=== PATIENT | female | born 1995 | race Caucasian/White ===

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

== ENCOUNTER 2017-02-04 12:23 | Emergency (ER) | payer MEDICAID ==
[~2017-02-04] VITALS: Ht 175.3 cm; Wt 88.5 kg
[~2017-02-04 12:23] MED LIST changes: +AMOX500C2 PO; +PNV91TAB3 PO
--- NOTE | 2017-02-04 14:09 | ED GU-Female ---
General Chief Complaint: -Female Stated Complaint: PRESSURE IN R ABD DOWN LEG, 19W Nursing Triage Note: AMB TO ROOM IS APX 19WEEKS PREG . FOR LAST 2 MONTHS HAS HAD LOW ABD PRESSURE OFF AND ON TODAY WORSE. ATE BREAKFAST BURITTO,AND BISQUIT AND GRAVY CROSSING WATCHMAN. Source: patient, other (significant other) Exam Limitations: no limitations History of Present Illness Time seen by provider: 14:09 Initial Comments 21-year-old female patient presents to the emergency department with complaints of right adnexa/groin pain radiating down the right medial thigh for approximately 2 months. Worse with standing for long periods of time. Patient works at [employer] and stands for the majority of her shifts. Denies any dysuria, frequency, hematuria, vaginal discharge, vaginal bleeding. Reports eating and drinking without difficulty. Timing/Duration: other (2 month onset. waxes and wanes.) Severity/Quality: other ("stretching") Location: groin (rt groin/adnexa) Radiation: other (radiates down the rt medial thigh) Activities at Onset: other (standing) Sexual Deltana History: less than 2 months ago, single partner Modifying Factors: Improves With Lying down, Worsens With Movement, Worsens With Other (standing for long periods of thime.) Allergies and Home Medications Allergies Coded Allergies: No Known Drug Allergies (Unverified , 09/15/14) Home Medications Amoxicillin 500 Mg Capsule, 500 MG PO TID, #15 Prescribed by: RADHA SANCHES on 11/13/16 2103 Cephalexin 500 Mg Capsule, 500 MG PO TID, #15 Ref 0 Prescribed by: ANIKA MAY on 02/04/17 1520 Pnv95/Ferrous Fumarate/FA 1 Each Tablet, 1 EACH PO DAILY, (Reported) Constitutional: No chills, No dizziness, No fever, No malaise, No weakness Respiratory: no symptoms reported Cardiovascular: no symptoms reported Gastrointestinal: see HPI, abdominal pain (rt adnexa/groin pain), No constipation, No diarrhea, No loss of appetite, No nausea, No vomiting Genitourinary: see HPI, denies burning, denies discharge, denies dysuria, denies frequency, denies flank pain, denies hematuria, pain : Yes Musculoskeletal: see HPI Skin: No change in color, No lesions, No rash Psychiatric/Neurological: Denies Numbness, Denies Paresthesia, Denies Tingling , Denies Weakness All Other Systemes Reviewed Negative Unless Noted: Yes (Negative excepted noted.) Past Kzedljh-Cmffcb-Qcrskj Hx Patient Social History Alcohol Use: Denies Use Recreational Drug Use: No Smoking Status: Never a Smoker 2nd Hand Smoke Exposure: No Recent Foreign Travel: No Contact w/Someone Who Travel: No Recent Infectious Disease Expo: No Recent Hopitalizations: No Immunizations Up To Date Tetanus Booster (TDap): Less than 5yrs PED Vaccines UTD: Yes Date of Influenza Vaccine: Jun 04, 2014 Seasonal Allergies Seasonal Allergies: No Surgeries HX Surgeries: Yes (D&C) Surgeries: Abdominal, Appendectomy, Ear Surgery Respiratory Hx Respiratory Disorders: Yes Respiratory Disorders: Asthma Cardiovascular Hx Cardiac Disorders: Yes (AORTIC STENOSIS PER PT) Cardiac Disorders: Heart Murmur, Hypertension, Irregular Heartbeat, Valvular Heart Disease Neurological Hx Neurological Disorders: Yes Neurological Disorders: Headaches /Migraines Reproductive System : Yes Hx : 3 Hx Para: 0 Hx Total # of Abortions (Spona: 2 ((was never seen by a physician or practitoner)) Hx Reproductive Disorders: Yes (ENDOMETRIOSIS) Sexually Transmitted Disease: No Female Reproductive Disorders: Endometriosis, 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 Genitourinary Hx Genitourinary Disorders: No Gastrointestinal Hx Gastrointestinal Disorders: No Musculoskeletal Hx Musculoskeletal Disorders: No Endocrine Hx Endocrine Disorders: No HEENT HX ENT Disorders: No Cancer Hx Cancer: No Psychosocial Hx Psychiatric Problems: Yes Behavioral Health Disorders: ADD/ADHD, Anxiety Integumentary HX Skin/Integumentary Disorder: No Blood Transfusions Hx Blood Disorders: No Adverse Reaction to a Blood Tr: No Reviewed Nursing Assessment Reviewed/Agree w Nursing PMH: Yes Family Medical History Significant Family History: No Pertinent Family Hx Physical Exam Vital Signs Vital Sign - Last 12Hours 02/04/17 13:29 Temp 97.5 Pulse 91 Resp 18 B/P (MAP) 172/97 O2 Delivery Room Air Capillary Refill : General Appearance: WD/WN, no apparent distress HEENT: PERRL/EOMI, pharynx normal Neck: supple, normal inspection Cardiovascular: normal peripheral pulses, regular rate, rhythm, no edema, no murmur Respiratory: lungs clear, normal breath sounds, no respiratory distress Gastrointestinal: normal bowel sounds, non tender, soft, No distended, other ( uteromegaly consistent with a 19 wk uterus) Back: normal inspection, no CVA tenderness Extremities: no pedal edema, normal capillary refill Neurologic/Psychiatric: no motor/sensory deficits, alert, normal mood/affect, oriented x 3 Skin: normal color, warm/dry Progress/Results/Core Measures Results/Orders Lab Results Laboratory Tests Test 02/04/17 14:10 Range/Units Urine Color YELLOW Urine Clarity SLIGHTLY CLOUDY Urine pH 6 5-9 Urine Specific [place] 1.020 1.016-1.022 Urine Protein 1+ H NEGATIVE Urine Glucose (UA) NEGATIVE NEGATIVE Urine Ketones 3+ H NEGATIVE Urine Nitrite NEGATIVE NEGATIVE Urine Bilirubin NEGATIVE NEGATIVE Urine Urobilinogen 1 NORMAL MG/DL Urine Leukocyte Esterase 1+ H NEGATIVE Urine RBC (Auto) NEGATIVE NEGATIVE Urine RBC NONE /HPF Urine WBC 2-5 /HPF Urine Squamous Epithelial Cells 2-5 /HPF Urine Crystals NONE /LPF Urine Bacteria MODERATE H /HPF Urine Casts NONE /LPF Urine Mucus LARGE H /LPF Urine Culture Indicated YES My Orders Orders - ANIKA MAY Heart Tones (02/04/17 14:08) Ua Culture If Indicated (02/04/17 14:08) Urine Culture (02/04/17 14:10) Vital Signs/I&O Vital Sign - Last 12Hours 02/04/17 13:29 Temp 97.5 Pulse 91 Resp 18 B/P (MAP) 172/97 O2 Delivery Room Air Departure Communication Progress Notes FHT's in the 140's. laboratory findings discussed with the patient. Plan for discharge to home. All return precautions were discussed with the patient as described in the discharge instructions of this report. Patient voices understanding and agrees with the treatment plan. Impression Impression: Primary Impression: Round ligament pain Additional Impressions: 19 weeks gestation of Urinary tract infection Qualified Codes: N30.00 - Acute cystitis without hematuria Volume depletion Disposition: 01 HOME, SELF-CARE Condition: Improved Departure-Patient Inst. Decision time for Depature: 14:56 Referrals: SOCORRO MCKEON MD (PCP/Family) Primary Care Physician Patient Instructions: Dehydration, Adult (DC), Round Ligament Pain Add. Discharge Instructions: All discharge instructions reviewed with patient and/or family. Voiced understanding. Tylenol Extra Strength pkky-ntx-sqjxwax as directed for pain. Push fluids. Avoid the heat. Avoid standing for long periods. Consider using a "belly band" or belly support. follow-up with Dr. Mckeon for recheck as previously scheduled. Return to the emergency department for worsened pain, vaginal bleeding, vaginal discharge, fever, inability to urinate , blood in the urine, or any other concerns. Scripts Cephalexin (Cephalexin) 500 Mg Capsule 500 MG PO TID, #15 CAP 0 Refills Prov: ANIKA MAY 02/04/17 ANIKA MAY Feb 04, 2017 14:09
[2017-02-04 14:48] LABS: BILIRUBIN,URINE NEGATIVE (NEGATIVE); KETONES,URINE 3+ (NEGATIVE); LEUKOCYTE ESTERASE ,URINE 1+ (NEGATIVE); NITRITE,URINE NEGATIVE (NEGATIVE); PH,URINE 6 (5-9); PROTEIN,URINE 1+ (NEGATIVE); UROBILINOGEN,URINE 1 MG/DL (NORMAL)
[2017-02-04] MEDS ORDERED: CEPH500C PO (15:20)
== END 2017-02-04 15:29 | disposition home or self-care (01) ==
LOC: EDUNIT# 12:23 → ER 12:26
DX: O26.892 Other specified pregnancy related conditions, second trimester (principal); R10.2 Pelvic and perineal pain; O23.42 Unspecified infection of urinary tract in pregnancy, second trimester; O99.282 Endocrine, nutritional and metabolic diseases complicating pregnancy, second trimester; E86.9 Volume depletion, unspecified; Z3A.19 19 weeks gestation of pregnancy
CPT/HCPCS: 81000; 87088; 99283

== ENCOUNTER 2017-03-19 22:23 | Outpatient (CLI) | payer MEDICAID ==
[~2017-03-19] VITALS: Ht 170.2 cm; Wt 91.3 kg
[~2017-03-19 22:23] MED LIST changes: +CEPH500C PO
[2017-03-19 22:43] VITALS: BP 131/78
[2017-03-19 22:54] LABS: BILIRUBIN,URINE NEGATIVE (NEGATIVE); KETONES,URINE NEGATIVE (NEGATIVE); LEUKOCYTE ESTERASE ,URINE NEGATIVE (NEGATIVE); NITRITE,URINE NEGATIVE (NEGATIVE); PH,URINE 6 (5-9); PROTEIN,URINE 1+ (NEGATIVE); UROBILINOGEN,URINE NORMAL (NORMAL)
[2017-03-19 23:02] LABS: WBC,URINE 0-2 /HPF
[2017-03-19] MEDS ORDERED: D5 LR IV SOLUTION 1,000 ML IV ONE ×2 (23:04→23:15)
[2017-03-19 23:37] VITALS: BP 125/60
--- NOTE | 2017-03-20 13:01 | Physician Query-Final Dx ---
ACE GAUTHIER 03/20/17 1301: Clinic Account Progress/Dx Physician Query: Please give diagnosis Date of Service Mar 19, 2017 at 22:23 SOCORRO KIRKLAND MD 03/21/17 1029: Clinic Account Progress/Dx DIAGNOSIS: Diagnosis false labor ACE GAUTHIER Mar 20, 2017 13:01 SOCORRO KIRKLAND MD Mar 21, 2017 10:29
[2017-06-08] MEDS ORDERED: DOCU100C37 PO (07:39)
[2017-06-08] MEDS ORDERED: IBUP-1780 PO (07:39)
[2017-06-08] MEDS ORDERED: OXYC-465 PO (07:39)
[2017-06-09] MEDS ORDERED: LABE200T3 PO (07:50)
== END 2017-03-20 02:55 | disposition home or self-care (01) ==
LOC: WSo 22:23 → LDRP 22:23 → WSo 03-20 02:55
PROVIDERS: ATTEND Obstetrics & Gynecology
DX: O47.02 False labor before 37 completed weeks of gestation, second trimester (principal); Z3A.25 25 weeks gestation of pregnancy; W18.2XXA Fall in (into) shower or empty bathtub, initial encounter
CPT/HCPCS: 81000; 96360; 96361; 99213

== ENCOUNTER 2017-04-05 13:19 | Outpatient (CLI) | payer MEDICAID ==
[~2017-04-05] VITALS: Ht 170.2 cm; Wt 94.5 kg
[2017-04-05 13:53] VITALS: BP 139/76
[2017-04-05 15:28] VITALS: BP 134/88
--- NOTE | 2017-04-06 12:44 | Physician Query-Final Dx ---
CLYDE MONTERO 04/06/17 1244: Clinic Account Progress/Dx Physician Query: Please give diagnosis Date of Service Apr 05, 2017 at 13:19 SOCORRO KIRKLAND MD 04/06/17 1702: Clinic Account Progress/Dx DIAGNOSIS: Diagnosis decreased movement CLYDE MONTERO Apr 06, 2017 12:44 SOCORRO KIRKLAND MD Apr 06, 2017 17:02
== END 2017-04-05 15:10 | disposition home or self-care (01) ==
LOC: LDRP 13:19 → WSo 13:19
PROVIDERS: ATTEND Obstetrics & Gynecology
DX: O36.8130 Decreased fetal movements, third trimester, not applicable or unspecified (principal); Z3A.31 31 weeks gestation of pregnancy
CPT/HCPCS: 99213

== ENCOUNTER → 2017-04-14 | Outpatient (CLI) | payer MEDICAID | LOC: LABNPT 12:15 | PROVIDERS: ATTEND Obstetrics & Gynecology | DX: Z34.83 Encounter for supervision of other normal pregnancy, third trimester (principal); Z3A.00 Weeks of gestation of pregnancy not specified | CPT/HCPCS: 86850; 86870 ==

== ENCOUNTER → 2017-04-15 | Outpatient (CLI) | payer MEDICAID | LOC: WSo 13:42 | PROVIDERS: ATTEND Obstetrics & Gynecology | DX: Z41.8 Encounter for other procedures for purposes other than remedying health state (principal) ==

== ENCOUNTER 2017-04-19 12:47 | Outpatient (CLI) | payer MEDICAID ==
[~2017-04-19] VITALS: Ht 170.2 cm; Wt 96.6 kg
[2017-04-19 13:20] VITALS: BP 144/78
[2017-04-19 13:38] LABS: BILIRUBIN,URINE NEGATIVE (NEGATIVE); KETONES,URINE NEGATIVE (NEGATIVE); LEUKOCYTE ESTERASE ,URINE 1+ (NEGATIVE); NITRITE,URINE NEGATIVE (NEGATIVE); PH,URINE 6 (5-9); PROTEIN,URINE 2+ (NEGATIVE); UROBILINOGEN,URINE NORMAL (NORMAL)
--- NOTE | 2017-04-20 11:38 | Physician Query-Final Dx ---
CLYDE MONTERO 04/20/17 1138: Clinic Account Progress/Dx Physician Query: Please give diagnosis Date of Service Apr 19, 2017 at 12:47 SOCORRO KIRKLAND MD 05/04/17 0819: Clinic Account Progress/Dx DIAGNOSIS: Diagnosis false labor CLYDE MONTERO Apr 20, 2017 11:38 SOCORRO KIRKLAND MD May 04, 2017 08:19
== END 2017-04-19 14:25 | disposition home or self-care (01) ==
LOC: WSo 12:47 → LDRP 12:49 → WSo 14:25
PROVIDERS: ATTEND Obstetrics & Gynecology
DX: O47.03 False labor before 37 completed weeks of gestation, third trimester (principal); Z3A.29 29 weeks gestation of pregnancy
CPT/HCPCS: 81000; 87088; 99213

== ENCOUNTER 2017-05-06 18:24 | Outpatient (CLI) | payer MEDICAID ==
[~2017-05-06] VITALS: Ht 170.2 cm; Wt 98.0 kg
[2017-05-06 18:38] VITALS: BP 136/73
[2017-05-06 18:59] VITALS: BP 140/90
[2017-05-06 19:00] VITALS: BP 137/83
[2017-05-06] MEDS ORDERED: D5 LR IV SOLUTION 1,000 ML IV SCH (19:15)
[2017-05-06 19:52] LABS: BASOPHILS % (AUTO) 0 % (0-10); EOSINOPHILS # (AUTO) 0.1 10^3/uL (0.0-0.3); EOSINOPHILS % (AUTO) 1 % (0-10); LYMPHOCYTES % (AUTO) 14 % (12-44); MEAN CORPUSCULAR HEMOGLOBIN 30 PG (25-34); MEAN CORPUSCULAR HGB CONC 34 G/DL (32-36); MEAN CORPUSCULAR VOLUME 89 FL (80-99); MEAN PLATELET VOLUME 10.8 FL (7.4-10.4); MONOCYTES # (AUTO) 1.5 X 10^3 (0.0-1.0); MONOCYTES % (AUTO) 10 % (0-12); NEUTROPHILS # (AUTO) 10.5 X 10^3 (1.8-7.8); NEUTROPHILS % (AUTO) 75 % (42-75); PLATELET COUNT 225 10^3/uL (130-400); RED BLOOD COUNT 3.68 10^6/uL (4.35-5.85); RED CELL DISTRIBUTION WIDTH 12.5 % (10.0-14.5)
[2017-05-06 20:10] LABS: ALANINE AMINOTRANSFERASE 19 U/L (0-55); ALBUMIN 3.2 GM/DL (3.2-4.5); ANION GAP 11 MMOL/L (5-14); ASPARTATE AMINO TRANSFERASE 13 U/L (5-34); BILIRUBIN,TOTAL 0.3 MG/DL (0.1-1.0); BLOOD UREA NITROGEN 14 MG/DL (7-18); BUN/CREATININE RATIO 26; CARBON DIOXIDE 20 MMOL/L (21-32); CHLORIDE 105 MMOL/L (98-107); CREATININE SERUM 0.53 MG/DL (0.60-1.30); GFR ESTIMATED > 60; GLUCOSE 110 MG/DL (70-105); LACTATE DEHYDROGENASE 177 U/L (125-220); POTASSIUM 3.7 MMOL/L (3.6-5.0); SODIUM 136 MMOL/L (135-145); TOTAL PROTEIN 6.2 GM/DL (6.4-8.2); URIC ACID 2.6 MG/DL (2.6-7.2)
[2017-05-06 20:13] LABS: PROTEIN/CREATININE RATIO 0.29
--- NOTE | 2017-05-09 13:32 | Physician Query-Final Dx ---
ACE GAUTHIER 05/09/17 1331: Clinic Account Progress/Dx Physician Query: Please give diagnosis Date of Service May 06, 2017 at 18:24 SOCORRO KIRKLAND MD 05/10/17 0737: Clinic Account Progress/Dx DIAGNOSIS: Diagnosis tachycardia due to dehydration ACE GAUTHIER May 09, 2017 13:31 SOCORRO KIRKLAND MD May 10, 2017 07:37
== END 2017-05-06 21:54 | disposition home or self-care (01) ==
LOC: WSo 18:24 → LDRP 18:31 → WSo 21:54
PROVIDERS: ATTEND Obstetrics & Gynecology
DX: O99.283 Endocrine, nutritional and metabolic diseases complicating pregnancy, third trimester (principal); E86.0 Dehydration; Z3A.31 31 weeks gestation of pregnancy
CPT/HCPCS: 36415; 80053; 80306; 82570; 83615; 84156; 84550; 85025; 96360; 99213

== ENCOUNTER 2017-05-14 13:18 | Observation (INO) | payer MEDICAID ==
[2017-05-14] VITALS (16 sets, daily range): BP systolic 119–170; BP diastolic 61–94
[~2017-05-14] VITALS: Ht 170.2 cm; Wt 100.3 kg
[2017-05-14] MEDS ORDERED: ONDANSETRON 4 MG/2 ML (SDV) Z0FRAN IVP ONE (13:45)
[2017-05-14] MEDS ORDERED: LACTATED RINGERS 1,000 ML IV ONE (13:45)
[2017-05-14 14:12] LABS: BASOPHILS % (AUTO) 0 % (0-10); EOSINOPHILS # (AUTO) 0.1 10^3/uL (0.0-0.3); EOSINOPHILS % (AUTO) 1 % (0-10); LYMPHOCYTES # (AUTO) 1.7 X 10^3 (1.0-4.0); LYMPHOCYTES % (AUTO) 14 % (12-44); MEAN CORPUSCULAR HEMOGLOBIN 30 PG (25-34); MEAN CORPUSCULAR HGB CONC 33 G/DL (32-36); MEAN CORPUSCULAR VOLUME 90 FL (80-99); MEAN PLATELET VOLUME 11.1 FL (7.4-10.4); MONOCYTES # (AUTO) 1.4 X 10^3 (0.0-1.0); MONOCYTES % (AUTO) 11 % (0-12); NEUTROPHILS # (AUTO) 9.3 X 10^3 (1.8-7.8); NEUTROPHILS % (AUTO) 75 % (42-75); PLATELET COUNT 219 10^3/uL (130-400); RED BLOOD COUNT 3.75 10^6/uL (4.35-5.85); RED CELL DISTRIBUTION WIDTH 12.8 % (10.0-14.5); WHITE BLOOD COUNT 12.5 10^3/uL (4.3-11.0)
[2017-05-14 14:26] LABS: ALANINE AMINOTRANSFERASE 16 U/L (0-55); ALBUMIN 3.2 GM/DL (3.2-4.5); ANION GAP 10 MMOL/L (5-14); ASPARTATE AMINO TRANSFERASE 12 U/L (5-34); BILIRUBIN,TOTAL 0.3 MG/DL (0.1-1.0); BLOOD UREA NITROGEN 12 MG/DL (7-18); BUN/CREATININE RATIO 21; CARBON DIOXIDE 18 MMOL/L (21-32); CHLORIDE 108 MMOL/L (98-107); CREATININE SERUM 0.57 MG/DL (0.60-1.30); GFR ESTIMATED > 60; GLUCOSE 133 MG/DL (70-105); SODIUM 136 MMOL/L (135-145); TOTAL PROTEIN 6.9 GM/DL (6.4-8.2)
[2017-05-14 15:23] LABS: BILIRUBIN,URINE NEGATIVE (NEGATIVE); KETONES,URINE NEGATIVE (NEGATIVE); LEUKOCYTE ESTERASE ,URINE 1+ (NEGATIVE); NITRITE,URINE NEGATIVE (NEGATIVE); PH,URINE 5 (5-9); PROTEIN,URINE 2+ (NEGATIVE); UROBILINOGEN,URINE NORMAL (NORMAL)
[2017-05-14 15:38] LABS: SQUAMOUS EPITHELIAL CELL,UR 25-50 /HPF; WBC,URINE 0-2 /HPF
[2017-05-14 15:39] LABS: CALCIUM OXALATE CRYSTALS,UR LARGE /LPF
[2017-05-14 16:44] LABS: PROTEIN/CREATININE RATIO 0.33
[2017-05-14] MEDS ORDERED: D5 LR IV SOLUTION 1,000 ML IV ONE (16:48)
[2017-05-14] MEDS: D5 LR IV SOLUTION 1,000 ML IV SCH ×2 (17:05→23:53)
--- NOTE | 2017-05-14 20:57 | History & Physical ---
History and Physical Date Seen by Provider: May 14, 2017 Time Seen by Provider: 20:52 this patient is a 21-year-old A1 white female with an EDC of July 02, 2017 putting her at just past 32 weeks gestation. She presented with complaint of nausea and vomiting and feeling ill. He was found to have 3+ proteinuria on dipstick and a urine protein creatinine ratio of over 3. She was also somewhat dehydrated. Patient reported feeling somewhat improved after IV hydration and antiemetics. She has remained for observation now secondary to the elevated urine protein and some occasional elevated blood pressures. Concern is for preeclampsia. She denies rupture membranes or bleeding. She is Rh- and had a dose of Rhogam at around 28 weeks gestation. allergies are none Medications are vitamins and Protonix Medical history, past surgical history, obstetric history, family history, social history are per the antepartum record HEENT exam is normal Neck is supple no lymphadenopathy no thyromegaly Abdomen is gravid soft nontender nondistended Extreme show no clubbing cyanosis. There is no Homans sign. DTRs are 2+ to low 3 over 4 globally Pelvic exam is deferred Monitor shows a reactive NST with no evidence of labor Lab work is as follows Laboratory Tests Test 05/14/17 14:00 05/14/17 14:10 Range/Units White Blood Count 12.5 H 4.3-11.0 10^3/uL Red Blood Count 3.75 L 4.35-5.85 10^6/uL Hemoglobin 11.2 L 11.5-16.0 G/DL Hematocrit 34 L 35-52 % Mean Corpuscular Volume 90 80-99 FL Mean Corpuscular Hemoglobin 30 25-34 PG Mean Corpuscular Hemoglobin Concent 33 32-36 G/DL Red Cell Distribution Width 12.8 10.0-14.5 % Platelet Count 219 130-400 10^3/uL Mean Platelet Volume 11.1 H 7.4-10.4 FL Neutrophils (%) (Auto) 75 42-75 % Lymphocytes (%) (Auto) 14 12-44 % Monocytes (%) (Auto) 11 0-12 % Eosinophils (%) (Auto) 1 0-10 % Basophils (%) (Auto) 0 0-10 % Neutrophils # (Auto) 9.3 H 1.8-7.8 X 10^3 Lymphocytes # (Auto) 1.7 1.0-4.0 X 10^3 Monocytes # (Auto) 1.4 H 0.0-1.0 X 10^3 Eosinophils # (Auto) 0.1 0.0-0.3 10^3/uL Basophils # (Auto) 0.0 0.0-0.1 10^3/uL Sodium Level 136 135-145 MMOL/L Potassium Level 4.0 3.6-5.0 MMOL/L Chloride Level 108 H 98-107 MMOL/L Carbon Dioxide Level 18 L 21-32 MMOL/L Anion Gap 10 5-14 MMOL/L Blood Urea Nitrogen 12 7-18 MG/DL Creatinine 0.57 L 0.60-1.30 MG/DL Estimat Glomerular Filtration Rate > 60 BUN/Creatinine Ratio 21 Glucose Level 133 H 70-105 MG/DL Calcium Level 9.0 8.5-10.1 MG/DL Total Bilirubin 0.3 0.1-1.0 MG/DL Aspartate Amino Transf (AST/SGOT) 12 5-34 U/L Alanine Aminotransferase (ALT/SGPT) 16 0-55 U/L Alkaline Phosphatase 147 H 40-136 U/L Total Protein 6.9 6.4-8.2 GM/DL Albumin 3.2 3.2-4.5 GM/DL Urine Color YELLOW Urine Clarity CLEAR Urine pH 5 5-9 Urine Specific [place] 1.025 H 1.016-1.022 Urine Protein 50 H 6-12 MG/DL Urine Glucose (UA) 3+ H NEGATIVE Urine Ketones NEGATIVE NEGATIVE Urine Nitrite NEGATIVE NEGATIVE Urine Bilirubin NEGATIVE NEGATIVE Urine Urobilinogen NORMAL NORMAL MG/DL Urine Leukocyte Esterase 1+ H NEGATIVE Urine RBC (Auto) NEGATIVE NEGATIVE Urine RBC NONE /HPF Urine WBC 0-2 /HPF Urine Squamous Epithelial Cells 25-50 H /HPF Urine Crystals PRESENT H /LPF Urine Calcium Oxalate Crystals LARGE H /LPF Urine Bacteria TRACE /HPF Urine Casts NONE /LPF Urine Mucus NEGATIVE /LPF Urine Culture Indicated NO Urine Creatinine 153 H 30-125 MG/DL Urine Protein/Creatinine Ratio 0.33 of note is the elevated urine protein creatinine ratio, and the elevated specific gravity liver enzymes are normal electrolytes were normal platelet count is normal assessment and plan 32+ week gestation with elevated urine protein creatinine ratio concerning for preeclampsia. Patient's dehydration may have an impact on her urine protein creatinine ratio we will keep her hydrated through the night and recheck the urine protein creatinine ratio in the morning. patient is found definitely to have preeclampsia then she will be admitted for observation until 37 weeks gestation at which time she would be delivered unless she were to develop severe preeclampsia warranting delivery at that point hyper proteinuria/preeclampsia Allergies and Home Medications Allergies Coded Allergies: No Known Drug Allergies (Unverified , 09/15/14) Home Medications Pnv95/Ferrous Fumarate/FA 1 Each Tablet, 1 EACH PO DAILY, (Reported) SOCORRO KIRKLAND MD May 14, 2017 8:57 pm
[2017-05-14] MEDS ORDERED: ACETAMINOPHEN 500 MG TAB (TYLENOL) PO PRN (21:15)
[2017-05-14] MEDS ORDERED: ONDANSETRON 4 MG/2 ML (SDV) Z0FRAN IVP PRN (21:15)
[2017-05-14] MEDS ORDERED: PANTOPRAZOLE 20 MG TABLET (PROTONIX) PO PRN (21:15)
--- OUTSIDE RECORDS SUMMARY | 2017-05-14 21:50 | XMS REPORT | Continuity of Care Document ---
Author Author [employer] [facility] Address Unknown Phone Unavailable Care Team Providers Care Supervisor Safety Deposit Name Role Phone [employer] Unavailable Unavailable Problems Medications Medication Details Route Status Patient Instructions Ordering Provider Order Date Source lisinopril 10 mg oral tablet 10 mg=1 tablet, PO, qDay , # 30 tablet, Refill(s) 11, Pharmacy: [facility] Active [facility] Albuterol Inhaler (unknown strength) =1 puff, Inhaled , 4 times a day, Refill(s) 0 [facility] Depo-Provera Every 3 months, Refill(s) 0
</br> Every 3 months [facility] Allergies, Adverse Reactions, Alerts Immunizations Results Vital Signs Vital Sign Value Date Comments Source Current Weight 79.7 kg 2013 [facility] Heart Rate 93 bpm 04/18/2014 [facility] Respiratory Rate 20 BR/min [facility] Height/Length 166.9 cm 2013 [facility] Systolic Blood Pressure Cuff Monitored 128 mm[Hg] 04/18/2014 [facility] Diastolic Blood Pressure Cuff Monitored 81 mm[Hg] 04/18/2014 [facility] Encounters Location Location Details Encounter Type Encounter Number Reason For Visit Attending Provider ADM Date DC Date Status Source CMJO CMJO CLI [id number] AVS Leonid Gelatt 04/18/2014 04/18/2014 [facility] Procedures Plan of Care Social History Assessment and Plan Family History Value Date Source Advance Directives Order Name Results Value Date Source
[2017-05-15 00:46] VITALS: BP 131/69
[2017-05-15 05:09] VITALS: BP 138/87
[2017-05-15] MEDS: D5 LR IV SOLUTION 1,000 ML IV SCH (06:30)
[2017-05-15 07:30] VITALS: BP 134/92
--- NOTE | 2017-05-15 07:34 | Progress Note-Standard ---
Standard Progress Note Progress Notes/Assess & Plan Date Seen by Provider: May 15, 2017 Time Seen by Provider: 07:31 Progress/Assessment & Plan this patient is now without complaint. She feels markedly better than on admission. She denies chest pain, denies shortness of breath, denies headache, denies nausea vomiting. She feel baby moving. She denies ruptured membranes or bleeding. Her nausea had resolved. She is voiding normally. Laboratory Tests Test 05/14/17 14:00 05/14/17 14:10 05/15/17 05:00 Range/Units White Blood Count 12.5 H 4.3-11.0 10^3/uL Red Blood Count 3.75 L 4.35-5.85 10^6/uL Hemoglobin 11.2 L 11.5-16.0 G/DL Hematocrit 34 L 35-52 % Mean Corpuscular Volume 90 80-99 FL Mean Corpuscular Hemoglobin 30 25-34 PG Mean Corpuscular Hemoglobin Concent 33 32-36 G/DL Red Cell Distribution Width 12.8 10.0-14.5 % Platelet Count 219 130-400 10^3/uL Mean Platelet Volume 11.1 H 7.4-10.4 FL Neutrophils (%) (Auto) 75 42-75 % Lymphocytes (%) (Auto) 14 12-44 % Monocytes (%) (Auto) 11 0-12 % Eosinophils (%) (Auto) 1 0-10 % Basophils (%) (Auto) 0 0-10 % Neutrophils # (Auto) 9.3 H 1.8-7.8 X 10^3 Lymphocytes # (Auto) 1.7 1.0-4.0 X 10^3 Monocytes # (Auto) 1.4 H 0.0-1.0 X 10^3 Eosinophils # (Auto) 0.1 0.0-0.3 10^3/uL Basophils # (Auto) 0.0 0.0-0.1 10^3/uL Sodium Level 136 135-145 MMOL/L Potassium Level 4.0 3.6-5.0 MMOL/L Chloride Level 108 H 98-107 MMOL/L Carbon Dioxide Level 18 L 21-32 MMOL/L Anion Gap 10 5-14 MMOL/L Blood Urea Nitrogen 12 7-18 MG/DL Creatinine 0.57 L 0.60-1.30 MG/DL Estimat Glomerular Filtration Rate > 60 BUN/Creatinine Ratio 21 Glucose Level 133 H 70-105 MG/DL Calcium Level 9.0 8.5-10.1 MG/DL Total Bilirubin 0.3 0.1-1.0 MG/DL Aspartate Amino Transf (AST/SGOT) 12 5-34 U/L Alanine Aminotransferase (ALT/SGPT) 16 0-55 U/L Alkaline Phosphatase 147 H 40-136 U/L Total Protein 6.9 6.4-8.2 GM/DL Albumin 3.2 3.2-4.5 GM/DL Urine Color YELLOW Urine Clarity CLEAR Urine pH 5 5-9 Urine Specific [place] 1.025 H 1.016-1.022 Urine Protein 50 H < 6 L 6-12 MG/DL Urine Glucose (UA) 3+ H NEGATIVE Urine Ketones NEGATIVE NEGATIVE Urine Nitrite NEGATIVE NEGATIVE Urine Bilirubin NEGATIVE NEGATIVE Urine Urobilinogen NORMAL NORMAL MG/DL Urine Leukocyte Esterase 1+ H NEGATIVE Urine RBC (Auto) NEGATIVE NEGATIVE Urine RBC NONE /HPF Urine WBC 0-2 /HPF Urine Squamous Epithelial Cells 25-50 H /HPF Urine Crystals PRESENT H /LPF Urine Calcium Oxalate Crystals LARGE H /LPF Urine Bacteria TRACE /HPF Urine Casts NONE /LPF Urine Mucus NEGATIVE /LPF Urine Culture Indicated NO Urine Creatinine 153 H 35 30-125 MG/DL Urine Protein/Creatinine Ratio 0.33 Urine protein creatinine ratio has normalized. Vital Signs Date Time Temp Pulse Resp B/P (MAP) Pulse Ox O2 Delivery O2 Flow Rate FiO2 05/15/17 05:09 97.0 86 20 138/87 Room Air 05/15/17 00:46 98 20 131/69 Room Air 05/14/17 23:52 97.2 93 20 130/61 Room Air 05/14/17 23:00 96 20 137/86 Room Air 05/14/17 22:00 86 20 122/67 Room Air 05/14/17 21:00 98.0 91 20 136/89 Room Air 05/14/17 20:05 93 20 141/84 Room Air 05/14/17 19:00 90 20 119/77 Room Air 05/14/17 18:00 93 20 130/85 05/14/17 17:00 92 20 143/82 05/14/17 16:00 86 20 140/91 05/14/17 15:30 85 20 128/74 05/14/17 15:00 87 20 132/74 05/14/17 14:30 98 20 135/69 05/14/17 14:22 90 20 131/85 05/14/17 14:20 100 20 136/94 05/14/17 14:00 96 20 170/85 05/14/17 13:30 98.8 111 20 137/86 blood pressures which have been somewhat labile running as high as 170/85 and now consistently in the 130s over 60s to 80s the abdomen is benign. Fundus is nontender. extremities show no clubbing or cyanosis. There is no Homans sign. DTRs are normal lochia. assessment and plan hospital day 2 with hyperproteinuria, dehydration and elevated blood pressures. the patient is symptomatically improved. Her lab work has normalized and her blood pressures are improved. Plan is for discharge home with follow-up in clinic Final Diagnosis 32+ weeks gestation/mild preeclampsia/hyper proteinuria/dehydration SOCORRO KIRKLAND MD May 15, 2017 7:34 am
--- NOTE | 2017-05-15 07:38 | Discharge Instructions ---
Discharge Instructions Discharge Medications New, Converted or Re-Newed RX: Other Patient Instructions Patient Instructions: as directed Return to The Hospital For: as directed Activity & Diet Discharge Diet: No Restrictions Activity as Tolerated: Yes Orders-Post D/C & Referrals return to clinic as scheduled on Monday for OB follow-up Return promptly for any signs symptoms and indications of labor, eclampsia, persistent nausea vomiting SOCORRO KIRKLAND MD May 15, 2017 7:38 am
--- OUTSIDE RECORDS SUMMARY | 2017-05-16 11:29 | XMS REPORT | Continuity of Care Document ---
Author Author [employer] Organization [facility] Address Unknown Phone Unavailable Care Team Providers Care Negative Cutter Name Role Phone [employer] Unavailable Unavailable Problems Medications Medication Details Route Status Patient Instructions Ordering Provider Order Date Source lisinopril 10 mg oral tablet 10 mg=1 tablet, PO, qDay , # 30 tablet, Refill(s) 11, Pharmacy: [facility] Albuterol Inhaler (unknown strength) =1 puff, Inhaled , 4 times a day, Refill(s) 0 [facility] Depo-Provera Every 3 months, Refill(s) 0
</br> Every 3 months [facility] Allergies, Adverse Reactions, Alerts Immunizations Results Vital Signs Vital Sign Value Date Comments Source Current Weight 79.[address] [facility] Heart Rate 93 bpm 04/18/2014 [facility] Respiratory Rate 20 BR/min [facility] Height/Length 166.[address] [facility] Systolic Blood Pressure Cuff Monitored 128 mm[Hg] 04/18/2014 [facility] Diastolic Blood Pressure Cuff Monitored 81 mm[Hg] 04/18/2014 [facility] Encounters Location Location Details Encounter Type Encounter Number Reason For Visit Attending Provider ADM Date DC Date Status Source CMJO CMJO CLI [id number] AVS Leonid Gelatt 04/18/2014 04/18/2014 [facility] Procedures Plan of Care Social History Assessment and Plan Family History Value Date Source Advance Directives Order Name Results Value Date Source
== END 2017-05-15 07:36 | disposition home or self-care (01) ==
LOC: LDRP 13:18 → WSo 13:18 → LDRP 13:25 → WSo 20:59 → LDRP 20:59 → UNDOADMOB 20:59 → UNDODISOB 05-15 08:05 → EDSTATUS 05-16 11:23
PROVIDERS: ADMIT Obstetrics & Gynecology; ATTEND Obstetrics & Gynecology
DX: O21.8 Other vomiting complicating pregnancy (principal); O12.13 Gestational proteinuria, third trimester; Z3A.32 32 weeks gestation of pregnancy
CPT/HCPCS: 36415; 80053; 81000; 82570; 84156; 85025; 96361; 96374; 99211; G0378

== ENCOUNTER → 2017-05-19 | Outpatient (CLI) | payer MEDICAID ==
[~2017-05-19] MED LIST changes: +PNV11TAB5 PO
[2017-05-19 11:34] LABS: PROTEIN/CREATININE RATIO 0.2
== END ==
LOC: LABNPT 11:07
PROVIDERS: ATTEND Obstetrics & Gynecology
DX: O14.03 Mild to moderate pre-eclampsia, third trimester (principal); Z3A.00 Weeks of gestation of pregnancy not specified
CPT/HCPCS: 82570; 84156

== ENCOUNTER 2017-05-21 13:53 | Outpatient (CLI) | payer MEDICAID ==
[~2017-05-21] VITALS: Ht 170.2 cm; Wt 102.6 kg
[~2017-05-21 13:53] MED LIST changes: -PNV11TAB5 PO
[2017-05-21 14:19] VITALS: BP 134/85
[2017-05-21] MEDS ORDERED: PNV11TAB5 PO (14:45)
--- NOTE | 2017-05-22 14:09 | Physician Query-Final Dx ---
ACE GAUTHIER 05/22/17 1409: Clinic Account Progress/Dx Physician Query: Please give diagnosis Date of Service May 21, 2017 at 13:53 SOCORRO KIRKLAND MD 05/23/17 0805: Clinic Account Progress/Dx DIAGNOSIS: Diagnosis false labor ACE GAUTHIER May 22, 2017 14:09 SOCORRO KIRKLAND MD May 23, 2017 08:05
== END 2017-05-21 15:26 | disposition home or self-care (01) ==
LOC: WSo 13:53 → LDRP 13:53 → WSo 15:26
PROVIDERS: ATTEND Obstetrics & Gynecology
DX: O47.03 False labor before 37 completed weeks of gestation, third trimester (principal); Z3A.34 34 weeks gestation of pregnancy
CPT/HCPCS: 99214

== ENCOUNTER → 2017-05-23 | Outpatient (CLI) | payer MEDICAID ==
[~2017-05-23] MED LIST changes: +PNV11TAB5 PO
[2017-05-23 11:27] LABS: PROTEIN/CREATININE RATIO 0.32
== END ==
LOC: LABNPT 10:56
PROVIDERS: ATTEND Obstetrics & Gynecology
DX: O14.03 Mild to moderate pre-eclampsia, third trimester; Z3A.00 Weeks of gestation of pregnancy not specified
CPT/HCPCS: 82570; 84156

== ENCOUNTER → 2017-05-26 | Outpatient (CLI) | payer MEDICAID ==
[~2017-05-26] MED LIST changes: +DOCU100C37 PO; +IBUP-1780 PO; +LABE200T3 PO; +OXYC-465 PO
[2017-05-26 09:45] LABS: PROTEIN/CREATININE RATIO 0.31
== END ==
LOC: LABNPT 08:55
PROVIDERS: ATTEND Obstetrics & Gynecology
DX: O28.8 Other abnormal findings on antenatal screening of mother (principal); Z3A.00 Weeks of gestation of pregnancy not specified
CPT/HCPCS: 82570; 84156

== ENCOUNTER → 2017-05-30 | Outpatient (CLI) | payer MEDICAID ==
[~2017-05-30] MED LIST changes: -DOCU100C37 PO; -IBUP-1780 PO; -LABE200T3 PO; -OXYC-465 PO
[2017-05-30 11:02] LABS: PROTEIN/CREATININE RATIO 0.44
== END ==
LOC: LABNPT 10:28
PROVIDERS: ATTEND Obstetrics & Gynecology
DX: O28.8 Other abnormal findings on antenatal screening of mother (principal); Z3A.00 Weeks of gestation of pregnancy not specified
CPT/HCPCS: 82570; 84156

== ENCOUNTER → 2017-06-02 | Outpatient (CLI) | payer MEDICAID ==
[2017-06-02 10:34] LABS: PROTEIN/CREATININE RATIO 0.5
== END ==
LOC: LABNPT 09:55
PROVIDERS: ATTEND Obstetrics & Gynecology
DX: O20.8 Other hemorrhage in early pregnancy (principal); Z3A.00 Weeks of gestation of pregnancy not specified
CPT/HCPCS: 82570; 84156

== ENCOUNTER → 2017-06-06 | Outpatient (CLI) | payer MEDICAID ==
[~2017-06-06] MED LIST changes: +DOCU100C37 PO; +IBUP-1780 PO; +LABE200T3 PO; +OXYC-465 PO
[2017-06-06 17:47] LABS: PROTEIN/CREATININE RATIO 0.36
== END ==
LOC: LABNPT 10:25
PROVIDERS: ATTEND Obstetrics & Gynecology
DX: O28.8 Other abnormal findings on antenatal screening of mother; Z3A.00 Weeks of gestation of pregnancy not specified
CPT/HCPCS: 82570; 84156

== ENCOUNTER 2017-06-07 18:22 | Inpatient (IN) | payer MEDICAID ==
[2017-06-07] VITALS (27 sets, daily range): BP systolic 118–188; BP diastolic 82–120
[~2017-06-07] VITALS: Ht 170.2 cm; Wt 108.4 kg
[~2017-06-07 18:22] MED LIST changes: -DOCU100C37 PO; -IBUP-1780 PO; -LABE200T3 PO; -OXYC-465 PO
[2017-06-07 19:05] LABS: BILIRUBIN,URINE NEGATIVE (NEGATIVE); KETONES,URINE NEGATIVE (NEGATIVE); LEUKOCYTE ESTERASE ,URINE 1+ (NEGATIVE); NITRITE,URINE NEGATIVE (NEGATIVE); PH,URINE 7 (5-9); PROTEIN,URINE 3+ (NEGATIVE); UROBILINOGEN,URINE 1 MG/DL (NORMAL)
[2017-06-07] MEDS ORDERED: INFLUENZA TRIvalent 2017-2018 0.5 ML/45 MCG SYR IM ONE (19:15)
[2017-06-07 19:17] LABS: SQUAMOUS EPITHELIAL CELL,UR 25-50 /HPF
[2017-06-07] MEDS ORDERED: D5 LR IV SOLUTION 1,000 ML IV ONE ×2 (19:20→20:54)
[2017-06-07] MEDS ORDERED: D5 LR IV SOLUTION 1,000 ML IV SCH ×2 (19:45→20:44)
[2017-06-07 19:57] LABS: MEAN PLATELET VOLUME 11.3 FL (7.4-10.4); RED BLOOD COUNT 3.74 10^6/uL (4.35-5.85); RED CELL DISTRIBUTION WIDTH 13.3 % (10.0-14.5); WHITE BLOOD COUNT 9.8 10^3/uL (4.3-11.0)
[2017-06-07 20:15] LABS: ALANINE AMINOTRANSFERASE 19 U/L (0-55); ALBUMIN 3.1 GM/DL (3.2-4.5); ANION GAP 9 MMOL/L (5-14); ASPARTATE AMINO TRANSFERASE 14 U/L (5-34); BILIRUBIN,TOTAL 0.2 MG/DL (0.1-1.0); BLOOD UREA NITROGEN 11 MG/DL (7-18); BUN/CREATININE RATIO 21; CALCIUM 9.1 MG/DL (8.5-10.1); CARBON DIOXIDE 21 MMOL/L (21-32); CHLORIDE 107 MMOL/L (98-107); CREATININE SERUM 0.52 MG/DL (0.60-1.30); GFR ESTIMATED > 60; GLUCOSE 104 MG/DL (70-105); LACTATE DEHYDROGENASE 201 U/L (125-220); POTASSIUM 3.8 MMOL/L (3.6-5.0); SODIUM 137 MMOL/L (135-145); TOTAL PROTEIN 6.8 GM/DL (6.4-8.2); URIC ACID 2.4 MG/DL (2.6-7.2)
[2017-06-07 20:18] LABS: PROTEIN/CREATININE RATIO 1.18
[2017-06-07] MEDS ORDERED: METOCLOPRAMIDE INJ 10 MG/2 ML (REGLAN) ONE (20:24)
[2017-06-07] MEDS ORDERED: CITRIC ACID/SOB CIT (BICITRA) 30 ML UDC ONE (20:25)
[2017-06-07] MEDS ORDERED: ceFAZolin 2 GM/50 ML NS 50 ML ONE (20:25)
[2017-06-07] MEDS ORDERED: metroNIDAZOLE 500MG/100ML IVPB 100 ML ONE (20:25)
[2017-06-07] MEDS ORDERED: hydrALAZINE (APESOLINE) 20 MG/ML VIAL ONE ×2 (20:37→21:02)
[2017-06-07] MEDS ORDERED: MAGNESIUM SULFATE DRIP 500 ML IV ONE (20:37)
--- NOTE | 2017-06-07 20:44 | History & Physical ---
History and Physical Date Seen by Provider: Jun 07, 2017 Time Seen by Provider: 20:32 this patient is a 21-year-old G3 A2 white female with a due date of July 02, 2017 making her now 36 weeks and 3 days. She has been followed in clinic for mildly elevated blood pressures and progressively increasing proteinuria. She presented to labor and delivery this evening with complaint of headache increasing swelling leg numbness. She denies rupture membranes or bleeding. She has had a GBS culture done after 35 weeks gestation that was positive. She indicates currently that her headache has slightly improved.. Allergies are none Medications are vitamins and Protonix Past medical history, past surgical history, obstetric history, family history, and social histories are per the antepartum record HEENT exam is normal Is supple no lymphadenopathy no thyromegaly Abdomen is gravid soft nontender nondistended Extremities show no clubbing or cyanosis. There is fairly markedly pretibial pitting edema. DTRs are 3+ to 4 globally. Pelvic exam is deferred Vital Signs Date Time Temp Pulse Resp B/P (MAP) Pulse Ox O2 Delivery O2 Flow Rate FiO2 06/07/17 19:05 102 18 138/85 Room Air 06/07/17 19:00 104 18 138/92 Room Air 06/07/17 18:55 104 18 158/107 Room Air 06/07/17 18:50 97.2 106 18 158/112 Room Air Blood pressures are noted but nurses every cord blood pressures of the 180s over 110+ or minus. Current blood pressure 171/105 Laboratory Tests Test 06/07/17 18:50 06/07/17 19:45 Range/Units Urine Color YELLOW Urine Clarity CLEAR Urine pH 7 5-9 Urine Specific [place] 1.015 L 1.016-1.022 Urine Protein 79 H 6-12 MG/DL Urine Glucose (UA) 4+ H NEGATIVE Urine Ketones NEGATIVE NEGATIVE Urine Nitrite NEGATIVE NEGATIVE Urine Bilirubin NEGATIVE NEGATIVE Urine Urobilinogen 1 NORMAL MG/DL Urine Leukocyte Esterase 1+ H NEGATIVE Urine RBC (Auto) NEGATIVE NEGATIVE Urine RBC NONE /HPF Urine WBC 2-5 /HPF Urine Squamous Epithelial Cells 25-50 H /HPF Urine Crystals NONE /LPF Urine Bacteria MODERATE H /HPF Urine Casts NONE /LPF Urine Mucus NEGATIVE /LPF Urine Culture Indicated NO Urine Creatinine 67 30-125 MG/DL Urine Protein/Creatinine Ratio 1.18 White Blood Count 9.8 4.3-11.0 10^3/uL Red Blood Count 3.74 L 4.35-5.85 10^6/uL Hemoglobin 10.8 L 11.5-16.0 G/DL Hematocrit 33 L 35-52 % Mean Corpuscular Volume 89 80-99 FL Mean Corpuscular Hemoglobin 29 25-34 PG Mean Corpuscular Hemoglobin Concent 33 32-36 G/DL Red Cell Distribution Width 13.3 10.0-14.5 % Platelet Count 196 130-400 10^3/uL Mean Platelet Volume 11.3 H 7.4-10.4 FL Sodium Level 137 135-145 MMOL/L Potassium Level 3.8 3.6-5.0 MMOL/L Chloride Level 107 98-107 MMOL/L Carbon Dioxide Level 21 21-32 MMOL/L Anion Gap 9 5-14 MMOL/L Blood Urea Nitrogen 11 7-18 MG/DL Creatinine 0.52 L 0.60-1.30 MG/DL Estimat Glomerular Filtration Rate > 60 BUN/Creatinine Ratio 21 Glucose Level 104 70-105 MG/DL Uric Acid 2.4 L 2.6-7.2 MG/DL Calcium Level 9.1 8.5-10.1 MG/DL Total Bilirubin 0.2 0.1-1.0 MG/DL Aspartate Amino Transf (AST/SGOT) 14 5-34 U/L Alanine Aminotransferase (ALT/SGPT) 19 0-55 U/L Alkaline Phosphatase 159 H 40-136 U/L Lactate Dehydrogenase 201 125-220 U/L Total Protein 6.8 6.4-8.2 GM/DL Albumin 3.1 L 3.2-4.5 GM/DL Liver enzymes are normal. LDH is normal range. Sodium and potassium while in the normal ranges are somewhat elevated for . The calcium is certainly elevated for total protein is elevated for urine creatinine ratio was over 20 which would suggest some degree of hemoconcentration/intravascular depletion Of note is the urine protein creatinine ratio of 1.18 Assessment and plan 36-3/7 weeks' gestation with preeclampsia that is progressing to severe preeclampsia. Her blood pressures are fairly markedly elevated urine protein creatinine ratio was markedly elevated. Her blood pressures initially improved when she was admitted put at bed rest however they are escalating currently. If recheck of her blood pressure is greater than 160/110 we will administer and a hypertensive medication and proceed with delivery. I would be concerned that any uterotonic medication would exacerbate her already elevated blood pressure. this is been fully discussed with this patient now and has been discussed previously as her blood pressures have been increasing in her urine protein creatinine ratio has been creating decreasing is well she has appear to be heading in this direction 4 the past week or so. Patient understands preeclampsia and severe preeclampsia. repeat the blood pressures now reported at 188/114. We are going ahead with Apresoline to lower the blood pressure and call in the surgical crews for primary 36-3/7 weeks' gestation with severe preeclampsia Allergies and Home Medications Allergies Coded Allergies: No Known Drug Allergies (Unverified , 09/15/14) Home Medications [id number]/FA/Omega3/Dha/Fish Oil 1 Each Tab.chew, 2 EACH PO DAILY, (Reported) SOCORRO KIRKLAND MD Jun 07, 2017 8:44 pm
[2017-06-07] MEDS ORDERED: metroNIDAZOLE 500MG/100ML IVPB 100 ML IV ONE (20:45)
[2017-06-07] MEDS ORDERED: MAGNESIUM SULFATE DRIP 500 ML IV SCH ×2 (20:45→21:00)
[2017-06-07] MEDS ORDERED: ceFAZolin INJECTION 2,000 MG in NS (IVPB) 50 ML IV ONE (20:45)
[2017-06-07] MEDS ORDERED: OXYTOCIN/NORMAL SALINE 500 ML IV SCH (20:46)
--- NOTE | 2017-06-07 20:57 | Progress Note-Post Operative ---
Post-Operative Progess Note Surgeon (s)/Control Cabinet Assembler (s) Surgeon SOCORRO KIRKLAND MD Control Cabinet Assembler: Nikkie Reynolds Pre-Operative Diagnosis 36-3/7 weeks' gestation with severe preeclampsia Post-Operative Diagnosis same Procedure & Operative Findings Date of Procedure 06/07/17 Procedure Performed/Findings primary low transverse delivery Anesthesia Type spinal Estimated Blood Loss Estimated blood loss (mL): 350 cm Specimens/Packing Specimens Removed placenta/cord bloods/umbilical cord Packing: none SOCORRO KIRKLAND MD Jun 07, 2017 20:57
[2017-06-07] MEDS ORDERED: fentaNYL INJECTION 100 MCG/2 ML AMP IVP PRN (21:00)
[2017-06-07] MEDS ORDERED: CITRIC ACID/SOB CIT (BICITRA) 30 ML UDC PO ONE (21:00)
[2017-06-07] MEDS ORDERED: METOCLOPRAMIDE INJ 10 MG/2 ML (REGLAN) IV ONE (21:00)
[2017-06-07] MEDS ORDERED: ONDANSETRON 4 MG/2 ML (SDV) Z0FRAN IVP PRN (21:00)
[2017-06-07] MEDS ORDERED: MEASLES,MUMPS,RUBELLA 1 EA INJ SC ONE (21:00)
[2017-06-07] MEDS ORDERED: TETANUS,DIPTH,PERTUSS P/F (BOOSTRIX) 0.5 ML VIAL IM ONE (21:00)
[2017-06-07] MEDS ORDERED: FAMOTIDINE 20MG/2ML IV (PEPCID) IV ONE (21:00)
[2017-06-07] MEDS ORDERED: ONDANSETRON 4 MG/2 ML (SDV) Z0FRAN ONE (21:16)
[2017-06-07] MEDS ORDERED: LIDOCAINE PF 2% 5 ML (XYLOCAINE) VIAL ONE (22:10)
--- OUTSIDE RECORDS SUMMARY | 2017-06-07 22:21 | XMS REPORT | Continuity of Care Document ---
Author Author [employer] Organization [facility] Address Unknown Phone Unavailable Care Team Providers Care Brake Repairer Name Role Phone [employer] Unavailable Unavailable Problems Medications Medication Details Route Status Patient Instructions Ordering Provider Order Date Source lisinopril 10 mg oral tablet 10 mg=1 tablet, PO, qDay , # 30 tablet, Refill(s) 11, Pharmacy: [facility] Active [facility] Albuterol Inhaler (unknown strength) =1 puff, Inhaled , 4 times a day, Refill(s) 0 [facility] Depo-Provera Every 3 months, Refill(s) 0
</br> Every 3 months [facility] Allergies, Adverse Reactions, Alerts Immunizations Results Vital Signs Vital Sign Value Date Comments Source Current Weight 79.7 kg 2013 [facility] Heart Rate 93 bpm 04/18/2014 [facility] Respiratory Rate 20 BR/min [facility] Height/Length 166.9 cm 2013 [facility] Systolic Blood Pressure Cuff Monitored 128 mm[Hg] 04/18/2014 [facility] Diastolic Blood Pressure Cuff Monitored 81 mm[Hg] 04/18/2014 [facility] Encounters Location Location Details Encounter Type Encounter Number Reason For Visit Attending Provider ADM Date DC Date Status Source CMJO CMJO CLI [id number] AVS Leonid Gelatt 04/18/2014 04/18/2014 [facility] Procedures Plan of Care Social History Assessment and Plan Family History Value Date Source Advance Directives Order Name Results Value Date Source
--- OUTSIDE RECORDS SUMMARY | 2017-06-07 22:22 | XMS REPORT ---
Author Author VIBHA BARRIENTOS [facility] Address [address] [place] [address] Care Team Providers Care Supervisor Coal Handling Name Role Phone VIBHA BARRIENTOS Unavailable PROBLEMS Type Condition ICD9-CM Code HCX10-DI Code Onset Dates Condition Status SNOMED Code Problem Unspecified backache 724.5 Active 431190196 ALLERGIES No Information SOCIAL HISTORY Never Assessed PLAN OF CARE VITAL SIGNS MEDICATIONS Unknown Medications RESULTS Name Result Date Reference Range TEST, URINE (IN HOUSE) 2016-10-27 RESULTS positive Lot # [id number] Control positive Exp date 06/03/18 PROCEDURES Procedure Date Ordered Result Body Site URINE TEST Oct 27, 2016 IMMUNIZATIONS No Known Immunizations
[2017-06-07] MEDS ORDERED: MEPERIDINE (DEMEROL) INJ 100 MG/ML ONE (22:26)
[2017-06-07] MEDS ORDERED: ONDANSETRON 4 MG/2 ML (SDV) Z0FRAN IV PRN (22:30)
[2017-06-07] MEDS ORDERED: NALOXONE 0.4 MG/ML 1 ML (NARCAN) VIAL IV PRN (22:30)
[2017-06-07] MEDS ORDERED: diphenhydrAMINE 50 MG/ML INJ (BENADRYL) IV PRN (22:30)
[2017-06-07] MEDS: MEPERIDINE (DEMEROL) INJ 50 MG/ML IVP PRN ×2 (22:38→22:58)
[2017-06-07] MEDS ORDERED: hydrALAZINE (APESOLINE) 20 MG/ML VIAL IV ONE ×2 (22:45)
[2017-06-08] VITALS (13 sets, daily range): BP systolic 114–156; BP diastolic 60–108
[2017-06-08] MEDS: KETOROLAC 30 MG/ML VIAL IVP SCH ×3 (01:26→21:39)
[2017-06-08 05:12] LABS: BASOPHILS % (AUTO) 0 % (0-10); EOSINOPHILS # (AUTO) 0.1 10^3/uL (0.0-0.3); EOSINOPHILS % (AUTO) 1 % (0-10); LYMPHOCYTES # (AUTO) 1.8 X 10^3 (1.0-4.0); LYMPHOCYTES % (AUTO) 12 % (12-44); MEAN CORPUSCULAR HEMOGLOBIN 29 PG (25-34); MEAN CORPUSCULAR HGB CONC 32 G/DL (32-36); MEAN CORPUSCULAR VOLUME 89 FL (80-99); MEAN PLATELET VOLUME 11.7 FL (7.4-10.4); MONOCYTES # (AUTO) 1.7 X 10^3 (0.0-1.0); MONOCYTES % (AUTO) 11 % (0-12); NEUTROPHILS # (AUTO) 11.6 X 10^3 (1.8-7.8); NEUTROPHILS % (AUTO) 76 % (42-75); PLATELET COUNT 191 10^3/uL (130-400); RED BLOOD COUNT 3.33 10^6/uL (4.35-5.85); RED CELL DISTRIBUTION WIDTH 13.2 % (10.0-14.5); WHITE BLOOD COUNT 15.2 10^3/uL (4.3-11.0)
[2017-06-08 06:00] LABS: ALANINE AMINOTRANSFERASE 17 U/L (0-55); ALBUMIN 2.6 GM/DL (3.2-4.5); ANION GAP 10 MMOL/L (5-14); ASPARTATE AMINO TRANSFERASE 25 U/L (5-34); BILIRUBIN,TOTAL 0.3 MG/DL (0.1-1.0); BLOOD UREA NITROGEN 12 MG/DL (7-18); BUN/CREATININE RATIO 23; CALCIUM 7.8 MG/DL (8.5-10.1); CARBON DIOXIDE 17 MMOL/L (21-32); CHLORIDE 108 MMOL/L (98-107); CREATININE SERUM 0.53 MG/DL (0.60-1.30); GFR ESTIMATED > 60; GLUCOSE 109 MG/DL (70-105); LACTATE DEHYDROGENASE 388 U/L (125-220); POTASSIUM 4.3 MMOL/L (3.6-5.0); SODIUM 135 MMOL/L (135-145); TOTAL PROTEIN 5.6 GM/DL (6.4-8.2)
[2017-06-08] MEDS: oxyCODONE/APAP 10/325MG (PERCOCET 10) TABLET PO PRN ×2 (06:28→13:36)
--- NOTE | 2017-06-08 07:36 | Progress Note-Standard ---
Standard Progress Note Progress Notes/Assess & Plan Date Seen by Provider: Jun 08, 2017 Time Seen by Provider: 07:32 Progress/Assessment & Plan this patient is without complaint. Her magnesium was discontinued this morning as her blood pressures have begun normalizing. Her lab work was reassuring. has good pain control and has been tolerating oral intake. She has not voided as yet. Vital Signs Date Time Temp Pulse Resp B/P (MAP) Pulse Ox O2 Delivery O2 Flow Rate FiO2 06/08/17 06:00 87 18 123/74 100 Room Air 06/08/17 05:00 98 18 124/74 100 Room Air 06/08/17 04:00 98.2 103 18 138/74 98 Room Air 06/08/17 03:00 104 18 114/60 98 Room Air 06/08/17 02:48 Room Air 06/08/17 02:00 110 18 131/69 99 Room Air 06/08/17 01:00 102 18 125/76 98 Room Air 06/08/17 00:00 101 18 148/69 100 Room Air 06/07/17 23:25 97.2 91 18 118/87 100 Room Air 06/07/17 21:25 118 18 168/103 Room Air 06/07/17 21:15 112 18 164/90 Room Air 06/07/17 21:00 110 18 167/98 Room Air 06/07/17 20:55 112 18 173/117 Room Air 06/07/17 20:50 114 18 177/113 Room Air 06/07/17 20:46 118 18 177/120 Room Air 06/07/17 20:40 96 18 173/91 Room Air 06/07/17 20:35 18 171/101 Room Air 06/07/17 20:30 114 18 188/114 Room Air 06/07/17 20:25 103 18 171/105 Room Air 06/07/17 20:20 97 18 168/108 Room Air 06/07/17 20:15 100 18 184/107 Room Air 06/07/17 20:10 98 18 169/92 Room Air 06/07/17 20:05 94 18 162/97 Room Air 06/07/17 20:00 93 18 172/107 Room Air 06/07/17 19:55 96 18 152/91 Room Air 06/07/17 19:50 88 18 152/97 Room Air 06/07/17 19:45 95 18 146/92 Room Air 06/07/17 19:25 97 18 139/84 Room Air 06/07/17 19:20 93 18 138/84 Room Air 06/07/17 19:15 98 18 135/82 Room Air 06/07/17 19:10 91 18 137/82 Room Air 06/07/17 19:05 102 18 138/85 Room Air 06/07/17 19:00 104 18 138/92 Room Air 06/07/17 18:55 104 18 158/107 Room Air 06/07/17 18:50 97.2 106 18 158/112 Room Air Since about midnight her blood pressures have fairly significantly improved.SHEENT is afebrile. Laboratory Tests Test 06/07/17 18:50 06/07/17 19:45 06/08/17 04:50 Range/Units Urine Color YELLOW Urine Clarity CLEAR Urine pH 7 5-9 Urine Specific [place] 1.015 L 1.016-1.022 Urine Protein 79 H 6-12 MG/DL Urine Glucose (UA) 4+ H NEGATIVE Urine Ketones NEGATIVE NEGATIVE Urine Nitrite NEGATIVE NEGATIVE Urine Bilirubin NEGATIVE NEGATIVE Urine Urobilinogen 1 NORMAL MG/DL Urine Leukocyte Esterase 1+ H NEGATIVE Urine RBC (Auto) NEGATIVE NEGATIVE Urine RBC NONE /HPF Urine WBC 2-5 /HPF Urine Squamous Epithelial Cells 25-50 H /HPF Urine Crystals NONE /LPF Urine Bacteria MODERATE H /HPF Urine Casts NONE /LPF Urine Mucus NEGATIVE /LPF Urine Culture Indicated NO Urine Creatinine 67 30-125 MG/DL Urine Protein/Creatinine Ratio 1.18 Urine Opiates Screen NEGATIVE NEGATIVE Urine Oxycodone Screen NEGATIVE NEGATIVE Urine Methadone Screen NEGATIVE NEGATIVE Urine Propoxyphene Screen NEGATIVE NEGATIVE Urine Barbiturates Screen NEGATIVE NEGATIVE Ur Tricyclic Antidepressants Screen NEGATIVE NEGATIVE Urine Phencyclidine Screen NEGATIVE NEGATIVE Urine Amphetamines Screen NEGATIVE NEGATIVE Urine Methamphetamines Screen NEGATIVE NEGATIVE Urine Benzodiazepines Screen NEGATIVE NEGATIVE Urine Cocaine Screen NEGATIVE NEGATIVE Urine Cannabinoids Screen NEGATIVE NEGATIVE White Blood Count 9.8 15.2 H 4.3-11.0 10^3/uL Red Blood Count 3.74 L 3.33 L 4.35-5.85 10^6/uL Hemoglobin 10.8 L 9.5 L 11.5-16.0 G/DL Hematocrit 33 L 30 L 35-52 % Mean Corpuscular Volume 89 89 80-99 FL Mean Corpuscular Hemoglobin 29 29 25-34 PG Mean Corpuscular Hemoglobin Concent 33 32 32-36 G/DL Red Cell Distribution Width 13.3 13.2 10.0-14.5 % Platelet Count 196 191 130-400 10^3/uL Mean Platelet Volume 11.3 H 11.7 H 7.4-10.4 FL Sodium Level 137 135 135-145 MMOL/L Potassium Level 3.8 4.3 3.6-5.0 MMOL/L Chloride Level 107 108 H 98-107 MMOL/L Carbon Dioxide Level 21 17 L 21-32 MMOL/L Anion Gap 9 10 5-14 MMOL/L Blood Urea Nitrogen 11 12 7-18 MG/DL Creatinine 0.52 L 0.53 L 0.60-1.30 MG/DL Estimat Glomerular Filtration Rate > 60 > 60 BUN/Creatinine Ratio 21 23 Glucose Level 104 109 H 70-105 MG/DL Uric Acid 2.4 L 2.6-7.2 MG/DL Calcium Level 9.1 7.8 L 8.5-10.1 MG/DL Total Bilirubin 0.2 0.3 0.1-1.0 MG/DL Aspartate Amino Transf (AST/SGOT) 14 25 5-34 U/L Alanine Aminotransferase (ALT/SGPT) 19 17 0-55 U/L Alkaline Phosphatase 159 H 150 H 40-136 U/L Lactate Dehydrogenase 201 388 H 125-220 U/L Total Protein 6.8 5.6 L 6.4-8.2 GM/DL Albumin 3.1 L 2.6 L 3.2-4.5 GM/DL Neutrophils (%) (Auto) 76 H 42-75 % Lymphocytes (%) (Auto) 12 12-44 % Monocytes (%) (Auto) 11 0-12 % Eosinophils (%) (Auto) 1 0-10 % Basophils (%) (Auto) 0 0-10 % Neutrophils # (Auto) 11.6 H 1.8-7.8 X 10^3 Lymphocytes # (Auto) 1.8 1.0-4.0 X 10^3 Monocytes # (Auto) 1.7 H 0.0-1.0 X 10^3 Eosinophils # (Auto) 0.1 0.0-0.3 10^3/uL Basophils # (Auto) 0.0 0.0-0.1 10^3/uL Patient's lab work has remained stable. The LDH increased some as would be expected postoperatively. The abdomen is benign. Incision is clean dry and intact. Fundus is firm below the umbilicus and nontender. Extremities show no clubbing cyanosis. There is no Homans sign. There is fairly notable pretibial edema but that has not changed significantly since her delivery. Assessment and plan postoperative day number 1 status post primary delivery secondary to severe preeclampsia. Her blood pressures have begun normalizing. He has been discontinued and we will watch her blood pressure through the day. At this point plan is for routine convalescence post care with a close attention to blood pressures and signs symptoms and indications of recurrent or worsening preeclampsia SOCORRO KIRKLAND MD Jun 08, 2017 7:36 am
[2017-06-08] MEDS ORDERED: OXYC-465 PO (07:39)
[2017-06-08] MEDS ORDERED: DOCU100C37 PO (07:39)
[2017-06-08] MEDS ORDERED: IBUP-1780 PO (07:39)
--- NOTE | 2017-06-08 07:40 | Discharge Instructions ---
Discharge Instructions Discharge Medications New, Converted or Re-Newed RX: RX on Chart Patient Instructions Patient Instructions: as directed Return to The Hospital For: as directed Activity & Diet Discharge Diet: No Restrictions Activity as Tolerated: No Orders-Post D/C & Referrals Follow Up Appt: RTC 1 week for incision check. Call to make follow up appt. for patient in 4 weeks. Wound Care: Remove cande, apply benzoin and steri strips. Activity Per routine post instructions. Please call in RX to patient pharmacy. Diet as tolerated Patient may shower or tub bathe as desired. Continue home meds SOCORRO KIRKLAND MD Jun 08, 2017 7:40 am
[2017-06-08] MEDS: DOCUSATE SODIUM 100 MG (COLACE) CAP PO SCH ×2 (09:20→21:38)
--- NOTE | 2017-06-08 11:10 | OPERATIVE REPORT ---
DATE OF SERVICE: 06/07/2017 PREOPERATIVE DIAGNOSIS: A 36-3/7 weeks' gestation with severe preeclampsia. POSTOPERATIVE DIAGNOSIS: A 36-3/7 weeks' gestation with severe preeclampsia. OPERATIVE PROCEDURE: Primary low transverse delivery of a viable female with Apgars of 7 and 9 at one and five minutes respectively, weight 7 pounds 1 ounce, cord blood pH of 7.24 and a time of 21:58. CHARGE ENTRY CLERK FOR DELIVERY: Dr. Otero. OPERATIVE DESCRIPTION: With the patient in the supine position under satisfactory spinal anesthesia she was prepped and draped in the usual fashion for abdominal surgery. Long catheter was placed in the urinary bladder. A Pfannenstiel incision was made through the skin with scalpel. The patient's abdomen was entered in the usual manner. Bladder retractor was placed into position. Clean scalp was used to make a 4 cm hysterectomy incision transversally across the lower uterine segment that was extended by blunt dissection as well. Simpsons forceps were applied to facilitate the delivery of a vigorous viable female . The infant had Apgars of 7 and 9 at one and five minutes respectively, weight of 7 pound, 1 ounce, cord blood arterial pH of 7.24 and a time of 2158. There was a nuchal cord x 1 that was easily released and after the head was delivered. The infant was bulb suctioned on delivery of the head and again on completion of the delivery. The cord was double clamped and cut and the infant passed to Dr. Oteor's prot?g?. The uterus was exteriorized, the anterior wiped clean with a wet laparotomy sponge and uterine incision closed with a running locked suture of 2-0 Vicryl. Hemostasis was complete. The uterus was returned to abdominal cavity. All blood clot and debris removed from the abdominal cavity. With sponge and needle counts were correct and hemostasis assured, the anterior parietal peritoneum was closed with a running suture of 2-0 Vicryl and the rectus muscles were closed with that suture as well. The rectus fascia was closed with 2-0 Vicryl. Subcutaneous tissue was closed with 2-0 Vicryl and the skin was stapled. Sponge and needle counts were correct. On completion of the procedure estimated blood loss was around 350 mL. The patient tolerated the procedure well and was transferred to the recovery room in stable condition. The infant had been taken stable to the full-term nursing unit under the care of Dr. Otero. Job ID: [id number] DocumentID: [id number] Dictated Date: 06/07/2017 22:27:28 Production Expediter Date: 06/08/2017 11:09:42 Dictated By: SOCORRO KIRKLAND MD
--- NOTE | 2017-06-08 14:51 | Anesthesia-Regional Post-Op ---
Regional Patient Condition Mental Status: Alert, Oriented x3 Circulation: Same as Pre-Op Headache: Absent Sensation: Full Recovery Motor Block: Absent Post Op Complications Complications None Follow Up Care/Instructions Patient Instructions None needed. Anesthesia/Patient Condition Patient is doing well, no complaints, stable vital signs, no apparent adverse anesthesia problems. GAURANG QUIROGA DO Jun 08, 2017 14:51
[2017-06-08] MEDS ORDERED: TETANUS,DIPTH,PERTUSS P/F (BOOSTRIX) 0.5 ML VIAL IM ONE (18:01)
[2017-06-08] MEDS ORDERED: MEASLES,MUMPS,RUBELLA 1 EA INJ ONE (18:01)
[2017-06-08] MEDS ORDERED: INFLUENZA TRIvalent 2017-2018 0.5 ML/45 MCG SYR IM ONE (18:01)
[2017-06-08] MEDS ORDERED: KETOROLAC 30 MG/ML VIAL ONE (21:26)
[2017-06-09 00:20] VITALS: BP 155/98
[2017-06-09] MEDS: oxyCODONE/APAP 10/325MG (PERCOCET 10) TABLET PO PRN (00:21)
[2017-06-09] MEDS: IBUPROFEN 800 MG (MOTRIN) TAB PO SCH ×2 (04:16→08:45)
[2017-06-09 04:17] VITALS: BP 155/100
[2017-06-09] MEDS ORDERED: LABE200T3 PO (07:50)
--- NOTE | 2017-06-09 07:54 | Progress Note-Standard ---
Standard Progress Note Progress Notes/Assess & Plan Date Seen by Provider: Jun 09, 2017 Time Seen by Provider: 07:52 Progress/Assessment & Plan this patient is without complaint. Her magnesium was discontinued this morning as her blood pressures have begun normalizing. Her lab work was reassuring. has good pain control and has been tolerating oral intake. She has not voided as yet. Vital Signs Date Time Temp Pulse Resp B/P (MAP) Pulse Ox O2 Delivery O2 Flow Rate FiO2 06/08/17 06:00 87 18 123/74 100 Room Air 06/08/17 05:00 98 18 124/74 100 Room Air 06/08/17 04:00 98.2 103 18 138/74 98 Room Air 06/08/17 03:00 104 18 114/60 98 Room Air 06/08/17 02:48 Room Air 06/08/17 02:00 110 18 131/69 99 Room Air 06/08/17 01:00 102 18 125/76 98 Room Air 06/08/17 00:00 101 18 148/69 100 Room Air 06/07/17 23:25 97.2 91 18 118/87 100 Room Air 06/07/17 21:25 118 18 168/103 Room Air 06/07/17 21:15 112 18 164/90 Room Air 06/07/17 21:00 110 18 167/98 Room Air 06/07/17 20:55 112 18 173/117 Room Air 06/07/17 20:50 114 18 177/113 Room Air 06/07/17 20:46 118 18 177/120 Room Air 06/07/17 20:40 96 18 173/91 Room Air 06/07/17 20:35 18 171/101 Room Air 06/07/17 20:30 114 18 188/114 Room Air 06/07/17 20:25 103 18 171/105 Room Air 06/07/17 20:20 97 18 168/108 Room Air 06/07/17 20:15 100 18 184/107 Room Air 06/07/17 20:10 98 18 169/92 Room Air 06/07/17 20:05 94 18 162/97 Room Air 06/07/17 20:00 93 18 172/107 Room Air 06/07/17 19:55 96 18 152/91 Room Air 06/07/17 19:50 88 18 152/97 Room Air 06/07/17 19:45 95 18 146/92 Room Air 06/07/17 19:25 97 18 139/84 Room Air 06/07/17 19:20 93 18 138/84 Room Air 06/07/17 19:15 98 18 135/82 Room Air 06/07/17 19:10 91 18 137/82 Room Air 06/07/17 19:05 102 18 138/85 Room Air 06/07/17 19:00 104 18 138/92 Room Air 06/07/17 18:55 104 18 158/107 Room Air 06/07/17 18:50 97.2 106 18 158/112 Room Air Since about midnight her blood pressures have fairly significantly improved.SHEENT is afebrile. Laboratory Tests Test 06/07/17 18:50 06/07/17 19:45 06/08/17 04:50 Range/Units Urine Color YELLOW Urine Clarity CLEAR Urine pH 7 5-9 Urine Specific [place] 1.015 L 1.016-1.022 Urine Protein 79 H 6-12 MG/DL Urine Glucose (UA) 4+ H NEGATIVE Urine Ketones NEGATIVE NEGATIVE Urine Nitrite NEGATIVE NEGATIVE Urine Bilirubin NEGATIVE NEGATIVE Urine Urobilinogen 1 NORMAL MG/DL Urine Leukocyte Esterase 1+ H NEGATIVE Urine RBC (Auto) NEGATIVE NEGATIVE Urine RBC NONE /HPF Urine WBC 2-5 /HPF Urine Squamous Epithelial Cells 25-50 H /HPF Urine Crystals NONE /LPF Urine Bacteria MODERATE H /HPF Urine Casts NONE /LPF Urine Mucus NEGATIVE /LPF Urine Culture Indicated NO Urine Creatinine 67 30-125 MG/DL Urine Protein/Creatinine Ratio 1.18 Urine Opiates Screen NEGATIVE NEGATIVE Urine Oxycodone Screen NEGATIVE NEGATIVE Urine Methadone Screen NEGATIVE NEGATIVE Urine Propoxyphene Screen NEGATIVE NEGATIVE Urine Barbiturates Screen NEGATIVE NEGATIVE Ur Tricyclic Antidepressants Screen NEGATIVE NEGATIVE Urine Phencyclidine Screen NEGATIVE NEGATIVE Urine Amphetamines Screen NEGATIVE NEGATIVE Urine Methamphetamines Screen NEGATIVE NEGATIVE Urine Benzodiazepines Screen NEGATIVE NEGATIVE Urine Cocaine Screen NEGATIVE NEGATIVE Urine Cannabinoids Screen NEGATIVE NEGATIVE White Blood Count 9.8 15.2 H 4.3-11.0 10^3/uL Red Blood Count 3.74 L 3.33 L 4.35-5.85 10^6/uL Hemoglobin 10.8 L 9.5 L 11.5-16.0 G/DL Hematocrit 33 L 30 L 35-52 % Mean Corpuscular Volume 89 89 80-99 FL Mean Corpuscular Hemoglobin 29 29 25-34 PG Mean Corpuscular Hemoglobin Concent 33 32 32-36 G/DL Red Cell Distribution Width 13.3 13.2 10.0-14.5 % Platelet Count 196 191 130-400 10^3/uL Mean Platelet Volume 11.3 H 11.7 H 7.4-10.4 FL Sodium Level 137 135 135-145 MMOL/L Potassium Level 3.8 4.3 3.6-5.0 MMOL/L Chloride Level 107 108 H 98-107 MMOL/L Carbon Dioxide Level 21 17 L 21-32 MMOL/L Anion Gap 9 10 5-14 MMOL/L Blood Urea Nitrogen 11 12 7-18 MG/DL Creatinine 0.52 L 0.53 L 0.60-1.30 MG/DL Estimat Glomerular Filtration Rate > 60 > 60 BUN/Creatinine Ratio 21 23 Glucose Level 104 109 H 70-105 MG/DL Uric Acid 2.4 L 2.6-7.2 MG/DL Calcium Level 9.1 7.8 L 8.5-10.1 MG/DL Total Bilirubin 0.2 0.3 0.1-1.0 MG/DL Aspartate Amino Transf (AST/SGOT) 14 25 5-34 U/L Alanine Aminotransferase (ALT/SGPT) 19 17 0-55 U/L Alkaline Phosphatase 159 H 150 H 40-136 U/L Lactate Dehydrogenase 201 388 H 125-220 U/L Total Protein 6.8 5.6 L 6.4-8.2 GM/DL Albumin 3.1 L 2.6 L 3.2-4.5 GM/DL Neutrophils (%) (Auto) 76 H 42-75 % Lymphocytes (%) (Auto) 12 12-44 % Monocytes (%) (Auto) 11 0-12 % Eosinophils (%) (Auto) 1 0-10 % Basophils (%) (Auto) 0 0-10 % Neutrophils # (Auto) 11.6 H 1.8-7.8 X 10^3 Lymphocytes # (Auto) 1.8 1.0-4.0 X 10^3 Monocytes # (Auto) 1.7 H 0.0-1.0 X 10^3 Eosinophils # (Auto) 0.1 0.0-0.3 10^3/uL Basophils # (Auto) 0.0 0.0-0.1 10^3/uL Patient's lab work has remained stable. The LDH increased some as would be expected postoperatively. The abdomen is benign. Incision is clean dry and intact. Fundus is firm below the umbilicus and nontender. Extremities show no clubbing cyanosis. There is no Homans sign. There is fairly notable pretibial edema but that has not changed significantly since her delivery. Assessment and plan postoperative day number 1 status post primary delivery secondary to severe preeclampsia. Her blood pressures have begun normalizing. He has been discontinued and we will watch her blood pressure through the day. At this point plan is for routine convalescence post care with a close attention to blood pressures and signs symptoms and indications of recurrent or worsening preeclampsia June 09, 2017 Patient is without complaint. She is ambulating, voiding, tolerating by mouth, denies headache, denies shortness breath, denies nausea vomiting, she has good pain control and is requesting discharge home. Vital Signs Date Time Temp Pulse Resp B/P (MAP) Pulse Ox O2 Delivery O2 Flow Rate FiO2 06/09/17 04:17 98.5 109 18 155/100 95 Room Air 06/09/17 00:20 98.4 121 18 155/98 96 Room Air 06/08/17 21:40 98.8 125 18 156/106 98 Room Air 06/08/17 18:15 97.6 115 18 154/108 96 Room Air 06/08/17 12:26 98.8 94 18 136/92 97 Room Air 06/08/17 09:00 18 149/104 98 Room Air 06/08/17 08:35 99.7 114 18 136/85 96 Room Air 06/08/17 08:00 18 135/77 96 Room Air I & O 06/10/17 07:00 Intake Total 850 ml Output Total 1050 ml Balance -200 ml pressures are persistently in the 155/100 range. Abdomen is benign. The surgical incision is clean dry and intact. Fundus is firm below the umbilicus and nontender. Extremities show no clubbing or cyanosis. There is no Homans sign. There is some pretibial pitting edema that is and may have increased slightly due to her . Assessment and plan postoperative day number 2 status post primary due to severe preeclampsia at term. I should blood pressures have been persistently elevated now shortly after her delivery we will go ahead and start labetalol 100 mg twice a day. Will allow discharge home with follow-up in clinic for blood pressure management and post operative management. She is given strict precautions return to clinic promptly for any signs symptoms and indications of recurrent preeclampsia Final Diagnosis term operative delivery SOCORRO KIRKLAND MD Jun 09, 2017 7:54 am
[2017-06-09 08:45] VITALS: BP 144/90
[2017-06-09] MEDS: DOCUSATE SODIUM 100 MG (COLACE) CAP PO SCH (08:45)
[2017-06-09] MEDS ORDERED: LABETALOL 200 MG (NORMODYNE) TAB PO SCH (09:00)
== END 2017-06-09 12:30 | disposition home or self-care (01) | DRG 766 ==
LOC: WSo 18:22 → LDRP 18:22 → WSo 20:40 → LDRP 20:40 → 3RD 06-08 09:15
PROVIDERS: ADMIT Obstetrics & Gynecology; ATTEND Obstetrics & Gynecology
PROC: 10D00Z1 Extraction of Products of Conception, Low, Open Approach (ICD-10-PCS; principal; 2017-06-07 21:30)
DX: O14.14 Severe pre-eclampsia complicating childbirth (principal); Z37.0 Single live birth; Z3A.36 36 weeks gestation of pregnancy; Z23 Encounter for immunization
CPT/HCPCS: 36415; 80053; 80306; 81000; 82570; 83615; 84156; 84550; 85025; 85027; 86850; 86900; 86901; 87088; 90707; 90715; 94664; 99212

== ENCOUNTER 2018-03-11 00:34 | Emergency (ER) | payer MEDICAID ==
[~2018-03-11] VITALS: Ht 170.2 cm; Wt 108.4 kg
[~2018-03-11 00:34] MED LIST changes: +DOCU100C37 PO; +IBUP-1780 PO; +LABE200T7 PO; +OXYC-465 PO
--- NOTE | 2018-03-11 00:48 | ED EENT ---
History of Present Illness General Chief Complaint: Dental Problems/Pain Stated Complaint: PAIN ON R SIDE OF MOUTH Nursing Triage Note: c/o R sided dental pain for 3 months. getting worse over last week. patient denies being evaluated by dentist as she is to have 'open heart surgery'. patient took motrin 12 hours ago and tylenol 4 days ago for pain Source: patient History of Present Illness Date Seen by Provider: Mar 11, 2018 Time Seen by Provider: 00:50 Initial Comments PT ARRIVES VIA POV C/O DENTAL PAIN--STATES ALL THE TEETH ON THE RIGHT SIDE OF HER MOUTH HAVE BEEN HURTING FOR 3 MONTHS HAS NOT SOUGHT CARE UNTIL TODAY TOOK 3 TYLENOL A FEW DAYS AGO, AND TOOK 800 MG MOTRIN YESTERDAY AT NOON, OTHERWISE HAS NOT TAKEN ANYTHING FOR PAIN AT ANY TIME PT STATES SHE HAS HAD PROBLEMS WITH HER WISDOM TEETH IN THE PAST AND ACCENT DENTAL TOLD HER THEY COULDN'T PULL THEM, SO SHE HAS AN APPOINTMENT WITH AN UNKNOWN DENTIST HERE IN [place] ON MONDAY--HAS NOT SEEN A DENTIST AT ANY TIME IN THE LAST 3 MONTHS WHEN THIS PAIN BEGAN PT STATES SHE "HAS A HEART PROBLEM AND CAN'T GET HER TEETH PULLED UNTIL THE HEART DR SAYS IT IS OK", BUT SHE HAS NOT ATTEMPTED TO SEE THE HEART DR EITHER. STATES SHE "WAS SUPPOSED TO HAVE HEART SURGERY" BUT HAS NOT FOLLOWED UP WITH ANYONE AND NO SURGERY IS ACTUALLY SCHEDULED, AND HAS NOT ACTUALLY SEEN A SURGEON. STATES SHE HAS BICUSPID AORTIC VALVE. PT ALSO STATES SHE IS SUPPOSED TO BE TAKING LISINOPRIL FOR HTN, BUT DOES NOT TAKE IT--LAUGHS SHE SAYS THIS LMP 07/2017. DELIVERED 06/2017 AND HAD IUD PLACED 07/2017 PCP: RAJWINDER RAMOS IN [place] BREEDER: DR. UMANA AT [facility] Allergies and Home Medications Allergies Coded Allergies: No Known Drug Allergies (Unverified , 09/15/14) Home Medications Amoxicillin/Potassium Clav 1 Each Tablet, 1 EACH PO BID Prescribed by: ANA SINGER on 03/11/18106 Lidocaine HCl 15 Ml Solution, 15 ML MM Q 1-2 HOURS Prescribed by: ANA SINGER on 03/11/18106 Naproxen 500 Mg Tablet, 500 MG PO BID Prescribed by: ANA SINGER on 03/11/18106 Patient Home Medication List Home Medication List Reviewed: Yes Review of Systems Constitutional: no symptoms reported; No fever Eyes: No Symptoms Reported Ears: No Symptoms Reported Nose: no symptoms reported Mouth: see HPI Throat: no symptoms reported Respiratory: no symptoms reported Cardiovascular: see HPI; No chest pain, No edema, No palpitations, No syncope, No vascular heart diseas Gastrointestinal: no symptoms reported Past Jirgifo-Sutxcd-Khqbsz Hx Patient Social History Alcohol Use: Occasionally Uses (MODERATE USE) Recreational Drug Use: Yes (THC, METH--DENIES IV USE) Drug of Choice: THC, METH BY HX, DENIES IV USE Smoking Status: Former Smoker Type Used: Cigarettes Former Smoker, Quit: Jun 16, 2016 2nd Hand Smoke Exposure: No Recent Foreign Travel: No Contact w/Someone Who Travel: No Recent Infectious Disease Expo: No Recent Hopitalizations: No Immunizations Up To Date Tetanus Booster (TDap): Unknown PED Vaccines UTD: Yes Date of Influenza Vaccine: Jun 04, 2014 Seasonal Allergies Seasonal Allergies: No Past Medical History Surgeries: Yes (D&C) Abdominal, Appendectomy, Ear Surgery Respiratory: Yes Asthma Currently Using CPAP: No Currently Using BIPAP: No Cardiac: Yes (AORTIC STENOSIS, BICUSPID AORTIC VALVE, PER PT) Heart Murmur, Hypertension, Irregular Heartbeat, Valvular Heart Disease Neurological: Yes Headaches /Migraines Hx : 3 Hx Para: 1 Hx Total # of Abortions (Sp): 2 (PT STATES THESE WERE AT AGES 17 AND 18--NEVER TOLD ANYONE AND NEVER WENT TO DR. 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 Sexually Transmitted Disease: No Gastrointestinal: No Musculoskeletal: No Endocrine: No HEENT: No Cancer: No Psychosocial: Yes ADD/ADHD, Anxiety Integumentary: No Blood Disorders: No Adverse Reaction/Blood Tranf: No Family Medical History Asthma G8 BROTHER Diabetes mellitus 19 MOTHER FH: bipolar disorder G8 BROTHER Hypertension 19 MOTHER No Pertinent Family Hx Physical Exam Vital Signs Vital Signs - First Documented 03/11/18 00:40 Temp 99.2 Pulse 85 Resp 18 B/P (MAP) 164/115 (131) Pulse Ox 99 Height, Weight, BMI Height: 5', 7.00" Weight: 239lbs 0.8oz, [id number] Method:Stated ,37.4BMI General Appearance: WD/WN, no apparent distress, other (SMILING) Eyes: bilateral eye normal inspection, bilateral eye PERRL, bilateral eye EOMI Ears: bilateral ear auricle normal, bilateral ear canal normal, bilateral ear TM normal Nose: normal inspection Mouth/Throat: pharynx normal; No mandibular swelling, No maxillary swelling; other (ESSENTIALLY ALL MOLARS AND PREMOLARS WITH FILLINGS. NO OVBVIOUS DENTAL CARIES. NO GUM SWELING OR INFLAMMATION, NO OBVIOUS ABSCESS. DIFFUSE TENDERNESS TO ALL TEETH ON RIGHT, TO PERCUSSION. ) Neck: non-tender, full range of motion, supple, normal inspection; No lymphadenopathy (R), No lymphadenopathy (L) Cardiovascular: regular rate, rhythm, systolic murmur (11/07) Respiratory: normal breath sounds, no respiratory distress, no accessory muscle use Neurologic/Psychiatric: rn hyperbaric II-XII nml as tested, no motor/sensory deficits, alert, normal mood/affect, oriented x 3 Skin: normal color, warm/dry; No rash Progress/Results/Core Measures Results/Orders My Orders Orders - ANA SINGER DO Amoxicillin/Clavulanate Tablet (Augmenti (03/11/18 01:15) Lidocaine 2% Viscous 15 Ml (Xylocaine Vi (03/11/18 01:15) Rx-Naproxen (Rx-Naprosyn) (03/11/18 01:02) Medications Given in ED Current Medications Medications Dose Ordered Sig/Mani Route Start Time Stop Time Status Last Admin Dose Admin Lidocaine HCl 5 ml ONCE ONCE MM 03/11/18 01:15 03/11/18 01:16 DC 03/11/18 01:13 5 ML Vital Signs/I&O 03/11/18 03/11/18 00:40 01:14 Temp 99.2 Pulse 85 84 Resp 18 18 B/P (MAP) 164/115 (131) 139/90 Pulse Ox 99 99 Blood Pressure Mean: 131 Departure Impression Primary Impression: dental pain Additional Impressions: HTN (hypertension) Noncompliance Disposition: HOME, SELF-CARE Condition: Stable Departure-Patient Inst. Referrals: SOCORRO KIRKLAND MD (PCP/Family) Primary Care Physician Patient Instructions: Dental Pain (DC), High Blood Pressure (DC), Medicines for High Blood Pressure Add. Discharge Instructions: FOLLOW UP WITH DENTIST ON MONDAY SCHEDULED TAKE YOUR BLOOD PRESSURE MEDICATION EVERY DAY!!!! FOLLOW UP WITH YOUR REGULAR DR AND CORN BREEDER REGARDING YOUR BLOOD PRESSURE NEXT WEEK All discharge instructions reviewed with patient and/or family. Voiced understanding. Scripts Naproxen (Naproxen) 500 Mg Tablet 500 MG PO BID, #20 TAB Prov: ANA SINGER DO 03/11/18 Lidocaine HCl (Lidocaine HCl Viscous) 15 Ml Solution 15 ML MM Q 1-2 HOURS for Pain, #100 ML Prov: ANA SINGER DO 03/11/18 Amoxicillin/Potassium Clav (Augmentin 875-125 Tablet) 1 Each Tablet 1 EACH PO BID for INFECTION, #20 TAB Prov: ANA SINGER DO 03/11/18 ANA SINGER DO Mar 11, 2018 00:48
[2018-03-11] MEDS ORDERED: RX-NAPROXEN (NAPROSYN) 250 MG TAB PPK#4 PO STA (01:02)
[2018-03-11] MEDS ORDERED: LIDO15SO2 MM (01:07)
[2018-03-11] MEDS ORDERED: AMOX-358 PO (01:07)
[2018-03-11] MEDS ORDERED: NAPR-915 PO (01:07)
[2018-03-11 01:14] VITALS: BP 139/90
[2018-03-11] MEDS ORDERED: LIDOCAINE 2% VISCOUS 15 ML UDC MM ONE (01:15)
[2018-03-11] MEDS ORDERED: AUGMENTIN 875 MG TAB (AMOXICILLIN/CLAVULANATE) PO SCH (01:15)
== END 2018-03-11 01:15 | disposition home or self-care (01) ==
LOC: EDUNIT# 00:34 → ER 00:36
DX: K08.89 Other specified disorders of teeth and supporting structures (principal); I10 Essential (primary) hypertension; G43.909 Migraine, unspecified, not intractable, without status migrainosus; F41.9 Anxiety disorder, unspecified; F90.9 Attention-deficit hyperactivity disorder, unspecified type; Z91.14 Patient's other noncompliance with medication regimen; Z87.891 Personal history of nicotine dependence; Z90.49 Acquired absence of other specified parts of digestive tract
CPT/HCPCS: 99283

== ENCOUNTER → 2018-04-02 | Outpatient (CLI) | payer MEDICAID ==
[~2018-04-02] MED LIST changes: +AMOX-358 PO; +CATHETER FLUSH 10 ML SYR IV PRN; +IOHEXOL 350 MG/ML 150 ML (OMNIPAQUE 350) VIAL IV ONE; +LIDO15SO2 MM; +NAPR-915 PO; +NS 100 ML (IVPB) BAG IV ONE; +RT-ALBUTEROL SULF 2.5 MG/3 ML PRE-MIX VIAL INH ONE; +RT-ALBUTEROL SULF 2.5 MG/3 ML PRE-MIX VIAL ONE
--- NOTE | 2018-04-02 16:59 | Diagnostic Imaging Report ---
PROCEDURE: CT angiography of the chest with contrast. TECHNIQUE: Multiple contiguous axial images were obtained through the chest after uneventful bolus administration of intravenous contrast. Reconstructed CTA MIP acquisitions were also performed. INDICATION: History of bicuspid valve with aortic regurgitation. Thoracic aortic aneurysm, history of rupture. COMPARISON: None. FINDINGS: Ascending thoracic aorta is aneurysmally dilated measuring 4.4 cm in diameter. Descending thoracic aorta is within normal limits. Evaluation of the aortic valve is suboptimal secondary to motion artifact. There is no evidence of dissection. No intimal flap is identified. Heart size is within normal limits. There is no large pericardial effusion. No pathologically enlarged or morphologically abnormal adenopathy is seen within the mediastinum, maxi, nor axilla. Lung jamil show no focal consolidation, pleural effusion, nor pneumothorax. Pulmonary parenchyma is also mildly obscured secondary to motion artifact, but no pulmonary parenchymal nodules or masses are identified. Osseous structures show no acute abnormalities. No lytic or blastic bony lesions are identified. Included portions of the upper abdomen are unremarkable. IMPRESSION: 1. Aneurysmal dilatation of the ascending thoracic aorta. Dictated by: Dictated on workstation # [id number]
== END ==
LOC: RAD 16:13
PROVIDERS: ATTEND Thoracic Surgery (Cardiothoracic Vascular Surgery)
DX: I71.2 Thoracic aortic aneurysm, without rupture (principal); Q23.1 Congenital insufficiency of aortic valve; Z86.79 Personal history of other diseases of the circulatory system
CPT/HCPCS: 71275; 94060; 94726; 94729

== ENCOUNTER 2018-09-17 21:05 | Emergency (ER) | payer MEDICAID ==
[~2018-09-17] VITALS: Ht 170.2 cm; Wt 110.2 kg
[~2018-09-17 21:05] MED LIST changes: -CATHETER FLUSH 10 ML SYR IV PRN; -IOHEXOL 350 MG/ML 150 ML (OMNIPAQUE 350) VIAL IV ONE; -NS 100 ML (IVPB) BAG IV ONE; -RT-ALBUTEROL SULF 2.5 MG/3 ML PRE-MIX VIAL INH ONE; -RT-ALBUTEROL SULF 2.5 MG/3 ML PRE-MIX VIAL ONE
[2018-09-17 21:26] LABS: BASOPHILS % (AUTO) 0 % (0-10); EOSINOPHILS # (AUTO) 0.2 10^3/uL (0.0-0.3); EOSINOPHILS % (AUTO) 2 % (0-10); HEMATOCRIT 39 % (35-52); HEMOGLOBIN 12.9 G/DL (11.5-16.0); LYMPHOCYTES # (AUTO) 2.5 X 10^3 (1.0-4.0); LYMPHOCYTES % (AUTO) 22 % (12-44); MEAN CORPUSCULAR HEMOGLOBIN 27 PG (25-34); MEAN CORPUSCULAR HGB CONC 33 G/DL (32-36); MEAN CORPUSCULAR VOLUME 83 FL (80-99); MEAN PLATELET VOLUME 10.8 FL (7.4-10.4); MONOCYTES # (AUTO) 0.9 X 10^3 (0.0-1.0); MONOCYTES % (AUTO) 8 % (0-12); NEUTROPHILS # (AUTO) 7.7 X 10^3 (1.8-7.8); NEUTROPHILS % (AUTO) 69 % (42-75); PLATELET COUNT 272 10^3/uL (130-400); RED BLOOD COUNT 4.71 10^6/uL (4.35-5.85); RED CELL DISTRIBUTION WIDTH 14.3 % (10.0-14.5); WHITE BLOOD COUNT 11.3 10^3/uL (4.3-11.0)
[2018-09-17 21:37] LABS: PROTHROMBIN TIME PATIENT 12.9 SEC (12.2-14.7)
--- NOTE | 2018-09-17 21:38 | ED Chest Pain ---
General Chief Complaint: Chest Pain Stated Complaint: CHEST PAIN Nursing Triage Note: Pt arrived by private vehicle for cc of chest pain. Pt is alert, oriented and ambulatory. Pt stated the chest pain started about 1.5 hours ago. Pt stated she has pmh of cardiac issues including valve regurgitation, aorta root issues and waiting for valve replacement at . Pt stated pain is about 6/7 and reproducable when pressing on chest. Pain is sharp and throbbing substernal and bilateral pain. Nursing Sepsis Screen: No Definite Risk Source: patient Exam Limitations: no limitations History of Present Illness Date Seen by Provider: Sep 17, 2018 Time Seen by Provider: 21:10 Initial Comments This 23-year-old woman with extensive cardiac history presents to the emergency room with chest pain times approximately 90 minutes. She states the pain starts in her central chest and substernal region and radiates down toward her flanks. She reports a history of valvular disease including abnormalities of the tricuspid and aortic valves, and aneurysmal dilatation of the aorta. This was seen on CT angiogram performed here in March. Patient has had her cardiac care provided by Dr. Smith at [facility] in [place]. She has pending cardiothoracic surgery for aortic transplant. Her cardiothoracic surgeon is Dr. Spangler at [facility]. Patient denies any acute associated symptoms of shortness of breath, diaphoresis, nausea, or vomiting. She reports long-term intermittent problems with dizziness upon standing, mild chronic shortness of air, and numbness and tingling in her lower extremities. Patient was lying down at onset. She has hurtado prior episodes of lesser intensity. She has never had an episode last this long. Patient does state she has left-sided chest pain with palpation. Patient is mildly hypertensive and tachycardic. She did take her medications today. Allergies and Home Medications Allergies Coded Allergies: No Known Drug Allergies (Unverified , 09/15/14) Home Medications Amoxicillin/Potassium Clav 1 Each Tablet, 1 EACH PO BID Prescribed by: ANA SINGER on 03/11/18106 Lidocaine HCl 15 Ml Solution, 15 ML MM Q 1-2 HOURS Prescribed by: ANA SINGER on 03/11/18106 Naproxen 500 Mg Tablet, 500 MG PO BID Prescribed by: ANA SINGER on 03/11/18106 Patient Home Medication List Home Medication List Reviewed: Yes Review of Systems Review of Systems Constitutional: no symptoms reported EENTM: No Symptoms Reported Respiratory: See HPI Cardiovascular: See HPI Gastrointestinal: No Symptoms Reported Genitourinary: No Symptoms Reported Musculoskeletal: no symptoms reported Skin: no symptoms reported Psychiatric/Neurological: No Symptoms Reported Endocrine: No Symptoms Reported Past Fyyolsr-Gevbvv-Ksulqx Hx Past Med/Social Hx: Reviewed and Corrections made Patient Social History Alcohol Use: Denies Use Recreational Drug Use: No Drug of Choice: THC, METH BY HX, DENIES IV USE Smoking Status: Former Smoker Type Used: Cigarettes Former Smoker, Quit: Jun 16, 2016 2nd Hand Smoke Exposure: No Recent Foreign Travel: No Contact w/Someone Who Travel: No Recent Infectious Disease Expo: No Recent Hopitalizations: No Physical Abuse: No Sexual Abuse: No Mistreated: No Fear: No Immunizations Up To Date Tetanus Booster (TDap): Unknown PED Vaccines UTD: Yes Date of Influenza Vaccine: Jun 04, 2014 Seasonal Allergies Seasonal Allergies: No Past Medical History Surgeries: Yes (D&C) Abdominal, Appendectomy, Ear Surgery Respiratory: Yes Asthma Currently Using CPAP: No Currently Using BIPAP: No Cardiac: Yes (AORTIC STENOSIS, BICUSPID AORTIC VALVE, PER PT) Aneurysm (aneurysmal dilatation of the ascending aorta), Heart Murmur, Hypertension, Irregular Heartbeat, Palpitations, Valvular Heart Disease Neurological: Yes Headaches /Migraines Last Menstrual Period: Sep 13, 2018 Reproductive Disorders: Yes (ENDOMETRIOSIS) Female Reproductive Disorders: Endometriosis, Polycystic Ovarian Dis 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 Sexually Transmitted Disease: No Gastrointestinal: No Musculoskeletal: No Endocrine: No HEENT: No Cancer: No Psychosocial: Yes ADD/ADHD, Anxiety Integumentary: Yes Psoriasis Blood Disorders: No Adverse Reaction/Blood Tranf: No Family Medical History Asthma G8 BROTHER Diabetes mellitus 19 MOTHER FH: bipolar disorder G8 BROTHER Hypertension 19 MOTHER No Pertinent Family Hx Physical Exam Vital Signs Vital Signs - First Documented 09/17/18 21:24 Temp 98.3 Pulse 99 Resp 20 B/P (MAP) 137/91 (106) Pulse Ox 100 O2 Delivery Room Air Capillary Refill : Less Than 3 Seconds Height, Weight, BMI Height: 5'7.00" Weight: 243lbs. 0oz. 110.052798fv; 37.4 BMI Method:Stated General Appearance: No Apparent Distress, WD/WN, Obese HEENT: PERRL/EOMI, Normal ENT Inspection Neck: Normal Inspection Respiratory: Lungs Clear, Normal Breath Sounds, No Accessory Muscle Use, No Respiratory Distress, Other (anterior chest wall tenderness palpation) Cardiovascular: Regular Rate, Rhythm, No Edema, No Murmur Gastrointestinal: Normal Bowel Sounds, Non Tender, Soft Extremity: Normal Inspection, No Pedal Edema Neurologic/Psychiatric: Alert, Oriented x3, No Motor/Sensory Deficits, Normal Mood/Affect, director of religious life II-XII Norm as Tested Skin: Normal Color, Warm/Dry Progress/Results/Core Measures Results/Orders Lab Results Laboratory Tests Test 09/17/18 21:16 09/18/18 00:15 Range/Units White Blood Count 11.3 H 4.3-11.0 10^3/uL Red Blood Count 4.71 4.35-5.85 10^6/uL Hemoglobin 12.9 11.5-16.0 G/DL Hematocrit 39 35-52 % Mean Corpuscular Volume 83 80-99 FL Mean Corpuscular Hemoglobin 27 25-34 PG Mean Corpuscular Hemoglobin Concent 33 32-36 G/DL Red Cell Distribution Width 14.3 10.0-14.5 % Platelet Count 272 130-400 10^3/uL Mean Platelet Volume 10.8 H 7.4-10.4 FL Neutrophils (%) (Auto) 69 42-75 % Lymphocytes (%) (Auto) 22 12-44 % Monocytes (%) (Auto) 8 0-12 % Eosinophils (%) (Auto) 2 0-10 % Basophils (%) (Auto) 0 0-10 % Neutrophils # (Auto) 7.7 1.8-7.8 X 10^3 Lymphocytes # (Auto) 2.5 1.0-4.0 X 10^3 Monocytes # (Auto) 0.9 0.0-1.0 X 10^3 Eosinophils # (Auto) 0.2 0.0-0.3 10^3/uL Basophils # (Auto) 0.0 0.0-0.1 10^3/uL Prothrombin Time 12.9 12.2-14.7 SEC INR Comment 1.0 0.8-1.4 Activated Partial Thromboplast Time 32 24-35 SEC Sodium Level 139 135-145 MMOL/L Potassium Level 3.8 3.6-5.0 MMOL/L Chloride Level 104 98-107 MMOL/L Carbon Dioxide Level 24 21-32 MMOL/L Anion Gap 11 5-14 MMOL/L Blood Urea Nitrogen 23 H 7-18 MG/DL Creatinine 0.79 0.60-1.30 MG/DL Estimat Glomerular Filtration Rate > 60 BUN/Creatinine Ratio 29 Glucose Level 112 H 70-105 MG/DL Calcium Level 9.3 8.5-10.1 MG/DL Corrected Calcium 9.1 8.5-10.1 MG/DL Magnesium Level 2.0 1.8-2.4 MG/DL Total Bilirubin 0.3 0.1-1.0 MG/DL Aspartate Amino Transf (AST/SGOT) 19 5-34 U/L Alanine Aminotransferase (ALT/SGPT) 29 0-55 U/L Alkaline Phosphatase 92 40-136 U/L Myoglobin 25.4 10.0-92.0 NG/ML Troponin I < 0.028 <0.028 NG/ML Total Protein 8.3 H 6.4-8.2 GM/DL Albumin 4.2 3.2-4.5 GM/DL Urine Color YELLOW Urine Clarity CLEAR Urine pH 6.5 5-9 Urine Specific [place] 1.005 L 1.016-1.022 Urine Protein 2+ H NEGATIVE Urine Glucose (UA) NEGATIVE NEGATIVE Urine Ketones NEGATIVE NEGATIVE Urine Nitrite NEGATIVE NEGATIVE Urine Bilirubin NEGATIVE NEGATIVE Urine Urobilinogen NORMAL NORMAL MG/DL Urine Leukocyte Esterase 1+ H NEGATIVE Urine RBC (Auto) 5+ H NEGATIVE Urine RBC 50-100 H /HPF Urine WBC 2-5 /HPF Urine Squamous Epithelial Cells 2-5 /HPF Urine Crystals NONE /LPF Urine Bacteria FEW H /HPF Urine Casts NONE /LPF Urine Mucus NEGATIVE /LPF Urine Culture Indicated YES Urine Opiates Screen NEGATIVE NEGATIVE Urine Oxycodone Screen NEGATIVE NEGATIVE Urine Methadone Screen NEGATIVE NEGATIVE Urine Propoxyphene Screen NEGATIVE NEGATIVE Urine Barbiturates Screen NEGATIVE NEGATIVE Ur Tricyclic Antidepressants Screen NEGATIVE NEGATIVE Urine Phencyclidine Screen NEGATIVE NEGATIVE Urine Amphetamines Screen NEGATIVE NEGATIVE Urine Methamphetamines Screen NEGATIVE NEGATIVE Urine Benzodiazepines Screen NEGATIVE NEGATIVE Urine Cocaine Screen NEGATIVE NEGATIVE Urine Cannabinoids Screen NEGATIVE NEGATIVE My Orders Orders - XIANG GARCIA MD Cbc With Automated Diff (09/17/18 21:19) Magnesium (09/17/18 21:19) Chest 1 View, Ap/Pa Only (09/17/18 21:19) Ekg Tracing (09/17/18 21:19) Cardiac Profile 1 (09/17/18 21:19) Comprehensive Metabolic Panel (09/17/18 21:19) Myoglobin Serum (09/17/18 21:19) Protime With Inr (09/17/18 21:19) Partial Thromboplastin Time (09/17/18 21:19) O2 (09/17/18 21:19) Monitor-Rhythm Ecg Trace Only (09/17/18 21:19) Saline Lock/Iv-Start (09/17/18 21:19) Ct Angio Chest W (09/17/18 21:23) Iohexol Injection (Omnipaque 350 Mg/Ml 1 (09/17/18 22:15) Contrast Received (Contrast Received) (09/17/18 22:15) Ns (Ivpb) (Sodium Chloride 0.9% Ivpb Bag (09/17/18 22:15) Ketorolac Injection (Toradol Injection) (09/17/18 22:30) Lidocaine 2% Viscous 15 Ml (Xylocaine Vi (09/17/18 22:30) Antacid Suspension (Mylanta Suspension (09/17/18 22:30) Drug Screen Stat (Urine) (09/18/18 00:13) Ua Culture If Indicated (09/18/18 00:13) Urine Culture (09/18/18 00:15) Heart Healthy (09/18/18 Breakfast) Acetaminophen Tablet (Tylenol Tablet) (09/18/18 07:45) Medications Given in ED Current Medications Medications Dose Ordered Sig/Mani Route Start Time Stop Time Status Last Admin Dose Admin Acetaminophen 1,000 mg ONCE ONCE PO 09/18/18 07:45 09/18/18 07:46 DC 09/18/18 07:44 1,000 MG Vital Signs/I&O 09/17/18 09/17/18 09/18/18 09/18/18 21:24 21:28 00:56 08:31 Temp 98.3 98.3 Pulse 99 107 78 Resp 20 16 20 B/P (MAP) 137/91 (106) 144/99 (114) 131/97 (108) Pulse Ox 100 98 98 O2 Delivery Room Air Room Air Room Air Blood Pressure Mean: 106 Progress Progress Note #1: Time: 21:36 Progress Note Because of patient's history of aneurysmal dilatation of her aorta, CT angiogram of the chest was discussed with the patient. She elects to proceed with CT angiogram after discussing risks and benefits. EKG was unremarkable. Progress Note #2: Time: 22:[address] angiogram was viewed by me and report reviewed. I discussed with the radiologist. There are no concerning findings. Abnormalities seen at the aortic root are due to motion artifact, not dissection. Patient's pain is starting to subside. Workup was unremarkable. I have left a message with the transfer center at [facility]. Since patient's primary skid wrapper is a [facility] physician and Samira Michel is currently on diversion, I will discuss with the skid wrapper occupational therapy aides teacher at [facility]. In the meantime we will try GI cocktail and Toradol for treatment of her pain. Progress Note #3: Time: 23:09 Progress Note Patient's pain improved with Toradol and GI cocktail. She now rates her pain as a 2 or 3 out of 10. Case was discussed with Dr. Smith at [facility] in [place]. He states patient was to have valve surgery performed at [facility] but did not follow-up. His definitive recommendation at this time is to absolutely transfer to [facility] for further evaluation and consideration for surgery. Patient states she would be willing to transfer to [facility] if she can find placement for her daughter. She is working on that issue now. Progress Note #4: Time: 23:55 Progress Note Patient has made arrangements for the care of her daughter. EMS was notified of need for transfer. However, [facility] declined to transfer due to non cdl driver fatigue from an unusually high volume of transfer calls today. Progress Note #5: Time: 00:05 Progress Note Transfer arrangements were made with [facility]. Patient is accepted to the cardiothoracic service of Dr. Spangler. We are working on transportation arrangements. No specific recommendations were made regarding her blood pressure or heart rate. Progress Note #6: Time: 04:03 Progress Note Patient remains under the observation care of the ER at this time. After contacting over a dozen EMS services, no EMS services is willing to transport this patient before 08:30. [facility] and [facility] state they can possibly transport the patient after 08:30. Progress Note #7: Time: 07:26 Progress Note Patient is stable at this time and was sleeping comfortably. She denies pain when woken. Vital signs are stable. Patient is still awaiting transfer to [facility] by [facility]. Anticipated time of transfer is after 08:30. Care of this patient is being transitioned to Dr. Browning at this time. Initial ECG Impression Date: Sep 17, 2018 Initial ECG Impression Time: 21:27 Initial ECG Rate: 93 Initial ECG Rhythm: Normal Sinus Initial ECG Intervals: Normal Initial ECG Impression: Normal Comment Normal sinus rhythm with no ST elevation or depression. No abnormal intervals or axis deviation. Diagnostic Imaging Diagonstic Imaging: CT Plain Films/CT/US/NM/MRI: chest Comments CT angiogram of the chest viewed by me and report reviewed. Discussed with radiologist. See report below: NAME: RHODA LIZAMA [facility] REC#: [id number] PT STATUS: REG ER : 1995 PHYSICIAN: XIANG GARCIA MD ADMIT DATE: 09/17/18/ER Signed Date of Exam: 09/17/18 CT ANGIO CHEST W PROCEDURE: CT angiography of the chest with contrast. TECHNIQUE: Multiple contiguous axial images were obtained through the chest after uneventful bolus administration of intravenous contrast. 2D reconstructed CTA MIP acquisitions were also performed. INDICATION: Chest pain. History of cardiac valve insufficiency. Ascending aortic aneurysm. COMPARISON: CTA chest with IV contrast 04/02/2018. FINDINGS: Ectasia of the ascending thoracic aorta measures approximately 4.5 cm. Measurements are limited due to motion artifact on this non-dated exam. No thoracic aortic dissection. No large or central pulmonary emboli. Normal heart size. No pericardial effusion. No mediastinal, hilar or axillary lymphadenopathy. Lungs are clear. No endobronchial lesions. No pleural effusion or pneumothorax. Osseous structures are unremarkable. Diffuse fatty infiltration of the liver. IMPRESSION: 1. Stable ascending thoracic aortic aneurysm. No evidence of dissection. No large or central pulmonary artery filling defects. 2. Hepatic steatosis. Dictated by: Dictated on workstation # [id number] Dict: 09/17/182201 Trans: 09/17/182210 Interpreted by: MASOOD ROSDAO MD Electronically signed by: MASOOD ROSADO MD 09/17/182210 Reviewed: Reviewed by Me, Discussed w/Radiologist Diagonstic Imaging: Xray Plain Films/CT/US/NM/MRI: chest Comments Chest x-ray viewed by me and report reviewed. See report below: NAME: RHODA LIZAMA [facility] REC#: [id number] PT STATUS: REG ER : 1995 PHYSICIAN: XIANG GARCIA MD ADMIT DATE: 09/17/18/ER Signed Date of Exam: 09/17/18 CHEST 1 VIEW, AP/PA ONLY EXAM: CHEST 1 VIEW, AP/PA ONLY INDICATION: Chest pain. COMPARISON: CTA chest 04/02/2018. FINDINGS: Normal heart size and pulmonary vascularity. No dense consolidation, pleural effusion or pneumothorax. No acute osseous findings. IMPRESSION: Negative chest. Dictated by: Dictated on workstation # [id number] Dict: 09/17/182146 Trans: 09/17/182206 Interpreted by: MASOOD ROSADO MD Electronically signed by: MASOOD ROSADO MD 09/17/182206 Departure Impression Primary Impression: Chest pain Qualified Codes: R07.9 - Chest pain, unspecified Additional Impressions: Valvular heart disease Aneurysm, ascending aorta Disposition: XFER SHT-TRM HOSP Condition: Stable Transfer Time Spoke to Accepting Phy: 23:36 (Spoke with [facility] transfer triage service) Transfer Progress Notes Transfer accepted to Dr. Spangler's service. 04:06 - Transfer is being delayed due to no EMS services available. Transfer Time: 08:26 Method of Transfer: EMS Departure-Patient Inst. Referrals: TODD RAMOS (PCP/Family) Primary Care Physician XIANG GARCIA MD Sep 17, 2018 21:37
[2018-09-17 21:43] LABS: ALANINE AMINOTRANSFERASE 29 U/L (0-55); ALBUMIN 4.2 GM/DL (3.2-4.5); ALKALINE PHOSPHATASE 92 U/L (40-136); BILIRUBIN,TOTAL 0.3 MG/DL (0.1-1.0); BUN/CREATININE RATIO 29; CALCIUM 9.3 MG/DL (8.5-10.1); CARBON DIOXIDE 24 MMOL/L (21-32); CHLORIDE 104 MMOL/L (98-107); CREATININE SERUM 0.79 MG/DL (0.60-1.30); GFR ESTIMATED > 60; GLUCOSE 112 MG/DL (70-105); POTASSIUM 3.8 MMOL/L (3.6-5.0); SODIUM 139 MMOL/L (135-145); TOTAL PROTEIN 8.3 GM/DL (6.4-8.2)
[2018-09-17 21:50] LABS: MYOGLOBIN SERUM 25.4 NG/ML (10.0-92.0)
--- NOTE | 2018-09-17 21:54 | Diagnostic Imaging Report ---
EXAM: CHEST 1 VIEW, AP/PA ONLY INDICATION: Chest pain. COMPARISON: CTA chest 04/02/2018. FINDINGS: Normal heart size and pulmonary vascularity. No dense consolidation, pleural effusion or pneumothorax. No acute osseous findings. IMPRESSION: Negative chest. Dictated by: Dictated on workstation # [id number]
--- NOTE | 2018-09-17 22:04 | NUR ---
Pt stated pain is there, but she has got used to the pain.
--- NOTE | 2018-09-17 22:09 | Diagnostic Imaging Report ---
PROCEDURE: CT angiography of the chest with contrast. TECHNIQUE: Multiple contiguous axial images were obtained through the chest after uneventful bolus administration of intravenous contrast. 2D reconstructed CTA MIP acquisitions were also performed. INDICATION: Chest pain. History of cardiac valve insufficiency. Ascending aortic aneurysm. COMPARISON: CTA chest with IV contrast 04/02/2018. FINDINGS: Ectasia of the ascending thoracic aorta measures approximately 4.5 cm. Measurements are limited due to motion artifact on this non-dated exam. No thoracic aortic dissection. No large or central pulmonary emboli. Normal heart size. No pericardial effusion. No mediastinal, hilar or axillary lymphadenopathy. Lungs are clear. No endobronchial lesions. No pleural effusion or pneumothorax. Osseous structures are unremarkable. Diffuse fatty infiltration of the liver. IMPRESSION: 1. Stable ascending thoracic aortic aneurysm. No evidence of dissection. No large or central pulmonary artery filling defects. 2. Hepatic steatosis. Dictated by: Dictated on workstation # [id number]
[2018-09-17] MEDS ORDERED: NS 100 ML (IVPB) BAG IV ONE (22:15)
[2018-09-17] MEDS ORDERED: IOHEXOL 350 MG/ML 150 ML (OMNIPAQUE 350) VIAL IV ONE (22:15)
[2018-09-17] MEDS ORDERED: RECEIVED CONTRAST (Hold Metformin) IV SCH (22:15)
[2018-09-17] MEDS ORDERED: LIDOCAINE 2% VISCOUS 15 ML UDC PO ONE (22:30)
[2018-09-17] MEDS ORDERED: ANTACID SUSP 30 ML UDC (MYLANTA) PO ONE (22:30)
[2018-09-17] MEDS ORDERED: KETOROLAC 30 MG/ML VIAL IVP ONE (22:30)
--- NOTE | 2018-09-17 22:53 | NUR ---
Pt stated that pain is about a 2 at this time.
--- NOTE | 2018-09-17 23:10 | NUR ---
Pt stated that she will need to find someone to care for her daughter. Pt was asked if she got something figured out and she said she thinks so. I asked if she wanted me to inform the doctor and she stated she wants to wait until her boyfriend got here.
--- OUTSIDE RECORDS SUMMARY | 2018-09-17 23:48 | XMS REPORT | Encounter Summary ---
Author Author [facility] Organization [facility] Address Unknown Phone Unavailable Care Team Providers Care Mines Safety Engineer Name Role Phone Nannette Arreguin PCP Reason for Visit * Reason Comments General Question pre-op ?? Encounter Details Care Team Description Date Type Department Natalie Haywood RN General Question (pre-op ??) 08/14/2018 Telephone [facility] [address] [id number] [address] [place] [address] Social History Date Tobacco Use Types Packs/Day Years Used Never Smoker Smokeless Tobacco: Never Used Alcohol Use Drinks/Week oz/Week Comments Yes 10 Shots of 6.0 "half a big bottle on the weekends" liquor Sex Assigned at Date Recorded Not on file Industry Job Start Date Occupation Not on file Not on file Not on file Travel End Travel History Travel Start No recent travel history available. as of this encounter Miscellaneous Notes * Telephone Encounter - Natalie Haywood RN - 08/15/2018 8:34 AM ASSISTANT [employer]EN'S SOCCER COACH Pt called to cancel pre-op appt today and surgery tomorrow. Pt states her dentist told her she has no oral infection but won't write any kind of clearance for her and told her she shouldn't have surgery and her aneurysm will just rupture and she will .Emphasized to pt the importance of not having active oral infection when undergoing heart/valve surgery due to risk of endocarditis and sepsis. Reviewed dental recommendations from April regarding pt getting teeth cleaned. Pt reports that she completed all the treatment he asked. Explained to pt that we quite frequently require dental clearance prior to surgery and if the dentist told her there was no infection he shouldn't have any problem sending the written clearance to us. Told pt if she could get dental clearance to call us back to reschedule and she said she would find another surgeon closer to home and take her off our "list". Informed RADHA Baker for Dr. Middleton of pt's decision. STANT [employer] SO[employer] COACH * Telephone Encounter - Natalie Haywood RN - 08/14/2018 2:51 PM ASSISTANT [employer]'S SOCCER COACH Received a call from Kelly at pt's primary health clinic. Pt had called the PCP office to receive "clearance" for surgery and had seem confused over what type of clearance she needed. Reviewed information with PCP office; pt is WELL aware that she needs DENTAL clearance and there have been several discussions regarding this. Kelly appreciated call back. [employer] COACH * Telephone Encounter - Natalie Haywood RN - 08/14/2018 2:45 PM ASSIST[employer] SO[employer] COACH Pt called with some questions re: her pre-op appt tomorrow. We have not received Dental Clearance yet and informed pt that we MUST have Dental Clearance prior to surgery. Pt stated the dentist was done with her and told her she did not have any infection. Instructed to contact the dentist office if that was the case and have them give her a notice of dental clearance. STANT MEN'S SOCCER COACH in this encounter Plan of Treatment Not on fileas of this encounter Visit Diagnoses Not on filein this encounter
--- OUTSIDE RECORDS SUMMARY | 2018-09-17 23:48 | XMS REPORT | Clinical Summary ---
Author Author [facility] Organization [facility] Address Unknown Phone Unavailable Care Team Providers Care Pickle Cutter Name Role Phone Nannette Arreguin PCP Source Comments Some departments are not documenting in the electronic medical record. If you do not see the information that you expected, contact Release of Information in the Health Information Management department at [phone] for further assistance in locating additional records.[facility] Allergies No Known Allergies Medications End Date Status Medication Sig Dispensed Refills Start Date Active INTRAUTERINE DEVICE (IUD) by 0 IU Intrauterine route. Active Fluocinolone 0.01 % crea Apply 0 topically to affected area. Active metoprolol XL (TOPROL XL) Take 25 mg by 0 25 mg extended release mouth daily. tablet Active methylPREDNIsolone Take 1 0 (MEDROL (MYRIAM)) 4 mg Package by tablet mouth as directed. Take medication as directed on package for 6 days. Take with food. Active intrauterine copper 1 Intra 0 contraceptive (PARAGARD) Uterine 380 square mm Device by intrauterine device Intrauterine route once. Active Problems Problem Noted Date Ascending aortic aneurysm 04/12/2018 Overview: Added automatically from request for surgery [id number] Aortic valve regurgitation 04/12/2018 Overview: Added automatically from request for surgery [id number] Bicuspid aortic valve Asthma Endometriosis Hypertension ADHD Contact with and (suspected) exposure to environmental tobacco smoke (acute) (chronic) PCOS (polycystic ovarian syndrome) GI bleed Thoracic aortic aneurysm without rupture Aortic regurgitation due to bicuspid aortic valve Encounters Care Team Description Date Type Specialty Natalie Haywood RN General Question (pre-op ??) 08/14/2018 Telephone Cardiothoracic Surgery Cruz Middleton MD Aortic valve insufficiency, etiology of cardiac valve disease unspecified (Primary Dx); Bicuspid aortic valve; Thoracic aortic aneurysm without rupture (HCC) 08/11/2018 Pre-Admit Anesthesiology Orders Only from Last 3 Months Family History Medical History Relation Name Comments ADD/ADHD Brother ADD/ADHD Brother Diabetes Mother Relation Name Status Comments Brother Brother Mother Social History Date Tobacco Use Types Packs/Day [...] Travel Start No recent travel history available. Last Filed Vital Signs Time Taken Vital Sign Reading 03/26/2018 12:16 PM CDT Blood Pressure 142/110 03/26/2018 12:16 PM CDT Pulse 88 - Temperature - - Respiratory Rate - - Oxygen Saturation - - Inhaled Oxygen - Concentration 03/26/2018 12:16 PM CDT Weight 106.1 kg (234 lb) 03/26/2018 12:16 PM CDT Height 170.2 cm (5' 7") 03/26/2018 12:16 PM CDT Body Mass Index 36.65 Plan of Treatment Health Maintenance Due Date Last Done Comments PHYSICAL (COMPREHENSIVE) 2004 EXAM HPV VACCINES (1 - Female 2008 3-dose series) HIV SCREENING 2012 MENINGOCOCCAL VACCINE 2013 (ACWY,Menactra) (1 - 2-dose series) DTAP/TDAP VACCINES (1 - 2015 Tdap) INFLUENZA VACCINE 04/04/2018 07/24/2009 CERVICAL CANCER SCREENING 2018 Results Not on filefrom Last 3 Months Advance Directives Patient has advance care planning documents on file. For more information, please contact: [facility] [address] [place] [address]
--- OUTSIDE RECORDS SUMMARY | 2018-09-17 23:48 | XMS REPORT | Encounter Summary ---
Author Author [facility] Organization [facility] Address Unknown Phone Unavailable Care Team Providers Care Loader Operator Name Role Phone Nannette Arreguin PCP Encounter Details Care Team Description Date Type Department Cruz Middleton MD [address] [facility] [place] [address] [place] [address] Aortic valve insufficiency, etiology of cardiac valve disease unspecified (Primary Dx); Bicuspid aortic valve; Thoracic aortic aneurysm without rupture (HCC) 08/11/2018 Pre-Admit Preoperative Assessment Orders Only Clinic [facility] [address] [place], [place] [id number] Social History Date Tobacco Use Types Packs/Day [...] travel history available. as of this encounter Plan of Treatment Order Schedule Name Priority Associated Diagnoses Expected: 08/15/2018, Expires: 08/11/2019 CBC STAT Aortic valve insufficiency, etiology of cardiac valve disease unspecified Bicuspid aortic valve Thoracic aortic aneurysm without rupture (HCC) Expected: 08/15/2018, Expires: 08/11/2019 COMPREHENSIVE METABOLIC PANEL STAT Aortic valve insufficiency, etiology of cardiac valve disease unspecified Bicuspid aortic valve Thoracic aortic aneurysm without rupture (HCC) Expected: 08/15/2018, Expires: 08/11/2019 PROTIME INR (PT) STAT Aortic valve insufficiency, etiology of cardiac valve disease unspecified Bicuspid aortic valve Thoracic aortic aneurysm without rupture (HCC) Expected: 08/15/2018, Expires: 08/11/2019 PTT (APTT) STAT Aortic valve insufficiency, etiology of cardiac valve disease unspecified Bicuspid aortic valve Thoracic aortic aneurysm without rupture (HCC) Expected: 08/15/2018, Expires: 08/11/2019 HEMOGLOBIN A1C STAT Aortic valve insufficiency, etiology of cardiac valve disease unspecified Bicuspid aortic valve Thoracic aortic aneurysm without rupture (HCC) Expected: 08/15/2018 (Approximate), Expires: 08/11/2019 BNP (B-TYPE NATRIURETIC PEPTI) STAT Aortic valve insufficiency, etiology of cardiac valve disease unspecified Bicuspid aortic valve Thoracic aortic aneurysm without rupture (HCC) Expected: 08/15/2018 (Approximate), Expires: 08/11/2019 UA REFLEX CULTURE LABEL STAT Aortic valve insufficiency, etiology of cardiac valve disease unspecified Bicuspid aortic valve Thoracic aortic aneurysm without rupture (HCC) Expected: 08/15/2018 (Approximate), Expires: 08/11/2019 URINALYSIS MICROSCOPIC REFLEX TO CULTURE STAT Aortic valve insufficiency, etiology of cardiac valve disease unspecified Bicuspid aortic valve Thoracic aortic aneurysm without rupture (HCC) Expected: 08/15/2018 (Approximate), Expires: 08/11/2019 URINALYSIS DIPSTICK REFLEX TO CULTURE STAT Aortic valve insufficiency, etiology of cardiac valve disease unspecified Bicuspid aortic valve Thoracic aortic aneurysm without rupture (HCC) Expected: 08/15/2018 (Approximate), Expires: 08/11/2019 TEST-URINE STAT Aortic valve insufficiency, etiology of cardiac valve disease unspecified Bicuspid aortic valve Thoracic aortic aneurysm without rupture (HCC) Expected: 08/15/2018, Expires: 08/11/2019 TYPE & CROSSMATCH STAT Aortic valve insufficiency, etiology of cardiac valve disease unspecified Bicuspid aortic valve Thoracic aortic aneurysm without rupture (HCC) Expected: 08/15/2018, Expires: 08/11/2019 HOLD RBC'S FOR SURGERY/PROCEDURE STAT Aortic valve insufficiency, etiology of cardiac valve disease unspecified Bicuspid aortic valve Thoracic aortic aneurysm without rupture (HCC) Expected: 08/15/2018, Expires: 08/11/2019 ECG 12-LEAD Routine Aortic valve insufficiency, etiology of cardiac valve disease unspecified Bicuspid aortic valve Thoracic aortic aneurysm without rupture (HCC) Expected: 08/15/2018, Expires: 08/11/2019 CHEST 2 VIEWS STAT Aortic valve insufficiency, etiology of cardiac valve disease unspecified Bicuspid aortic valve Thoracic aortic aneurysm without rupture (HCC) as of this encounter Visit Diagnoses Diagnosis Aortic valve insufficiency, etiology of cardiac valve disease unspecified - Primary Bicuspid aortic valve Congenital insufficiency of aortic valve Thoracic aortic aneurysm without rupture (HCC) Thoracic aneurysm without mention of rupture in this encounter
--- OUTSIDE RECORDS SUMMARY | 2018-09-17 23:49 | XMS REPORT ---
Author Author JOELLEN PEREZ Organization [facility] Address [address] [place] [address] Care Team Providers Care Milk Hauler Name Role Phone JOELLEN PEREZ Unavailable PROBLEMS Type Condition ICD9-CM Code [id number] Code Onset Dates Condition Status SNOMED Code Problem Dysthymic disorder F34.1 Active 52451005 Problem Unspecified backache 724.5 Active [id number] ALLERGIES No Information ENCOUNTERS Encounter Location Date Diagnosis [place] [id number] [place] [phone] Aug, [place] [address] [place] [id number] [place] [phone] Aug, Dysthymic disorder F34.1 [facility] [id number] [id number] Oct, test-positive Z32.01 [place] [address] [place] [phone] Dec, [facility] [id number] [address] Dec, [facility] [id number] [id number] Jun, [facility] [id number] [place] [phone] Jun, IMMUNIZATIONS No Known Immunizations SOCIAL HISTORY Never Assessed REASON FOR VISIT High score [facility] PLAN OF CARE VITAL SIGNS MEDICATIONS Unknown Medications RESULTS No Results PROCEDURES No Known procedures INSTRUCTIONS MEDICATIONS ADMINISTERED No Known Medications
--- OUTSIDE RECORDS SUMMARY | 2018-09-17 23:49 | XMS REPORT ---
Author Author COY LEWIS Organization [facility] Address [address] [place] [address] Care Team Providers Care Spooler Operator Name Role Phone COY LEWIS Unavailable PROBLEMS Type Condition ICD9-CM Code [id number] Code Onset Dates Condition Status SNOMED Code Problem Dysthymic disorder F34.1 Active 96278265 Problem Unspecified backache 724.5 Active [id number] ALLERGIES No Information ENCOUNTERS Encounter Location Date Diagnosis [place] [id number] [place] [phone] Aug, [place] [address] [place] [id number] [place] [phone] Aug, Dysthymic disorder F34.1 [facility] [id number] [place] [id number] Oct, test-positive Z32.01 [place] [address] [place] [id number] [place] [phone] Dec, [place] [address] [place] [phone] Dec, [facility] [id number] [place] [id number] Jun, [place] [id number] [place] [phone] Jun, IMMUNIZATIONS No Known Immunizations SOCIAL HISTORY Never Assessed REASON FOR VISIT Depression. PLAN OF CARE Activity Details Follow Up 1 Week Reason:depression VITAL SIGNS MEDICATIONS Medication Instructions Dosage Frequency Start Date End Date Duration Status Hydrocodone-Acetaminophen 5-325 mg take 1 tablet by Oral route every 6 hours as needed for pain PRN Takes BID during period Jun, Not-Taking Prozac Active Ibuprofen 600 mg take 1 tablet by Oral route 3 times per day with food PRN for pain Jun, Not-Taking Lisinopril 10 mg take 1 tablet (10 mg) by oral route once daily Jun Not-Taking Albuterol Sulfate 90 mcg/actuation inhale 1 puff by inhalation route every 4-6 hours as needed PRN Jun, Not-Taking RESULTS No Results PROCEDURES Procedure Date Ordered Result Body Site Psychotherapy, patient &/family, 30 minutes, established patient Aug 15, 2017 INSTRUCTIONS MEDICATIONS ADMINISTERED No Known Medications
--- OUTSIDE RECORDS SUMMARY | 2018-09-17 23:51 | XMS REPORT | Continuity of Care Document ---
Author Author [facility] Organization [facility] Address Unknown Phone Unavailable Allergies Active Description Code Type Severity Reaction Onset Reported/Identified Relationship to Patient Clinical Status Yes No Known Drug Allergies [id number] Drug Allergy Unknown N/A 09/15/2014 Medications There is no data. Problems Date Dx Coded Attending Type Code Diagnosis Diagnosed By 06/09/2014 JOELLEN PEREZ DO 724.5 BACKACHE UNSPECIFIED 09/20/2014 ISAEL RAMIREZ, SOCORRO Singh Ot 543.9 DISEASES OF APPENDIX NEC 09/20/2014 ISAEL RAMIREZ, SOCORRO Singh Ot 617.1 OVARIAN ENDOMETRIOSIS 09/20/2014 ISAEL RAMIREZ, SOCORRO Singh Ot 617.3 PELV PERIT ENDOMETRIOSIS 09/20/2014 ISAEL RAMIREZ, SOCORRO Singh Ot 617.5 INTESTINAL ENDOMETRIOSIS 09/20/2014 ISAEL RAMIREZ, SOCORRO Singh Ot 626.8 MENSTRUAL DISORDER NEC 10/03/2014 ISAEL RAMIREZ, SOCORRO Singh Ot 285.9 10/03/2014 ISAEL RAMIREZ, SOCORRO Singh Ot 617.9 10/03/2014 ISAEL RAMIREZ, SOCORRO Singh Ot 626.8 10/03/2014 ISAEL RAMIREZ, SOCORRO Singh Ot V72.63 10/03/2014 ISAEL RAMIREZ, SOCORRO Singh Ot V72.81 10/03/2014 ISAEL RAMIREZ, SOCORRO Singh Ot V74.8 10/16/2015 ISAEL RAMIREZ, SOCORRO Singh Ot 285.9 10/16/2015 ISAEL RAMIREZ, SOCORRO Singh Ot 617.9 10/16/2015 ISAEL RAMIREZ, SOCORRO Singh Ot 626.8 10/16/2015 ISAEL RAMIREZ, SOCORRO Singh Ot V72.63 10/16/2015 ISAEL RAMIREZ, SOCORRO Singh Ot V72.81 10/16/2015 ISAEL RAMIREZ, SOCORRO Samantha Ot V74.8 10/16/2015 ANIKA MOJICA Ot N80.0 ENDOMETRIOSIS OF UTERUS 10/16/2015 ANIKA MOJICA Ot N92.0 EXCESSIVE AND FREQUENT MENSTRUATION WITH 10/16/2015 ANIKA MOJICA Ot R10.84 GENERALIZED ABDOMINAL PAIN 10/16/2015 ANIKA MOJICA Ot Z91.14 PATIENT'S OTHER NONCOMPLIANCE WITH MEDIC 12/07/2015 Ot I10 ESSENTIAL ( PRIMARY) HYPERTENSION 12/07/2015 Ot R20.2 PARESTHESIA OF SKIN 12/07/2015 Ot I10 12/07/2015 Ot R20.2 12/08/2015 ISAEL RAMIREZ, SOCORRO Samantha Ot 285.9 12/08/2015 ISAEL RAMIREZ, SOCORRO Samantha Ot 617.9 12/08/2015 ISAEL RAMIREZ, SOCORRO Samantha Ot 626.8 12/08/2015 ISAEL RAMIREZ, SOCORRO Singh Ot V72.63 12/08/2015 ISAEL RAMIREZ, SOCORRO Singh Ot V72.81 12/08/2015 ISAEL RAMIREZ, SOCORRO Singh Ot V74.8 12/08/2015 RADHA RAMIREZ, XIANG Rodriguez Ot M79.601 PAIN IN RIGHT ARM 12/08/2015 XIANG GARCIA MD Ot R20.2 PARESTHESIA OF SKIN 12/09/2015 XIANG GARCIA MD T Ot M79.601 12/09/2015 XIANG GARCIA MD T Ot R20.2 12/21/2015 XIANG GARCIA MD Ot M54.2 CERVICALGIA 12/21/2015 XIANG GARCIA MD Ot R20.2 PARESTHESIA OF SKIN 12/22/2015 XIANG GARCIA MD Ot M54.2 CERVICALGIA 12/22/2015 XIANG GARCIA MD Ot R20.2 PARESTHESIA OF SKIN 01/05/2016 TODD OCHOA Ot R20.2 PARESTHESIA OF SKIN 01/25/2016 TODD OCHOA Ot R20.2 PARESTHESIA OF SKIN 10/31/2016 SOCORRO KIRKLAND MD Ot 285.9 ANEMIA NOS 10/31/2016 SOCORRO KIRKLAND MD Ot 617.9 ENDOMETRIOSIS NOS 10/31/2016 SOCORRO KIRKLAND MD Ot 626.8 MENSTRUAL DISORDER NEC 10/31/2016 SOCORRO KIRKLAND MD, Ot V72.63 PRE-PROCEDURAL LABORATORY EXAMINATION 10/31/2016 SOCORRO KIRKLAND MD, Ot V72.81 EMEG-JER-IQSJTQOWN CARDIOVASCULAR 10/31/2016 SOCORRO KIRKLAND MD, Ot V74.8 SCREEN-BACTERIAL DIS NEC 10/31/2016 RACHEL QUIÑONEZ, TODD Medina Ot R20.2 PARESTHESIA OF SKIN 10/31/2016 LUCRECIA DO ANA K Ot O20.0 THREATENED 10/31/2016 LUCRECIA ANA K Ot O36.0110 MATERNAL CARE FOR ANTI-D ANTIBODIES, FIR 10/31/2016 LUCRECIA CRISTINA ANA K Ot O46.91 ANTEPARTUM HEMORRHAGE, UNSPECIFIED, FIRS 10/31/2016 LUCRECIA ANA K Ot Z3A.01 LESS THAN 8 WEEKS GESTATION OF 11/01/2016 LUCRECIA ANA K Ot O20.0 THREATENED 11/01/2016 LUCRECIA ANA K Ot O36.0110 MATERNAL CARE FOR ANTI-D ANTIBODIES, FIR 11/01/2016 LUCRECIA ANA K Ot O46.91 ANTEPARTUM HEMORRHAGE, UNSPECIFIED, FIRS 11/01/2016 LUCRECIA ANA K Ot Z3A.01 LESS THAN 8 WEEKS GESTATION OF 11/13/2016 RADHA SANCHES APRN Ot O20.0 THREATENED 11/13/2016 RADHA SANCHES APRN Ot O23.41 UNSP INFCT OF URINARY TRACT IN 11/13/2016 RADHA SANCHES BANK EXAMINER Ot Z3A.01 LESS THAN 8 WEEKS GESTATION OF 11/15/2016 RADHA SANCHES BANK EXAMINER Ot O20.0 THREATENED 11/15/2016 RADHA SANCHES APRN Ot O23.41 UNSP INFCT OF URINARY TRACT IN 11/15/2016 RADHA SANCHES APRN Ot Z3A.01 LESS THAN 8 WEEKS GESTATION OF 11/19/2016 RADHA SANCHES BANK EXAMINER Ot O20.0 THREATENED 11/19/2016 RADHA SANCHES BANK EXAMINER Ot O23.41 UNSP INFCT OF URINARY TRACT IN 11/19/2016 RADHA SANCHES BANK EXAMINER Ot Z3A.01 LESS THAN 8 WEEKS GESTATION OF 02/04/2017 SOCORRO KIRKLAND MD Ot 285.9 ANEMIA NOS 02/04/2017 SOCORRO KIRKLAND MD Ot 617.9 ENDOMETRIOSIS NOS 02/04/2017 SOCORRO KIRKLAND MD Ot 626.8 MENSTRUAL DISORDER NEC 02/04/2017 SOCORRO KIRKLAND MD Ot V72.63 PRE-PROCEDURAL LABORATORY EXAMINATION 02/04/2017 SOCORRO KIRKLAND MD, Ot V72.81 JLGO-SRU-QNIJGHPSO CARDIOVASCULAR 02/04/2017 SOCORRO KIRKLAND MD, Ot V74.8 SCREEN-BACTERIAL DIS NEC 02/04/2017 TODD OCHOA Ot R20.2 PARESTHESIA OF SKIN 02/04/2017 ANIKA MOJICA Ot E86.9 VOLUME DEPLETION, UNSPECIFIED 02/04/2017 ANIKA MOJICA Ot O23.42 UNSP INFCT OF URINARY TRACT IN 02/04/2017 ANIKA MOJICA Ot O26.892 OT RELATED CONDITIONS, SECOND 02/04/2017 ANIKA MOJICA Ot O99.282 ENDO, NUTRITIONAL AND METAB DISEASES COM 02/04/2017 ANIKA MOJICA Ot R10.2 PELVIC AND PERINEAL PAIN 02/04/2017 ANIKA MOJICA Ot Z3A.19 19 WEEKS GESTATION OF 02/06/2017 ANIKA MOJICA Ot E86.9 VOLUME DEPLETION, UNSPECIFIED 02/06/2017 ANIKA MOJICA Ot O23.42 UNSP INFCT OF URINARY TRACT IN 02/06/2017 ANIKA MOJICA Ot O26.892 OT RELATED CONDITIONS, SECOND 02/06/2017 ANIKA MOJICA Ot O99.282 ENDO, NUTRITIONAL AND METAB DISEASES COM 02/06/2017 ANIKA MOJICA Ot R10.2 PELVIC AND PERINEAL PAIN 02/06/2017 ANIKA MOJICA Ot Z3A.19 19 WEEKS GESTATION OF 03/19/2017 SOCORRO KIRKLAND MD, Ot 285.9 ANEMIA NOS 03/19/2017 SOCORRO KIRKLAND MD Ot 617.9 ENDOMETRIOSIS NOS 03/19/2017 SOCORRO KIRKLAND MD Ot 626.8 MENSTRUAL DISORDER NEC 03/19/2017 SOCORRO KIRKLAND MD, Ot V72.63 PRE-PROCEDURAL LABORATORY EXAMINATION 03/19/2017 SOCORRO KIRKLAND MD, Ot V72.81 BZTG-NQN-ZMWEONLUO CARDIOVASCULAR 03/19/2017 SOCORRO KIRKLAND MD, Ot V74.8 SCREEN-BACTERIAL DIS NEC 03/19/2017 TODD OCHOA Ot R20.2 PARESTHESIA OF SKIN 03/20/2017 SOCORRO KIRKLAND MD, Ot O47.02 FALSE LABOR BEFORE 37 COMPLETED WEEKS OF 03/20/2017 SOCORRO KIRKLAND MD, Ot W18.2XXA FALL IN (INTO) SHOWER OR EMPTY BATHTUB, 03/20/2017 SOCORRO KIRKLAND MD, Ot Z3A.25 25 WEEKS GESTATION OF 04/05/2017 SOCORRO KIRKLAND MD, Ot 285.9 ANEMIA NOS 04/05/2017 SOCORRO KIRKLAND MD Ot 617.9 ENDOMETRIOSIS NOS 04/05/2017 SOCORRO KIRKLAND MD Ot 626.8 MENSTRUAL DISORDER NEC 04/05/2017 SOCORRO KIRKLAND MD, Ot V72.63 PRE-PROCEDURAL LABORATORY EXAMINATION 04/05/2017 SOCOROR KIRKLAND MD, Ot V72.81 QMIG-YIL-BEPAYSMSP CARDIOVASCULAR 04/05/2017 SOCORRO KIRKLAND MD, Ot V74.8 SCREEN-BACTERIAL DIS NEC 04/05/2017 TODD OCHOA Ot R20.2 PARESTHESIA OF SKIN 04/05/2017 SOCORRO KIRKLAND MD, Ot O36.8130 DECREASED MOVEMENTS, THIRD TRIMEST 04/05/2017 SOCORRO KIRKLAND MD, Ot Z3A.31 31 WEEKS GESTATION OF 04/11/2017 SOCORRO KIRKLAND MD, Ot O36.8130 DECREASED MOVEMENTS, THIRD TRIMEST 04/11/2017 SOCORRO KIRKLAND MD, Ot Z3A.31 31 WEEKS GESTATION OF 04/19/2017 SOCORRO KIRKLAND MD, Ot Z41.8 ENCNTR FOR OTH PROC FOR PURPOSE OTH THAN 04/19/2017 SOCORRO KIRKLAND MD, Ot O47.03 FALSE LABOR BEFORE 37 COMPLETED WEEKS OF 04/19/2017 SOCORRO KIRKLAND MD, Ot Z3A.29 29 WEEKS GESTATION OF 04/29/2017 SOCORRO KIRKLAND MD, Ot Z34.83 ENCOUNTER FOR SUPRVSN OF NORMAL PREGNANC 04/29/2017 SOCORRO KIRKLAND MD, Ot Z3A.00 WEEKS OF GESTATION OF NOT SPEC 05/02/2017 SOCORRO KIRKLAND MD, Ot Z41.8 ENCNTR FOR OTH PROC FOR PURPOSE OTH THAN 05/06/2017 SOCORRO KIRKLAND MD, Ot E86.0 DEHYDRATION 05/06/2017 SOCORRO KIRKLAND MD, Ot O99.283 ENDO, NUTRITIONAL AND METAB DISEASES COM 05/06/2017 SOCORRO KIRKLAND MD, Ot Z3A.31 31 WEEKS GESTATION OF 05/15/2017 SOCORRO KIRKLAND MD, Ot O12.13 GESTATIONAL PROTEINURIA, THIRD TRIMESTER 05/15/2017 SOCORRO KIRKLAND MD, Ot O21.8 OTHER VOMITING COMPLICATING 05/15/2017 SOCORRO KIRKLAND MD, Ot Z3A.32 32 WEEKS GESTATION OF 05/15/2017 SOCORRO KIRKLAND MD, Ot O12.13 GESTATIONAL PROTEINURIA, THIRD TRIMESTER 05/15/2017 SOCORRO KIRKLAND MD, Ot O21.8 OTHER VOMITING COMPLICATING 05/15/2017 SOCORRO KIRKLAND MD, Ot Z3A.32 32 WEEKS GESTATION OF 05/18/2017 SOCORRO KIRKLAND MD, Ot 285.9 ANEMIA NOS 05/18/2017 SOCORRO KIRKLAND MD, Ot 617.9 ENDOMETRIOSIS NOS 05/18/2017 SOCORRO KIRKLAND MD, Ot 626.8 MENSTRUAL DISORDER NEC 05/18/2017 SOCORRO KIRKLAND MD, Ot V72.63 PRE-PROCEDURAL LABORATORY EXAMINATION 05/18/2017 SOCORRO KIRKLAND MD, Ot 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.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 05/18/2017 SOCORRO KIRKLAND MD, Ot V74.8 SCREEN-BACTERIAL DIS NEC 05/18/2017 TODD OCHOA Ot R20.2 PARESTHESIA OF SKIN 05/18/2017 SOCORRO KIRKLAND MD, Ot Z34.83 ENCOUNTER FOR SUPRVSN OF NORMAL PREGNANC 05/18/2017 SOCORRO KIRKLAND MD, Ot Z3A.00 WEEKS OF GESTATION OF NOT SPEC 05/18/2017 SOCORRO KIRKLAND MD, Ot Z41.8 ENCNTR FOR OTH PROC FOR PURPOSE OTH THAN 05/21/2017 SOCORRO KIRKLAND MD, Ot O47.03 FALSE LABOR BEFORE 37 COMPLETED WEEKS OF 05/21/2017 SOCORRO KIRKLAND MD, Ot Z3A.34 34 WEEKS GESTATION OF 05/23/2017 SOCORRO KIRKLAND MD, Ot O14.03 MILD TO MODERATE PRE-ECLAMPSIA, THIRD TR 05/23/2017 SOCORRO KIRKLAND MD, Ot Z3A.00 WEEKS OF GESTATION OF NOT SPEC 05/25/2017 SOCORRO KIRKLAND MD, Ot O14.03 MILD TO MODERATE PRE-ECLAMPSIA, THIRD TR 05/25/2017 SOCORRO KIRKLAND MD, Ot Z3A.00 WEEKS OF GESTATION OF NOT SPEC 05/29/2017 SOCORRO KIRKLAND MD, Ot O28.8 OTHER ABNORMAL FINDINGS ON SCR 05/29/2017 SOCORRO KIRKLAND MD, Ot Z3A.00 WEEKS OF GESTATION OF NOT SPEC 05/29/2017 SOCORRO KIRKLAND MD, Ot O28.8 OTHER ABNORMAL FINDINGS ON SCR 05/29/2017 SOCORRO KIRKLAND MD, Ot Z3A.00 WEEKS OF GESTATION OF NOT SPEC 05/31/2017 SOCORRO KIRKLAND MD, Ot O28.8 OTHER ABNORMAL FINDINGS ON SCR 05/31/2017 SOCORRO KIRKLAND MD, Ot Z3A.00 WEEKS OF GESTATION OF NOT SPEC 05/31/2017 SOCORRO KIRKLAND MD, Ot O28.8 OTHER ABNORMAL FINDINGS ON SCR 05/31/2017 SOCORRO KIRKLAND MD, Ot Z3A.00 WEEKS OF GESTATION OF NOT SPEC 05/31/2017 SOCORRO KIRKLAND MD, Ot O14.03 MILD TO MODERATE PRE-ECLAMPSIA, THIRD TR 05/31/2017 SOCORRO KIRKLAND MD, Ot Z3A.00 WEEKS OF GESTATION OF NOT SPEC 05/31/2017 SOCORRO KIRKLAND MD, Ot O14.03 MILD TO MODERATE PRE-ECLAMPSIA, THIRD TR 05/31/2017 SOCORRO KIRKLAND MD, Ot Z3A.00 WEEKS OF GESTATION OF NOT SPEC 05/31/2017 SOCORRO KIRKLAND MD, Ot O28.8 OTHER ABNORMAL FINDINGS ON SCR 05/31/2017 SOCORRO KIRKLAND MD, Ot Z3A.00 WEEKS OF GESTATION OF NOT SPEC 06/06/2017 SOCORRO KIRKLAND MD, Ot O14.03 MILD TO MODERATE PRE-ECLAMPSIA, THIRD TR 06/06/2017 SOCORRO KIRKLAND MD, Ot Z3A.00 WEEKS OF GESTATION OF NOT SPEC 06/07/2017 Ot O20.8 OTHER HEMORRHAGE IN EARLY 06/07/2017 Ot Z3A.00 WEEKS OF GESTATION OF NOT SPEC 06/07/2017 Ot O20.8 OTHER HEMORRHAGE IN EARLY 06/07/2017 Ot Z3A.00 WEEKS OF GESTATION OF NOT SPEC 06/07/2017 SOCORRO KIRKLAND MD, Ot O28.8 OTHER ABNORMAL FINDINGS ON SCR 06/07/2017 SOCORRO KIRKLAND MD, Ot Z3A.00 WEEKS OF GESTATION OF NOT SPEC 06/09/2017 SOCORRO KIRKLAND MD, Ot O14.14 SEVERE PRE-ECLAMPSIA COMPLICATING CHILDB 06/09/2017 SOCORRO KIRKLAND MD, Ot Z23 ENCOUNTER FOR IMMUNIZATION 06/09/2017 SOCORRO KIRKLAND MD, Ot Z37.0 SINGLE LIVE 06/09/2017 SOCORRO KIRKLAND MD, Ot Z3A.36 36 WEEKS GESTATION OF 06/13/2017 SOCORRO KIRKLAND MD, Ot O28.8 OTHER ABNORMAL FINDINGS ON SCR 06/13/2017 SOCORRO KIRKLAND MD, Ot Z3A.00 WEEKS OF GESTATION OF NOT SPEC 06/14/2017 SOCORRO KIRKLAND MD, Ot O28.8 OTHER ABNORMAL FINDINGS ON SCR 06/14/2017 SOCORRO KIRKLAND MD, Ot Z3A.00 WEEKS OF GESTATION OF NOT SPEC 06/15/2017 Ot O20.8 OTHER HEMORRHAGE IN EARLY 06/15/2017 Ot Z3A.00 WEEKS OF GESTATION OF NOT SPEC 06/20/2017 SOCORRO KIRKLAND MD, Ot O14.03 MILD TO MODERATE PRE-ECLAMPSIA, THIRD TR 06/20/2017 SOCORRO KIRKLAND MD, Ot Z3A.00 WEEKS OF GESTATION OF NOT SPEC 06/21/2017 SOCORRO KIRKLAND MD, Ot O28.8 OTHER ABNORMAL FINDINGS ON SCR 06/21/2017 SOCORRO KIRKLAND MD, Ot Z3A.00 WEEKS OF GESTATION OF NOT SPEC 03/11/2018 SOCORRO KIRKLAND MD Ot 285.9 ANEMIA NOS 03/11/2018 SOCORRO KIRKLAND MD, Ot 617.9 ENDOMETRIOSIS NOS 03/11/2018 SOCORRO KIRKLAND MD, Ot 626.8 MENSTRUAL DISORDER NEC 03/11/2018 SOCORRO KIRKLAND MD, Ot V72.63 PRE-PROCEDURAL LABORATORY EXAMINATION 03/11/2018 SOCORRO KIRKLAND MD, Ot V72.81 BUKZ-PDN-EOSZREXCH CARDIOVASCULAR 03/11/2018 SOCORRO KIRKLAND MD, Ot V74.8 SCREEN-BACTERIAL DIS NEC 03/11/2018 TODD OCHOA Ot R20.2 PARESTHESIA OF SKIN 03/11/2018 SOCORRO KIRKLAND MD, Ot Z34.83 ENCOUNTER FOR SUPRVSN OF NORMAL PREGNANC 03/11/2018 SOCORRO KIRKLAND MD, Ot Z3A.00 WEEKS OF GESTATION OF NOT SPEC 03/11/2018 SOCORRO KIRKLAND MD, Ot Z41.8 ENCNTR FOR OTH PROC FOR PURPOSE OTH THAN 03/11/2018 ISAEL MD, SOCORRO G Ot O14.03 MILD TO MODERATE PRE-ECLAMPSIA, THIRD TR 03/11/2018 SOCORRO KIRKLAND MD Ot Z3A.00 WEEKS OF GESTATION OF NOT SPEC 03/11/2018 SOCORRO KIRKLAND MD, Ot O14.03 MILD TO MODERATE PRE-ECLAMPSIA, THIRD TR 03/11/2018 SOCORRO KIRKLAND MD, Ot Z3A.00 WEEKS OF GESTATION OF NOT SPEC 03/11/2018 SOCORRO KIRKLAND MD Ot O28.8 OTHER ABNORMAL FINDINGS ON SCR 03/11/2018 SOCORRO KIRKLAND MD Ot Z3A.00 WEEKS OF GESTATION OF NOT SPEC 03/11/2018 SOCORRO KIRKLAND MD Ot O28.8 OTHER ABNORMAL FINDINGS ON SCR 03/11/2018 ISAEL RAMIREZ, SOCORRO Singh Ot Z3A.00 WEEKS OF GESTATION OF NOT SPEC 03/11/2018 Ot O20.8 OTHER HEMORRHAGE IN EARLY 03/11/2018 Ot Z3A.00 WEEKS OF GESTATION OF NOT SPEC 03/11/2018 SOCORRO KIRKLAND MD Ot O28.8 OTHER ABNORMAL FINDINGS ON SCR 03/11/2018 SOCORRO KIRKLAND MD Ot Z3A.00 WEEKS OF GESTATION OF NOT SPEC 03/11/2018 ANA SINGER DO Ot F41.9 ANXIETY DISORDER, UNSPECIFIED 03/11/2018 ANA SINGER DO Ot F90.9 ATTENTION-DEFICIT HYPERACTIVITY DISORDER 03/11/2018 ANA SINGER DO Ot G43.909 MIGRAINE, UNSP, NOT INTRACTABLE, WITHOUT 03/11/2018 ANA SINGER DO Ot I10 ESSENTIAL (PRIMARY) HYPERTENSION 03/11/2018 ANA SINGER DO Ot K08.89 OTHER SPECIFIED DISORDERS OF TEETH AND S 03/11/2018 ANA SINGER DO Ot Z87.891 PERSONAL HISTORY OF NICOTINE DEPENDENCE 03/11/2018 ANA SINGER DO Ot Z90.49 ACQUIRED ABSENCE OF OTHER SPECIFIED PART 03/11/2018 ANA SINGER DO Ot Z91.14 PATIENT'S OTHER NONCOMPLIANCE WITH MEDIC 03/13/2018 ANA SINGER DO Ot F41.9 ANXIETY DISORDER, UNSPECIFIED 03/13/2018 ANA SINGER DO Ot F90.9 ATTENTION-DEFICIT HYPERACTIVITY DISORDER 03/13/2018 ANA SINGER DO Ot G43.909 MIGRAINE, UNSP, NOT INTRACTABLE, WITHOUT 03/13/2018 LUCRECIA CRISTINA ANA Adam Ot I10 ESSENTIAL (PRIMARY) HYPERTENSION 03/13/2018 ANA SINGER DO Ot K08.89 OTHER SPECIFIED DISORDERS OF TEETH AND S 03/13/2018 LUCRECIA CRISTINA ANA Medina Ot Z87.891 PERSONAL HISTORY OF NICOTINE DEPENDENCE 03/13/2018 LUCRECIA CRISTINA ANA Medina Ot Z90.49 ACQUIRED ABSENCE OF OTHER SPECIFIED PART 03/13/2018 LUCRECIA CRISTINA ANA Medina Ot Z91.14 PATIENT'S OTHER NONCOMPLIANCE WITH MEDIC 04/03/2018 JAMI WHITESIDE MD, Ot I71.2 THORACIC AORTIC ANEURYSM, WITHOUT RUPTUR 04/03/2018 JAMI WHITESIDE MD, Ot Q23.1 CONGENITAL INSUFFICIENCY OF AORTIC VALVE 04/03/2018 JAMI WHITESIDE MD, Ot Z86.79 PERSONAL HISTORY OF OTHER DISEASES OF TH Procedures Code Description Performed By Performed On [id number] EXTRACTION OF POC, LOW CERVICAL, OPEN AP 06/07/2017 Results Test Result Range Complete blood count (CBC) with automated white blood cell (WBC) differential - 10/31/16 21:17 Blood leukocytes automated count (number/volume) 9.7 10*3/uL 4.3-11.0 Blood erythrocytes automated count (number/volume) 4.61 10*6/uL 4.35-5.85 Venous blood hemoglobin measurement (mass/volume) 13.3 g/dL 11.5-16.0 Blood hematocrit (volume fraction) 39 % 35-52 Automated erythrocyte mean corpuscular volume 84 [foz_us] 80-99 Automated erythrocyte mean corpuscular hemoglobin (mass per erythrocyte) 29 pg 25-34 Automated erythrocyte mean corpuscular hemoglobin concentration measurement ( mass/volume) 34 g/dL 32-36 Automated erythrocyte distribution width ratio 12.9 % 10.0-14.5 Automated blood platelet count (count/volume) 228 10*3/uL 130-400 Automated blood platelet mean volume measurement 12.0 [foz_us] 7.4-10.4 Automated blood neutrophils/100 leukocytes 63 % 42-75 Automated blood lymphocytes/100 leukocytes 21 % 12-44 Blood monocytes/100 leukocytes 13 % 0-12 Automated blood eosinophils/100 leukocytes 2 % 0-10 Automated blood basophils/100 leukocytes 1 % 0-10 Blood neutrophils automated count (number/volume) 6.1 10*3 1.8-7.8 Blood lymphocytes automated count (number/volume) 2.1 10*3 1.0-4.0 Blood monocytes automated count (number/volume) 1.3 10*3 0.0-1.0 Automated eosinophil count 0.2 10*3/uL 0.0-0.3 Automated blood basophil count (count/volume) 0.1 10*3/uL 0.0-0.1 Urine drug screening test - 10/31/16 21:17 Urine phencyclidine detection by screening method NEGATIVE NEGATIVE Urine benzodiazepines detection by screening method NEGATIVE NEGATIVE Urine cocaine detection NEGATIVE NEGATIVE Urine amphetamines detection by screening method NEGATIVE NEGATIVE Urine methamphetamine detection by screening method NEGATIVE NEGATIVE Urine cannabinoids detection by screening method NEGATIVE NEGATIVE Urine opiates detection by screening method NEGATIVE NEGATIVE Urine barbiturates detection NEGATIVE NEGATIVE Screening urine tricyclic antidepressants detection NEGATIVE NEGATIVE Urine methadone detection by screening method NEGATIVE NEGATIVE Urine oxycodone detection NEGATIVE NEGATIVE Urine propoxyphene detection NEGATIVE NEGATIVE [facility] - 10/31/16 21:17 RH IMMUNE [facility] PRSMD TRFSD 10/31/16 [id number] [facility] ABO+Rh group - 10/31/16 21:17 ABO+Rh group ON [facility] Transfusion band number [id number] [facility] [id number] - 10/31/16 21:17 [id number] 300ug [facility] Lot number - 10/31/16 21:17 Lot number [id number] [facility] cell screen - 10/31/16 21:17 cell screen [id number] [facility] cell screen 12/01/18 [facility] Whole blood basic metabolic panel - 10/31/16 21:17 Serum or plasma sodium measurement (moles/volume) 138 mmol/L 135-145 Serum or plasma potassium measurement (moles/volume) 3.5 mmol/L 3.6-5.0 Serum or plasma chloride measurement (moles/volume) 105 mmol/L 98-107 Carbon dioxide 21 mmol/L 21-32 Serum or plasma anion gap determination (moles/volume) 12 mmol/L 5-14 Serum or plasma urea nitrogen measurement (mass/volume) 14 mg/dL 7-18 Serum or plasma creatinine measurement (mass/volume) 0.80 mg/dL 0.60-1.30 Serum or plasma urea nitrogen/creatinine mass ratio 18 NRG Serum or plasma creatinine measurement with calculation of estimated glomerular filtration rate > NRG Serum or plasma glucose measurement (mass/volume) 73 mg/dL 70-105 Serum or plasma calcium measurement (mass/volume) 8.7 mg/dL 8.5-10.1 Serum or plasma choriogonadotropin measurement (units/volume) - 10/31/16 21:17 Serum or plasma choriogonadotropin measurement (units/volume) 3467 m [iU]/mL <5 Complete blood count (CBC) with automated white blood cell (WBC) differential - 11/13/16 20:05 Blood leukocytes automated count (number/volume) 9.2 10*3/uL 4.3-11.0 Blood erythrocytes automated count (number/volume) 4.38 10*6/uL 4.35-5.85 Venous blood hemoglobin measurement (mass/volume) 12.8 g/dL 11.5-16.0 Blood hematocrit (volume fraction) 37 % 35-52 Automated erythrocyte mean corpuscular volume 85 [foz_us] 80-99 Automated erythrocyte mean corpuscular hemoglobin (mass per erythrocyte) 29 pg 25-34 Automated erythrocyte mean corpuscular hemoglobin concentration measurement ( mass/volume) 34 g/dL 32-36 Automated erythrocyte distribution width ratio 12.8 % 10.0-14.5 Automated blood platelet count (count/volume) 233 10*3/uL 130-400 Automated blood platelet mean volume measurement 11.6 [foz_us] 7.4-10.4 Automated blood neutrophils/100 leukocytes 65 % 42-75 Automated blood lymphocytes/100 leukocytes 22 % 12-44 Blood monocytes/100 leukocytes 11 % 0-12 Automated blood eosinophils/100 leukocytes 2 % 0-10 Automated blood basophils/100 leukocytes 1 % 0-10 Blood neutrophils automated count (number/volume) 6.0 10*3 1.8-7.8 Blood lymphocytes automated count (number/volume) 2.0 10*3 1.0-4.0 Blood monocytes automated count (number/volume) 1.0 10*3 0.0-1.0 Automated eosinophil count 0.2 10*3/uL 0.0-0.3 Automated blood basophil count (count/volume) 0.1 10*3/uL 0.0-0.1 Complete urinalysis with reflex to culture - 11/13/16 20:05 Urine color determination YELLOW NRG Urine clarity determination CLEAR NRG Urine pH measurement by test strip 5 5-9 Specific gravity of urine by test strip 1.025 1.016- 1.022 Urine protein assay by test strip, semi-quantitative NEGATIVE NEGATIVE Urine glucose detection by automated test strip NEGATIVE NEGATIVE Erythrocytes detection in urine sediment by light microscopy NEGATIVE NEGATIVE Urine ketones detection by automated test strip NEGATIVE NEGATIVE Urine nitrite detection by test strip NEGATIVE NEGATIVE Urine total bilirubin detection by test strip NEGATIVE NEGATIVE Urine urobilinogen measurement by automated test strip (mass/volume) NORMAL NORMAL Urine leukocyte esterase detection by dipstick 1+ NEGATIVE Automated urine sediment erythrocyte count by microscopy (number/high power field) NONE NRG Automated urine sediment leukocyte count by microscopy (number/high power field ) [HPF] NRG Bacteria detection in urine sediment by light microscopy TRACE NRG Squamous epithelial cells detection in urine sediment by light microscopy NONE NRG Crystals detection in urine sediment by light microscopy NONE NRG Casts detection in urine sediment by light microscopy NONE NRG Mucus detection in urine sediment by light microscopy MODERATE NRG Complete urinalysis with reflex to culture YES NRG Serum or plasma choriogonadotropin measurement (units/volume) - 11/13/16 20:05 Serum or plasma choriogonadotropin measurement (units/volume) 74110 m[iU]/mL <5 Bacterial urine culture - 11/13/16 20:05 Bacterial urine culture [id number] NRG COLONY COUNT >100,000/ML NRG FTX;REPORTABLE PLUS, NRG FREE TEXT ENTRY 2 MIXED GRAM POSITIVES <10,000/ML NRG Complete urinalysis with reflex to culture - 02/04/17 14:10 Urine color determination YELLOW NRG Urine clarity determination SLIGHTLY CLOUDY NRG Urine pH measurement by test strip 6 5-9 Specific gravity of urine by test strip 1.020 1.016- 1.022 Urine protein assay by test strip, semi-quantitative 1+ NEGATIVE Urine glucose detection by automated test strip NEGATIVE NEGATIVE Erythrocytes detection in urine sediment by light microscopy NEGATIVE NEGATIVE Urine ketones detection by automated test strip 3+ NEGATIVE Urine nitrite detection by test strip NEGATIVE NEGATIVE Urine total bilirubin detection by test strip NEGATIVE NEGATIVE Urine urobilinogen measurement by automated test strip (mass/volume) 1 mg/dL NORMAL Urine leukocyte esterase detection by dipstick 1+ NEGATIVE Automated urine sediment erythrocyte count by microscopy (number/high power field) NONE NRG Automated urine sediment leukocyte count by microscopy (number/high power field ) [HPF] NRG Bacteria detection in urine sediment by light microscopy MODERATE NRG Squamous epithelial cells detection in urine sediment by light microscopy 2-5 NRG Crystals detection in urine sediment by light microscopy NONE NRG Casts detection in urine sediment by light microscopy NONE NRG Mucus detection in urine sediment by light microscopy LARGE NRG Complete urinalysis with reflex to culture YES NRG Bacterial urine culture - 02/04/17 14:10 URINE CULTURE RESULTS <10,000/ML NRG Complete urinalysis with reflex to culture - 03/19/17 22:35 Urine color determination YELLOW NRG Urine clarity determination SLIGHTLY CLOUDY NRG Urine pH measurement by test strip 6 5-9 Specific gravity of urine by test strip 1.025 1.016- 1.022 Urine protein assay by test strip, semi-quantitative 1+ NEGATIVE Urine glucose detection by automated test strip NEGATIVE NEGATIVE Erythrocytes detection in urine sediment by light microscopy NEGATIVE NEGATIVE Urine ketones detection by automated test strip NEGATIVE NEGATIVE Urine nitrite detection by test strip NEGATIVE NEGATIVE Urine total bilirubin detection by test strip NEGATIVE NEGATIVE Urine urobilinogen measurement by automated test strip (mass/volume) NORMAL NORMAL Urine leukocyte esterase detection by dipstick NEGATIVE NEGATIVE Automated urine sediment erythrocyte count by microscopy (number/high power field) NONE NRG Automated urine sediment leukocyte count by microscopy (number/high power field ) [HPF] NRG Bacteria detection in urine sediment by light microscopy TRACE NRG Squamous epithelial cells detection in urine sediment by light microscopy 5-10 NRG Crystals detection in urine sediment by light microscopy NONE NRG Casts detection in urine sediment by light microscopy NONE NRG Mucus detection in urine sediment by light microscopy MODERATE NRG Complete urinalysis with reflex to culture NO NRG Blood group antibody screen - 04/14/17 00:00 Blood group antibody screen NEGATIVE NRG RH IMMUNE GLOBULIN RHOPHYLAC - 04/15/17 14:18 RH IMMUNE GLOBULIN RHOPHYLAC PRSMD TRFSD 04/15/17 [id number] NRG [id number] - 04/15/17 14:18 [id number] 300ug NRG Lot number - 04/15/17 14:18 Lot number [id number] NRG cell screen - 04/15/17 14:18 cell screen 02/24/19 NRG Complete urinalysis with reflex to culture - 04/19/17 13:20 Urine color determination YELLOW NRG Urine clarity determination CLEAR NRG Urine pH measurement by test strip 6 5-9 Specific gravity of urine by test strip 1.020 1.016- 1.022 Urine protein assay by test strip, semi-quantitative 2+ NEGATIVE Urine glucose detection by automated test strip 1+ NEGATIVE Erythrocytes detection in urine sediment by light microscopy NEGATIVE NEGATIVE Urine ketones detection by automated test strip NEGATIVE NEGATIVE Urine nitrite detection by test strip NEGATIVE NEGATIVE Urine total bilirubin detection by test strip NEGATIVE NEGATIVE Urine urobilinogen measurement by automated test strip (mass/volume) NORMAL NORMAL Urine leukocyte esterase detection by dipstick 1+ NEGATIVE Automated urine sediment erythrocyte count by microscopy (number/high power field) NONE NRG Automated urine sediment leukocyte count by microscopy (number/high power field ) [HPF] NRG Bacteria detection in urine sediment by light microscopy MODERATE NRG Squamous epithelial cells detection in urine sediment by light microscopy 10-25 NRG Crystals detection in urine sediment by light microscopy NONE NRG Casts detection in urine sediment by light microscopy NONE NRG Mucus detection in urine sediment by light microscopy MODERATE NRG Complete urinalysis with reflex to culture YES NRG Bacterial urine culture - 04/19/17 13:40 URINE CULTURE RESULTS <10,000/ML NRG Urine protein/creatinine mass ratio - 05/06/17 18:30 Urine protein measurement (mass/volume) 59 mg/dL 6-12 Urine creatinine measurement (mass/volume) 206 mg/dL 30- 125 Urine protein/creatinine mass ratio 0.29 NRG Urine drug screening test - 05/06/17 18:30 Urine phencyclidine detection by screening method NEGATIVE NEGATIVE Urine benzodiazepines detection by screening method NEGATIVE NEGATIVE Urine cocaine detection NEGATIVE NEGATIVE Urine amphetamines detection by screening method NEGATIVE NEGATIVE Urine methamphetamine detection by screening method NEGATIVE NEGATIVE Urine cannabinoids detection by screening method NEGATIVE NEGATIVE Urine opiates detection by screening method NEGATIVE NEGATIVE Urine barbiturates detection NEGATIVE NEGATIVE Screening urine tricyclic antidepressants detection NEGATIVE NEGATIVE Urine methadone detection by screening method NEGATIVE NEGATIVE Urine oxycodone detection NEGATIVE NEGATIVE Urine propoxyphene detection NEGATIVE NEGATIVE Complete blood count (CBC) with automated white blood cell (WBC) differential - 05/06/17 19:40 Blood leukocytes automated count (number/volume) 14.0 10*3/uL 4.3-11.0 Blood erythrocytes automated count (number/volume) 3.68 10*6/uL 4.35-5.85 Venous blood hemoglobin measurement (mass/volume) 11.1 g/dL 11.5-16.0 Blood hematocrit (volume fraction) 33 % 35-52 Automated erythrocyte mean corpuscular volume 89 [foz_us] 80-99 Automated erythrocyte mean corpuscular hemoglobin (mass per erythrocyte) 30 pg 25-34 Automated erythrocyte mean corpuscular hemoglobin concentration measurement ( mass/volume) 34 g/dL 32-36 Automated erythrocyte distribution width ratio 12.5 % 10.0-14.5 Automated blood platelet count (count/volume) 225 10*3/uL 130-400 Automated blood platelet mean volume measurement 10.8 [foz_us] 7.4-10.4 Automated blood neutrophils/100 leukocytes 75 % 42-75 Automated blood lymphocytes/100 leukocytes 14 % 12-44 Blood monocytes/100 leukocytes 10 % 0-12 Automated blood eosinophils/100 leukocytes 1 % 0-10 Automated blood basophils/100 leukocytes 0 % 0-10 Blood neutrophils automated count (number/volume) 10.5 10*3 1.8-7.8 Blood lymphocytes automated count (number/volume) 2.0 10*3 1.0-4.0 Blood monocytes automated count (number/volume) 1.5 10*3 0.0-1.0 Automated eosinophil count 0.1 10*3/uL 0.0-0.3 Automated blood basophil count (count/volume) 0.0 10*3/uL 0.0-0.1 Comprehensive metabolic panel - 05/06/17 19:40 Serum or plasma sodium measurement (moles/volume) 136 mmol/L 135-145 Serum or plasma potassium measurement (moles/volume) 3.7 mmol/L 3.6-5.0 Serum or plasma chloride measurement (moles/volume) 105 mmol/L 98-107 Carbon dioxide 20 mmol/L 21-32 Serum or plasma anion gap determination (moles/volume) 11 mmol/L 5-14 Serum or plasma urea nitrogen measurement (mass/volume) 14 mg/dL 7-18 Serum or plasma creatinine measurement (mass/volume) 0.53 mg/dL 0.60-1.30 Serum or plasma urea nitrogen/creatinine mass ratio 26 NRG Serum or plasma creatinine measurement with calculation of estimated glomerular filtration rate > NRG Serum or plasma glucose measurement (mass/volume) 110 mg/dL 70-105 Serum or plasma calcium measurement (mass/volume) 9.0 mg/dL 8.5-10.1 Serum or plasma total bilirubin measurement (mass/volume) 0.3 mg/dL 0.1-1.0 Serum or plasma alkaline phosphatase measurement (enzymatic activity/volume) 121 U/L 40-136 Serum or plasma aspartate aminotransferase measurement (enzymatic activity/ volume) 13 U/L 5-34 Serum or plasma alanine aminotransferase measurement (enzymatic activity/volume ) 19 U/L 0-55 Serum or plasma protein measurement (mass/volume) 6.2 g/dL 6.4-8.2 Serum or plasma albumin measurement (mass/volume) 3.2 g/dL 3.2-4.5 Serum or plasma uric acid measurement (mass/volume) - 05/06/17 19:40 Serum or plasma uric acid measurement (mass/volume) 2.6 mg/dL 2.6-7.2 Lactate dehydrogenase 1 [enzymatic activity/volume] in serum or plasma - 19:40 Lactate dehydrogenase 1 [enzymatic activity/volume] in serum or plasma 177 U/L 125-220 Complete blood count (CBC) with automated white blood cell (WBC) differential - 05/14/17 14:00 Blood leukocytes automated count (number/volume) 12.5 10*3/uL 4.3-11.0 Blood erythrocytes automated count (number/volume) 3.75 10*6/uL 4.35-5.85 Venous blood hemoglobin measurement (mass/volume) 11.2 g/dL 11.5-16.0 Blood hematocrit (volume fraction) 34 % 35-52 Automated erythrocyte mean corpuscular volume 90 [foz_us] 80-99 Automated erythrocyte mean corpuscular hemoglobin (mass per erythrocyte) 30 pg 25-34 Automated erythrocyte mean corpuscular hemoglobin concentration measurement ( mass/volume) 33 g/dL 32-36 Automated erythrocyte distribution width ratio 12.8 % 10.0-14.5 Automated blood platelet count (count/volume) 219 10*3/uL 130-400 Automated blood platelet mean volume measurement 11.1 [foz_us] 7.4-10.4 Automated blood neutrophils/100 leukocytes 75 % 42-75 Automated blood lymphocytes/100 leukocytes 14 % 12-44 Blood monocytes/100 leukocytes 11 % 0-12 Automated blood eosinophils/100 leukocytes 1 % 0-10 Automated blood basophils/100 leukocytes 0 % 0-10 Blood neutrophils automated count (number/volume) 9.3 10*3 1.8-7.8 Blood lymphocytes automated count (number/volume) 1.7 10*3 1.0-4.0 Blood monocytes automated count (number/volume) 1.4 10*3 0.0-1.0 Automated eosinophil count 0.1 10*3/uL 0.0-0.3 Automated blood basophil count (count/volume) 0.0 10*3/uL 0.0-0.1 Comprehensive metabolic panel - 05/14/17 14:00 Serum or plasma sodium measurement (moles/volume) 136 mmol/L 135-145 Serum or plasma potassium measurement (moles/volume) 4.0 mmol/L 3.6-5.0 Serum or plasma chloride measurement (moles/volume) 108 mmol/L 98-107 Carbon dioxide 18 mmol/L 21-32 Serum or plasma anion gap determination (moles/volume) 10 mmol/L 5-14 Serum or plasma urea nitrogen measurement (mass/volume) 12 mg/dL 7-18 Serum or plasma creatinine measurement (mass/volume) 0.57 mg/dL 0.60-1.30 Serum or plasma urea nitrogen/creatinine mass ratio 21 NRG Serum or plasma creatinine measurement with calculation of estimated glomerular filtration rate > NRG Serum or plasma glucose measurement (mass/volume) 133 mg/dL 70-105 Serum or plasma calcium measurement (mass/volume) 9.0 mg/dL 8.5-10.1 Serum or plasma total bilirubin measurement (mass/volume) 0.3 mg/dL 0.1-1.0 Serum or plasma alkaline phosphatase measurement (enzymatic activity/volume) 147 U/L 40-136 Serum or plasma aspartate aminotransferase measurement (enzymatic activity/ volume) 12 U/L 5-34 Serum or plasma alanine aminotransferase measurement (enzymatic activity/volume ) 16 U/L 0-55 Serum or plasma protein measurement (mass/volume) 6.9 g/dL 6.4-8.2 Serum or plasma albumin measurement (mass/volume) 3.2 g/dL 3.2-4.5 Complete urinalysis with reflex to culture - 05/14/17 14:10 Urine color determination YELLOW NRG Urine clarity determination CLEAR NRG Urine pH measurement by test strip 5 5-9 Specific gravity of urine by test strip 1.025 1.016- 1.022 Urine protein assay by test strip, semi-quantitative 2+ NEGATIVE Urine glucose detection by automated test strip 3+ NEGATIVE Erythrocytes detection in urine sediment by light microscopy NEGATIVE NEGATIVE Urine ketones detection by automated test strip NEGATIVE NEGATIVE Urine nitrite detection by test strip NEGATIVE NEGATIVE Urine total bilirubin detection by test strip NEGATIVE NEGATIVE Urine urobilinogen measurement by automated test strip (mass/volume) NORMAL NORMAL Urine leukocyte esterase detection by dipstick 1+ NEGATIVE Automated urine sediment erythrocyte count by microscopy (number/high power field) NONE NRG Automated urine sediment leukocyte count by microscopy (number/high power field ) [HPF] NRG Bacteria detection in urine sediment by light microscopy TRACE NRG Squamous epithelial cells detection in urine sediment by light microscopy 25-50 NRG Crystals detection in urine sediment by light microscopy PRESENT NRG Casts detection in urine sediment by light microscopy NONE NRG Mucus detection in urine sediment by light microscopy NEGATIVE NRG Complete urinalysis with reflex to culture NO NRG Calcium oxalate crystals detection in urine sediment by light microscopy LARGE NRG Urine protein/creatinine mass ratio - 05/14/17 14:10 Urine protein measurement (mass/volume) 50 mg/dL 6-12 Urine creatinine measurement (mass/volume) 153 mg/dL 30- 125 Urine protein/creatinine mass ratio 0.33 NRG Urine protein/creatinine mass ratio - 05/15/17 05:00 Urine protein measurement (mass/volume) < mg/dL 6-12 Urine creatinine measurement (mass/volume) 35 mg/dL 30- 125 Urine protein/creatinine mass ratio TNP NRG Urine protein/creatinine mass ratio - 05/19/17 10:28 Urine protein measurement (mass/volume) 31 mg/dL 6-12 Urine creatinine measurement (mass/volume) 152 mg/dL 30- 125 Urine protein/creatinine mass ratio 0.20 NRG Urine protein/creatinine mass ratio - 05/23/17 10:57 Urine protein measurement (mass/volume) 44 mg/dL 6-12 Urine creatinine measurement (mass/volume) 139 mg/dL 30- 125 Urine protein/creatinine mass ratio 0.32 NRG Urine protein/creatinine mass ratio - 05/26/17 08:55 Urine protein measurement (mass/volume) 35 mg/dL 6-12 Urine creatinine measurement (mass/volume) 113 mg/dL 30- 125 Urine protein/creatinine mass ratio 0.31 NRG Urine protein/creatinine mass ratio - 05/30/17 10:30 Urine protein measurement (mass/volume) 46 mg/dL 6-12 Urine creatinine measurement (mass/volume) 104 mg/dL 30- 125 Urine protein/creatinine mass ratio 0.44 NRG Urine protein/creatinine mass ratio - 06/06/17 10:25 Urine protein measurement (mass/volume) 64 mg/dL 6-12 Urine creatinine measurement (mass/volume) 179 mg/dL 30- 125 Urine protein/creatinine mass ratio 0.36 NRG Blood type T Indirect antibody screen panel - 06/07/17 00:01 ABO+Rh group ON NRG Transfusion band number [id number] NRG Blood group antibody screen NEGATIVE NRG Complete urinalysis with reflex to culture - 06/07/17 18:50 Urine color determination YELLOW NRG Urine clarity determination CLEAR NRG Urine pH measurement by test strip 7 5-9 Specific gravity of urine by test strip 1.015 1.016- 1.022 Urine protein assay by test strip, semi-quantitative 3+ NEGATIVE Urine glucose detection by automated test strip 4+ NEGATIVE Erythrocytes detection in urine sediment by light microscopy NEGATIVE NEGATIVE Urine ketones detection by automated test strip NEGATIVE NEGATIVE Urine nitrite detection by test strip NEGATIVE NEGATIVE Urine total bilirubin detection by test strip NEGATIVE NEGATIVE Urine urobilinogen measurement by automated test strip (mass/volume) 1 mg/dL NORMAL Urine leukocyte esterase detection by dipstick 1+ NEGATIVE Automated urine sediment erythrocyte count by microscopy (number/high power field) NONE NRG Automated urine sediment leukocyte count by microscopy (number/high power field ) [HPF] NRG Bacteria detection in urine sediment by light microscopy MODERATE NRG Squamous epithelial cells detection in urine sediment by light microscopy 25-50 NRG Crystals detection in urine sediment by light microscopy NONE NRG Casts detection in urine sediment by light microscopy NONE NRG Mucus detection in urine sediment by light microscopy NEGATIVE NRG Complete urinalysis with reflex to culture NO NRG Urine protein/creatinine mass ratio - 06/07/17 18:50 Urine protein measurement (mass/volume) 79 mg/dL 6-12 Urine creatinine measurement (mass/volume) 67 mg/dL 30- 125 Urine protein/creatinine mass ratio 1.18 NRG Urine drug screening test - 06/07/17 18:50 Urine phencyclidine detection by screening method NEGATIVE NEGATIVE Urine benzodiazepines detection by screening method NEGATIVE NEGATIVE Urine cocaine detection NEGATIVE NEGATIVE Urine amphetamines detection by screening method NEGATIVE NEGATIVE Urine methamphetamine detection by screening method NEGATIVE NEGATIVE Urine cannabinoids detection by screening method NEGATIVE NEGATIVE Urine opiates detection by screening method NEGATIVE NEGATIVE Urine barbiturates detection NEGATIVE NEGATIVE Screening urine tricyclic antidepressants detection NEGATIVE NEGATIVE Urine methadone detection by screening method NEGATIVE NEGATIVE Urine oxycodone detection NEGATIVE NEGATIVE Urine propoxyphene detection NEGATIVE NEGATIVE Bacterial urine culture - 06/07/17 18:50 URINE CULTURE RESULTS <10,000/ML NRG Automated blood complete blood count (hemogram) panel - 06/07/17 19:45 Blood leukocytes automated count (number/volume) 9.8 10*3/uL 4.3-11.0 Blood erythrocytes automated count (number/volume) 3.74 10*6/uL 4.35-5.85 Venous blood hemoglobin measurement (mass/volume) 10.8 g/dL 11.5-16.0 Blood hematocrit (volume fraction) 33 % 35-52 Automated erythrocyte mean corpuscular volume 89 [foz_us] 80-99 Automated erythrocyte mean corpuscular hemoglobin (mass per erythrocyte) 29 pg 25-34 Automated erythrocyte mean corpuscular hemoglobin concentration measurement ( mass/volume) 33 g/dL 32-36 Automated erythrocyte distribution width ratio 13.3 % 10.0-14.5 Automated blood platelet count (count/volume) 196 10*3/uL 130-400 Automated blood platelet mean volume measurement 11.3 [foz_us] 7.4-10.4 Comprehensive metabolic panel - 06/07/17 19:45 Serum or plasma sodium measurement (moles/volume) 137 mmol/L 135-145 Serum or plasma potassium measurement (moles/volume) 3.8 mmol/L 3.6-5.0 Serum or plasma chloride measurement (moles/volume) 107 mmol/L 98-107 Carbon dioxide 21 mmol/L 21-32 Serum or plasma anion gap determination (moles/volume) 9 mmol/L 5-14 Serum or plasma urea nitrogen measurement (mass/volume) 11 mg/dL 7-18 Serum or plasma creatinine measurement (mass/volume) 0.52 mg/dL 0.60-1.30 Serum or plasma urea nitrogen/creatinine mass ratio 21 NRG Serum or plasma creatinine measurement with calculation of estimated glomerular filtration rate > NRG Serum or plasma glucose measurement (mass/volume) 104 mg/dL 70-105 Serum or plasma calcium measurement (mass/volume) 9.1 mg/dL 8.5-10.1 Serum or plasma total bilirubin measurement (mass/volume) 0.2 mg/dL 0.1-1.0 Serum or plasma alkaline phosphatase measurement (enzymatic activity/volume) 159 U/L 40-136 Serum or plasma aspartate aminotransferase measurement (enzymatic activity/ volume) 14 U/L 5-34 Serum or plasma alanine aminotransferase measurement (enzymatic activity/volume ) 19 U/L 0-55 Serum or plasma protein measurement (mass/volume) 6.8 g/dL 6.4-8.2 Serum or plasma albumin measurement (mass/volume) 3.1 g/dL 3.2-4.5 Serum or plasma uric acid measurement (mass/volume) - 06/07/17 19:45 Serum or plasma uric acid measurement (mass/volume) 2.4 mg/dL 2.6-7.2 Lactate dehydrogenase 1 [enzymatic activity/volume] in serum or plasma - 19:45 Lactate dehydrogenase 1 [enzymatic activity/volume] in serum or plasma 201 U/L 125-220 [id number] - 06/07/17 19:45 [id number] SPECIMEN AVAILABLE [facility] Complete blood count (CBC) with automated white blood cell (WBC) differential - 06/08/17 04:50 Blood leukocytes automated count (number/volume) 15.2 10*3/uL 4.3-11.0 Blood erythrocytes automated count (number/volume) 3.33 10*6/uL 4.35-5.85 Venous blood hemoglobin measurement (mass/volume) 9.5 g/dL 11.5-16.0 Blood hematocrit (volume fraction) 30 % 35-52 Automated erythrocyte mean corpuscular volume 89 [foz_us] 80-99 Automated erythrocyte mean corpuscular hemoglobin (mass per erythrocyte) 29 pg 25-34 Automated erythrocyte mean corpuscular hemoglobin concentration measurement ( mass/volume) 32 g/dL 32-36 Automated erythrocyte distribution width ratio 13.2 % 10.0-14.5 Automated blood platelet count (count/volume) 191 10*3/uL 130-400 Automated blood platelet mean volume measurement 11.7 [foz_us] 7.4-10.4 Automated blood neutrophils/100 leukocytes 76 % 42-75 Automated blood lymphocytes/100 leukocytes 12 % 12-44 Blood monocytes/100 leukocytes 11 % 0-12 Automated blood eosinophils/100 leukocytes 1 % 0-10 Automated blood basophils/100 leukocytes 0 % 0-10 Blood neutrophils automated count (number/volume) 11.6 10*3 1.8-7.8 Blood lymphocytes automated count (number/volume) 1.8 10*3 1.0-4.0 Blood monocytes automated count (number/volume) 1.7 10*3 0.0-1.0 Automated eosinophil count 0.1 10*3/uL 0.0-0.3 Automated blood basophil count (count/volume) 0.0 10*3/uL 0.0-0.1 Comprehensive metabolic panel - 06/08/17 04:50 Serum or plasma sodium measurement (moles/volume) 135 mmol/L 135-145 Serum or plasma potassium measurement (moles/volume) 4.3 mmol/L 3.6-5.0 Serum or plasma chloride measurement (moles/volume) 108 mmol/L 98-107 Carbon dioxide 17 mmol/L 21-32 Serum or plasma anion gap determination (moles/volume) 10 mmol/L 5-14 Serum or plasma urea nitrogen measurement (mass/volume) 12 mg/dL 7-18 Serum or plasma creatinine measurement (mass/volume) 0.53 mg/dL 0.60-1.30 Serum or plasma urea nitrogen/creatinine mass ratio 23 NRG Serum or plasma creatinine measurement with calculation of estimated glomerular filtration rate > NRG Serum or plasma glucose measurement (mass/volume) 109 mg/dL 70-105 Serum or plasma calcium measurement (mass/volume) 7.8 mg/dL 8.5-10.1 Serum or plasma total bilirubin measurement (mass/volume) 0.3 mg/dL 0.1-1.0 Serum or plasma alkaline phosphatase measurement (enzymatic activity/volume) 150 U/L 40-136 Serum or plasma aspartate aminotransferase measurement (enzymatic activity/ volume) 25 U/L 5-34 Serum or plasma alanine aminotransferase measurement (enzymatic activity/volume ) 17 U/L 0-55 Serum or plasma protein measurement (mass/volume) 5.6 g/dL 6.4-8.2 Serum or plasma albumin measurement (mass/volume) 2.6 g/dL 3.2-4.5 Lactate dehydrogenase 1 [enzymatic activity/volume] in serum or plasma - 04:50 Lactate dehydrogenase 1 [enzymatic activity/volume] in serum or plasma 388 U/L 125-220 Complete blood count (CBC) with automated white blood cell (WBC) differential - 09/17/18 21:16 Blood leukocytes automated count (number/volume) 11.3 10*3/uL 4.3-11.0 Blood erythrocytes automated count (number/volume) 4.71 10*6/uL 4.35-5.85 Venous blood hemoglobin measurement (mass/volume) 12.9 g/dL 11.5-16.0 Blood hematocrit (volume fraction) 39 % 35-52 Automated erythrocyte mean corpuscular volume 83 [foz_us] 80-99 Automated erythrocyte mean corpuscular hemoglobin (mass per erythrocyte) 27 pg 25-34 Automated erythrocyte mean corpuscular hemoglobin concentration measurement ( mass/volume) 33 g/dL 32-36 Automated erythrocyte distribution width ratio 14.3 % 10.0-14.5 Automated blood platelet count (count/volume) 272 10*3/uL 130-400 Automated blood platelet mean volume measurement 10.8 [foz_us] 7.4-10.4 Automated blood neutrophils/100 leukocytes 69 % 42-75 Automated blood lymphocytes/100 leukocytes 22 % 12-44 Blood monocytes/100 leukocytes 8 % 0-12 Automated blood eosinophils/100 leukocytes 2 % 0-10 Automated blood basophils/100 leukocytes 0 % 0-10 Blood neutrophils automated count (number/volume) 7.7 10*3 1.8-7.8 Blood lymphocytes automated count (number/volume) 2.5 10*3 1.0-4.0 Blood monocytes automated count (number/volume) 0.9 10*3 0.0-1.0 Automated eosinophil count 0.2 10*3/uL 0.0-0.3 Automated blood basophil count (count/volume) 0.0 10*3/uL 0.0-0.1 Comprehensive metabolic panel - 09/17/18 21:16 Serum or plasma sodium measurement (moles/volume) 139 mmol/L 135-145 Serum or plasma potassium measurement (moles/volume) 3.8 mmol/L 3.6-5.0 Serum or plasma chloride measurement (moles/volume) 104 mmol/L 98-107 Carbon dioxide 24 mmol/L 21-32 Serum or plasma anion gap determination (moles/volume) 11 mmol/L 5-14 Serum or plasma urea nitrogen measurement (mass/volume) 23 mg/dL 7-18 Serum or plasma creatinine measurement (mass/volume) 0.79 mg/dL 0.60-1.30 Serum or plasma urea nitrogen/creatinine mass ratio 29 NRG Serum or plasma creatinine measurement with calculation of estimated glomerular filtration rate > NRG Serum or plasma glucose measurement (mass/volume) 112 mg/dL 70-105 Serum or plasma calcium measurement (mass/volume) 9.3 mg/dL 8.5-10.1 Serum or plasma total bilirubin measurement (mass/volume) 0.3 mg/dL 0.1-1.0 Serum or plasma alkaline phosphatase measurement (enzymatic activity/volume) 92 U/L 40-136 Serum or plasma aspartate aminotransferase measurement (enzymatic activity/ volume) 19 U/L 5-34 Serum or plasma alanine aminotransferase measurement (enzymatic activity/volume ) 29 U/L 0-55 Serum or plasma protein measurement (mass/volume) 8.3 g/dL 6.4-8.2 Serum or plasma albumin measurement (mass/volume) 4.2 g/dL 3.2-4.5 CALCIUM CORRECTED 9.1 mg/dL 8.5-10.1 Magnesium - 09/17/18 21:16 Magnesium 2.0 mg/dL 1.8-2.4 PT panel in platelet poor plasma by coagulation assay - 09/17/18 21:16 Prothrombin time (PT) in platelet poor plasma by coagulation assay 12.9 s 12.2-14.7 INR in platelet poor plasma or blood by coagulation assay 1.0 0.8-1.4 Activated partial thromboplastin time (aPTT) in platelet poor plasma bycoagulation assay - 09/17/18 21:16 Activated partial thromboplastin time (aPTT) in platelet poor plasma bycoagulation assay 32 s 24-35 Serum or plasma troponin i.cardiac measurement (mass/volume) - 09/17/18 21:16 Serum or plasma troponin i.cardiac measurement (mass/volume) < ng/ mL <0.028 Myoglobin, serum - 09/17/18 21:16 Myoglobin, serum 25.4 ng/mL 10.0-92.0 Encounters ACCT No. Visit Date/Time Discharge Status Pt. Type Provider Facility Loc./Unit Complaint [id number] 04/02/2018 16:13:00 04/02/2018 23:59:59 CLS Outpatient JAMI WHITESIDE MD [facility] RAD BICUSPID AORTIC VALVE, THORACIC AORTIC ANEURYSM [id number] 03/27/2018 11:32:00 03/27/2018 23:59:59 CLS Preadmit JAMI WHITESIDE MD [facility] RT BICUSPID AORTIC VALVE, THORACIC AORTIC ANEURYSM [id number] 03/11/2018 00:36:00 03/11/2018 01:15:00 DIS Emergency ANA SINGER DO [facility] ER PAIN ON R SIDE OF MOUTH [id number] 06/07/2017 20:40:00 06/09/2017 12:30:00 DIS Inpatient SOCORRO KIRKLAND MD [facility] DELIVERY [id number] 06/06/2017 10:25:00 06/06/2017 23:59:59 CLS Outpatient SOCORRO KIRKLAND MD [facility] [id number] 05/30/2017 10:28:00 05/30/2017 23:59:59 CLS Outpatient SOCORRO KIRKLAND MD Via [facility] [id number] 05/26/2017 08:55:00 05/26/2017 23:59:59 CLS Outpatient SOCORRO KIRKLAND MD Via [facility] [id number] 05/23/2017 10:56:00 05/23/2017 23:59:59 CLS Outpatient SOCORRO KIRKLAND MD [id number] 05/21/2017 13:53:00 05/21/2017 15:26:00 DIS Outpatient SOCORRO KIRKLAND MD Via [facility] WSo CRAMPS/LEAKING FLUID [id number] 05/19/2017 11:07:00 05/19/2017 23:59:59 CLS Outpatient SOCORRO KIRKLAND MD [facility] [id number] 05/14/2017 13:25:00 05/15/2017 07:36:00 DIS Inpatient SOCORRO KIRKLAND MD Via [facility] LDRP DEHYDRATION PRE ECLAMPSIA [id number] 05/06/2017 18:24:00 05/06/2017 21:54:00 DIS Outpatient SOCORRO KIRKLAND MD Via [facility] WSo INCREASED HEART BEAT [id number] 04/19/2017 12:47:00 04/19/2017 14:25:00 DIS Outpatient SOCORRO KIRKLAND MD Via [facility] WSo cramping,pressure [id number] 04/15/2017 13:42:00 04/15/2017 23:59:59 CLS Outpatient SOCORRO KIRKLAND MD Via [facility] WSo RH NEGATIVE [id number] 04/14/2017 12:15:00 04/14/2017 23:59:59 CLS Outpatient SOCORRO KIRKLAND MD Via [facility] LABNPT ENCOUNTER FOR SUPERVISION OF OTHER NORMAL PREGNANC [id number] 04/05/2017 13:19:00 04/05/2017 15:10:00 DIS Outpatient SOCORRO KIRKLAND MD Via [facility] WSo DECREASED MOVEMENT [id number] 03/19/2017 22:23:00 03/20/2017 02:55:00 DIS Outpatient SOCORRO KIRKLAND MD Via [facility] WSo CRAMPING FALL IN SHOWER [id number] 02/04/2017 12:26:00 02/04/2017 15:29:00 DIS Emergency ANIKA MOJICA Via [facility] ER PRESSURE IN R ABD DOWN LEG, 19W [id number] 11/13/2016 19:46:00 11/13/2016 21:19:00 DIS Emergency RADHA SANCHES APRN Via [facility] ER 7 WEEKS PG BLEEDING W/ CRAMPS [id number] 10/31/2016 20:59:00 10/31/2016 22:32:00 DIS Emergency ANA SINGER DO Via [facility] ER VAGINAL BLEEDING [id number] 01/01/2016 16:54:00 01/01/2016 23:59:59 CLS Outpatient TODD OCHOA [facility] RAD ARM PARESTHESIA LEFT [id number] 12/21/2015 14:22:00 12/21/2015 15:14:00 DIS Emergency XIANG GARCIA MD [facility] ER BACK/LEFT ARM NUMBNESS [id number] 12/08/2015 10:46:00 12/08/2015 11:24:00 DIS Emergency XIANG GARCIA MD [facility] ER LEFT ARM PAIN/ NUMBNESS [id number] 10/16/2015 21:07:00 10/16/2015 22:36:00 DIS Emergency ANIKA MOJICA [facility] ER HEAVY VAGINAL BLEEDING ;PAIN;NAUSEA [id number] 09/19/2014 12:28:00 09/20/2014 10:55:00 DIS Outpatient SOCORRO KIRKLAND MD Via [facility] ENDOMETRIOSIS; DYSFUNCTIONAL UTERINE BLEEDING [id number] 09/15/2014 09:20:00 09/15/2014 23:59:59 CLS Outpatient SOCORRO KIRKLAND MD [facility] PREOP ENDOMETRIOSIS; DYSFUNCTIONAL UTERINE BLEEDING [id number] 09/17/2018 21:06:00 ACT Emergency XIANG GARCIA MD Via [facility] ER CHEST PAIN [id number] 06/02/2017 09:55:00 Document Registration [id number] 12/06/2015 21:58:00 Document Registration [id number] 08/15/2017 15:00:00 08/15/2017 23:59:59 CLS [facility] [id number] 06/09/2014 14:52:00 06/09/2014 23:59:59 CLS Outpatient JOELLEN PEREZ DO [id number] 09/19/2014 12:28:36 ACT Document Registration
--- NOTE | 2018-09-18 00:03 | NUR ---
Pt was accepted by Dr. Spangler. Room number is 3 ICU 99.
--- NOTE | 2018-09-18 00:06 | NUR ---
[facility] was contacted for transferring pt. They stated they would give me a call back.
[2018-09-18 00:35] LABS: BILIRUBIN,URINE NEGATIVE (NEGATIVE); CLARITY,URINE CLEAR; COLOR,URINE YELLOW; GLUCOSE, URINE (UA) NEGATIVE (NEGATIVE); KETONES,URINE NEGATIVE (NEGATIVE); LEUKOCYTE ESTERASE ,URINE 1+ (NEGATIVE); NITRITE,URINE NEGATIVE (NEGATIVE); PH,URINE 6.5 (5-9); PROTEIN,URINE 2+ (NEGATIVE); UROBILINOGEN,URINE NORMAL (NORMAL)
[2018-09-18 00:44] LABS: BACTERIA,URINE FEW /HPF; RBC,URINE 50-100 /HPF
--- NOTE | 2018-09-18 00:45 | NUR ---
[facility] was called for transportation at this time. They stated they would call us back after speaking to his parking lot supervisor.
[2018-09-18 00:46] LABS: AMPHETAMINE SCREEN, URINE NEGATIVE (NEGATIVE); BARBITURATE SCREEN URINE NEGATIVE (NEGATIVE); BENZODIAZEPINES SCREEN URINE NEGATIVE (NEGATIVE); CANNABINOID SCREEN, URINE NEGATIVE (NEGATIVE); COCAINE SCREEN URINE NEGATIVE (NEGATIVE); METHADONE STAT NEGATIVE (NEGATIVE); METHAMPHETAMINE SCREEN URINE S NEGATIVE (NEGATIVE); OPIATE SCREEN URINE NEGATIVE (NEGATIVE); OXYCODONE STAT NEGATIVE (NEGATIVE); PROPOXYPHENE STAT NEGATIVE (NEGATIVE); TRICYCLIC ANTIDEPRESSANTS SCRE NEGATIVE (NEGATIVE)
--- NOTE | 2018-09-18 00:57 | NUR ---
[facility] called at this time and are not available for transportation.
--- NOTE | 2018-09-18 01:00 | NUR ---
[facility] was called for Transfer and Igor stated he does not have a crew available at this time.
--- NOTE | 2018-09-18 01:08 | NUR ---
[facility] was contacted and they don't have a ALS crew available until the morning.
--- NOTE | 2018-09-18 01:13 | NUR ---
[facility] (dispatch) was contacted and they stated they would call back with an answer if they have a crew available.
--- NOTE | 2018-09-18 01:18 | NUR ---
[facility] called back at this time and stated they were not available for a transfer.
--- NOTE | 2018-09-18 02:14 | NUR ---
[facility] stated both crews were not available.
--- NOTE | 2018-09-18 02:14 | NUR ---
[facility] was called and they don't have an ambulance available for transportation.
--- NOTE | 2018-09-18 02:15 | NUR ---
[facility] was called and voicemail stated they are no longer taking transfers.
--- NOTE | 2018-09-18 02:15 | NUR ---
[facility] was called and left voicemail.
--- NOTE | 2018-09-18 02:16 | NUR ---
[facility] was called and they stated the earliest they could go was 0845
--- NOTE | 2018-09-18 02:19 | NUR ---
Pt was informed about looking for transportation and pt understood.
--- NOTE | 2018-09-18 02:37 | NUR ---
[facility] was called for transfer and they said no.
--- NOTE | 2018-09-18 02:37 | NUR ---
[facility] was called about transfer and they said no.
--- NOTE | 2018-09-18 02:37 | NUR ---
[facility] was called and left another voicemail at this time
--- NOTE | 2018-09-18 02:37 | NUR ---
[facility] was called and left a message for transfer.
--- NOTE | 2018-09-18 03:50 | NUR ---
Pt was requesting for something to eat. I informed her I would ask the doctor. Doctor stated that he was going to put a cardiac diet in for pt. Pt was informed and understood.
--- NOTE | 2018-09-18 07:05 | NUR ---
Report was given to Romina. Care was transferred at this time.
--- NOTE | 2018-09-18 07:27 | NUR ---
INTRODUCED SELF TO PT. PT DENIES NEEDS AT THIS TIME.
[2018-09-18] MEDS ORDERED: ACETAMINOPHEN 500 MG TAB (TYLENOL) PO ONE ×2 (07:45)
--- NOTE | 2018-09-18 08:26 | NUR ---
[facility] HERE TO TRANSFER PT. VSS AT TIME OF TRANSFER. PT A/OX3.
[2018-09-18 08:31] VITALS: BP 131/97
== END 2018-09-18 08:31 | disposition short-term general hospital (02) ==
LOC: EDUNIT# 21:05 → ER 21:06
DX: I35.9 Nonrheumatic aortic valve disorder, unspecified (principal); I71.2 Thoracic aortic aneurysm, without rupture; R07.81 Pleurodynia; J45.909 Unspecified asthma, uncomplicated; I10 Essential (primary) hypertension; G43.909 Migraine, unspecified, not intractable, without status migrainosus; F90.9 Attention-deficit hyperactivity disorder, unspecified type; F98.8 Other specified behavioral and emotional disorders with onset usually occurring in childhood and adolescence; F41.9 Anxiety disorder, unspecified; Z97.5 Presence of (intrauterine) contraceptive device; Z87.448 Personal history of other diseases of urinary system; Z95.0 Presence of cardiac pacemaker; Z87.891 Personal history of nicotine dependence; Z90.49 Acquired absence of other specified parts of digestive tract; Z98.890 Other specified postprocedural states
CPT/HCPCS: 36415; 71045; 71275; 80053; 80306; 81000; 83735; 83874; 84484; 85025; 85610; 85730; 87088; 93041

== ENCOUNTER 2018-11-21 08:12 | Outpatient (RCR) | payer MEDICAID ==
[2018-12-30] MEDS ORDERED: SERT100T8 (10:33)
[2018-12-30] MEDS ORDERED: ASPI-808 PO (10:33)
[2018-12-30] MEDS ORDERED: MEDR10TA9 (10:33)
[2018-12-30] MEDS ORDERED: METO50TA15 (10:33)
[2018-12-30] MEDS ORDERED: NAPR-1071 PO (11:19)
== END 2019-01-27 | disposition home or self-care (01) ==
LOC: CR 08:12
PROVIDERS: ATTEND Thoracic Surgery (Cardiothoracic Vascular Surgery)
DX: Z48.812 Encounter for surgical aftercare following surgery on the circulatory system (principal); Z95.2 Presence of prosthetic heart valve
CPT/HCPCS: 93798

== ENCOUNTER 2018-12-30 10:13 | Emergency (ER) | payer MEDICAID ==
[~2018-12-30] VITALS: Ht 170.2 cm; Wt 108.9 kg
--- OUTSIDE RECORDS SUMMARY | 2018-12-30 10:18 | XMS REPORT | Encounter Summary ---
Author Author [facility] Organization [facility] Address Unknown Phone Unavailable Care Team Providers Care Shipping Lead Name Role Phone [place] [address] Encounter Details Care Team Description Date Type Department Melody Robles PA-C [address] [facility] [place], [place] [id number] 10/15/2018 Hospital [facility] Encounter Health System [address] [id number] Social History Date Tobacco Use Types Packs/Day [...] Travel Start No recent travel history available. documented as of this encounter Functional Status Date of Assessment Functional Status Response 09/24/2018 Does the patient have a hearing impairment: No documented as of this encounter Medications at Time of Discharge Start Date End Date Medication Sig Dispensed Refills acetaminophen (TYLENOL) Take 1,000 mg 0 500 mg tablet by mouth every 12 hours as needed for Pain. Max of 4,000 mg of acetaminophen in 24 hours. 09/27/2018 aspirin 325 mg tablet Take one 90 tablet 3 tablet by mouth daily. Take with food. biotin 1,000 mcg chew Chew 3 0 tablets by mouth daily. calcium carbonate (TUMS) Chew 1,000 mg 0 500 mg (200 mg elemental by mouth calcium) chewable tablet every 6 hours as needed. chlorhexidine gluconate Swish and 0 (PERIDEX) 0.12 % solution Spit 15 mL by mouth as directed twice daily. Fluocinolone 0.01 % crea Apply 0 topically to affected area. intrauterine copper 1 Intra 0 contraceptive (PARAGARD) Uterine 380 square mm Device by intrauterine device Intrauterine route once. INTRAUTERINE DEVICE (IUD) by 0 IU Intrauterine route. 09/27/2018 lidocaine (LIDODERM) 5 % Apply one 15 patch 0 topical patch patch to two patches topically to affected area daily. Apply patch for 12 hours, then remove for 12 hours before repeating. 09/27/2018 metoprolol tartrate Take one 180 tablet 3 (LOPRESSOR) 50 mg tablet tablet by mouth twice daily. 09/27/2018 oxyCODONE/acetaminophen Take one 40 tablet 0 (ENDOCET) 5/325 mg tablet tablet to two tablets by mouth every 4 hours as needed for Pain 09/27/2018 senna/docusate Take two 20 tablet 0 (SENOKOT-S) 8.6/50 mg tablets by tablet mouth twice daily. sertraline (ZOLOFT) 50 mg Take 50 mg by 0 tablet mouth daily. documented as of this encounter Plan of Treatment Not on filedocumented as of this encounter Procedures Comments Procedure Name Priority Date/Time Associated Diagnosis CHEST 2 VIEWS Routine 10/15/2018 Ascending aortic aneurysm 2:06 PM SPECIAL DISTRIBUTION CLERK ([facility]) documented in this encounter Results * CHEST 2 VIEWS (10/15/2018 2:06 PM SPECIAL DISTRIBUTION CLERK) Impressions Performed At Resolution of bibasilar atelectasis. [facility] Finalized by Neeraj Nguyen M.D. on 10/15/2018 2:13 PM. Dictated by Neeraj Nguyen M.D. on 10/15/2018 2:12 PM. Narrative Performed At 2 views of the chest [facility] Clinical history: Atelectasis. Status post aortic root replacement. Findings: Comparison chest film: September 27, 2018 Sternotomy wires are again noted. The heart remains at the upper limits of normal for size. Bibasilar atelectasis has resolved. No pleural effusion or pneumothorax is identified. Procedure Note Interface, Radiant Results - 10/15/2018 2:16 PM SPECIAL DISTRIBUTION CLERK 2 views of the chest Clinical history: Atelectasis. Status post aortic root replacement. Findings: Comparison chest film: September 27, 2018 Sternotomy wires are again noted. The heart remains at the upper limits of normal for size. Bibasilar atelectasis has resolved. No pleural effusion or pneumothorax is identified. IMPRESSION Resolution of bibasilar atelectasis. Finalized by Neeraj Nguyen M.D. on 10/15/2018 2:13 PM. Dictated by Neeraj Nguyen M.D. on 10/15/2018 2:12 PM. Performing Organization Address City/State/Zipcode Phone Number [facility] documented in this encounter Visit Diagnoses Diagnosis Ascending aortic aneurysm (HCC) Thoracic aneurysm without mention of rupture documented in this encounter
--- OUTSIDE RECORDS SUMMARY | 2018-12-30 10:18 | XMS REPORT | Clinical Summary ---
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 If you do not see the information that you expected, contact Release of Information in the Health Information Management department at [phone] for further assistance in locating additional records.[facility] Allergies No Known Allergies Medications End Date Status Medication Sig Dispensed Refills Start Date Active INTRAUTERINE DEVICE (IUD) by 0 IU Intrauterine route. Active Fluocinolone 0.01 % crea Apply 0 topically to affected area. Active intrauterine copper 1 Intra 0 contraceptive (PARAGARD) Uterine 380 square mm Device by intrauterine device Intrauterine route once. Active chlorhexidine gluconate Swish and 0 (PERIDEX) 0.12 % solution Spit 15 mL by mouth as directed twice daily. Active biotin 1,000 mcg chew Chew 3 0 tablets by mouth daily. Active acetaminophen (TYLENOL) Take 1,000 mg 0 500 mg tablet by mouth every 12 hours as needed for Pain. Max of 4,000 mg of acetaminophen in 24 hours. Active calcium carbonate (TUMS) Chew 1,000 mg 0 500 mg (200 mg elemental by mouth calcium) chewable tablet every 6 hours as needed. Active sertraline (ZOLOFT) 50 mg Take 50 mg by 0 tablet mouth daily. Active aspirin 325 mg tablet Take one 90 tablet 3 tablet by 9 mouth daily. Take with food. Active senna/docusate Take two 20 tablet 0 (SENOKOT-S) 8.6/50 mg tablets by 9 tablet mouth twice daily. Active lidocaine (LIDODERM) 5 % Apply one 15 patch 0 topical patch patch to two 9 patches topically to affected area daily. Apply patch for 12 hours, then remove for 12 hours before repeating. Active metoprolol tartrate Take one 180 tablet 3 (LOPRESSOR) 50 mg tablet tablet by 9 mouth twice daily. Active oxyCODONE/acetaminophen Take one 40 tablet 0 (ENDOCET) 5/325 mg tablet tablet to two 9 tablets by mouth every 4 hours as needed for Pain Active Problems Problem Noted Date S/P ascending aortic replacement 10/15/2018 S/P aortic valve replacement 10/15/2018 Aortic stenosis due to bicuspid aortic valve 09/19/2018 Class 2 obesity in adult 09/18/2018 Ascending aortic aneurysm 04/12/2018 Overview: Added automatically from request for surgery [id number] Aortic valve regurgitation 04/12/2018 Overview: Added automatically from request for surgery [id number] Bicuspid aortic valve Asthma Endometriosis Hypertension ADHD Contact with and (suspected) exposure to environmental tobacco smoke (acute) (chronic) PCOS (polycystic ovarian syndrome) GI bleed Ascending aortic aneurysm Aortic regurgitation due to bicuspid aortic valve Encounters Care Team Description Date Type Specialty Cruz Middleton MD Winkler, Katelyn, APRN S/P aortic valve replacement 10/15/2018 Office Visit Cardiothoracic Surgery Melody Robles PA-C 10/15/2018 Hospital Radiology Encounter Natalie Haywood RN Post-hospital Follow Up 10/01/2018 Telephone Cardiothoracic Surgery from Last 3 Months Family History Medical [...] Vital Signs Time Taken Vital Sign Reading 10/15/2018 2:44 PM ANESTHESIOLOGY CRNA Blood Pressure 120/72 10/15/2018 2:44 PM ANESTHESIOLOGY CRNA Pulse 88 09/27/2018 7:40 AM ANESTHESIOLOGY CRNA Temperature 36.5 C (97.7 F) - Respiratory Rate - 10/15/2018 2:44 PM ANESTHESIOLOGY CRNA Oxygen Saturation 98% - Inhaled Oxygen - Concentration 10/15/2018 2:44 PM ANESTHESIOLOGY CRNA Weight 107 kg (236 lb) 10/15/2018 2:44 PM ANESTHESIOLOGY CRNA Height 170.2 cm (5' 7") 10/15/2018 2:44 PM ANESTHESIOLOGY CRNA Body Mass Index 36.96 Plan of Treatment Health Maintenance Due Date Last Done Comments PHYSICAL (COMPREHENSIVE) 2004 EXAM HIV SCREENING 2012 HPV VACCINES (1 - Female 2012 3-dose series) DTAP/TDAP VACCINES (1 - 2015 Tdap) CERVICAL CANCER SCREENING 2018 INFLUENZA VACCINE 04/04/2019 07/24/2009 MENINGOCOCCAL VACCINE Aged Out No longer eligible based (ACWY,Menactra) on patient's age to complete this topic Implants Device Identifier Shelf Expiration Date Model / Serial / Lot Implanted Type Area Manufactur er 09/19/2022 [id number] / [id number] / N/A Valve Aortic 34mm 25mm Freestyle 8 [employer]: Root Porcine Bioprosthesis - CARDIAC [id number] SRVC Implanted: Qty: 1 on 09/21/2018 by Cruz Middleton MD Procedures Comments Procedure Name Priority Date/Time Associated Diagnosis CHEST 2 VIEWS Routine 10/15/2018 Ascending aortic aneurysm 2:06 PM ANESTHESIOLOGY CRNA ([facility]) from Last 3 Months Results * CHEST 2 VIEWS (10/15/2018 2:06 PM ANESTHESIOLOGY CRNA) Impressions Performed At Resolution of bibasilar atelectasis. [...] Interface, Radiant Results - 10/15/2018 2:16 PM ANESTHESIOLOGY CRNA 2 views of the chest Clinical history: [...] Address City/State/Zipcode Phone Number [facility] RESULTS from Last 3 Months Insurance Type Payer Benefit Subscriber ID Effective Phone Address Plan / Dates Group AETNA MEDICAID AETNA xxxxxxxxxxx 2018-P [facility] Advance Directives Patient has advance care planning documents, and code status on file. For more information, please contact: [facility] [address] [place] [address] Date Inactivated Comments Code Status Date Activated 09/27/2018 12:25 PM Full Code 09/21/2018 6:59 AM Provider has discussed Code Status Yes w/Patient or Family? 09/20/2018 2:19 AM Full Code 09/18/2018 10:40 AM Provider has discussed Code Status Yes w/Patient or Family?
--- OUTSIDE RECORDS SUMMARY | 2018-12-30 10:19 | XMS REPORT ---
Author Author Migration, Doctor Organization [facility] Address Unknown Phone Unavailable Care Team Providers Care Cardiac Catheterization Technician Name Role Phone Migration, Doctor Unavailable Unavailable PROBLEMS Type Condition ICD9-CM Code [id number] Code Onset Dates Condition Status SNOMED Code Problem Unspecified backache 724.5 Active 602529575 Problem Dysthymic disorder F34.1 Active 02455791 ALLERGIES No Information ENCOUNTERS Encounter Location Date Diagnosis [place] [place] [id number] [place] [phone] Aug, [place] [id number] [place] [phone] Aug, Dysthymic disorder F34.1 [facility] [address] [place] [phone] Oct, test-positive Z32.01 [place] [id number] [place] [phone] Dec, [place] [id number] [place] [phone] Dec, [facility] [address] [id number] Jun, [place] [phone] [place] [phone] Jun, IMMUNIZATIONS No Known Immunizations SOCIAL HISTORY Never Assessed REASON FOR VISIT EMR-[facility] PLAN OF CARE VITAL SIGNS MEDICATIONS Medication Instructions Dosage Frequency Start Date End Date Duration Status Lisinopril 10 mg take 1 tablet (10 mg) by oral route once daily Jun Active Albuterol Sulfate 90 mcg/actuation inhale 1 puff by inhalation route every 4-6 hours as needed PRN Jun, Active Ibuprofen 600 mg take 1 tablet by Oral route 3 times per day with food PRN for pain Jun, Active Hydrocodone-Acetaminophen 5-325 mg take 1 tablet by Oral route every 6 hours as needed for pain PRN Takes BID during period Jun, Active RESULTS No Results PROCEDURES No Known procedures INSTRUCTIONS MEDICATIONS ADMINISTERED No Known Medications
--- OUTSIDE RECORDS SUMMARY | 2018-12-30 10:19 | XMS REPORT | Encounter Summary ---
Author Author [facility] Organization [facility] Address Unknown Phone Unavailable Care Team Providers Care Fish Fryer Name Role Phone [place] [address] Reason for Visit * Reason Comments Post-hospital Follow Up Encounter Details Care Team Description Date Type Department Natalie Haywood RN Post-hospital Follow Up 10/01/2018 Telephone The [address] [place] [address] Social History Date Tobacco Use Types Packs/Day [...] impairment: No documented as of this encounter Miscellaneous Notes * Telephone Encounter - Natalie Haywood RN - 10/01/2018 12:04 PM STRAP SETTER Pt doing well post op. Incisions C/D/I. Reports slight drainage over weekend from Chest Tube site;not enough to cover with gauze. Reports VSS with increased Metoprolol dose. Has appt with PCP on and advised to see primary Cardiology in next few weeks also. Reports feeling occasional popping to chest area, denies pain or SOB, no fall or blow to chest. Advised to call CTS if any change or seek care closer to home so CXR could be done to verify no sternal displacement. Pt verbalized understanding. P SETTER documented in this encounter Plan of Treatment Not on filedocumented as of this encounter Visit Diagnoses Not on filedocumented in this encounter
--- OUTSIDE RECORDS SUMMARY | 2018-12-30 10:19 | XMS REPORT | Encounter Summary ---
Author Author [facility] Organization [facility] Address Unknown Phone Unavailable Care Team Providers Care Potato Chip [employer]er Machine Name Role Phone [place] [address] Reason for Visit * Reason Comments Post Operative Visit Encounter Details Care Team Description Date Type Department Cruz Middleton MD [address] [address] [phone] Fadia Gorman APRN [address] [address] [phone] S/P aortic valve replacement 10/15/2018 Office Visit [facility] [address] [address] Social History Date Tobacco Use Types Packs/Day [...] history available. documented as of this encounter Last Filed Vital Signs Time Taken Vital Sign Reading 10/15/2018 2:44 PM [facility] Blood Pressure 120/72 10/15/2018 2:44 PM [facility] Pulse 88 - Temperature - - Respiratory Rate - 10/15/2018 2:44 PM [facility] Oxygen Saturation 98% - Inhaled Oxygen - Concentration 10/15/2018 2:44 PM [facility] Weight 107 kg (236 lb) 10/15/2018 2:44 PM [facility] Height 170.2 cm (5' 7") 10/15/2018 2:44 PM [facility] Body Mass Index 36.96 documented in this encounter Functional Status Date of Assessment Functional Status Response 09/24/2018 Does the patient have a hearing impairment: No documented as of this encounter Progress Notes * Fadia Gorman, PAO - 10/15/2018 2:45 PM [facility] Date of Service: 10/15/2018 Subjective: Vidal Cummings is a 23 y.o. female. History of Present IllnessVidal Cummings is here for her regularly scheduled postoperative visit. she presented to our service with a bicuspid aortic valve and an ascending aortic aneurysm and underwent an aortic valve replacement and aortic aneurysm repair with a 25mm Freestyle aortic root bioprosthesis and an ascending aortic graft with cardiopulmonary bypass and valve suspension on under the direction of Dr. Cruz Middleton. She tolerated this procedure well. Postoperatively she had a relatively uneventful postoperative course. She did have some nausea that resolved independently. Today she states she feels well overall and denies chest pain, dyspnea, palpitations, irregular heart beats, syncope, fatigue, orthopnea, paroxysmal nocturnal dyspnea, lower extremity edema , chills, fever, myalgias, nonproductive cough, productive cough and sweats. Her activity level has been improving and she has been walking independently 2- 3 times a week for approximately 30 minutes at a time without complication at a local [facility]. Vidal Cummings has plans to follow up with Dr. Smith, her Bilingual Medical Assistant, in the next few weeks. Her CXR was completed today and was reviewed. This showed good resolution of the lung jamil with aligned and intact sternal wires. We are pleased with this result. Review of Systems Constitution: Negative. HENT: Negative. Eyes: Negative. Cardiovascular: Negative. Respiratory: Negative. Endocrine: Negative. Hematologic/Lymphatic: Negative. Skin: Negative. Musculoskeletal: Negative. Gastrointestinal: Negative. Genitourinary: Negative. Neurological: Negative. Psychiatric/Behavioral: Negative. Allergic/Immunologic: Negative. Objective: acetaminophen (TYLENOL) 500 mg tablet Take 1,000 mg by mouth every 12 hours as needed for Pain. Max of 4,000 mg of acetaminophen in 24 hours. aspirin 325 mg tablet Take one tablet by mouth daily. Take with food. biotin 1,000 mcg chew Chew 3 tablets by mouth daily. calcium carbonate (TUMS) 500 mg (200 mg elemental calcium) chewable tablet Chew 1,000 mg by mouth every 6 hours as needed. chlorhexidine gluconate (PERIDEX) 0.12 % solution Swish and Spit 15 mL by mouth as directed twice daily. Fluocinolone 0.01 % crea Apply topically to affected area. intrauterine copper contraceptive (PARAGARD) 380 square mm intrauterine device 1 Intra Uterine Device by Intrauterine route once. INTRAUTERINE DEVICE (IUD) IU by Intrauterine route. lidocaine (LIDODERM) 5 % topical patch Apply one patch to two patches topically to affected area daily. Apply patch for 12 hours, then remove for 12 hours before repeating. metoprolol tartrate (LOPRESSOR) 50 mg tablet Take one tablet by mouth twice daily. oxyCODONE/acetaminophen (ENDOCET) 5/325 mg tablet Take one tablet to two tablets by mouth every 4 hours as needed for Pain senna/docusate (SENOKOT-S) 8.6/50 mg tablet Take two tablets by mouth twice daily. sertraline (ZOLOFT) 50 mg tablet Take 50 mg by mouth daily. Vitals: 10/15/18 1444 BP: 120/72 Pulse: 88 SpO2: 98% Weight: 107 kg (236 lb) Height: 1.702 m (5' 7") Body mass index is 36.96 kg/m. Physical Exam Constitutional: She is oriented to person, place, and time. She appears well- developed and well-nourished. No distress. Cardiovascular: Normal rate, regular rhythm and normal heart sounds. No murmur heard. Sternal incision is well healed and well approximated without exudate, erythema , or swelling. Sternum is stable with cough. Pulmonary/Chest: Effort normal and breath sounds normal. No respiratory distress. Abdominal: Soft. Bowel sounds are normal. She exhibits no distension. Musculoskeletal: Normal range of motion. She exhibits no edema. Neurological: She is alert and oriented to person, place, and time. Skin: Skin is warm and dry. She is not diaphoretic. Psychiatric: She has a normal mood and affect. Her behavior is normal. Judgment and thought content normal. Assessment and Plan: Patient was informed that at 6 weeks from the date of surgery she may gradually increase the amount of weight that she is lifting. She should start at low weights and gradually work her way up. If there is no discomfort while doing it , then that is ok. If she has discomfort then she should stop. At 3 months from the date of surgery the sternum should be completely healed. If she has any questions or concerns she is to notify our office. She will continue to follow with her PCP and band shover for continued care. Education was given to Vidal Cummings on the importance of always taking prophylactic antibiotics prior to any dental work, certain medical procedures, and any surgeries. This is to help prevent any damage to the valve from potential infection. She is to inform her ordering physician about their history of a valve repair or replacement and to follow medication instructions accordingly. This is our recommendation for the life of the valve. We also recommend yearly echos for continued valve surveillance. Overall, we are very pleased with Vidal Cummings's postoperative progress. At this time we do not feel that any further surgical follow up is warranted. However, should any issues or concerns arise, we would be more than happy to see her again. Thank you very much for allowing us to participate in her care. Please do not hesitate to contact us with any questions or concerns. Fadia Gorman APRN [facility] 10/15/2018 [facility] documented in this encounter Plan of Treatment Not on filedocumented as of this encounter Visit Diagnoses Diagnosis S/P aortic valve replacement Heart valve replaced by other means documented in this encounter
--- OUTSIDE RECORDS SUMMARY | 2018-12-30 10:21 | XMS REPORT | Continuity of Care Document ---
Author Organization Unknown Address Unknown Allergies Active Description Code Type Severity Reaction Onset Reported/Identified Relationship to Patient Clinical Status Yes No Known Drug Allergies [id number] Drug Allergy Unknown N/A 09/15/2014 Medications There [...] ISAEL RAMIREZ, SOCORRO Singh Ot 626.8 10/03/2014 SOCORRO KIRKLAND MD Ot V72.63 10/03/2014 SOCORRO KIRKLAND MD Ot V72.81 10/03/2014 ISAEL RAMIREZ, SOCORRO Singh Ot V74.8 10/16/2015 SOCORRO KIRKLAND MD Ot 285.9 10/16/2015 ISAEL RAMIREZ, SOCORRO Singh Ot 617.9 10/16/2015 SOCORRO KIRKLAND MD Ot 626.8 10/16/2015 SOCORRO KIRKLAND MD Ot V72.63 10/16/2015 ISAEL RAMIREZ, SOCORRO Singh Ot V72.81 10/16/2015 ISAEL RAMIREZ, SOCORRO Singh Ot V74.8 10/16/2015 ANIKA MOJICA Ot N80.0 ENDOMETRIOSIS OF UTERUS 10/16/2015 ANIKA MOJICA Ot N92.0 EXCESSIVE AND FREQUENT MENSTRUATION WITH 10/16/2015 ANIKA MOJICA Ot R10.84 GENERALIZED ABDOMINAL PAIN 10/16/2015 ANIKA MOJICA Ot Z91.14 PATIENT'S OTHER NONCOMPLIANCE WITH MEDIC 12/07/2015 Ot I10 ESSENTIAL ( PRIMARY) HYPERTENSION 12/07/2015 Ot R20.2 PARESTHESIA OF SKIN 12/07/2015 Ot I10 12/07/2015 Ot R20.2 12/08/2015 ISAEL RAMIREZ, SOCORRO Singh Ot 285.9 12/08/2015 ISAEL RAMIREZ, SOCORRO Singh Ot 617.9 12/08/2015 SOCORRO KIRKLAND MD Ot 626.8 12/08/2015 SOCORRO KIRKLAND MD Ot V72.63 12/08/2015 SOCORRO KIRKLAND MD Ot V72.81 12/08/2015 SOCORRO KIRKLAND MD Ot V74.8 12/08/2015 RADHA RAMIREZ, XIANG Rodriguez Ot M79.601 PAIN IN RIGHT ARM 12/08/2015 RADHA RAMIREZ, XIANG T Ot R20.2 PARESTHESIA OF SKIN 12/09/2015 XIANG GARCIA MD T Ot M79.601 12/09/2015 RADHA RAMIREZ, XIANG T Ot R20.2 12/21/2015 XIANG GARCIA MD Ot M54.2 CERVICALGIA 12/21/2015 XIANG GARCIA MD T Ot R20.2 PARESTHESIA OF SKIN 12/22/2015 XIANG GARCIA MD Ot M54.2 CERVICALGIA 12/22/2015 XIANG GARCIA MD T Ot R20.2 PARESTHESIA OF SKIN 01/05/2016 TODD OCHOA Ot R20.2 PARESTHESIA OF SKIN 01/25/2016 TODD OCHOA Ot R20.2 PARESTHESIA OF SKIN 10/31/2016 ISAELSOCORRO TOLBERT MD Ot 285.9 ANEMIA NOS 10/31/2016 SOCORRO KIRKLAND MD Ot 617.9 ENDOMETRIOSIS NOS 10/31/2016 SOCORRO KIRKLAND MD Ot 626.8 MENSTRUAL DISORDER NEC 10/31/2016 SOCORRO KIRKLAND MD, Ot V72.63 PRE-PROCEDURAL LABORATORY EXAMINATION 10/31/2016 SOCORRO KIRKLAND MD, Ot V72.81 CYVI-YOX-EINBCILQU CARDIOVASCULAR 10/31/2016 SOCORRO KIRKLAND MD, Ot V74.8 SCREEN-BACTERIAL DIS NEC 10/31/2016 RACHEL QUIÑONEZ, TODD K Ot R20.2 PARESTHESIA OF SKIN 10/31/2016 LUCRECIA DO ANA K Ot O20.0 THREATENED 10/31/2016 LUCRECIA ANA K Ot O36.0110 MATERNAL CARE FOR ANTI-D ANTIBODIES, FIR 10/31/2016 LUCRECIA CRISTINA ANA K Ot O46.91 ANTEPARTUM HEMORRHAGE, UNSPECIFIED, FIRS 10/31/2016 LUCRECIA CRISTINA ANA K Ot Z3A.01 LESS THAN 8 WEEKS GESTATION OF 11/01/2016 LUCRECIA ANA K Ot O20.0 THREATENED 11/01/2016 LUCRECIA DO ANA K Ot O36.0110 MATERNAL CARE FOR ANTI-D ANTIBODIES, FIR 11/01/2016 LUCRECIA ANA K Ot O46.91 ANTEPARTUM HEMORRHAGE, UNSPECIFIED, FIRS 11/01/2016 LUCRECIA DO ANA K Ot Z3A.01 LESS THAN 8 WEEKS GESTATION OF 11/13/2016 RADHA SANCHES TILESETTER Ot O20.0 THREATENED 11/13/2016 RADHA SANCHES TILESETTER Ot O23.41 UNSP INFCT OF URINARY TRACT IN 11/13/2016 RADHA SANCHES TILESETTER Ot Z3A.01 LESS THAN 8 WEEKS GESTATION OF 11/15/2016 RADHA SANCHES TILESETTER Ot O20.0 THREATENED 11/15/2016 RADHA SANCHES APRN Ot O23.41 UNSP INFCT OF URINARY TRACT IN 11/15/2016 RADHA SANCHES APRN Ot Z3A.01 LESS THAN 8 WEEKS GESTATION OF 11/19/2016 RADHA SANCHES APRN Ot O20.0 THREATENED 11/19/2016 RADHA SANCHES APRN Ot O23.41 UNSP INFCT OF URINARY TRACT IN 11/19/2016 RADHA SANCHES APRN Ot Z3A.01 LESS THAN 8 WEEKS GESTATION OF 02/04/2017 SOCORRO KIRKLAND MD Ot 285.9 ANEMIA NOS 02/04/2017 SOCORRO KIRKLAND MD Ot 617.9 ENDOMETRIOSIS NOS 02/04/2017 SOCORRO KIRKLAND MD Ot 626.8 MENSTRUAL DISORDER NEC 02/04/2017 SOCORRO KIRKLAND MD, Ot V72.63 PRE-PROCEDURAL LABORATORY EXAMINATION 02/04/2017 SOCORRO KIRKLAND MD, Ot V72.81 [id number] CARDIOVASCULAR 02/04/2017 SOCORRO KIRKLAND MD, Ot V74.8 [...] TRACT IN 02/06/2017 ANIKA MOJICA Ot O26.892 OTH RELATED CONDITIONS, SECOND 02/06/2017 ANIKA MOJICA Ot O99.282 ENDO, NUTRITIONAL AND METAB DISEASES COM 02/06/2017 ANIKA MOJICA Ot R10.2 PELVIC AND PERINEAL PAIN 02/06/2017 ANIKA MOJICA Ot Z3A.19 19 WEEKS GESTATION OF 03/19/2017 SOCORRO KIRKLAND MD Ot 285.9 ANEMIA NOS 03/19/2017 SOCORRO KIRKLAND MD Ot 617.9 ENDOMETRIOSIS NOS 03/19/2017 SOCORRO KIRKLAND MD Ot 626.8 MENSTRUAL DISORDER NEC 03/19/2017 SOCORRO KIRKLAND MD, Ot V72.63 PRE-PROCEDURAL LABORATORY EXAMINATION 03/19/2017 SOCORRO KIRKLAND MD, Ot V72.81 [id number] CARDIOVASCULAR 03/19/2017 SOCORRO KIRKLAND MD, Ot V74.8 [...] Ot 617.9 ENDOMETRIOSIS NOS 04/05/2017 SOCORRO KIRKLAND MD, Ot 626.8 MENSTRUAL DISORDER NEC 04/05/2017 SOCORRO KIRKLAND MD, Ot V72.63 PRE-PROCEDURAL LABORATORY EXAMINATION 04/05/2017 SOCORRO KIRKLAND MD, Ot V72.81 [id number] CARDIOVASCULAR 04/05/2017 SOCORRO KIRKLAND MD, Ot V74.8 [...] MD, Ot O21.8 OTHER VOMITING COMPLICATING 05/15/2017 SCOORRO KIRKLAND MD, Ot Z3A.32 32 WEEKS GESTATION OF 05/18/2017 SOCORRO KIRKLAND MD, Ot 285.9 ANEMIA NOS 05/18/2017 SOCORRO KIRKLAND MD, Ot 617.9 ENDOMETRIOSIS NOS 05/18/2017 SOCORRO KIRKLAND MD, Ot 626.8 MENSTRUAL DISORDER NEC 05/18/2017 SOCORRO KIRKLAND MD, Ot V72.63 PRE-PROCEDURAL LABORATORY EXAMINATION 05/18/2017 SOCORRO KIRKLAND MD, Ot V72.81 SFVV-MCK-[id number] CARDIOVASCULAR 05/18/2017 SOCORRO KIRKLAND MD, Ot V74.8 [...] WEEKS OF GESTATION OF NOT SPEC 05/31/2017 ISAEL MD, SOCORRO G Ot O28.8 OTHER ABNORMAL FINDINGS ON SCR 05/31/2017 SOCORRO KIRKLAND MD Ot Z3A.00 WEEKS OF GESTATION OF NOT SPEC 05/31/2017 SOCORRO KIRKLAND MD, Ot O14.03 MILD TO MODERATE PRE-ECLAMPSIA, THIRD TR 05/31/2017 SOCORRO KIRKLAND MD Ot Z3A.00 WEEKS OF GESTATION OF NOT SPEC 05/31/2017 SOCORRO KIRKLAND MD, Ot O14.03 MILD TO MODERATE PRE-ECLAMPSIA, THIRD TR 05/31/2017 SOCORRO KIRKLAND MD, Ot Z3A.00 WEEKS OF GESTATION OF NOT SPEC 05/31/2017 SOCORRO KIRKLAND MD, Ot O28.8 OTHER ABNORMAL FINDINGS ON SCR 05/31/2017 SOCORRO KIRKLAND MD Ot Z3A.00 WEEKS OF GESTATION OF NOT SPEC 06/06/2017 SOCORRO KIRKLAND MD, Ot O14.03 MILD TO MODERATE PRE-ECLAMPSIA, THIRD TR 06/06/2017 SOCORRO KIRKLAND MD Ot Z3A.00 WEEKS OF [...] NOT SPEC 03/11/2018 SOCORRO KIRKLAND MD, Ot 285.9 ANEMIA NOS 03/11/2018 SOCORRO KIRKLAND MD, Ot 617.9 ENDOMETRIOSIS NOS 03/11/2018 SOCORRO KIRKLAND MD, Ot 626.8 MENSTRUAL DISORDER NEC 03/11/2018 SOCORRO KIRKLAND MD, Ot V72.63 PRE-PROCEDURAL LABORATORY EXAMINATION 03/11/2018 SOCORRO KIRKLAND MD, Ot V72.81 [id number]-[id number] CARDIOVASCULAR 03/11/2018 SOCORRO KIRKLAND MD, Ot V74.8 SCREEN-BACTERIAL DIS NEC 03/11/2018 TODD OCHOA Ot R20.2 PARESTHESIA OF SKIN 03/11/2018 SOCORRO KIRKLAND MD, Ot Z34.83 ENCOUNTER FOR SUPRVSN OF NORMAL PREGNANC 03/11/2018 SOCORRO KIRKLAND MD, Ot Z3A.00 WEEKS OF GESTATION OF NOT SPEC 03/11/2018 SOCORRO KIRKLAND MD, Ot Z41.8 ENCNTR FOR OTH PROC FOR PURPOSE OTH THAN 03/11/2018 SOCORRO KIRKLAND MD, Ot O14.03 MILD [...] NOT SPEC 03/11/2018 SOCORRO KIRKLAND MD, Ot O28.8 OTHER ABNORMAL FINDINGS ON SCR 03/11/2018 SOCORRO KIRKLAND MD Ot Z3A.00 WEEKS OF GESTATION OF NOT SPEC 03/11/2018 Ot O20.8 OTHER HEMORRHAGE IN EARLY 03/11/2018 Ot Z3A.00 WEEKS OF GESTATION OF NOT SPEC 03/11/2018 SOCORRO KIRKLAND MD Ot O28.8 OTHER ABNORMAL FINDINGS ON SCR 03/11/2018 SOCORRO KIRKLAND MD, Ot Z3A.00 WEEKS [...] G43.909 MIGRAINE, UNSP, NOT INTRACTABLE, WITHOUT 03/13/2018 ANA SINGER DO Ot I10 ESSENTIAL (PRIMARY) HYPERTENSION 03/13/2018 ANA SINGER DO Ot K08.89 OTHER SPECIFIED DISORDERS OF TEETH AND S 03/13/2018 ANA SINGER DO Ot Z87.891 PERSONAL HISTORY [...] PERSONAL HISTORY OF OTHER DISEASES OF TH 09/18/2018 SOCORRO KIRKLAND MD Ot 285.9 ANEMIA NOS 09/18/2018 SOCORRO KIRKLAND MD, Ot 617.9 ENDOMETRIOSIS NOS 09/18/2018 SOCORRO KIRKLAND MD, Ot 626.8 MENSTRUAL DISORDER NEC 09/18/2018 SOCORRO KIRKLAND MD, Ot V72.63 PRE-PROCEDURAL LABORATORY EXAMINATION 09/18/2018 SOCORRO KIRKLAND MD, Ot V72.81 [id number] CARDIOVASCULAR 09/18/2018 SOCORRO KIRKLAND MD, Ot V74.8 SCREEN-BACTERIAL DIS NEC 09/18/2018 TODD OCHOA Ot R20.2 PARESTHESIA OF SKIN 09/18/2018 SOCORRO KIRKLAND MD, Ot Z34.83 ENCOUNTER FOR SUPRVSN OF NORMAL PREGNANC 09/18/2018 SOCORRO KIRKLAND MD, Ot Z3A.00 WEEKS OF GESTATION OF NOT SPEC 09/18/2018 SOCORRO KIRKLAND MD, Ot Z41.8 ENCNTR FOR OTH PROC FOR PURPOSE OTH THAN 09/18/2018 SOCORRO KIRKLAND MD, Ot O14.03 MILD TO MODERATE PRE-ECLAMPSIA, THIRD TR 09/18/2018 SOCORRO KIRKLAND MD, Ot Z3A.00 WEEKS OF GESTATION OF NOT SPEC 09/18/2018 SOCORRO KIRKLAND MD, Ot O14.03 MILD TO MODERATE PRE-ECLAMPSIA, THIRD TR 09/18/2018 SOCORRO KIRKLAND MD, Ot Z3A.00 WEEKS OF GESTATION OF NOT SPEC 09/18/2018 SOCORRO KIRKLAND MD, Ot O28.8 OTHER ABNORMAL FINDINGS ON SCR 09/18/2018 SOCORRO KIRKLAND MD, Ot Z3A.00 WEEKS OF GESTATION OF NOT SPEC 09/18/2018 SOCORRO KIRKLAND MD, Ot O28.8 OTHER ABNORMAL FINDINGS ON SCR 09/18/2018 SOCORRO KIRKLAND MD, Ot Z3A.00 WEEKS OF GESTATION OF NOT SPEC 09/18/2018 Ot O20.8 OTHER HEMORRHAGE IN EARLY 09/18/2018 Ot Z3A.00 WEEKS OF GESTATION OF NOT SPEC 09/18/2018 SOCORRO KIRKLAND MD Ot O28.8 OTHER ABNORMAL FINDINGS ON SCR 09/18/2018 SOCORRO KIRKLAND MD, Ot Z3A.00 WEEKS OF GESTATION OF NOT SPEC 09/18/2018 JAMI WHITESIDE MD Ot I71.2 THORACIC AORTIC ANEURYSM, WITHOUT RUPTUR 09/18/2018 JAMI WHITESIDE MD, Ot Q23.1 CONGENITAL INSUFFICIENCY OF AORTIC VALVE 09/18/2018 JAMI WHITESIDE MD, Ot Z86.79 PERSONAL HISTORY OF OTHER DISEASES OF TH 09/19/2018 XIANG GARCIA MD Ot F41.9 ANXIETY DISORDER, UNSPECIFIED 09/19/2018 XIANG GARCIA MD, Ot F90.9 ATTENTION-DEFICIT HYPERACTIVITY DISORDER 09/19/2018 XIANG GARCIA MD, Ot F98.8 OTH BEHAV/EMOTN DISORD W ONSET USLY OCCU 09/19/2018 XIANG GARCIA MD, Ot G43.909 MIGRAINE, UNSP, NOT INTRACTABLE, WITHOUT 09/19/2018 XIANG GARCIA MD, Ot I10 ESSENTIAL (PRIMARY) HYPERTENSION 09/19/2018 BRUEGGEMANN MD, XIANG T Ot I35.9 NONRHEUMATIC AORTIC VALVE DISORDER, UNSP 09/19/2018 XIANG GARCIA MD Ot I71.2 THORACIC AORTIC ANEURYSM, WITHOUT RUPTUR 09/19/2018 XIANG GARCIA MD Ot J45.909 UNSPECIFIED ASTHMA, UNCOMPLICATED 09/19/2018 XIANG GARCIA MD Ot R07.81 PLEURODYNIA 09/19/2018 XIANG GARCIA MD Ot Z87.448 PERSONAL HISTORY OF OTHER DISEASES OF UR 09/19/2018 XIANG GARCIA MD Ot Z87.891 PERSONAL HISTORY OF NICOTINE DEPENDENCE 09/19/2018 XIANG GARCIA MD Ot Z90.49 ACQUIRED ABSENCE OF OTHER SPECIFIED PART 09/19/2018 XIANG GARCIA MD Ot Z95.0 PRESENCE OF CARDIAC PACEMAKER 09/19/2018 XIANG GARCIA MD Ot Z97.5 PRESENCE OF (INTRAUTERINE) CONTRACEPTIVE 09/19/2018 XIANG GARCIA MD Ot Z98.890 OTHER SPECIFIED POSTPROCEDURAL STATES 09/21/2018 XIANG GARCIA MD Ot F41.9 ANXIETY DISORDER, UNSPECIFIED 09/21/2018 XIANG GARCIA MD Ot F90.9 ATTENTION-DEFICIT HYPERACTIVITY DISORDER 09/21/2018 XIANG GARCIA MD Ot F98.8 OTH BEHAV/EMOTN DISORD W ONSET USLY OCCU 09/21/2018 XIANG GARCIA MD Ot G43.909 MIGRAINE, UNSP, NOT INTRACTABLE, WITHOUT 09/21/2018 XIANG GARCIA MD Ot I10 ESSENTIAL (PRIMARY) HYPERTENSION 09/21/2018 XIANG GARCIA MD Ot I35.9 NONRHEUMATIC AORTIC VALVE DISORDER, UNSP 09/21/2018 XIANG GARCIA MD Ot I71.2 THORACIC AORTIC ANEURYSM, WITHOUT RUPTUR 09/21/2018 XIANG GARCIA MD Ot J45.909 UNSPECIFIED ASTHMA, UNCOMPLICATED 09/21/2018 XIANG GARCIA MD Ot R07.81 PLEURODYNIA 09/21/2018 XIANG GARCIA MD, Ot Z87.448 PERSONAL HISTORY OF OTHER DISEASES OF UR 09/21/2018 XIANG GARCIA MD Ot Z87.891 PERSONAL HISTORY OF NICOTINE DEPENDENCE 09/21/2018 XIANG GARCIA MD Ot Z90.49 ACQUIRED ABSENCE OF OTHER SPECIFIED PART 09/21/2018 XIANG GARCIA MD Ot Z95.0 PRESENCE OF CARDIAC PACEMAKER 09/21/2018 XIANG GARCIA MD Ot Z97.5 PRESENCE OF (INTRAUTERINE) CONTRACEPTIVE 09/21/2018 XIANG GARCIA MD Ot Z98.890 OTHER SPECIFIED POSTPROCEDURAL STATES 09/28/2018 XIANG GARCIA MD Ot F41.9 ANXIETY DISORDER, UNSPECIFIED 09/28/2018 XIANG GARCIA MD Ot F90.9 ATTENTION-DEFICIT HYPERACTIVITY DISORDER 09/28/2018 XIANG GARCIA MD Ot F98.8 OTH BEHAV/EMOTN DISORD W ONSET USLY OCCU 09/28/2018 XIANG GARCIA MD Ot G43.909 MIGRAINE, UNSP, NOT INTRACTABLE, WITHOUT 09/28/2018 XIANG GARCIA MD Ot I10 ESSENTIAL (PRIMARY) HYPERTENSION 09/28/2018 XIANG GARCIA MD Ot I35.9 NONRHEUMATIC AORTIC VALVE DISORDER, UNSP 09/28/2018 XIANG GARCIA MD Ot I71.2 THORACIC AORTIC ANEURYSM, WITHOUT RUPTUR 09/28/2018 XIANG GARCIA MD Ot J45.909 UNSPECIFIED ASTHMA, UNCOMPLICATED 09/28/2018 XIANG GARCIA MD Ot R07.81 PLEURODYNIA 09/28/2018 XIANG GARCIA MD Ot Z87.448 PERSONAL HISTORY OF OTHER DISEASES OF UR 09/28/2018 XIANG GARCIA MD Ot Z87.891 PERSONAL HISTORY OF NICOTINE DEPENDENCE 09/28/2018 XIANG GARCIA MD Ot Z90.49 ACQUIRED ABSENCE OF OTHER SPECIFIED PART 09/28/2018 XIANG GARCIA MD Ot Z95.0 PRESENCE OF CARDIAC PACEMAKER 09/28/2018 RADHA RAMIREZ XIANG Rodriguez Ot Z97.5 PRESENCE OF (INTRAUTERINE) CONTRACEPTIVE 09/28/2018 RADHA RAMIREZ, XIANG Rodriguez Ot Z98.890 OTHER SPECIFIED POSTPROCEDURAL STATES Procedures Code Description Performed By Performed On [id number] EXTRACTION OF POC, LOW CERVICAL, OPEN AP [...] propoxyphene detection NEGATIVE NEGATIVE RH IMMUNE GLOBULIN [facility] - 10/31/16 21:[address] [facility] PRSMD TRFSD 10/31/16 2226 NRG ABO+Rh group - 10/31/16 21:17 ABO+Rh group ON NRG Transfusion band number [id number] NRG [id number] - 10/31/16 21:17 [id number] 300ug NRG Lot number - 10/31/16 21:17 Lot number [id number] NRG cell screen - 10/31/16 21:17 cell screen [id number] NRG cell screen 12/01/18 NR Whole blood basic metabolic panel - 10/31/16 [...] 20:05 Serum or plasma choriogonadotropin measurement (units/volume) 75295 m[iU]/mL <5 Bacterial urine culture - 11/13/16 20:05 Bacterial urine culture [id number] NRG COLONY COUNT >100,000/ML NRG FTX;REPORTABLE PLUS, [...] GLOBULIN RHOPHYLAC PRSMD TRFSD 04/15/17 1447 NRG [id number] - 04/15/17 14:18 [id number] 1 300ug NRG Lot number - 04/15/17 14:18 Lot number [id number] NRG cell screen - 04/15/17 14:18 cell [...] ABO+Rh group ON NRG Transfusion band number [id number] NRG Blood group antibody screen NEGATIVE NRG [...] in serum or plasma 201 U/L 125-220 [id number] - 06/07/17 19:45 [id number] SPECIMEN AVAILABLE [facility] Complete blood count (CBC) with automated white [...] 09/17/18 21:16 Myoglobin, serum 25.4 ng/mL 10.0-92.0 Complete urinalysis with reflex to culture - 09/18/18 00:15 Urine color determination YELLOW NRG Urine clarity determination CLEAR NRG Urine pH measurement by test strip 6.5 5-9 Specific gravity of urine by test strip 1.005 1.016- 1.022 Urine protein assay by test strip, semi-quantitative 2+ NEGATIVE Urine glucose detection by automated test strip NEGATIVE NEGATIVE Erythrocytes detection in urine sediment by light microscopy 5+ NEGATIVE Urine ketones detection by automated test strip NEGATIVE NEGATIVE Urine nitrite detection by test strip NEGATIVE NEGATIVE Urine total bilirubin detection by test strip NEGATIVE NEGATIVE Urine urobilinogen measurement by automated test strip (mass/volume) NORMAL NORMAL Urine leukocyte esterase detection by dipstick 1+ NEGATIVE Automated urine sediment erythrocyte count by microscopy (number/high power field) [HPF] NRG Automated urine sediment leukocyte count by microscopy (number/high power field ) [HPF] NRG Bacteria detection in urine sediment by light microscopy FEW NRG Squamous epithelial cells detection in urine sediment by light microscopy 2-5 NRG Crystals detection in urine sediment by light microscopy NONE NRG Casts detection in urine sediment by light microscopy NONE NRG Mucus detection in urine sediment by light microscopy NEGATIVE NRG Complete urinalysis with reflex to culture YES NRG Urine drug screening test - 09/18/18 00:15 Urine phencyclidine detection by screening method NEGATIVE [...] detection NEGATIVE NEGATIVE Bacterial urine culture - 09/18/18 00:15 Bacterial urine culture SEE REPORT NRG COLONY COUNT . NRG Encounters ACCT No. Visit Date/Time Discharge Status Pt. Type Provider Facility Loc./Unit Complaint [id number] 11/21/2018 08:12:00 11/21/2018 23:59:59 CLS Outpatient JAMI WHITESIDE MD [facility] CR AVR [id number] 09/17/2018 21:06:00 09/18/2018 08:31:00 DIS Outpatient XIANG GARCIA MD [facility] ER CHEST PAIN [id number] 04/02/2018 16:13:00 04/02/2018 23:59:59 CLS Outpatient JAMI WHITESIDE MD [facility] RAD BICUSPID AORTIC VALVE, THORACIC AORTIC ANEURYSM [id number] 03/27/2018 11:32:00 03/27/2018 23:59:59 CLS Preadmit JAMI HWITESIDE MD [facility] RT BICUSPID AORTIC VALVE, THORACIC AORTIC ANEURYSM [id number] 03/11/2018 00:36:00 03/11/2018 01:15:00 DIS Emergency ANA SINGER DO [facility] ER PAIN ON R SIDE OF MOUTH [id number] 06/07/2017 20:40:00 06/09/2017 12:30:00 DIS Inpatient SOCORRO KIRKLAND MD [facility] LDRP DELIVERY [id number] 06/06/2017 10:25:00 06/06/2017 23:59:59 CLS Outpatient SOCORRO KIRKLAND MD [id number] 05/30/2017 10:28:00 05/30/2017 23:59:59 CLS Outpatient SOCORRO KIRKLAND MD [facility] LABT [id number] 05/26/2017 08:55:00 05/26/2017 23:59:59 CLS Outpatient SOCORRO KIRKLAND MD [facility] LABT [id number] 05/23/2017 10:56:00 05/23/2017 23:59:59 CLS Outpatient SOCORRO KIRKLAND MD [facility] LABT [id number] 05/21/2017 13:53:00 05/21/2017 15:26:00 DIS Out[facility] [id number] 05/19/2017 11:07:00 05/19/2017 23:59:59 CLS Outpatient SOCORRO KIRKLAND MD [facility] [id number] 05/14/2017 13:25:00 05/15/2017 07:36:00 DIS Inpatient SOCORRO KIRKLAND MD [facility] LDRP DEHYDRATION PRE ECLAMPSIA [id number] 05/06/2017 18:24:00 05/06/2017 21:54:00 DIS Outpatient SOCORRO KIRKLAND MD [facility] WSo INCREASED HEART BEAT [id number] 04/19/2017 12:47:00 04/19/2017 14:25:00 DIS Outpatient [facility]KLAND [facility] cr[facility],pressure [id number] 04/15/2017 13:42:00 04/15/2017 23:59:59 CLS Outpatient SOCORRO KIRKLAND MD [facility] WSo RH NEGATIVE [id number] 04/14/2017 12:15:00 04/14/2017 23:59:59 CLS Outpatient SOCORRO KIRKLAND MD [facility] LABNPT ENCOUNTER FOR SUPERVISION OF OTHER NORMAL PREGNANC [id number] 04/05/2017 13:19:00 04/05/2017 15:10:00 DIS Outpatient SOCORRO KIRKLAND MD [facility] WS DECREASED MOVEMENT [id number] 03/19/2017 22:23:00 03/20/2017 02:55:00 DIS Outpatient SOCORRO KIRKLAND MD [facility] WSo CRAMPING FALL IN SHOWER [id number] 02/04/2017 12:26:00 02/04/2017 15:29:00 DIS Emergency ANIKA MOJICA [facility] ER PRESSURE IN R ABD DOWN LEG, 19W [id number] 11/13/2016 19:46:00 11/13/2016 21:19:00 DIS Emergency RADHA SANCHES APRN [facility] ER 7 WEEKS PG BLEEDING W/ CRAMPS [id number] 10/31/2016 20:59:00 10/31/2016 22:32:00 DIS Emergency LUCRECIA DOANA [facility] ER VAGINAL BLEEDING [id number] 01/01/2016 16:54:00 01/01/2016 23:59:59 CLS Outpatient TODD OCHOA [facility] RAD ARM PARESTHESIA LEFT [id number] 12/21/2015 14:22:00 12/21/2015 15:14:00 DIS Emergency XIANG GARCIA MD [facility] ER BACK/LEFT ARM NUMBNESS [id number] 12/08/2015 10:46:00 12/08/2015 11:24:00 DIS Emergency XIANG GARCIA MD [facility] ER LEFT ARM PAIN/ NUMBNESS [id number] 10/16/2015 21:07:00 10/16/2015 22:36:00 DIS Emergency ANIKA MOJICA [facility] ER HEAVY VAGINAL BLEEDING ;PAIN;NAUSEA [id number] 09/19/2014 12:28:00 09/20/2014 10:55:00 DIS Outpatient SOCORRO KIRKLAND MD [facility] ENDOMETRIOSIS; DYSFUNCTIONAL UTERINE BLEEDING [id number] 09/15/2014 09:20:00 09/15/2014 23:59:59 CLS Outpatient SOCORRO KIRKLAND MD [facility] PREOP ENDOMETRIOSIS; DYSFUNCTIONAL UTERINE BLEEDING [id number] 06/02/2017 09:55:00 Document Registration [id number] 12/06/2015 21:58:00 Document Registration [id number] 08/15/2017 15:00:00 08/15/2017 23:59:59 CLS Outpatient JANEEN FOSTER [facility] [id number] 06/09/2014 14:52:00 06/09/2014 23:59:59 CLS Outpatient JOELLEN PEREZ DO [facility] 09/19/2014 12:28:36 ACT Document Registration
[2018-12-30] MEDS ORDERED: ASPIRIN 81 MG CHEW (CHILDREN'S ASA) PO ONE (10:30)
[2018-12-30] MEDS ORDERED: SERT100T8 (10:33)
[2018-12-30] MEDS ORDERED: ASPI-808 PO (10:33)
[2018-12-30] MEDS ORDERED: MEDR10TA9 (10:33)
[2018-12-30] MEDS ORDERED: METO50TA15 (10:33)
--- NOTE | 2018-12-30 10:37 | ED Chest Pain ---
General Chief Complaint: Chest Pain Stated Complaint: CP Nursing Triage Note: PT PRESENTS TO ED WITH COMPLAINTS OF R SIDED CP THAT IS SHARP AND WORSE WITH INSPIRATION. PT ALSO REPORTS SOA. PT STATES HER PAIN RADIATES TO HER R ARM AND IS WORSE WHEN SHE LAYS ON HER R SIDE. PT STATES PAIN STARTED YESTERDAY MORNING. Nursing Sepsis Screen: No Definite Risk Source: patient Exam Limitations: no limitations History of Present Illness Date Seen by Provider: Dec 30, 2018 Time Seen by Provider: 10:25 Initial Comments Patient presents to ER by private conveyance with chief complaint of intermittent stabbing, sharp chest pain under the right breast and right side of the manubrium radiating to her right shoulder and her right neck. She does not have a history of coronary disease but she does have a history of September of this year having an open heart surgery to replace her aortic valve with a pig valve. She still on aspirin. She does have a history of high blood pressure but does not smoke have cholesterol or diabetes problems. She has PCO S. She has an IUD in place. She says the pains been going on for over 24 hours pretty consistently worse with particular movement to the right or deep inspiration. She's not had any recent upper respiratory illness cough or shortness of breath. She feels a little short of breath today. She has a history of asthma as a child but does not take breathing treatments anymore. No recent history of pneumonia. Allergies and Home Medications Allergies Coded Allergies: No Known Drug Allergies (Unverified , 09/15/14) Home Medications Aspirin 325 Mg Tablet, 325 MG PO DAILY, (Reported) Naproxen 500 Mg Tablet, 500 MG PO BID Prescribed by: HERON PEREZ on 12/30/18 1119 Patient Home Medication List Home Medication List Reviewed: Yes Review of Systems Review of Systems Constitutional: No chills, No fever, No malaise EENTM: No Blurred Vision, No Double Vision Respiratory: Denies Cough, Denies Shortness of Air Cardiovascular: See HPI, Chest Pain; Denies Edema, Denies Irregular Heart Rate , Denies Lightheadedness, Denies Palpitations, Denies Syncope Gastrointestinal: Denies Constipated, Denies Diarrhea, Denies Nausea, Denies Vomiting Genitourinary: Denies Discharge, Denies Drainage Musculoskeletal: No back pain, No joint pain Skin: No pruritus, No rash Psychiatric/Neurological: Denies Headache, Denies Numbness Past Xhqdhgs-Yjiqqg-Umcshu Hx Patient Social History Alcohol Use: Occasionally Uses Recreational Drug Use: Yes Drug of Choice: THC, METH BY HX, DENIES IV USE Smoking Status: Former Smoker Type Used: Cigarettes Former Smoker, Quit: Jun 16, 2016 2nd Hand Smoke Exposure: No Recent Foreign Travel: No Contact w/Someone Who Travel: No Recent Infectious Disease Expo: No Recent Hopitalizations: No Physical Abuse: No Sexual Abuse: No Mistreated: No Fear: No Immunizations Up To Date Tetanus Booster (TDap): Unknown PED Vaccines UTD: Yes Date of Influenza Vaccine: Jun 04, 2014 Seasonal Allergies Seasonal Allergies: No Past Medical History Surgeries: Yes (D&C, open heart sx-aortic valve replacement) Abdominal, Appendectomy, Section, Ear Surgery, Valve Replacement Respiratory: Yes Asthma Currently Using CPAP: No Currently Using BIPAP: No Cardiac: Yes (AORTIC STENOSIS, BICUSPID AORTIC VALVE, PER PT) Aneurysm, Heart Murmur, Hypertension, Irregular Heartbeat, Palpitations, Valvular Heart Disease Neurological: Yes Headaches /Migraines Reproductive Disorders: Yes (ENDOMETRIOSIS) Female Reproductive Disorders: Endometriosis, Polycystic 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 Dis 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 Sexually Transmitted Disease: No Genitourinary: No Gastrointestinal: No Musculoskeletal: No Endocrine: No HEENT: No Cancer: No Psychosocial: Yes ADD/ADHD, Anxiety Integumentary: Yes Psoriasis Blood Disorders: No Adverse Reaction/Blood Tranf: No Family Medical History Asthma G8 BROTHER Diabetes mellitus 19 MOTHER FH: bipolar disorder G8 BROTHER Hypertension 19 MOTHER No Pertinent Family Hx Physical Exam Vital Signs Vital Signs - First Documented 12/30/18 10:22 Temp 97.0 Pulse 105 Resp 18 B/P (MAP) 153/100 (117) Pulse Ox 99 O2 Delivery Room Air Capillary Refill : Less Than 3 Seconds Height, Weight, BMI Height: 5'7.00" Weight: 240lbs. 0oz. [id number]; 37.4 BMI Method:Stated General Appearance: No Apparent Distress, WD/WN, Anxious HEENT: PERRL/EOMI, TMs Normal, Normal ENT Inspection, Pharynx Normal, Moist Mucous Membranes Neck: Full Range of Motion, Normal Inspection Respiratory: No Chest Non Tender; Lungs Clear, Normal Breath Sounds, No Accessory Muscle Use, No Respiratory Distress, Other (chest wall tender to palpation recreating the same symptoms) Cardiovascular: Regular Rate, Rhythm, No Edema, Normal Peripheral Pulses Extremity: Normal Capillary Refill, Normal Inspection, No Pedal Edema Neurologic/Psychiatric: Alert, Oriented x3 Skin: Normal Color, Warm/Dry Progress/Results/Core Measures Results/Orders Lab Results Laboratory Tests Test 12/30/18 10:24 12/30/18 10:45 Range/Units White Blood Count 10.4 4.3-11.0 10^3/uL Red Blood Count 4.75 4.35-5.85 10^6/uL Hemoglobin 12.0 11.5-16.0 G/DL Hematocrit 37 35-52 % Mean Corpuscular Volume 79 L 80-99 FL Mean Corpuscular Hemoglobin 25 25-34 PG Mean Corpuscular Hemoglobin Concent 32 32-36 G/DL Red Cell Distribution Width 15.1 H 10.0-14.5 % Platelet Count 241 130-400 10^3/uL Mean Platelet Volume 11.4 H 7.4-10.4 FL Neutrophils (%) (Auto) 71 42-75 % Lymphocytes (%) (Auto) 15 12-44 % Monocytes (%) (Auto) 12 0-12 % Eosinophils (%) (Auto) 2 0-10 % Basophils (%) (Auto) 0 0-10 % Neutrophils # (Auto) 7.4 1.8-7.8 X 10^3 Lymphocytes # (Auto) 1.5 1.0-4.0 X 10^3 Monocytes # (Auto) 1.3 H 0.0-1.0 X 10^3 Eosinophils # (Auto) 0.2 0.0-0.3 10^3/uL Basophils # (Auto) 0.0 0.0-0.1 10^3/uL Sodium Level 139 135-145 MMOL/L Potassium Level 3.9 3.6-5.0 MMOL/L Chloride Level 106 98-107 MMOL/L Carbon Dioxide Level 21 21-32 MMOL/L Anion Gap 12 5-14 MMOL/L Blood Urea Nitrogen 12 7-18 MG/DL Creatinine 0.72 0.60-1.30 MG/DL Estimat Glomerular Filtration Rate > 60 BUN/Creatinine Ratio 17 Glucose Level 95 70-105 MG/DL Calcium Level 9.1 8.5-10.1 MG/DL Corrected Calcium 9.0 8.5-10.1 MG/DL Magnesium Level 2.0 1.8-2.4 MG/DL Total Bilirubin 0.4 0.1-1.0 MG/DL Aspartate Amino Transf (AST/SGOT) 26 5-34 U/L Alanine Aminotransferase (ALT/SGPT) 44 0-55 U/L Alkaline Phosphatase 84 40-136 U/L Myoglobin 39.1 10.0-92.0 NG/ML Troponin I < 0.028 <0.028 NG/ML C-Reactive Protein High Sensitivity 4.20 H 0.00-0.50 MG/DL B-Type Natriuretic Peptide 32.3 <100.0 PG/ML Total Protein 7.7 6.4-8.2 GM/DL Albumin 4.1 3.2-4.5 GM/DL Prothrombin Time 13.8 12.2-14.7 SEC INR Comment 1.0 0.8-1.4 Activated Partial Thromboplast Time 33 24-35 SEC D-Dimer 1.16 H 0.00-0.49 UG/ML My Orders Orders - HERON PEREZ Continuous Ekg Monitoring (12/30/18 10:21) Ekg Tracing (12/30/18 10:21) Cbc With Automated Diff (12/30/18 10:30) Magnesium (12/30/18 10:30) Cardiac Profile 1 (12/30/18 10:30) Comprehensive Metabolic Panel (12/30/18 10:30) Myoglobin Serum (12/30/18 10:30) Protime With Inr (12/30/18 10:30) Partial Thromboplastin Time (12/30/18 10:30) O2 (12/30/18 10:30) Lipid Panel (12/31/18 06:00) Ed Iv/Invasive Line Start (12/30/18 10:30) BNP (12/30/18 10:30) Fibrin Degradation Products (12/30/18 10:30) Aspirin Chewable Tablet (Baby Aspirin Ch (12/30/18 10:30) Chest Pa/Lat (2 View) (12/30/18 10:30) Hs C Reactive Protein (12/30/18 10:24) Ketorolac Injection (Toradol Injection) (12/30/18 11:15) Medications Given in ED Current Medications Medications Dose Ordered Sig/Mani Route Start Time Stop Time Status Last Admin Dose Admin Aspirin 324 mg ONCE ONCE PO 12/30/18 10:30 12/30/18 10:33 DC 12/30/18 10:59 324 MG Ketorolac Tromethamine 30 mg ONCE ONCE IVP 12/30/18 11:15 12/30/18 11:16 DC 12/30/18 11:32 30 MG Vital Signs/I&O 12/30/18 12/30/18 10:22 10:22 Temp 97.0 Pulse 105 Resp 18 B/P (MAP) 153/100 (117) Pulse Ox 99 O2 Delivery Room Air Blood Pressure Mean: 117 Progress Progress Note #1: Time: 10:36 Progress Note Chest pain is reproducible to direct palpation or deep inspiration. This is more consistent with pleurisy however with her recent history 4 months ago and open heart surgery and would check some labs included troponin. We'll give her some aspirin in addition to her morning aspirin. We will monitor her blood pressure which is elevated 150-170 systolic range and see if it comes down as her anxiety comes down. She does not like to take NSAIDs because it causes her blood pressure go up however this may be a reasonable choice for a week or 2. If we suspect pleurisy is the source of her discomfort. It would probably be better than steroids. d-dimer and 2v chest. History of aneurysmal dilatation of the aorta, tricuspid and aortic valve dysfunction. Followed by Dr. Smith at [facility]. Cardiothoracic surgeon is Dr. Spangler, [facility]. CT angiogram from September 2018 demonstrates ectasia of the ascending thoracic aorta roughly 4.5 cm. Well score 0.0 points Low risk group: 1.3% chance of PE in an ED population. Oxygen saturation 98%, no evidence of DVT, heart rate 80s to 90s. Progress Note #2: Time: 11:16 Progress Note Discussed the option plan at this time patient would prefer not to pursue a CT angiogram with her low risk for pulmonary embolism. She recently had a look at her a sending aorta 4 months ago and it was stable from previous imaging. Her pain is not radiating to her back or tearing. Ordered a trial some Toradol if this makes her pain feel better before going to set her up outpatient for conservative treatment of pleuritic chest pain and follow-up with cardiology in the following week. Pain is presently 6 out of 10. Progress Note #3: Time: 11:50 Progress Note 10 minutes after receiving the Toradol patient's only received marginal benefit however she is seeing improvement she is ready to go home and trial some Naprosyn. She is going to follow up with her jalousies installer Dr. Smith by calling his office tomorrow. We have discussed plan, expectations and return precautions. Initial ECG Impression Date: Dec 30, 2018 Initial ECG Impression Time: 10:16 Initial ECG Rate: 97 Initial ECG Rhythm: Normal Sinus Initial ECG Intervals: Normal Initial ECG Impression: Normal Comment No ST elevation or depression. Diagnostic Imaging Diagonstic Imaging: Xray Plain Films/CT/US/NM/MRI: chest (1v) Comments [facility], [place] NAME: RHODA LIZAMA [facility] REC#: [id number] PT STATUS: REG ER : 1995 PHYSICIAN: HERON PEREZ MD ADMIT DATE: 12/30/18/ER Draft Date of Exam:12/30/18 CHEST PA/LAT (2 VIEW) INDICATION: Chest pain. FINDINGS: Sternal wires midline. The heart size and vascularity normal. There is no effusion or pneumothorax. IMPRESSION: Interval sternotomy. No acute abnormality identified. Dictated on workstation # [id number] Dict: 12/30/18 1041 Trans: 12/30/18 1046 TS [id number] Interpreted by: CHRISTINA KOLB Electronically signed by: Reviewed: Reviewed by Me Departure Impression Primary Impression: Pleuritic chest pain Disposition: 01 HOME, SELF-CARE Condition: Stable Departure-Patient Inst. Decision time for Depature: 11:50 Referrals: TODD RAMOS (PCP/Family) Primary Care Physician Patient Instructions: Pleuritic Chest Pain Add. Discharge Instructions: Naprosyn 500 mg twice a day for the next 1-2 weeks on a schedule to bring down the pain in your chest. You can also use Tylenol 1000 g every 8 hours as needed for breakthrough pain. Follow-up with your jalousies installer next week. If your pain worsens or you have other symptoms such as severe shortness of breath, intractable nausea vomiting then please return to the nearest ER. All discharge instructions reviewed with patient and/or family. Voiced understanding. Scripts Naproxen (Naprosyn) 500 Mg Tablet 500 MG PO BID for 14 Days, #30 TAB 0 Refills Prov: HERON PEREZ 12/30/18 HERON PEREZ Dec 30, 2018 10:37
[2018-12-30 10:39] LABS: BASOPHILS % (AUTO) 0 % (0-10); EOSINOPHILS # (AUTO) 0.2 10^3/uL (0.0-0.3); EOSINOPHILS % (AUTO) 2 % (0-10); HEMATOCRIT 37 % (35-52); LYMPHOCYTES # (AUTO) 1.5 X 10^3 (1.0-4.0); LYMPHOCYTES % (AUTO) 15 % (12-44); MEAN CORPUSCULAR HEMOGLOBIN 25 PG (25-34); MEAN CORPUSCULAR HGB CONC 32 G/DL (32-36); MEAN CORPUSCULAR VOLUME 79 FL (80-99); MEAN PLATELET VOLUME 11.4 FL (7.4-10.4); MONOCYTES # (AUTO) 1.3 X 10^3 (0.0-1.0); MONOCYTES % (AUTO) 12 % (0-12); NEUTROPHILS # (AUTO) 7.4 X 10^3 (1.8-7.8); NEUTROPHILS % (AUTO) 71 % (42-75); PLATELET COUNT 241 10^3/uL (130-400); RED CELL DISTRIBUTION WIDTH 15.1 % (10.0-14.5); WHITE BLOOD COUNT 10.4 10^3/uL (4.3-11.0)
--- NOTE | 2018-12-30 10:46 | Diagnostic Imaging Report ---
INDICATION: Chest pain. FINDINGS: Sternal wires midline. The heart size and vascularity normal. There is no effusion or pneumothorax. IMPRESSION: Interval sternotomy. No acute abnormality identified. Dictated by: Dictated on workstation # [id number]
[2018-12-30 10:55] LABS: ALANINE AMINOTRANSFERASE 44 U/L (0-55); ALBUMIN 4.1 GM/DL (3.2-4.5); ALKALINE PHOSPHATASE 84 U/L (40-136); BILIRUBIN,TOTAL 0.4 MG/DL (0.1-1.0); BUN/CREATININE RATIO 17; CALCIUM 9.1 MG/DL (8.5-10.1); CARBON DIOXIDE 21 MMOL/L (21-32); CHLORIDE 106 MMOL/L (98-107); CREATININE SERUM 0.72 MG/DL (0.60-1.30); GFR ESTIMATED > 60; GLUCOSE 95 MG/DL (70-105); POTASSIUM 3.9 MMOL/L (3.6-5.0); SODIUM 139 MMOL/L (135-145); TOTAL PROTEIN 7.7 GM/DL (6.4-8.2)
[2018-12-30 11:00] LABS: PROTHROMBIN TIME PATIENT 13.8 SEC (12.2-14.7)
[2018-12-30] MEDS ORDERED: KETOROLAC 30 MG/ML VIAL IVP ONE (11:15)
[2018-12-30] MEDS ORDERED: NAPR-1071 PO (11:19)
[2018-12-30 12:03] VITALS: BP 157/83
== END 2018-12-30 12:04 | disposition home or self-care (01) ==
LOC: EDUNIT# 10:13 → ER 10:15
DX: R07.81 Pleurodynia (principal); J45.909 Unspecified asthma, uncomplicated; I10 Essential (primary) hypertension; G43.909 Migraine, unspecified, not intractable, without status migrainosus; F98.8 Other specified behavioral and emotional disorders with onset usually occurring in childhood and adolescence; F90.9 Attention-deficit hyperactivity disorder, unspecified type; F12.10 Cannabis abuse, uncomplicated; F41.9 Anxiety disorder, unspecified; F15.10 Other stimulant abuse, uncomplicated; Z95.2 Presence of prosthetic heart valve; Z87.448 Personal history of other diseases of urinary system; Z97.5 Presence of (intrauterine) contraceptive device; Z79.82 Long term (current) use of aspirin; Z87.891 Personal history of nicotine dependence; Z90.49 Acquired absence of other specified parts of digestive tract; Z98.890 Other specified postprocedural states
CPT/HCPCS: 36415; 71046; 80053; 83735; 83874; 83880; 84484; 85025; 85379; 85610; 85730; 86141; 93005

== ENCOUNTER 2019-08-29 08:48 | Emergency (ER) | payer MEDICAID ==
[~2019-08-29] VITALS: Ht 170 cm; Wt 115.0 kg
[~2019-08-29 08:48] MED LIST changes: +ASPI-808 PO; +MEDR10TA9; +METO50TA15; +NAPR-1071 PO; +SERT100T8
[2019-08-29] MEDS ORDERED: ASPIRIN 81 MG CHEW (CHILDREN'S ASA) PO ONE (09:15)
[2019-08-29] MEDS ORDERED: meTOprolol TARTRATE 50 MG (LOPRESSOR) TAB PO ONE (09:15)
[2019-08-29] MEDS ORDERED: meTOprolol TARTRATE 25 MG (LOPRESSOR) TABLET PO ONE (09:15)
[2019-08-29] MEDS ORDERED: KETOROLAC 30 MG/ML VIAL IVP STA (09:16)
--- NOTE | 2019-08-29 09:16 | ED Chest Pain ---
General Chief Complaint: Chest Pain Stated Complaint: CHEST PAIN/SOA Nursing Triage Note: ARRIVED VIA AMB TO ROOM 07 IN NO DISTRESS. 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 PT STATES PRINCESS JUMEPED ON HER CHEST LAST NIGHT AND DOES NOT KNOW IF THAT PLAYS A PART IN THIS. Nursing Sepsis Screen: No Definite Risk Source: patient Exam Limitations: no limitations History of Present Illness Date Seen by Provider: Aug 29, 2019 Time Seen by Provider: 08:56 Initial Comments Here with report of anterior and right upper chest wall pain and pressure. Does have extensive cardiac history with aortic valve replacement with porcine valve. She does also have hypertension. She has been off all of her medicines since June after she lost her insurance. She reports that she did have an episode yesterday in which she was holding her daughter and she started to fall. She was able to catch her but the child landed on her chest. This caused pain at that time. Overall that has persisted until now. She states it never really goes away and will decrease to come back with similar intensity. States that it 6 or 7 out of 10 on the pain scale. She has been off her aspirin since June as well. Timing/Duration: 24 hours, changing over time Severity/Quality: moderate, pressure, sharp Location: central Radiation: other (right upper chest) Activities at Onset: none Prior CP/Workup: other (aortic valve replacement) Modifying Factors: improves with rest ASA po COW TENDER: No NTG SL COW TENDER: No Associated Symptoms: No abdominal pain, No back pain, No fever/chills, No nausea/vomiting, No shortness of breath, No weakness Allergies and Home Medications Allergies Coded Allergies: No Known Drug Allergies (Unverified , 09/15/14) Home Medications Aspirin 325 Mg Tablet, 325 MG PO DAILY, (Reported) Hydrochlorothiazide 12.5 Mg Tablet, 12.5 MG PO DAILY Prescribed by: YVONNE STEVENS on 08/29/19 1107 Metoprolol Tartrate 50 Mg Tablet, 50 MG PO BID Prescribed by: YVONNE STEVENS on 08/29/19 1107 Naproxen 500 Mg Tablet, 500 MG PO BID Prescribed by: HERON PEREZ on 12/30/18 1119 Patient Home Medication List Home Medication List Reviewed: Yes Review of Systems Review of Systems Constitutional: see HPI; No chills, No fever EENTM: No Symptoms Reported Respiratory: No Symptoms Reported Cardiovascular: See HPI, Chest Pain; Denies Edema, Denies Irregular Heart Rate, Denies Palpitations Gastrointestinal: Denies Diarrhea, Denies Nausea, Denies Vomiting Genitourinary: No Symptoms Reported Musculoskeletal: see HPI; No back pain; muscle pain Skin: no symptoms reported Psychiatric/Neurological: No Symptoms Reported All Other Systems Reviewed Negative Unless Noted: Yes Past Ipwqgtu-Hsdpaw-Mlqrtf Hx Past Med/Social Hx: Reviewed Nursing Past Med/Soc Hx Patient Social History Alcohol Use: Rarely Uses Recreational Drug Use: No Drug of Choice: THC, METH BY HX, DENIES IV USE Smoking Status: Never a Smoker Type Used: Cigarettes Former Smoker, Quit: Jun 16, 2016 2nd Hand Smoke Exposure: No Recent Foreign Travel: No Contact w/Someone Who Travel: No Recent Infectious Disease Expo: No Recent Hopitalizations: No Immunizations Up To Date Tetanus Booster (TDap): Unknown PED Vaccines UTD: Yes Date of Influenza Vaccine: Jun 04, 2014 Seasonal Allergies Seasonal Allergies: No Past Medical History Surgeries: Yes (D&C, open heart sx-aortic valve replacement) Abdominal, Appendectomy, Section, Ear Surgery, Valve Replacement Respiratory: Yes Asthma Currently Using CPAP: No Currently Using BIPAP: No Cardiac: Yes (AORTIC STENOSIS, BICUSPID AORTIC VALVE, PER PT) Aneurysm, Heart Murmur, Hypertension, Irregular Heartbeat, Palpitations, Valvular Heart Disease Neurological: Yes Headaches /Migraines Reproductive Disorders: Yes (ENDOMETRIOSIS) Female Reproductive Disorders: Endometriosis, 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 Sexually Transmitted Disease: No Genitourinary: No Gastrointestinal: No Musculoskeletal: No Endocrine: No HEENT: No Cancer: No Psychosocial: Yes ADD/ADHD, Anxiety Integumentary: Yes Psoriasis Blood Disorders: No Adverse Reaction/Blood Tranf: No Family Medical History Reviewed Nursing Family Hx Asthma G8 BROTHER Diabetes mellitus 19 MOTHER FH: bipolar disorder G8 BROTHER Hypertension 19 MOTHER No Pertinent Family Hx Physical Exam Vital Signs Vital Signs - First Documented 08/29/19 08:50 Temp 37.0 Pulse 92 Resp 16 B/P (MAP) 162/97 (118) Pulse Ox 97 O2 Delivery Room Air Capillary Refill : Less Than 3 Seconds Height, Weight, BMI Height: 5'7.00" Weight: 240lbs. 0oz. 108.246991ds; 39.00 BMI Method:Stated General Appearance: No Apparent Distress, WD/WN HEENT: PERRL/EOMI, Pharynx Normal Neck: Non Tender, Supple Respiratory: Lungs Clear, Normal Breath Sounds Cardiovascular: Regular Rate, Rhythm, No Murmur Gastrointestinal: Non Tender, Soft Extremity: Normal Range of Motion, Non Tender Neurologic/Psychiatric: Alert, Oriented x3 Skin: Normal Color, Warm/Dry Progress/Results/Core Measures Results/Orders Lab Results Laboratory Tests Test 08/29/19 09:14 08/29/19 11:06 Range/Units White Blood Count 6.6 4.3-11.0 10^3/uL Red Blood Count 4.77 4.35-5.85 10^6/uL Hemoglobin 12.6 11.5-16.0 G/DL Hematocrit 40 35-52 % Mean Corpuscular Volume 83 80-99 FL Mean Corpuscular Hemoglobin 26 25-34 PG Mean Corpuscular Hemoglobin Concent 32 32-36 G/DL Red Cell Distribution Width 14.0 10.0-14.5 % Platelet Count 206 130-400 10^3/uL Mean Platelet Volume 11.3 H 7.4-10.4 FL Neutrophils (%) (Auto) 65 42-75 % Lymphocytes (%) (Auto) 25 12-44 % Monocytes (%) (Auto) 7 0-12 % Eosinophils (%) (Auto) 2 0-10 % Basophils (%) (Auto) 0 0-10 % Neutrophils # (Auto) 4.3 1.8-7.8 X 10^3 Lymphocytes # (Auto) 1.7 1.0-4.0 X 10^3 Monocytes # (Auto) 0.5 0.0-1.0 X 10^3 Eosinophils # (Auto) 0.1 0.0-0.3 10^3/uL Basophils # (Auto) 0.0 0.0-0.1 10^3/uL Prothrombin Time 12.8 12.2-14.7 SEC INR Comment 0.9 0.8-1.4 Activated Partial Thromboplast Time 33 24-35 SEC D-Dimer 0.36 0.00-0.49 UG/ML Sodium Level 137 135-145 MMOL/L Potassium Level 4.2 3.6-5.0 MMOL/L Chloride Level 107 98-107 MMOL/L Carbon Dioxide Level 21 21-32 MMOL/L Anion Gap 9 5-14 MMOL/L Blood Urea Nitrogen 16 7-18 MG/DL Creatinine 0.74 0.60-1.30 MG/DL Estimat Glomerular Filtration Rate > 60 BUN/Creatinine Ratio 22 Glucose Level 115 H 70-105 MG/DL Calcium Level 8.8 8.5-10.1 MG/DL Corrected Calcium 8.7 8.5-10.1 MG/DL Magnesium Level 1.8 1.6-2.4 MG/DL Total Bilirubin 0.3 0.1-1.0 MG/DL Aspartate Amino Transf (AST/SGOT) 22 5-34 U/L Alanine Aminotransferase (ALT/SGPT) 35 0-55 U/L Alkaline Phosphatase 82 40-136 U/L Myoglobin 31.8 10.0-92.0 NG/ML Troponin I < 0.028 < 0.028 <0.028 NG/ML Total Protein 7.7 6.4-8.2 GM/DL Albumin 4.1 3.2-4.5 GM/DL My Orders Orders - YVONNE STEVENS MD Cbc With Automated Diff (08/29/19 09:10) Magnesium (08/29/19 09:10) Chest 1 View, Ap/Pa Only (08/29/19 09:10) Ekg Tracing (08/29/19 09:10) Comprehensive Metabolic Panel (08/29/19 09:10) Myoglobin Serum (08/29/19 09:10) Protime With Inr (08/29/19 09:10) Partial Thromboplastin Time (08/29/19 09:10) O2 (08/29/19 09:10) Monitor-Rhythm Ecg Trace Only (08/29/19 09:10) Lipid Panel (08/30/19 06:00) Ed Iv/Invasive Line Start (08/29/19 09:10) Fibrin Degradation Products (08/29/19 09:10) Troponin I (08/29/19 09:10) Aspirin Chewable Tablet (Baby Aspirin Ch (08/29/19 09:15) Metoprolol Tartrate (Ir) Tab (Lopressor (08/29/19 09:15) Metoprolol Tartrate (Ir) Tab (Lopressor (08/29/19 09:15) Ketorolac Injection (Toradol Injection) (08/29/19 09:16) Ekg Tracing (08/29/19 11:04) Troponin I (08/29/19 11:04) Medications Given in ED Current Medications Medications Dose Ordered Sig/Mani Route Start Time Stop Time Status Last Admin Dose Admin Aspirin 324 mg ONCE ONCE PO 08/29/19 09:15 08/29/19 09:16 DC 08/29/19 09:34 324 MG Metoprolol Tartrate 50 mg ONCE ONCE PO 08/29/19 09:15 08/29/19 09:16 DC 08/29/19 09:34 50 MG Vital Signs/I&O 08/29/19 08:50 Temp 37.0 Pulse 92 Resp 16 B/P (MAP) 162/97 (118) Pulse Ox 97 O2 Delivery Room Air Blood Pressure Mean: 118 Progress Progress Note : Progress Note Seen and evaluated. IV, labs, EKG and chest x-ray ordered. ASA 324 mg by mouth ordered. Metoprolol 50 mg by mouth ordered. We will give Toradol 30 mg IV for the chest wall pain as this has worked in the past on previous visits. EKG is concerning as there appears to be some changes in the inferior lateral leads. Monitor patient. 11 04: Patient doing much better. Troponin negative. No significant abnormalities on labs. We will repeat troponin and EKG given her history. I will initiate prescription for metoprolol tartrate 50 mg by mouth twice a day as well as hydrochlorothiazide 12.5 mg by mouth daily. She will work on getting physician locally. Monitor patient. 1153: Repeat troponin negative. Repeat EKG has resolution of previous findings and otherwise looks normal for her and consistent with previous EKG. Discharged home with return precautions. Patient verbalize understanding instructions and agreement with plan. Initial ECG Impression Date: Aug 29, 2019 Initial ECG Impression Time: 08:56 Initial ECG Rate: 88 Initial ECG Rhythm: Normal Sinus Comment Sinus rhythm with normal axis. ST depression in leads one and aVL with questionable minimal elevation in 3 and Q waves present. Changed from previous of 12/30/18. Interpreted by me. Does not meet criteria for STEMI. EKG : EKG Time: 11:08 Rate: 82 Rhythm: Normal Sinus Comment Sinus rhythm with normal axis. Overall similar to previous of 12/30/18. No evidence of ST elevation MO. Interpreted by me. Departure Impression Primary Impression: Chest pain Qualified Codes: R07.9 - Chest pain, unspecified Disposition: 01 HOME, SELF-CARE Condition: Improved Departure-Patient Inst. Decision time for Depature: 11:08 Referrals: TODD RAMOS (PCP/Family) Primary Care Physician Patient Instructions: Chest Pain (DC) Add. Discharge Instructions: All discharge instructions reviewed with patient and/or family. Voiced understanding. Take medications as directed. 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 Is important that you follow up with your lumber sorter machine for recheck and further evaluation. It is also important that you follow up locally with a doctor of your choosing for recheck and further evaluation and to continue to monitor your blood pressure. Return for worse pain, fever, vomiting, weakness, breathing problems or other concerns as needed. Scripts Hydrochlorothiazide (Hydrochlorothiazide) 12.5 Mg Tablet 12.5 MG PO DAILY for 90 Days, #90 TAB 0 Refills Prov: YVONNE STEVENS MD 08/29/19 Metoprolol Tartrate (Metoprolol Tartrate) 50 Mg Tablet 50 MG PO BID for 90 Days, #180 TAB 0 Refills Prov: YVONNE STEVENS MD 08/29/19 YVONNE STEVENS MD Aug 29, 2019 09:16
[2019-08-29 09:22] LABS: BASOPHILS % (AUTO) 0 % (0-10); EOSINOPHILS # (AUTO) 0.1 10^3/uL (0.0-0.3); EOSINOPHILS % (AUTO) 2 % (0-10); HEMATOCRIT 40 % (35-52); HEMOGLOBIN 12.6 G/DL (11.5-16.0); LYMPHOCYTES # (AUTO) 1.7 X 10^3 (1.0-4.0); LYMPHOCYTES % (AUTO) 25 % (12-44); MEAN CORPUSCULAR HEMOGLOBIN 26 PG (25-34); MEAN CORPUSCULAR HGB CONC 32 G/DL (32-36); MEAN CORPUSCULAR VOLUME 83 FL (80-99); MEAN PLATELET VOLUME 11.3 FL (7.4-10.4); MONOCYTES # (AUTO) 0.5 X 10^3 (0.0-1.0); MONOCYTES % (AUTO) 7 % (0-12); NEUTROPHILS # (AUTO) 4.3 X 10^3 (1.8-7.8); NEUTROPHILS % (AUTO) 65 % (42-75); PLATELET COUNT 206 10^3/uL (130-400); WHITE BLOOD COUNT 6.6 10^3/uL (4.3-11.0)
[2019-08-29 09:34] LABS: INR 0.9 (0.8-1.4); PROTHROMBIN TIME PATIENT 12.8 SEC (12.2-14.7)
--- NOTE | 2019-08-29 09:35 | Diagnostic Imaging Report ---
INDICATION: Right-sided chest pain. Portable chest at 9:25 AM FINDINGS: There are postoperative changes from median sternotomy. Heart size and pulmonary vascularity are normal. Lungs are clear. There are no effusions or pneumothoraces. IMPRESSION: No acute abnormalities in the chest. Dictated by: Dictated on workstation # [id number]
[2019-08-29 09:46] LABS: ALANINE AMINOTRANSFERASE 35 U/L (0-55); ALBUMIN 4.1 GM/DL (3.2-4.5); ALKALINE PHOSPHATASE 82 U/L (40-136); BILIRUBIN,TOTAL 0.3 MG/DL (0.1-1.0); BUN/CREATININE RATIO 22; CALCIUM 8.8 MG/DL (8.5-10.1); CARBON DIOXIDE 21 MMOL/L (21-32); CHLORIDE 107 MMOL/L (98-107); CREATININE SERUM 0.74 MG/DL (0.60-1.30); GFR ESTIMATED > 60; GLUCOSE 115 MG/DL (70-105); MAGNESIUM 1.8 MG/DL (1.6-2.4); POTASSIUM 4.2 MMOL/L (3.6-5.0); SODIUM 137 MMOL/L (135-145); TOTAL PROTEIN 7.7 GM/DL (6.4-8.2)
--- NOTE | 2019-08-29 10:00 | NUR ---
RESTING IN BED. REMOTE GIVEN TO PT. DENIES NEEDS AT THIS TIME.
--- NOTE | 2019-08-29 11:03 | NUR ---
IN TALKING TO PT AT THIS TIME.
[2019-08-29] MEDS ORDERED: METO50TA15 PO (11:07)
[2019-08-29] MEDS ORDERED: HYDR12.56 PO (11:07)
[2019-08-29 12:30] VITALS: BP 137/92
== END 2019-08-29 12:30 | disposition home or self-care (01) ==
LOC: EDUNIT# 08:48 → ER 08:49
DX: R07.89 Other chest pain (principal); I10 Essential (primary) hypertension; J45.909 Unspecified asthma, uncomplicated; G43.909 Migraine, unspecified, not intractable, without status migrainosus; F90.9 Attention-deficit hyperactivity disorder, unspecified type; F41.9 Anxiety disorder, unspecified; Z95.2 Presence of prosthetic heart valve; Z79.82 Long term (current) use of aspirin; Z87.891 Personal history of nicotine dependence; Z90.49 Acquired absence of other specified parts of digestive tract; Z82.49 Family history of ischemic heart disease and other diseases of the circulatory system
CPT/HCPCS: 36415; 71045; 80053; 83735; 83874; 84484; 85025; 85379; 85610; 85730; 93005; 93041; 96374

== ENCOUNTER 2019-09-03 10:44 | Emergency (ER) | payer MEDICAID ==
[~2019-09-03] VITALS: Ht 170 cm; Wt 111.0 kg
[~2019-09-03 10:44] MED LIST changes: +HYDR12.56 PO; +METO50TA15 PO
[2019-09-03] MEDS ORDERED: KETOROLAC 30 MG/ML VIAL IVP ONE (11:00)
[2019-09-03] MEDS ORDERED: ASPIRIN 81 MG CHEW (CHILDREN'S ASA) PO ONE (11:00)
--- NOTE | 2019-09-03 11:04 | ED Chest Pain ---
General Stated Complaint: CHEST PAIN Source: patient Exam Limitations: no limitations History of Present Illness Date Seen by Provider: Sep 03, 2019 Time Seen by Provider: 11:02 Initial Comments To ER with chest pain all across her chest both sides that radiates through to her back worsened by deep breathing has been present and constant for 4 days. No fevers chills or cough. She does have some mild shortness of breath. History of bicuspid aortic valve, aortic stenosis which has been treated with replacement of the aortic valve with a porcine aortic valve. She follows with Dr. Smith at [facility] in [place] from cardiology. She is on metoprolol and aspirin daily. Timing/Duration: 3-4 days Severity/Quality: moderate, sharp Radiation: no radiation Activities at Onset: none ASA po CAMERA OPERATOR: No NTG SL CAMERA OPERATOR: No Associated Symptoms: shortness of breath Allergies and Home Medications Allergies Coded Allergies: No Known Drug Allergies (Unverified , 09/15/14) Home Medications Aspirin 325 Mg Tablet, 325 MG PO DAILY, (Reported) Hydrochlorothiazide 12.5 Mg Tablet, 12.5 MG PO DAILY Prescribed by: YVONNE STEVENS on 08/29/19 1107 Metoprolol Tartrate 50 Mg Tablet, 50 MG PO BID Prescribed by: YVONNE STEVENS on 08/29/19 1107 Naproxen 500 Mg Tablet, 500 MG PO BID Prescribed by: HERON PEREZ on 12/30/18 1119 Patient Home Medication List Home Medication List Reviewed: Yes Review of Systems Review of Systems Constitutional: see HPI; No chills, No fever EENTM: No Symptoms Reported Respiratory: See HPI; Denies Cough, Denies Orthopnea; Shortness of Air Cardiovascular: See HPI, Chest Pain Gastrointestinal: No Symptoms Reported Genitourinary: No Symptoms Reported Musculoskeletal: no symptoms reported Skin: no symptoms reported Psychiatric/Neurological: No Symptoms Reported Endocrine: No Symptoms Reported Hematologic/Lymphatic: No Symptoms Reported Past Qysaems-Qpqefx-Jebqoe Hx Patient Social History Drug of Choice: THC, METH BY HX, DENIES IV USE Type Used: Cigarettes Former Smoker, Quit: Jun 16, 2016 2nd Hand Smoke Exposure: No Recent Foreign Travel: No Contact w/Someone Who Travel: No Recent Hopitalizations: No Immunizations Up To Date Tetanus Booster (TDap): Unknown PED Vaccines UTD: Yes Date of Influenza Vaccine: Jun 04, 2014 Seasonal Allergies Seasonal Allergies: No Past Medical History Surgeries: Yes (D&C, open heart sx-aortic valve replacement) Abdominal, Appendectomy, Section, Ear Surgery, Valve Replacement Respiratory: Yes Asthma Currently Using CPAP: No Currently Using BIPAP: No Cardiac: Yes (AORTIC STENOSIS, BICUSPID AORTIC VALVE, PER PT) Aneurysm, Heart Murmur, Hypertension, Irregular Heartbeat, Palpitations, Valvular Heart Disease Neurological: Yes Headaches /Migraines Reproductive Disorders: Yes (ENDOMETRIOSIS) Female Reproductive Disorders: Endometriosis, Polycystic Ovarian Dis ACTUARY History: IUD Sexually Transmitted Disease: No Genitourinary: No Gastrointestinal: No Musculoskeletal: No Endocrine: No HEENT: No Cancer: No Psychosocial: Yes ADD/ADHD, Anxiety Integumentary: Yes Psoriasis Blood Disorders: No Adverse Reaction/Blood Tranf: No Family Medical History Asthma G8 BROTHER Diabetes mellitus 19 MOTHER FH: bipolar disorder G8 BROTHER Hypertension 19 MOTHER No Pertinent Family Hx Physical Exam Vital Signs Vital Signs - First Documented 09/03/19 10:44 Temp 37.0 Pulse 78 Resp 16 B/P (MAP) 147/92 (110) Pulse Ox 98 O2 Delivery Room Air Capillary Refill : Height, Weight, BMI Height: 5'7.00" Weight: 240lbs. 0oz. [id number]; 39.00 BMI Method:Stated General Appearance: No Apparent Distress, WD/WN, Obese, Other (alert and oriented no distress smiling and very pleasant. EKG shows no changes from 08/29/19. Her chest pain has been constant for 4 days, thus a single troponin is sufficient.) Neck: Full Range of Motion, Normal Inspection Respiratory: Lungs Clear, Normal Breath Sounds, No Accessory Muscle Use, No Respiratory Distress Cardiovascular: Regular Rate, Rhythm, Normal Peripheral Pulses Gastrointestinal: Non Tender, Soft Extremity: Normal Capillary Refill, Normal Inspection Neurologic/Psychiatric: Alert, Oriented x3 Skin: Normal Color, Warm/Dry Progress/Results/Core Measures Results/Orders Lab Results Laboratory Tests Test 09/03/19 11:14 Range/Units White Blood Count 7.6 4.3-11.0 10^3/uL Red Blood Count 4.94 4.35-5.85 10^6/uL Hemoglobin 13.3 11.5-16.0 G/DL Hematocrit 41 35-52 % Mean Corpuscular Volume 83 80-99 FL Mean Corpuscular Hemoglobin 27 25-34 PG Mean Corpuscular Hemoglobin Concent 33 32-36 G/DL Red Cell Distribution Width 14.3 10.0-14.5 % Platelet Count 257 130-400 10^3/uL Mean Platelet Volume 11.4 H 7.4-10.4 FL Neutrophils (%) (Auto) 61 42-75 % Lymphocytes (%) (Auto) 28 12-44 % Monocytes (%) (Auto) 9 0-12 % Eosinophils (%) (Auto) 2 0-10 % Basophils (%) (Auto) 1 0-10 % Neutrophils # (Auto) 4.6 1.8-7.8 X 10^3 Lymphocytes # (Auto) 2.1 1.0-4.0 X 10^3 Monocytes # (Auto) 0.7 0.0-1.0 X 10^3 Eosinophils # (Auto) 0.1 0.0-0.3 10^3/uL Basophils # (Auto) 0.0 0.0-0.1 10^3/uL Prothrombin Time 13.7 12.2-14.7 SEC INR Comment 1.0 0.8-1.4 Activated Partial Thromboplast Time 35 24-35 SEC D-Dimer < 0.27 0.00-0.49 UG/ML Sodium Level 139 135-145 MMOL/L Potassium Level 4.0 3.6-5.0 MMOL/L Chloride Level 105 98-107 MMOL/L Carbon Dioxide Level 22 21-32 MMOL/L Anion Gap 12 5-14 MMOL/L Blood Urea Nitrogen 13 7-18 MG/DL Creatinine 0.76 0.60-1.30 MG/DL Estimat Glomerular Filtration Rate > 60 BUN/Creatinine Ratio 17 Glucose Level 106 H 70-105 MG/DL Calcium Level 9.4 8.5-10.1 MG/DL Corrected Calcium 9.2 8.5-10.1 MG/DL Magnesium Level 2.0 1.6-2.4 MG/DL Total Bilirubin 0.4 0.1-1.0 MG/DL Aspartate Amino Transf (AST/SGOT) 25 5-34 U/L Alanine Aminotransferase (ALT/SGPT) 45 0-55 U/L Alkaline Phosphatase 90 40-136 U/L Myoglobin 37.6 10.0-92.0 NG/ML Troponin I < 0.028 <0.028 NG/ML B-Type Natriuretic Peptide < 10.0 <100.0 PG/ML Total Protein 7.8 6.4-8.2 GM/DL Albumin 4.3 3.2-4.5 GM/DL Serum Test, Qualitative NEGATIVE NEGATIVE My Orders Orders - RADHA SANCHES APRN Cbc With Automated Diff (09/03/19 10:55) Magnesium (09/03/19 10:55) Chest 1 View, Ap/Pa Only (09/03/19 10:55) Ekg Tracing (09/03/19 10:55) Comprehensive Metabolic Panel (09/03/19 10:55) Myoglobin Serum (09/03/19 10:55) Protime With Inr (09/03/19 10:55) Partial Thromboplastin Time (09/03/19 10:55) O2 (09/03/19 10:55) Monitor-Rhythm Ecg Trace Only (09/03/19 10:55) Lipid Panel (09/04/19 06:00) Ed Iv/Invasive Line Start (09/03/19 10:55) BNP (09/03/19 10:55) Hcg,Qualitative Serum (09/03/19 10:55) Aspirin Chewable Tablet (Baby Aspirin Ch (09/03/19 11:00) Ketorolac Injection (Toradol Injection) (09/03/19 11:00) Drug Screen Stat (Urine) (09/03/19 10:58) Fibrin Degradation Products (09/03/19 11:02) Troponin I (09/03/19 11:14) Medications Given in ED Current Medications Medications Dose Ordered Sig/Mani Route Start Time Stop Time Status Last Admin Dose Admin Aspirin 324 mg ONCE ONCE PO 09/03/19 11:00 09/03/19 11:01 DC 09/03/19 11:13 324 MG Ketorolac Tromethamine 15 mg ONCE ONCE IVP 09/03/19 11:00 09/03/19 11:01 DC 09/03/19 11:13 15 MG Vital Signs/I&O 09/03/19 10:44 Temp 37.0 Pulse 78 Resp 16 B/P (MAP) 147/92 (110) Pulse Ox 98 O2 Delivery Room Air Diagnostic Imaging Diagonstic Imaging: Xray Comments NAME: RH[facility] REC#: [id number] PT STATUS: REG ER : 1995 PHYSICIAN: RADHA SANCHES APRN ADMIT DATE: 09/03/19/ER Draft Date of Exam:09/03/19 CHEST 1 VIEW, AP/PA ONLY INDICATION: Right-sided chest pain. COMPARISON: 08/29/2019. FINDINGS: The lungs are clear. Sternal wires are intact and midline. No failure, effusion, or pneumothorax. IMPRESSION: Negative. Dictated on workstation # [id number] Dict: 09/03/19 1143 Trans: 09/03/19 1146 [id number] Interpreted by: CHRISTINA KOLB Electronically signed by: Departure Communication (Admissions) 12:30-she is feeling much better at this time, still has some mild sharp pains on the right side of her chest only present with deep breathing and it does radiate through to her back. Labs are unremarkable, I did call Dr. Smith's office, got their fax number and faxed a copy of my note in her labs to them. Impression Primary Impression: Chest pain Qualified Codes: R07.1 - Chest pain on breathing Disposition: 01 HOME, SELF-CARE Condition: Improved Departure-Patient Inst. Decision time for Depature: 12:23 Referrals: TODD RAMOS (PCP/Family) Primary Care Physician Patient Instructions: Chest Pain (DC) Add. Discharge Instructions: 1. Continue current medications 2. Call Dr. SMITH today to make an appointment to be seen. RADHA SANCHES APRN Sep 03, 2019 11:04
[2019-09-03 11:23] LABS: BASOPHILS % (AUTO) 1 % (0-10); EOSINOPHILS # (AUTO) 0.1 10^3/uL (0.0-0.3); EOSINOPHILS % (AUTO) 2 % (0-10); HEMATOCRIT 41 % (35-52); HEMOGLOBIN 13.3 G/DL (11.5-16.0); LYMPHOCYTES # (AUTO) 2.1 X 10^3 (1.0-4.0); LYMPHOCYTES % (AUTO) 28 % (12-44); MEAN CORPUSCULAR HEMOGLOBIN 27 PG (25-34); MEAN CORPUSCULAR HGB CONC 33 G/DL (32-36); MEAN CORPUSCULAR VOLUME 83 FL (80-99); MEAN PLATELET VOLUME 11.4 FL (7.4-10.4); MONOCYTES # (AUTO) 0.7 X 10^3 (0.0-1.0); MONOCYTES % (AUTO) 9 % (0-12); NEUTROPHILS # (AUTO) 4.6 X 10^3 (1.8-7.8); NEUTROPHILS % (AUTO) 61 % (42-75); PLATELET COUNT 257 10^3/uL (130-400); RED CELL DISTRIBUTION WIDTH 14.3 % (10.0-14.5); WHITE BLOOD COUNT 7.6 10^3/uL (4.3-11.0)
[2019-09-03 11:39] LABS: PROTHROMBIN TIME PATIENT 13.7 SEC (12.2-14.7)
[2019-09-03 11:46] LABS: ALANINE AMINOTRANSFERASE 45 U/L (0-55); ALBUMIN 4.3 GM/DL (3.2-4.5); ALKALINE PHOSPHATASE 90 U/L (40-136); BILIRUBIN,TOTAL 0.4 MG/DL (0.1-1.0); BUN/CREATININE RATIO 17; CALCIUM 9.4 MG/DL (8.5-10.1); CARBON DIOXIDE 22 MMOL/L (21-32); CHLORIDE 105 MMOL/L (98-107); CREATININE SERUM 0.76 MG/DL (0.60-1.30); GFR ESTIMATED > 60; GLUCOSE 106 MG/DL (70-105); SODIUM 139 MMOL/L (135-145); TOTAL PROTEIN 7.8 GM/DL (6.4-8.2)
--- NOTE | 2019-09-03 11:46 | Diagnostic Imaging Report ---
INDICATION: Right-sided chest pain. COMPARISON: 08/29/2019. FINDINGS: The lungs are clear. Sternal wires are intact and midline. No failure, effusion, or pneumothorax. IMPRESSION: Negative. Dictated by: Dictated on workstation # [id number]
[2019-09-03 12:44] VITALS: BP 134/84
== END 2019-09-03 12:44 | disposition home or self-care (01) ==
LOC: EDUNIT# 10:44 → ER 10:45
DX: R07.9 Chest pain, unspecified (principal); J45.909 Unspecified asthma, uncomplicated; I10 Essential (primary) hypertension; G43.909 Migraine, unspecified, not intractable, without status migrainosus; F90.9 Attention-deficit hyperactivity disorder, unspecified type; F41.9 Anxiety disorder, unspecified; Z95.3 Presence of xenogenic heart valve; Z79.82 Long term (current) use of aspirin; Z87.891 Personal history of nicotine dependence; Z90.49 Acquired absence of other specified parts of digestive tract; Z82.49 Family history of ischemic heart disease and other diseases of the circulatory system
CPT/HCPCS: 36415; 71045; 80053; 83735; 83874; 83880; 84484; 84703; 85025; 85379; 85610; 85730; 93041; 96374

== ENCOUNTER 2019-10-30 05:36 | Outpatient (CLI) | payer MEDICAID ==
[~2019-10-30] VITALS: Ht 170 cm; Wt 118.0 kg
[~2019-10-30 05:36] MED LIST changes: -LIDO15SO2 MM; +LIDO20SO23 MM
== END 2019-10-30 12:02 | disposition home or self-care (01) ==
LOC: PREOP 05:36
PROVIDERS: ATTEND Obstetrics & Gynecology
DX: Z01.818 Encounter for other preprocedural examination (principal)

== ENCOUNTER 2019-11-08 10:32 | Day surgery (SDC) | payer MEDICAID ==
[2019-11-08] VITALS (11 sets, daily range): BP systolic 119–141; BP diastolic 67–98
[~2019-11-08] VITALS: Ht 170 cm; Wt 118.0 kg
[2019-11-08] MEDS ORDERED: DEXAMETHASONE 10 MG/ML (DECADRON) 1 ML VIAL ONE (10:56)
[2019-11-08] MEDS ORDERED: fentaNYL INJECTION 100 MCG/2 ML AMP ONE (10:56)
[2019-11-08] MEDS ORDERED: SEVOFLURANE (ULTANE) 15 ML INHAL SOLN ONE (10:56)
[2019-11-08] MEDS ORDERED: LIDOCAINE PF 2% 5 ML (XYLOCAINE) VIAL ONE (10:56)
[2019-11-08] MEDS ORDERED: proPOfol 200 MG/20 ML (DIPRIVAN) VIAL IV ONE (10:56)
[2019-11-08] MEDS ORDERED: ONDANSETRON 4 MG/2 ML (SDV) Z0FRAN ONE (10:56)
[2019-11-08] MEDS ORDERED: MIDAZOLAM 2 MG/2 ML (VERSED) VIAL ONE (10:56)
[2019-11-08] MEDS: LACTATED RINGERS 1,000 ML IV PRN ×2 (11:06→13:48)
[2019-11-08] MEDS ORDERED: ceFAZolin INJECTION 1,000 MG in WATER (STERILE) FOR INJECTION 10 ML IV ONE (11:15)
[2019-11-08 11:35] LABS: BASOPHILS # (AUTO) 0.1 10^3/uL (0.0-0.1); BASOPHILS % (AUTO) 1 % (0-10); EOSINOPHILS # (AUTO) 0.1 10^3/uL (0.0-0.3); EOSINOPHILS % (AUTO) 2 % (0-10); HEMATOCRIT 40 % (35-52); HEMOGLOBIN 13.1 G/DL (11.5-16.0); LYMPHOCYTES # (AUTO) 2.1 X 10^3 (1.0-4.0); LYMPHOCYTES % (AUTO) 29 % (12-44); MEAN CORPUSCULAR HEMOGLOBIN 28 PG (25-34); MEAN CORPUSCULAR HGB CONC 33 G/DL (32-36); MEAN CORPUSCULAR VOLUME 84 FL (80-99); MEAN PLATELET VOLUME 11.1 FL (7.4-10.4); MONOCYTES # (AUTO) 0.8 X 10^3 (0.0-1.0); MONOCYTES % (AUTO) 11 % (0-12); NEUTROPHILS # (AUTO) 4.2 X 10^3 (1.8-7.8); NEUTROPHILS % (AUTO) 58 % (42-75); PLATELET COUNT 239 10^3/uL (130-400); RED CELL DISTRIBUTION WIDTH 13.8 % (10.0-14.5); WHITE BLOOD COUNT 7.2 10^3/uL (4.3-11.0)
[2019-11-08] MEDS ORDERED: D5 LR IV SOLUTION 1,000 ML IV SCH (12:37)
[2019-11-08] MEDS ORDERED: ONDANSETRON 4 MG/2 ML (SDV) Z0FRAN IVP PRN ×2 (12:45→13:45)
[2019-11-08] MEDS ORDERED: ESTROGENS CONJ INJECTION 25 MG in WATER (STERILE) FOR INJECTION 5 ML IV ONE (12:45)
[2019-11-08] MEDS ORDERED: KETOROLAC 30 MG/ML VIAL IVP ONE (12:45)
[2019-11-08] MEDS ORDERED: MEPERIDINE (DEMEROL) INJ 100 MG/ML IM ONE (12:45)
[2019-11-08] MEDS ORDERED: PROMETHAZINE INJ 25 MG/ML (PHENERGAN) AMP IM ONE (12:45)
[2019-11-08] MEDS ORDERED: HYDROcodone/APAP 10 MG/325 MG (LORTAB) TAB PO PRN (12:45)
--- NOTE | 2019-11-08 12:53 | Progress Note-Pre Operative ---
Pre-Operative Progress Note H&P Reviewed The H&P was reviewed, patient examined and no changes noted. Date Seen by Provider: Nov 08, 2019 Time Seen by Provider: 12:34 Date H&P Reviewed: Nov 08, 2019 Time H&P Reviewed: 12:34 Pre-Operative Diagnosis: dub/menorrhagia SOCORRO KIRKLAND MD Nov 08, 2019 12:34
--- NOTE | 2019-11-08 12:53 | Progress Note-Post Operative ---
Post-Operative Progess Note Surgeon (s)/Dynamic Balancer (s) Surgeon SOCORRO KIRKLAND MD Dynamic Balancer: no Pre-Operative Diagnosis dub/menorrhagia Post-Operative Diagnosis same with intrauterine mass and pathology pending Procedure & Operative Findings Date of Procedure 11/08/19 Procedure Performed/Findings hysteroscopy with directed biopsy and with d&C Anesthesia Type geta Estimated Blood Loss Estimated blood loss (mL): Minimal Specimens/Packing Specimens Removed endometrial biopsy and curettings Packing: no SOCORRO KIRKLAND MD Nov 08, 2019 12:36
--- NOTE | 2019-11-08 12:53 | Discharge Inst-Surgical ---
Discharge Inst-Surgical Consults/Follow Up Patient Instructions: as directed Orders & Referrals Follow Up Appt: Call to make follow up appt. for patient in 2 weeks. Activity: as tolerated. Diet: As tolerated-Clear Liquids only if nauseated. shower or tub bathe as desired. nothing per vagina (no tampons, douching, or intercoarse) for 2 weeks. Patient to return to the clinic as soon as possible for: Temperature greater th an 101F, Severe Pain, Foul discharge from incision or vagina, Excessive Bleeding (more than a period). Diet Discharge Diet: No Restrictions SOCORRO KIRKLAND MD Nov 08, 2019 12:37
[2019-11-08] MEDS ORDERED: KETOROLAC 30 MG/ML VIAL ONE (13:06)
--- NOTE | 2019-11-08 13:31 | Anesthesia-General Post-Op ---
General Patient Condition Mental Status/LOC: Same as Preop Cardiovascular: Satisfactory Nausea/Vomiting: Absent Respiratory: Satisfactory Pain: Controlled Complications: Absent Post Op Complications Complications None Follow Up Care/Instructions Patient Instructions None needed. Anesthesia/Patient Condition Patient Condition Patient is doing well, no complaints, stable vital signs, no apparent adverse anesthesia problems. No complications reported per nursing. DEMETRIO FRAZIER CRNA Nov 08, 2019 13:31
[2019-11-08] MEDS ORDERED: morphine INJ 10 MG/ML 1ML (SYR OR VIAL) IVP ONE (13:45)
[2019-11-08] MEDS ORDERED: IBUP-1780 PO (14:30)
--- NOTE | 2019-11-08 20:18 | OPERATIVE REPORT ---
DATE OF SERVICE: 11/08/2019 PREOPERATIVE DIAGNOSES: Dysfunctional uterine bleeding and menorrhagia. POSTOPERATIVE DIAGNOSES: Dysfunctional uterine bleeding and menorrhagia. OPERATIVE PROCEDURE: Hysteroscopy with directed biopsy and D and C. OPERATIVE DESCRIPTION: With the patient in supine position under satisfactory general anesthesia, she was re[facility]ed in the [facility] and [facility]pped and draped in the usual fashion for vaginal surgery. The urinary bladder was drained with a straight catheter. A weighted speculum placed in posterior fornix of vagina, cervix exposed and grasped anteriorly with single tooth tenaculum. The patient's Copper T IUD was removed and then the Uterus sounded to 11 cm with uterine sound. The cervix was then serially dilated with Herman dilators to accommodate a hysteroscope, which was a #20 Herman. The hysteroscope was introduced and using LR as a distending medium, the endometrial cavity was examined. The right tubal ostium could not be visualized because of the large sessile appearing mass from the right lateral side of the uterine cavity. The left tubal ostium appeared normal. The sessile appearing mass was resected, largely intact and that tissue was removed with the hysteroscope, sent to pathology separately. This allowed better access to the right fallopian tube ostium which revealed additional polypoid lesions distal to the fallopian tube ostium. those lesions were biopsied directly. The endometrial cavity was sharply curettaged in all 4 quadrants to good uterine cry. The hysteroscope was reintroduced. There was still remaining tissue both near the tubal ostia on both sides. Curettage was repeated and then on reexamination with hysteroscope, the abnormal appearing tissue was completely resected. The endometrial cavity was devoid of endometrial appearing tissue other than shredded fragments as is the norm after a D and C. There was no significant bleeding. There was no remaining abnormal pathology. The hysteroscope was removed. There was no bleeding from the cervical os. the patient's Copper T IUD was reinserted. The tenaculum was removed from the cervix. There was no bleeding from the puncture sites. At this point, the procedure was complete. Sponge and needle counts were correct. A total of 900 mL of the distending medium LR was used and almost an entire amount was recovered. The patient tolerated the procedure well and was uneventfully awakened from her general anesthesia and transferred to recovery room in stable condition with plans for discharge home PAR. Blood loss was minimal. Job ID: [id number] DocumentID: [id number] Dictated Date: 11/08/2019 13:13:38 Online Retailer Date: 11/08/2019 20:17:06 Dictated By: SOCORRO KIRKLAND MD MTDD
== END 2019-11-08 15:50 | disposition home or self-care (01) ==
LOC: SDC 10:32
PROVIDERS: ATTEND Obstetrics & Gynecology
DX: N92.0 Excessive and frequent menstruation with regular cycle (principal); N85.9 Noninflammatory disorder of uterus, unspecified; G40.909 Epilepsy, unspecified, not intractable, without status epilepticus; F90.9 Attention-deficit hyperactivity disorder, unspecified type; F32.9 Major depressive disorder, single episode, unspecified; Z79.82 Long term (current) use of aspirin; Z79.899 Other long term (current) drug therapy; Z95.2 Presence of prosthetic heart valve
CPT/HCPCS: 36415; 84703; 85025; 87081; 88305

== ENCOUNTER → 2020-03-31 | Outpatient (CLI) | payer MEDICAID ==
--- NOTE | 2020-03-31 11:39 | Diagnostic Imaging Report ---
PROCEDURE: US Non-ob pelvis comp/trans. TECHNIQUE: Multiple realtime grayscale images were obtained of the pelvis in various projections endovaginally. Transabdominal imaging was also performed. INDICATION: Menorrhagia. FINDINGS: Uterus measures 9 x 4 x 5 cm. There is IUD in good position in the uterine cavity. The endometrial stripe measures 5 mm. There are no masses demonstrated. The right ovary measures 3.6 x 2.2 x 2.5 cm. Left ovary measures 3.7 x 2.1 x 2.7 cm. There is normal blood flow to both ovaries. The ovaries show normal blood flow with Doppler sampling. There is no free fluid. IMPRESSION: 1. IUD appears in good position in uterine cavity. 2. No adnexal masses or free fluid. Dictated by: Dictated on workstation # [id number]
== END ==
LOC: RAD 10:00
PROVIDERS: ATTEND Obstetrics & Gynecology
DX: N92.0 Excessive and frequent menstruation with regular cycle (principal); Z97.5 Presence of (intrauterine) contraceptive device
CPT/HCPCS: 76830; 76856

== ENCOUNTER 2020-10-13 18:04 | Emergency (ER) | payer MEDICAID ==
[~2020-10-13] VITALS: Ht 170 cm; Wt 113.0 kg
[~2020-10-13 18:04] MED LIST changes: -OXYC-465 PO; +OXYC-556 PO
--- NOTE | 2020-10-13 18:59 | ED General ---
General Chief Complaint: General Problems/Pain Stated Complaint: NAUSEA / FATIGUE / DIZZINESS Nursing Triage Note: PT STATES NAUSEA, DIZZY AND FATIGUE FOR ABOBUT 3 WEEKS. HAS AN IUD BUT HER PERIOD WAS NOT NORMAL IN AUGUST. HEADACHES, DENIES DIFFICULTY BREATHING. HX OF OPEN HEART SURGERY, DENIES ABD PAIN BUT HAS BEEN VOMITING ABOUT TWICE A DAY FOR THE PAST WEEK. Nursing Sepsis Screen: No Definite Risk Source of Information: Patient Exam Limitations: No Limitations (MAURICE VARNER) History of Present Illness Date Seen by Provider: Oct 13, 2020 Time Seen by Provider: 18:40 Initial Comments Pt her by private vehicle for fatigue, nausea, vomiting over the last 3 weeks. She states that the fatigue is present throughout the day normally getting worse over that time to where it is more constant through the day and night. She reports not having a period since and that it was very light lasting only 3 days, when she normally has very heavy bleeding for up to 2 weeks. She states that she currently has an IUD in place that was last changed in April. She is not sure of the brand but does know it has hormones present. She states that she has taken some at home tests that were all negative, but she heard that the IUD can mess with the results. She has a hi story of PCOS, several miscarriages and a in her prior , a valvular heart surgery, and HTN. She denies any abdominal pain, diarrhea, constipation, trouble or burning with urination. She states that she has been vomiting 1-2 times a day over the last week with no specific triggers. She also reports having some night sweats over this time which is not normal for her as wells as increased urinary frequency. Timing/Duration: 1 Week, Other (Three weeks) Severity: Moderate Associated Systoms: No Chest Pain, No Cough, No Fever/Chills; Headaches; No Loss of Appetite; Nausea/Vomiting; No Shortness of Air; Weakness (MAURICE VARNER) Allergies and Home Medications Allergies Coded Allergies: No Known Drug Allergies (Unverified , 10/30/19) Home Medications Aspirin 325 Mg Tablet, 325 MG PO DAILY, (Reported) Hydrochlorothiazide 12.5 Mg Tablet, 12.5 MG PO DAILY Prescribed by: YVONNE STEVENS on 08/29/19 1107 Ibuprofen 800 Mg Tablet, 800 MG PO Q8H PRN for PAIN-MILD Prescribed by: PINA JOHNSTON on 11/08/19 1430 Metoprolol Tartrate 50 Mg Tablet, 50 MG PO BID Prescribed by: YVONNE STEVENS on 08/29/19 1107 Patient Home Medication List Home Medication List Reviewed: Yes (YVONNE STEVENS MD) Review of Systems Review of Systems Constitutional: No chills; diaphoresis (at night); No fever; weakness (fatigue) EENTM: No hearing loss, No blurred vision, No nose congestion, No throat pain Respiratory: No cough; dyspnea on exertion (chronic); No short of breath, No wheezing Cardiovascular: No chest pain, No edema; Hx of Intervention Gastrointestinal: No abdominal pain, No constipation, No diarrhea, No hematemesis; nausea, vomiting Genitourinary: No dysuria; frequency; No hematuria Musculoskeletal: No back pain, No joint pain Skin: No pruritus, No rash Psychiatric/Neurological: Headache; Denies Numbness, Denies Tingling (MAURICE VARNER) EENTM: No nose congestion, No throat pain Respiratory: No cough, No short of breath Gastrointestinal: nausea, vomiting Genitourinary: frequency; No hematuria : No (YVONNE STEVENS MD) All Other Systems Reviewed Negative Unless Noted: Yes (YVONNE STEVENS MD) Past Xyxrqhj-Jfszfv-Xywary Hx Past Med/Social Hx: Reviewed Nursing Past Med/Soc Hx (YVONNE STEVENS MD) Patient Social History Alcohol Use: Rarely Uses Alcohol Beverage of Choice: Wine Drug of Choice: THC, METH BY HX, DENIES IV USE Smoking Status: Former Smoker Type Used: Cigarettes Former Smoker, Quit: Oct 30, 2015 2nd Hand Smoke Exposure: No Recent Infectious Disease Expo: No Recent Hopitalizations: No (MAURICE VARNER) Immunizations Up To Date Tetanus Booster (TDap): Unknown PED Vaccines UTD: Yes Date of Influenza Vaccine: Jun 10, 2019 (MAURICE VARNER) Seasonal Allergies Seasonal Allergies: No (MAURICE VARNER) Past Medical History Surgeries: Yes (BMT, D&C, open heart sx-aortic valve replacement) Abdominal, Appendectomy, Section, Valve Replacement Respiratory: Yes Asthma Currently Using CPAP: No Currently Using BIPAP: No Cardiac: Yes (AORTIC STENOSIS, BICUSPID AORTIC VALVE, PER PT) Aneurysm, Heart Murmur, Hypertension, Irregular Heartbeat, Palpitations, Valvular Heart Disease Neurological: No Headaches /Migraines Last Menstrual Period: Aug 28, 2020 Hx : 3 Hx Para: 1 Hx Total # of Abortions (Sp): 2 Reproductive Disorders: Yes (ENDOMETRIOSIS) Female Reproductive Disorders: Menstrual Problems, Endometriosis, Polycystic Ovarian Dis BR[employer]ER History: IUD Sexually Transmitted Disease: No Genitourinary: No Gastrointestinal: Yes Gastroesophageal Reflux Musculoskeletal: No Endocrine: No HEENT: No (GLASSES) Loss of Vision: Denies Hearing Impairment: Denies Cancer: No Psychosocial: Yes ADD/ADHD, Anxiety Integumentary: Yes Psoriasis Blood Disorders: No Adverse Reaction/Blood Tranf: No (N/A) (MAURICE VARNER) Family Medical History Reviewed Nursing Family Hx (YVONNE STEVENS MD) Asthma G8 BROTHER Diabetes mellitus 19 MOTHER FH: bipolar disorder G8 BROTHER Hypertension 19 MOTHER No Pertinent Family Hx (MAURICE VARNER) Physical Exam Vital Signs Vital Signs - First Documented 10/13/20 18:41 Temp 37.1 Pulse 87 Resp 18 B/P (MAP) 156/100 (118) Pulse Ox 98 O2 Delivery Room Air (YVONNE STEVENS MD) Vital Signs Capillary Refill : Less Than 3 Seconds (MAURICE VARNER) Height, Weight, BMI Height: 5'7.00" Weight: 240lbs. 0oz. 108.978217ap; 39.00 BMI Method:Stated General Appearance: No Apparent Distress, WD/WN HEENT: PERRL/EOMI, Pharynx Normal Neck: Full Range of Motion, Normal Inspection, Supple Respiratory: Chest Non Tender, Lungs Clear, Normal Breath Sounds, No Accessory Muscle Use, No Respiratory Distress Cardiovascular: Regular Rate, Rhythm, Normal Peripheral Pulses Gastrointestinal: Normal Bowel Sounds, Non Tender, Soft Back: Normal Inspection, No CVA Tenderness, No Vertebral Tenderness Extremity: Normal Capillary Refill, Normal Range of Motion, Non Tender, No Calf Tenderness, No Pedal Edema Neurologic/Psychiatric: Alert, Oriented x3, No Motor/Sensory Deficits, Normal Mood/Affect Skin: Normal Color, Warm/Dry (MAURICE VARNER) General Appearance: No Apparent Distress, WD/WN Respiratory: Lungs Clear, Normal Breath Sounds Cardiovascular: Regular Rate, Rhythm, No Murmur, Normal Peripheral Pulses Gastrointestinal: Normal Bowel Sounds, Non Tender, Soft Back: Normal Inspection, No CVA Tenderness, No Vertebral Tenderness Neurologic/Psychiatric: Alert, Oriented x3 Skin: Normal Color, Warm/Dry (YVONNE STEVENS MD) Progress/Results/Core Measures Suspected Sepsis Recent Fever Within 48 Hours: No Infection Criteria Present: None New/Unexplained Altered Menta: No Sepsis Screen: No Definite Risk SIRS Temperature: Pulse: 87 Respiratory Rate: 18 Blood Pressure 156 /100 Mean: 118 ([facility]) SIRS Laboratory Tests 10/13/20 20:05: White Blood Count 8.4 Laboratory Tests 10/13/20 20:05: Platelet Count 241 (YVONNE STEVENS MD) Results/Orders Lab Results Laboratory Tests Test 10/13/20 18:50 10/13/20 20:05 Range/Units Urine Color YELLOW Urine Clarity CLEAR Urine pH 6.0 5-9 Urine Specific [place] 1.020 1.016-1.022 Urine Protein TRACE H NEGATIVE Urine Glucose (UA) NEGATIVE NEGATIVE Urine Ketones NEGATIVE NEGATIVE Urine Nitrite NEGATIVE NEGATIVE Urine Bilirubin NEGATIVE NEGATIVE Urine Urobilinogen 1.0 < = 1.0 MG/DL Urine Leukocyte Esterase NEGATIVE NEGATIVE Urine RBC (Auto) 3+ H NEGATIVE Urine RBC 2-5 H /HPF Urine WBC 2-5 /HPF Urine Squamous Epithelial Cells 10-25 H /HPF Urine Crystals PRESENT H /LPF Urine Amorphous Sediment FEW MIKAYLA URATES H /LPF Urine Bacteria FEW H /HPF Urine Casts NONE /LPF Urine Mucus NEGATIVE /LPF Urine Culture Indicated YES White Blood Count 8.4 4.3-11.0 10^3/uL Red Blood Count 4.65 3.80-5.11 10^6/uL Hemoglobin 12.6 11.5-16.0 g/dL Hematocrit 40 35-52 % Mean Corpuscular Volume 86 80-99 fL Mean Corpuscular Hemoglobin 27 25-34 pg Mean Corpuscular Hemoglobin Concent 32 32-36 g/dL Red Cell Distribution Width 13.1 10.0-14.5 % Platelet Count 241 130-400 10^3/uL Mean Platelet Volume 11.4 9.0-12.2 fL Immature Granulocyte % (Auto) 0 % Neutrophils (%) (Auto) 55 42-75 % Lymphocytes (%) (Auto) 31 12-44 % Monocytes (%) (Auto) 12 0-12 % Eosinophils (%) (Auto) 2 0-10 % Basophils (%) (Auto) 1 0-10 % Neutrophils # (Auto) 4.6 1.8-7.8 10^3/uL Lymphocytes # (Auto) 2.6 1.0-4.0 10^3/uL Monocytes # (Auto) 1.0 0.0-1.0 10^3/uL Eosinophils # (Auto) 0.2 0.0-0.3 10^3/uL Basophils # (Auto) 0.1 0.0-0.1 10^3/uL Immature Granulocyte # (Auto) 0.0 0.0-0.1 10^3/uL (YVONNE STEVENS MD) My Orders Orders - YVONNE STEVENS MD Ua Culture If Indicated (10/13/20 18:49) Urine Bedside (10/13/20 18:49) Urine Culture (10/13/20 18:50) Cbc With Automated Diff (10/13/20 19:33) Comprehensive Metabolic Panel (10/13/20 19:33) (YVONNE STEVENS MD) Vital Signs/I&O 10/13/20 18:41 Temp 37.1 Pulse 87 Resp 18 B/P (MAP) 156/100 (118) Pulse Ox 98 O2 Delivery Room Air (YVONNE STEVENS MD) Vital Signs/I&O Capillary Refill : Less Than 3 Seconds (MAURICE VARNER) Blood Pressure Mean: 118 Progress Note : Progress Note 1850: Pt here for what appears to be concerns over and associated symptoms of fatigue, nausea, vomiting, increased urinary frequency. Ordered UA, Beta-HCG, continue to monitor. (MAURICE VARNER) Progress Note : Progress Note I have seen and evaluated the patient and agree with above except as indicated. I have directed the plan of care. Patient is here with vague symptoms of fatigue with intermittent nausea and vomiting. Does have urinary frequency and has had several trips this morning to the bathroom. [place] fatigued and was unable to go to work today. Not sure if she is but has had negative home test and has IUD. Denies vaginal discharge or bleeding otherwise. She is sexually active. We did discuss options for evaluation including UA and UCG or that plus labs. We will start with just the urine studies and decide from there. 1935: UA has contamination and questionably positive for urinary tract infection. We will go ahead and check basic labs after discussion with the patient including CBC and CMP. Patient is otherwise eating and drinking okay this evening so no indication for fluids or other medications currently. Monitor patient. 2030: Cephalexin 500 mg p.o. CBC and CMP are essentially normal. No significant findings otherwise. Discharged home with return precautions. Patient verbalized understanding instructions and agreement with plan. (YVONNE STEVENS MD) Departure Impression Primary Impression: Urinary tract infection Qualified Codes: N30.01 - Acute cystitis with hematuria Disposition: HOME, SELF-CARE Condition: Improved Departure-Patient Inst. Decision time for Depature: 20:28 (YVONNE STEVENS MD) Referrals: TODD RAMOS (PCP/Family) Primary Care Physician Patient Instructions: Urinary Tract Infection, Adult (DC) Add. Discharge Instructions: All discharge instructions reviewed with patient and/or family. Voiced understanding. Clear liquid or light diet for the next 24 hours and then advance as tolerated. Drink plenty of fluids. Take medications as directed. You may take Tylenol and/or ibuprofen per package directions for pain control as needed. Follow-up with your doctor in a few days for recheck. Return for worse pain, fever, vom iting, weakness, breathing problems or other concerns as needed. Scripts Cephalexin (Cephalexin) 500 Mg Capsule 500 MG PO BID for 5 Days, #10 CAP 0 Refills Prov: YVONNE STEVENS MD 10/13/20 MAURICE VARNER [facility] Oct 13, 2020 18:59 YVONNE STEVENS MD Oct 13, 2020 19:37
[2020-10-13 19:03] LABS: BILIRUBIN,URINE NEGATIVE (NEGATIVE); CLARITY,URINE CLEAR; COLOR,URINE YELLOW; GLUCOSE, URINE (UA) NEGATIVE (NEGATIVE); KETONES,URINE NEGATIVE (NEGATIVE); LEUKOCYTE ESTERASE ,URINE NEGATIVE (NEGATIVE); NITRITE,URINE NEGATIVE (NEGATIVE); PROTEIN,URINE TRACE (NEGATIVE)
[2020-10-13 19:25] LABS: AMORPHOUS SEDIMENT,UR FEW AMOR URATES /LPF; BACTERIA,URINE FEW /HPF
[2020-10-13 20:11] LABS: BASOPHILS # (AUTO) 0.1 10^3/uL (0.0-0.1); BASOPHILS % (AUTO) 1 % (0-10); EOSINOPHILS # (AUTO) 0.2 10^3/uL (0.0-0.3); EOSINOPHILS % (AUTO) 2 % (0-10); HEMATOCRIT 40 % (35-52); HEMOGLOBIN 12.6 g/dL (11.5-16.0); LYMPHOCYTES # (AUTO) 2.6 10^3/uL (1.0-4.0); LYMPHOCYTES % (AUTO) 31 % (12-44); MEAN CORPUSCULAR HEMOGLOBIN 27 pg (25-34); MEAN CORPUSCULAR HGB CONC 32 g/dL (32-36); MEAN CORPUSCULAR VOLUME 86 fL (80-99); MEAN PLATELET VOLUME 11.4 fL (9.0-12.2); MONOCYTES % (AUTO) 12 % (0-12); NEUTROPHILS # (AUTO) 4.6 10^3/uL (1.8-7.8); NEUTROPHILS % (AUTO) 55 % (42-75); PLATELET COUNT 241 10^3/uL (130-400); WHITE BLOOD COUNT 8.4 10^3/uL (4.3-11.0)
[2020-10-13 20:28] LABS: ALANINE AMINOTRANSFERASE 25 U/L (0-55); ALBUMIN 4.1 GM/DL (3.2-4.5); ALKALINE PHOSPHATASE 75 U/L (40-136); BILIRUBIN,TOTAL 0.3 MG/DL (0.1-1.0); BUN/CREATININE RATIO 27; CALCIUM 9.4 MG/DL (8.5-10.1); CARBON DIOXIDE 22 MMOL/L (21-32); CHLORIDE 106 MMOL/L (98-107); CREATININE SERUM 0.79 MG/DL (0.60-1.30); GFR ESTIMATED > 60; GLUCOSE 84 MG/DL (70-105); POTASSIUM 4.2 MMOL/L (3.6-5.0); SODIUM 137 MMOL/L (135-145); TOTAL PROTEIN 8.3 GM/DL (6.4-8.2)
[2020-10-13] MEDS ORDERED: CEPH500C PO (20:30)
[2020-10-13] MEDS ORDERED: CEPHALEXIN 250 MG (KEFLEX) CAP PO STA (20:32)
[2020-10-13 20:40] VITALS: BP 146/91
== END 2020-10-13 20:41 | disposition home or self-care (01) ==
LOC: EDUNIT# 18:04 → ER 18:06
DX: N39.0 Urinary tract infection, site not specified (principal); I10 Essential (primary) hypertension; Z87.891 Personal history of nicotine dependence; Z82.49 Family history of ischemic heart disease and other diseases of the circulatory system; Z83.3 Family history of diabetes mellitus; Z79.82 Long term (current) use of aspirin
CPT/HCPCS: 36415; 80053; 81000; 84703; 85025; 87088; 99283

== ENCOUNTER 2020-11-30 09:51 | Emergency (ER) | payer MEDICAID ==
[~2020-11-30] VITALS: Ht 170.2 cm; Wt 111.1 kg
[~2020-11-30 09:51] MED LIST changes: +SERT-414; -SERT100T8
[2020-11-30 11:29] LABS: BILIRUBIN,URINE NEGATIVE (NEGATIVE); CLARITY,URINE CLEAR; COLOR,URINE YELLOW; GLUCOSE, URINE (UA) NEGATIVE (NEGATIVE); KETONES,URINE NEGATIVE (NEGATIVE); LEUKOCYTE ESTERASE ,URINE NEGATIVE (NEGATIVE); NITRITE,URINE NEGATIVE (NEGATIVE); PROTEIN,URINE NEGATIVE (NEGATIVE)
[2020-11-30 11:38] LABS: BACTERIA,URINE FEW /HPF; WBC,URINE 0-2 /HPF
[2020-11-30 11:53] LABS: BASOPHILS # (AUTO) 0.1 10^3/uL (0.0-0.1); BASOPHILS % (AUTO) 1 % (0-10); EOSINOPHILS # (AUTO) 0.2 10^3/uL (0.0-0.3); EOSINOPHILS % (AUTO) 2 % (0-10); HEMATOCRIT 40 % (35-52); HEMOGLOBIN 12.8 g/dL (11.5-16.0); LYMPHOCYTES # (AUTO) 2.4 10^3/uL (1.0-4.0); LYMPHOCYTES % (AUTO) 25 % (12-44); MEAN CORPUSCULAR HEMOGLOBIN 28 pg (25-34); MEAN CORPUSCULAR HGB CONC 32 g/dL (32-36); MEAN CORPUSCULAR VOLUME 86 fL (80-99); MEAN PLATELET VOLUME 11.6 fL (9.0-12.2); MONOCYTES # (AUTO) 0.9 10^3/uL (0.0-1.0); MONOCYTES % (AUTO) 10 % (0-12); NEUTROPHILS # (AUTO) 6.1 10^3/uL (1.8-7.8); NEUTROPHILS % (AUTO) 63 % (42-75); PLATELET COUNT 249 10^3/uL (130-400); WHITE BLOOD COUNT 9.7 10^3/uL (4.3-11.0)
--- NOTE | 2020-11-30 14:09 | ED GU-Female ---
General Chief Complaint: OB < 20 WEEKS Stated Complaint: VAG BLEEDING 5 WKS PREG Nursing Triage Note: PT AMB TO RM 6 WITH COMPLAINT OF VAGINAL BLEEDING THAT STARTED THIS MORNING. STATES SHE IS APPROX 5 WKS . STATES HAS BEEN HAVING CRAMPING AND BACK PAIN FOR 3 WEEKS. Nursing Sepsis Screen: No Definite Risk Source: patient Exam Limitations: no limitations History of Present Illness Date Seen by Provider: Nov 30, 2020 Time Seen by Provider: 10:00 Initial Comments Patient is a 25-year-old female who presents to the emergency department today with a chief complaint of vaginal bleeding and . Patient states that she got up this morning and noticed that she had both old brownish blood and bright red blood when she went to the bathroom and wiped. Patient is a G4, P1. She has 2 prior miscarriages. Her last delivery was at 36 and 6 /7 weeks with severe preeclampsia. She delivered in 2016. Patient has a history of bicuspid aortic valve with replacement 2 years ago. She takes metoprolol and hydrochlorothiazide and aspirin daily. Patient has been a little nauseated. She has had abdominal cramping off and on for the last 3 weeks. Last menstrual period was on October 20. No recent illnesses such as fevers, chills, cough or congestion. No vomiting. No urinary complaints. She has a scheduled follow-up appointment with Dr. Ramirez on December 162020. All other review of systems reviewed and negative except as stated. Timing/Duration: this morning Severity/Quality: mild Location: suprapubic Radiation: right flank Activities at Onset: none Prior Genitourinary Problems: none Associated Symptoms: nausea/vomiting (Nausea without vomiting) Allergies and Home Medications Allergies Coded Allergies: No Known Drug Allergies (Unverified , 10/30/19) Home Medications Aspirin 325 Mg Tablet, 325 MG PO DAILY, (Reported) Cephalexin 500 Mg Capsule, 500 MG PO BID Prescribed by: YVONNE STEVENS on 10/13/202029 Hydrochlorothiazide 12.5 Mg Tablet, 12.5 MG PO DAILY Prescribed by: YVONNE STEVENS on 08/29/19 110 Ibuprofen 800 Mg Tablet, 800 MG PO Q8H PRN for PAIN-MILD Prescribed by: PINA JOHNSTON on 11/08/19 1430 Metoprolol Tartrate 50 Mg Tablet, 50 MG PO BID Prescribed by: YVONNE STEVENS on 08/29/19 1107 Patient Home Medication List Home Medication List Reviewed: Yes Review of Systems Review of Systems Constitutional: see HPI EENTM: no symptoms reported Respiratory: no symptoms reported Cardiovascular: no symptoms reported Gastrointestinal: abdominal pain Genitourinary: other (Vaginal bleeding) : Yes Expected Date of Delivery: Jul 28, 2021 LMP: Oct 20, 2020 Musculoskeletal: no symptoms reported Skin: no symptoms reported Past Xfqqdnk-Mdgnql-Hwjius Hx Patient Social History Alcohol Use: Denies Use Number of Drinks Today: Alcohol Beverage of Choice: Wine Drug of Choice: THC, METH BY HX, DENIES IV USE Smoking Status: Former Smoker Type Used: Cigarettes Former Smoker, Quit: Oct 30, 2015 2nd Hand Smoke Exposure: No Recent Infectious Disease Expo: No Recent Hopitalizations: No Immunizations Up To Date Tetanus Booster (TDap): Unknown PED Vaccines UTD: Yes Date of Influenza Vaccine: Jun 10, 2019 Seasonal Allergies Seasonal Allergies: No Past Medical History Surgeries: Yes (BMT, D&C, open heart sx-aortic valve replacement) Abdominal, Appendectomy, Section, Valve Replacement Respiratory: Yes Asthma Currently Using CPAP: No Currently Using BIPAP: No Cardiac: Yes (AORTIC STENOSIS, BICUSPID AORTIC VALVE, PER PT) Aneurysm, Heart Murmur, Hypertension, Irregular Heartbeat, Palpitations, Valvular Heart Disease Neurological: No Headaches /Migraines Hx : 4 Hx Para: 1 Hx Total # of Abortions (Sp): 2 Reproductive Disorders: Yes (ENDOMETRIOSIS) Female Reproductive Disorders: Menstrual Problems, Endometriosis, Polycystic Ovarian Dis [employer] History: IUD Sexually Transmitted Disease: No Genitourinary: No Gastrointestinal: Yes Gastroesophageal Reflux Musculoskeletal: No Endocrine: No HEENT: No (GLASSES) Loss of Vision: Denies Hearing Impairment: Denies Cancer: No Psychosocial: Yes ADD/ADHD, Anxiety Integumentary: Yes Psoriasis Blood Disorders: No Adverse Reaction/Blood Tranf: No (N/A) Family Medical History Asthma G8 BROTHER Diabetes mellitus 19 MOTHER FH: bipolar disorder G8 BROTHER Hypertension 19 MOTHER No Pertinent Family Hx Physical Exam Vital Signs Vital Signs - First Documented 11/30/20 10:09 Temp 36.2 Pulse 85 Resp 20 B/P (MAP) 155/105 (122) Pulse Ox 99 O2 Delivery Room Air Capillary Refill : Less Than 3 Seconds Height, Weight, BMI Height: 5'7.00" Weight: 240lbs. 0oz. 108.029085yn; 38.00 BMI Method:Stated General Appearance: WD/WN, no apparent distress Cardiovascular: regular rate, rhythm, systolic murmur Respiratory: lungs clear, normal breath sounds, no respiratory distress Gastrointestinal: non tender, soft Genital/Rectal: normal genital exam Pelvic: normal external exam, normal adnexa, no cerv. motion tender, vaginal bleeding (Scant old brownish blood in the vaginal vault) Back: no CVA tenderness Extremities: non-tender, normal inspection, no pedal edema Neurologic/Psychiatric: alert, normal mood/affect, oriented x 3 Skin: normal color, warm/dry Progress/Results/Core Measures Suspected Sepsis Recent Fever Within 48 Hours: No Infection Criteria Present: None New/Unexplained Altered Menta: No Sepsis Screen: No Definite Risk SIRS Temperature: Pulse: 85 Respiratory Rate: 20 Laboratory Tests 11/30/20 11:47: White Blood Count 9.7 Blood Pressure 155 /105 Mean: 122 Laboratory Tests 11/30/20 11:47: Platelet Count 249 Results/Orders Lab Results Laboratory Tests Test 11/30/20 11:24 11/30/20 11:47 Range/Units Urine Color YELLOW Urine Clarity CLEAR Urine pH 8.0 5-9 Urine Specific [place] 1.025 H 1.016-1.022 Urine Protein NEGATIVE NEGATIVE Urine Glucose (UA) NEGATIVE NEGATIVE Urine Ketones NEGATIVE NEGATIVE Urine Nitrite NEGATIVE NEGATIVE Urine Bilirubin NEGATIVE NEGATIVE Urine Urobilinogen 0.2 < = 1.0 MG/DL Urine Leukocyte Esterase NEGATIVE NEGATIVE Urine RBC (Auto) 2+ H NEGATIVE Urine RBC 2-5 H /HPF Urine WBC 0-2 /HPF Urine Squamous Epithelial Cells 10-25 H /HPF Urine Crystals NONE /LPF Urine Bacteria FEW H /HPF Urine Casts NONE /LPF Urine Mucus NEGATIVE /LPF Urine Culture Indicated NO White Blood Count 9.7 4.3-11.0 10^3/uL Red Blood Count 4.64 3.80-5.11 10^6/uL Hemoglobin 12.8 11.5-16.0 g/dL Hematocrit 40 35-52 % Mean Corpuscular Volume 86 80-99 fL Mean Corpuscular Hemoglobin 28 25-34 pg Mean Corpuscular Hemoglobin Concent 32 32-36 g/dL Red Cell Distribution Width 13.5 10.0-14.5 % Platelet Count 249 130-400 10^3/uL Mean Platelet Volume 11.6 9.0-12.2 fL Immature Granulocyte % (Auto) 0 % Neutrophils (%) (Auto) 63 42-75 % Lymphocytes (%) (Auto) 25 12-44 % Monocytes (%) (Auto) 10 0-12 % Eosinophils (%) (Auto) 2 0-10 % Basophils (%) (Auto) 1 0-10 % Neutrophils # (Auto) 6.1 1.8-7.8 10^3/uL Lymphocytes # (Auto) 2.4 1.0-4.0 10^3/uL Monocytes # (Auto) 0.9 0.0-1.0 10^3/uL Eosinophils # (Auto) 0.2 0.0-0.3 10^3/uL Basophils # (Auto) 0.1 0.0-0.1 10^3/uL Immature Granulocyte # (Auto) 0.0 0.0-0.1 10^3/uL Human Chorionic Gonadotropin, Quant [id number] H <5 MIU/ML My Orders Orders - LAUREN BACA MD Cbc With Automated Diff (11/30/20 11:10) Hcg,Quantitative (11/30/20 11:10) Abo Rh Type (11/30/20 11:10) Ua Culture If Indicated (11/30/20 11:10) Us Ob Transvaginal [id number] (11/30/20 12:24) Vital Signs/I&O 11/30/20 10:09 Temp 36.2 Pulse 85 Resp 20 B/P (MAP) 155/105 (122) Pulse Ox 99 O2 Delivery Room Air Capillary Refill : Less Than 3 Seconds Blood Pressure Mean: 122 Diagnostic Imaging Diagonstic Imaging: Ultrasound Plain Films/CT/US/NM/MRI: pelvis Comments [facility], [place], [place] NAME: RHODA LIZAMA [facility] REC#: [id number] PT STATUS: REG ER : 1995 PHYSICIAN: LAUREN BACA MD ADMIT DATE: 11/30/20/ER Draft Date of Exam:11/30/20 US OB TRANSVAGINAL [id number] INDICATION: Vaginal bleeding in early . COMPARISON: None available. TECHNIQUE: Transvaginal sonographic imaging of the pelvis was performed. FINDINGS: The uterus measures 9.6 x 5.4 x 5.9 cm. There is a well-circumscribed intramural fibroid in the anterior aspect of the uterine body measuring 2.8 x 3.4 x 4.8 cm. This exerts mild mass effect on the endometrial canal. Within the upper aspect of the uterus, there is an ovoid anechoic cystic structure that may represent early intrauterine . This has a mean sac diameter of 0.8 cm which corresponds to an averaged ultrasound age of 5 weeks and 3 days. No pole or embryo is identified. Both ovaries are identified and physiologic in appearance. The right ovary measures 2.5 x 2.4 x 2.5 cm. The left ovary measures 2.0 x 1.4 x 3.3 cm. Blood flow is present in both ovaries. No concerning adnexal mass. IMPRESSION: 1. Probable early intrauterine gestation with anechoic gestational sac located in the upper uterus at the level of the fundus. No embryo or yolk sac at this time. Consider follow-up serial beta hCG and ultrasound as deemed warranted. 2. Large fibroid in the anterior uterus does exert mild mass effect on the endometrium. Dictated on workstation # [id number] Dict: 11/30/20 1407 Trans: 11/30/20 1413 [facility] [id number] Interpreted by: MITCHEL DECKER MD Electronically signed by: Departure Impression Primary Impression: Threatened miscarriage Disposition: 01 HOME, SELF-CARE Condition: Stable Departure-Patient Inst. Decision time for Depature: 14:30 Referrals: BLAIRE RAMIREZ DAVID M PA (PCP) Primary Care Physician Patient Instructions: Threatened Miscarriage Add. Discharge Instructions: Pelvic rest until you follow-up with Dr. Ramirez on December 16. [id number] Tylenol 2 pills every 6 hours as needed for cramping pain. Return to the emergency room for any worsening pain, heavy vaginal bleeding or any other emergent concerning symptoms. Copy Copies To 1: BLAIRE RAMIREZ KATHRYN M MD Nov 30, 2020 14:09
--- NOTE | 2020-11-30 14:14 | Diagnostic Imaging Report ---
INDICATION: Vaginal bleeding in early . COMPARISON: None available. TECHNIQUE: Transvaginal sonographic imaging of the pelvis was performed. FINDINGS: The uterus measures 9.6 x 5.4 x 5.9 cm. There is a well-circumscribed intramural fibroid in the anterior aspect of the uterine body measuring 2.8 x 3.4 x 4.8 cm. This exerts mild mass effect on the endometrial canal. Within the upper aspect of the uterus, there is an ovoid anechoic cystic structure that may represent early intrauterine . This has a mean sac diameter of 0.8 cm which corresponds to an averaged ultrasound age of 5 weeks and 3 days. No pole or embryo is identified. Both ovaries are identified and physiologic in appearance. The right ovary measures 2.5 x 2.4 x 2.5 cm. The left ovary measures 2.0 x 1.4 x 3.3 cm. Blood flow is present in both ovaries. No concerning adnexal mass. IMPRESSION: 1. Probable early intrauterine gestation with anechoic gestational sac located in the upper uterus at the level of the fundus. No embryo or yolk sac at this time. Consider follow-up serial beta hCG and ultrasound as deemed warranted. 2. Large fibroid in the anterior uterus does exert mild mass effect on the endometrium. Dictated by: Dictated on workstation # [id number]
[2020-11-30 15:25] VITALS: BP 146/82
== END 2020-11-30 15:25 | disposition home or self-care (01) ==
LOC: EDUNIT# 09:51 → ER 09:55
DX: O20.0 Threatened abortion (principal); I10 Essential (primary) hypertension; Z3A.00 Weeks of gestation of pregnancy not specified; Z87.891 Personal history of nicotine dependence; Z83.3 Family history of diabetes mellitus; Z82.49 Family history of ischemic heart disease and other diseases of the circulatory system; Z79.82 Long term (current) use of aspirin
CPT/HCPCS: 36415; 76817; 81000; 84702; 85025; 86900; 86901; 96372

== ENCOUNTER 2021-01-08 16:19 | Emergency (ER) | payer MEDICAID ==
[~2021-01-08] VITALS: Ht 170.1 cm; Wt 113.6 kg
--- NOTE | 2021-01-08 16:59 | Diagnostic Imaging Report ---
PROCEDURE: US OB single fetus <14 wks. TECHNIQUE: Multiple real-time grayscale images were obtained over the gravid uterus in various projections. INDICATION: Threatened miscarriage. There is a single living intrauterine in variable presentation. Placenta location is indeterminate. Amniotic fluid volume is normal. Embryo crown-rump length is 4.2 cm corresponding to a gestational age of 11 weeks. heartbeat was recorded at 169 bpm. The cervix is closed. There is no subchorionic hemorrhage. Adnexa are unremarkable. IMPRESSION: Single living intrauterine with estimated gestational age of 11 weeks. Dictated by: Dictated on workstation # [id number]
--- NOTE | 2021-01-08 17:27 | ED GU-Female ---
General Chief Complaint: OB > 20 WEEKS Stated Complaint: PASSED BLOOD CLOT, 10 WEEKS Nursing Triage Note: 1639 TO [facility] PER W/C BEFORE COMING TO ROOM. 1648 TO ROOM PER W/C FROM [facility] REPORTS PASSED A LG CLOT THIS AM. IS APX 10 WEEKS PREG. NO CRAMPING AT THE MOMENT HAS BEEN CRAMPING EARLY IN WEEK. RECEIVED 5 WEEKS AGO. Nursing Sepsis Screen: No Definite Risk Source: patient Exam Limitations: no limitations History of Present Illness Date Seen by Provider: January 08, 2021 Time Seen by Provider: 17:03 Initial Comments Here with report of passing a large clot today. States that she is approximately 10 weeks . She has had 3 previous pregnancies that result ed in miscarriage. She was seen for similar about 5 weeks ago and was given RhoGam at that time as she is O- blood type. Has minimal suprapubic and epigastric pain. Last sexual activity 3 days ago and that was without pain. She denies vaginal discharge or dysuria otherwise. She follows with Dr. Ramirez and has appointment with him on 01/14/2021. Noted to have elevated blood pre ssure today but states that she missed her blood pressure medicine today. Timing/Duration: this afternoon Severity/Quality: mild Location: suprapubic, other (Epigastric) Radiation: none Activities at Onset: none Sexual [place] History: greater than 2 months ago, single partner Modifying Factors: Improves With Resting Associated Symptoms: denies symptoms Allergies and Home Medications Allergies Coded Allergies: No Known Drug Allergies (Unverified , 10/30/19) Home Medications Aspirin 325 Mg Tablet, 325 MG PO DAILY, (Reported) Cephalexin 500 Mg Capsule, 500 MG PO BID Prescribed by: YVONNE STEVENS on 10/13/202029 Hydrochlorothiazide 12.5 Mg Tablet, 12.5 MG PO DAILY Prescribed by: YVONNE STEVENS on 08/29/19 1107 Ibuprofen 800 Mg Tablet, 800 MG PO Q8H PRN for PAIN-MILD Prescribed by: PINA JOHNSTON on 11/08/19 1430 Metoprolol Tartrate 50 Mg Tablet, 50 MG PO BID Prescribed by: YVONNE STEVENS on 08/29/19 1107 Patient Home Medication List Home Medication List Reviewed: Yes Review of Systems Review of Systems Constitutional: see HPI; No chills, No fever Respiratory: no symptoms reported Cardiovascular: no symptoms reported Gastrointestinal: see HPI Genitourinary: see HPI : Yes Expected Date of Delivery: Aug 04, 2021 Musculoskeletal: no symptoms reported Past Lgnceko-Nqgwgy-Vmavxg Hx Past Med/Social Hx: Reviewed Nursing Past Med/Soc Hx Patient Social History Alcohol Use: Denies Use Number of Drinks Today: Alcohol Beverage of Choice: Wine Drug of Choice: THC, METH BY HX, DENIES IV USE Type Used: Cigarettes Former Smoker, Quit: Oct 30, 2015 2nd Hand Smoke Exposure: No Recent Infectious Disease Expo: No Recent Hopitalizations: No Immunizations Up To Date Tetanus Booster (TDap): Unknown PED Vaccines UTD: Yes Date of Influenza Vaccine: Jun 10, 2019 Seasonal Allergies Seasonal Allergies: No Past Medical History Surgeries: Yes (BMT, D&C, open heart sx-aortic valve replacement) Abdominal, Appendectomy, Section, Valve Replacement Respiratory: Yes Asthma Currently Using CPAP: No Currently Using BIPAP: No Cardiac: Yes (AORTIC STENOSIS, BICUSPID AORTIC VALVE, PER PT) Aneurysm, Heart Murmur, Hypertension, Irregular Heartbeat, Palpitations, Valvular Heart Disease Neurological: No Headaches /Migraines : Yes Expected Date of Delivery: Aug 04, 2021 Last Menstrual Period: Oct 20, 2020 Hx : 4 Hx Para: 1 Reproductive Disorders: Yes (ENDOMETRIOSIS) Female Reproductive Disorders: Menstrual Problems, Endometriosis, Polycystic Ovarian Dis [employer] History: IUD Sexually Transmitted Disease: No Genitourinary: No Gastrointestinal: Yes Gastroesophageal Reflux Musculoskeletal: No Endocrine: No HEENT: No (GLASSES) Loss of Vision: Denies Hearing Impairment: Denies Cancer: No Psychosocial: Yes ADD/ADHD, Anxiety Integumentary: Yes Psoriasis Blood Disorders: No Adverse Reaction/Blood Tranf: No (N/A) Family Medical History Reviewed Nursing Family Hx Asthma G8 BROTHER Diabetes mellitus 19 MOTHER FH: bipolar disorder G8 BROTHER Hypertension 19 MOTHER No Pertinent Family Hx Physical Exam Vital Signs Vital Signs - First Documented 01/08/21 16:39 Temp 37.1 Pulse 89 Resp 18 B/P (MAP) 159/110 (126) Pulse Ox 98 O2 Delivery Room Air Capillary Refill : Less Than 3 Seconds Height, Weight, BMI Height: 5'7.00" Weight: 240lbs. 0oz. [id number]; 39.00 BMI Method:Stated General Appearance: WD/WN, no apparent distress Cardiovascular: regular rate, rhythm, no murmur Respiratory: lungs clear, normal breath sounds Gastrointestinal: non tender, soft Back: normal inspection, no CVA tenderness Neurologic/Psychiatric: alert, oriented x 3 Skin: normal color, warm/dry Progress/Results/Core Measures Suspected Sepsis Recent Fever Within 48 Hours: No Infection Criteria Present: None New/Unexplained Altered Menta: No Sepsis Screen: No Definite Risk SIRS Temperature: Pulse: 89 Respiratory Rate: 18 Blood Pressure 159 /110 Mean: 126 Results/Orders My Orders Orders - YVONNE STEVENS MD Comprehensive Metabolic Panel (01/08/21 17:20) Vital Signs/I&O 01/08/21 16:39 Temp 37.1 Pulse 89 Resp 18 B/P (MAP) 159/110 (126) Pulse Ox 98 O2 Delivery Room Air Capillary Refill : Less Than 3 Seconds Blood Pressure Mean: 126 Progress Note : Progress Note Seen and evaluated. Ultrasound will be ordered. Initial threatened miscarriage labs ordered but canceled sweaty have recent set of these. Ultrasound does show IUP with heart rate of 169 and approximately 11 weeks gestation. I did discuss the case with Dr. Ramirez at 1720. We did discuss the blood pressure medicines and he will recheck that next week. We will get CMP now that he will follow in case he needs to adjust blood pressure medicines. No indication for RhoGam currently as she has had that recently and will get booster at about 28 weeks. I did discuss with the patient regarding pelvic rest and follow-up as well as likely RhoGam booster. She will follow up with Dr. Ramirez next week. Dis charged home with return precautions. Patient verbalized understanding of instructions and agreement with plan. Departure Impression Primary Impression: Threatened miscarriage Additional Impression: Hypertension Qualified Codes: I10 - Essential (primary) hypertension Disposition: ADMITTED INPATIENT Condition: Stable Departure-Patient Inst. Decision time for Depature: 17:27 Referrals: RIZWAN STEINER (PCP/Family) Primary Care Physician Patient Instructions: Threatened Miscarriage (DC), High Blood Pressure and Add. Discharge Instructions: All discharge instructions reviewed with patient and/or family. Voiced under standing.\\ Take your blood pressure medicine as previously prescribed. Pelvic rest until released by your doctor. Follow-up with Dr. Ramirez next week on the as scheduled. Return for worse pain, bleeding, weakness, breathing problems or other concerns as needed. Copy Copies To 1: BLAIRE RAMIREZ TIMOTHY D MD January 08, 2021 17:27
[2021-01-08 17:47] LABS: ALBUMIN 4.1 GM/DL (3.2-4.5); CHLORIDE 103 MMOL/L (98-107); POTASSIUM 3.7 MMOL/L (3.6-5.0); SODIUM 134 MMOL/L (135-145)
[2021-01-08 17:50] LABS: GLUCOSE 82 MG/DL (70-105); TOTAL PROTEIN 8.1 GM/DL (6.4-8.2)
[2021-01-08 17:51] LABS: CARBON DIOXIDE 23 MMOL/L (21-32)
[2021-01-08 17:52] LABS: BILIRUBIN,TOTAL 0.4 MG/DL (0.1-1.0)
[2021-01-08 17:53] LABS: ALKALINE PHOSPHATASE 67 U/L (40-136); CREATININE SERUM 0.66 MG/DL (0.60-1.30); GFR ESTIMATED > 60
[2021-01-08 17:54] VITALS: BP 154/90
[2021-01-08 17:54] LABS: BUN/CREATININE RATIO 23
[2021-01-08 17:56] LABS: ALANINE AMINOTRANSFERASE 22 U/L (0-55)
== END 2021-01-08 17:53 | disposition other institution (70) ==
LOC: EDUNIT# 16:19 → ER 16:21
DX: O20.0 Threatened abortion (principal); I10 Essential (primary) hypertension; J45.909 Unspecified asthma, uncomplicated; Z3A.10 10 weeks gestation of pregnancy; Z87.891 Personal history of nicotine dependence; Z79.82 Long term (current) use of aspirin; Z79.899 Other long term (current) drug therapy
CPT/HCPCS: 36415; 76801; 80053

== ENCOUNTER → 2021-03-12 | Outpatient (CLI) | payer MEDICAID ==
--- NOTE | 2021-03-12 16:57 | Diagnostic Imaging Report ---
INDICATION: , care. TECHNIQUE: Multiple real-time grayscale images were obtained over the gravid uterus. COMPARISON: 01/08/2021 FINDINGS: The cervix measures 6.5 cm in length on the given images. There is no funneling or endocervical fluid. The placenta is posterior without evidence of previa. There is a single live intrauterine gestation in transverse presentation. The amniotic fluid appears subjectively normal with at least one vertical pocket measuring 6 cm. The heart rate measures 143 BPM. The lateral ventricles are seen and are borderline large measuring 11 mm. The cerebellum is seen. The cisterna magna is seen. The nose and lips are seen. The bilateral kidneys are seen. A four-chamber heart is seen. The bladder is seen. A three-vessel cord is demonstrated with 2 umbilical arteries. The stomach is seen. The cord insertion is seen. Bilateral lower extremities are seen. The lower spine is seen. The upper spine is not well seen. Biometrical measurements are as follows: Biparietal 4.9 cm, age 20 weeks 6 days. Head circumference 18 cm, age 20 weeks 4 days. Abdominal circumference 15.64 cm, age 20 weeks 6 days. Femur length 3.18 cm, age 20 weeks 0 days. Sonographic estimate age: 20 weeks 4 days. Sonographic estimated date of delivery: 07/26/21. Estimated Weight: 352 gm (+/- 51 gm). heart rate: 143 beats per minute. number: 1 of 1. IMPRESSION: 1. Single live intrauterine gestation measuring at 20 weeks and 4 days. 2. Anatomic survey demonstrates borderline intracerebral ventriculomegaly. Recommend attention on follow-up exams. The upper spine is not well seen. Dictated by: Dictated on workstation # [id number]
== END ==
LOC: RAD 14:57
PROVIDERS: ATTEND Nurse Practitioner Women's Health
DX: Z34.02 Encounter for supervision of normal first pregnancy, second trimester (principal); Z3A.20 20 weeks gestation of pregnancy
CPT/HCPCS: 76805

== ENCOUNTER 2021-03-23 14:20 | Outpatient (CLI) | payer MEDICAID ==
[~2021-03-23] VITALS: Ht 170.2 cm; Wt 112.8 kg
[2021-03-23 14:46] LABS: BILIRUBIN,URINE NEGATIVE (NEGATIVE); CLARITY,URINE CLOUDY; COLOR,URINE YELLOW; GLUCOSE, URINE (UA) NEGATIVE (NEGATIVE); KETONES,URINE NEGATIVE (NEGATIVE); LEUKOCYTE ESTERASE ,URINE TRACE (NEGATIVE); NITRITE,URINE NEGATIVE (NEGATIVE); PROTEIN,URINE NEGATIVE (NEGATIVE)
[2021-03-23 14:50] VITALS: BP 132/66
[2021-03-23 15:06] LABS: BACTERIA,URINE TRACE /HPF; WBC,URINE RARE /HPF
[2021-03-23 15:07] LABS: AMORPHOUS SEDIMENT,UR MOD AMOR PHOSPHATE /LPF
[2021-03-23 15:15] VITALS: BP 136/64
[2021-03-23] MEDS ORDERED: ACET/BUTAL/CAFF (FIORICET) TAB PO PRN (15:30)
[2021-03-23] MEDS ORDERED: LOPERAMIDE 2 MG (IMODIUM) TABLET PO PRN (15:30)
[2021-03-23 15:44] LABS: BASOPHILS % (AUTO) 0 % (0-10); EOSINOPHILS # (AUTO) 0.1 10^3/uL (0.0-0.3); EOSINOPHILS % (AUTO) 1 % (0-10); HEMATOCRIT 33 % (35-52); LYMPHOCYTES # (AUTO) 1.9 10^3/uL (1.0-4.0); LYMPHOCYTES % (AUTO) 18 % (12-44); MEAN CORPUSCULAR HEMOGLOBIN 30 pg (25-34); MEAN CORPUSCULAR HGB CONC 33 g/dL (32-36); MEAN CORPUSCULAR VOLUME 91 fL (80-99); MEAN PLATELET VOLUME 11.4 fL (9.0-12.2); MONOCYTES % (AUTO) 10 % (0-12); NEUTROPHILS # (AUTO) 7.3 10^3/uL (1.8-7.8); NEUTROPHILS % (AUTO) 70 % (42-75); PLATELET COUNT 188 10^3/uL (130-400); WHITE BLOOD COUNT 10.4 10^3/uL (4.3-11.0)
[2021-03-23 15:57] LABS: ALBUMIN 3.3 GM/DL (3.2-4.5)
[2021-03-23 15:58] LABS: CHLORIDE 107 MMOL/L (98-107); POTASSIUM 3.9 MMOL/L (3.6-5.0); SODIUM 135 MMOL/L (135-145)
[2021-03-23 15:59] LABS: CALCIUM 8.8 MG/DL (8.5-10.1)
[2021-03-23 16:00] LABS: GLUCOSE 98 MG/DL (70-105); TOTAL PROTEIN 6.5 GM/DL (6.4-8.2)
[2021-03-23 16:01] LABS: CARBON DIOXIDE 19 MMOL/L (21-32)
[2021-03-23 16:02] LABS: BILIRUBIN,TOTAL 0.2 MG/DL (0.1-1.0)
[2021-03-23 16:03] LABS: ALKALINE PHOSPHATASE 68 U/L (40-136)
[2021-03-23 16:04] LABS: CREATININE SERUM 0.52 MG/DL (0.60-1.30); GFR ESTIMATED > 60
[2021-03-23 16:05] LABS: BUN/CREATININE RATIO 21
[2021-03-23 16:06] LABS: ALANINE AMINOTRANSFERASE 30 U/L (0-55)
[2021-03-23] MEDS ORDERED: PREN-8 PO (16:34)
[2021-03-23] MEDS ORDERED: BUTA-235 PO (16:36)
--- NOTE | 2021-03-24 07:39 | Physician Query-Final Dx ---
Clinic Account Progress/Dx Physician Query: Please give diagnosis Please include # weeks gestation Date of Service Mar 23, 2021 at 14:20 PETRA SUGGS Mar 24, 2021 07:39
== END 2021-03-23 16:40 | disposition home or self-care (01) ==
LOC: WSo 14:20 → LDRP 14:21 → WSo 16:40
PROVIDERS: ATTEND Obstetrics & Gynecology
DX: O26.892 Other specified pregnancy related conditions, second trimester (principal); Z3A.21 21 weeks gestation of pregnancy
CPT/HCPCS: 36415; 80053; 81000; 85025; 99213

== ENCOUNTER 2021-03-24 16:38 | Outpatient (CLI) | payer MEDICAID ==
[~2021-03-24] VITALS: Ht 170.2 cm; Wt 112.1 kg
[~2021-03-24 16:38] MED LIST changes: +BUTA-235 PO; +PREN-8 PO
[2021-03-24 16:51] VITALS: BP 143/74
[2021-03-24 17:15] LABS: BILIRUBIN,URINE NEGATIVE (NEGATIVE); CLARITY,URINE CLEAR; COLOR,URINE YELLOW; GLUCOSE, URINE (UA) NEGATIVE (NEGATIVE); KETONES,URINE NEGATIVE (NEGATIVE); LEUKOCYTE ESTERASE ,URINE NEGATIVE (NEGATIVE); NITRITE,URINE NEGATIVE (NEGATIVE); PH,URINE 6.5 (5-9); PROTEIN,URINE NEGATIVE (NEGATIVE)
[2021-03-24] MEDS ORDERED: D5 LR IV SOLUTION 1,000 ML IV ONE ×2 (17:15→17:18)
[2021-03-24 17:31] LABS: AMORPHOUS SEDIMENT,UR FEW AMOR URATES /LPF; BACTERIA,URINE TRACE /HPF
[2021-03-24 17:40] LABS: AMPHETAMINE SCREEN, URINE NEGATIVE (NEGATIVE); BARBITURATE SCREEN URINE POSITIVE (NEGATIVE); BENZODIAZEPINES SCREEN URINE NEGATIVE (NEGATIVE); CANNABINOID SCREEN, URINE NEGATIVE (NEGATIVE); COCAINE SCREEN URINE NEGATIVE (NEGATIVE); METHADONE STAT NEGATIVE (NEGATIVE); METHAMPHETAMINE SCREEN URINE S NEGATIVE (NEGATIVE); OPIATE SCREEN URINE NEGATIVE (NEGATIVE); OXYCODONE STAT NEGATIVE (NEGATIVE); PROPOXYPHENE STAT NEGATIVE (NEGATIVE); TRICYCLIC ANTIDEPRESSANTS SCRE NEGATIVE (NEGATIVE)
[2021-03-24 17:41] VITALS: BP 143/74
[2021-03-24 17:46] VITALS: BP 143/74
[2021-03-24 17:46] LABS: BASOPHILS % (AUTO) 0 % (0-10); EOSINOPHILS # (AUTO) 0.1 10^3/uL (0.0-0.3); EOSINOPHILS % (AUTO) 1 % (0-10); HEMATOCRIT 36 % (35-52); HEMOGLOBIN 11.7 g/dL (11.5-16.0); LYMPHOCYTES % (AUTO) 15 % (12-44); MEAN CORPUSCULAR HEMOGLOBIN 29 pg (25-34); MEAN CORPUSCULAR HGB CONC 33 g/dL (32-36); MEAN CORPUSCULAR VOLUME 90 fL (80-99); MEAN PLATELET VOLUME 11.9 fL (9.0-12.2); MONOCYTES # (AUTO) 1.1 10^3/uL (0.0-1.0); MONOCYTES % (AUTO) 8 % (0-12); NEUTROPHILS # (AUTO) 9.5 10^3/uL (1.8-7.8); NEUTROPHILS % (AUTO) 75 % (42-75); PLATELET COUNT 209 10^3/uL (130-400); WHITE BLOOD COUNT 12.8 10^3/uL (4.3-11.0)
[2021-03-24 17:56] LABS: ALBUMIN 3.3 GM/DL (3.2-4.5)
[2021-03-24 17:58] LABS: CALCIUM 8.8 MG/DL (8.5-10.1)
[2021-03-24 17:59] LABS: TOTAL PROTEIN 6.8 GM/DL (6.4-8.2)
[2021-03-24 18:01] LABS: BILIRUBIN,TOTAL 0.2 MG/DL (0.1-1.0)
[2021-03-24 18:02] LABS: CREATININE SERUM 0.55 MG/DL (0.60-1.30)
--- NOTE | 2021-03-25 08:46 | Physician Query-Final Dx ---
PETRA SUGGS 03/25/21 0846: Clinic Account Progress/Dx Physician Query: Please give diagnosis Please include # weeks gestation Date of Service Mar 24, 2021 at 16:38 SOCORRO KIRKLAND MD 03/26/21 1240: Clinic Account Progress/Dx DIAGNOSIS: Diagnosis Hyperemesis gravidarum at 21 weeks gestation PETRA SUGGS Mar 25, 2021 08:46 SOCORRO KIRKLAND MD Mar 26, 2021 12:40
== END 2021-03-24 19:45 ==
LOC: LDRP 16:38 → WSo 16:38
PROVIDERS: ATTEND Obstetrics & Gynecology
DX: Z34.92 Encounter for supervision of normal pregnancy, unspecified, second trimester (principal); Z3A.21 21 weeks gestation of pregnancy
CPT/HCPCS: 36415; 80053; 80306; 81000; 85025; 96360; 99213

== ENCOUNTER → 2021-04-05 | Outpatient (CLI) | payer MEDICAID ==
--- NOTE | 2021-04-05 16:36 | Diagnostic Imaging Report ---
INDICATION: Anatomy follow-up. TECHNIQUE: Multiple real-time grayscale images were obtained over the gravid uterus. COMPARISON: 03/12/2021 FINDINGS: A single living intrauterine gestation is present in the breech presentation. The visualized cervical, thoracic, and lumbar spine are unremarkable. The placenta is posterior without placenta previa. heart rate is detected measuring 140 bpm. The visualized heart and ventricles are normal in appearance. IMPRESSION: 1. Unremarkable limited anatomic survey. Previously unseen anatomy is unremarkable on today's exam. 2. Single living intrauterine gestation in the breech presentation with heart rate of 140 bpm. Dictated by: Dictated on workstation # [id number]
== END ==
LOC: RAD 15:00
PROVIDERS: ATTEND Obstetrics & Gynecology
DX: Z34.90 Encounter for supervision of normal pregnancy, unspecified, unspecified trimester (principal); Z3A.00 Weeks of gestation of pregnancy not specified
CPT/HCPCS: 76816

== ENCOUNTER → 2021-05-19 | Outpatient (CLI) | payer MEDICAID | LOC: LABNPT 13:33 | PROVIDERS: ATTEND Obstetrics & Gynecology | DX: O13.9 Gestational [pregnancy-induced] hypertension without significant proteinuria, unspecified trimester (principal) | CPT/HCPCS: 82570; 84156 ==

== ENCOUNTER 2021-05-30 19:09 | Outpatient (CLI) | payer MEDICAID ==
[~2021-05-30] VITALS: Ht 170.2 cm; Wt 115.8 kg
[2021-05-30 19:31] VITALS: BP 146/77
[2021-05-30 19:34] VITALS: BP 146/77
[2021-05-30 19:37] LABS: BILIRUBIN,URINE NEGATIVE (NEGATIVE); CLARITY,URINE CLEAR; COLOR,URINE YELLOW; GLUCOSE, URINE (UA) NEGATIVE (NEGATIVE); KETONES,URINE NEGATIVE (NEGATIVE); LEUKOCYTE ESTERASE ,URINE NEGATIVE (NEGATIVE); NITRITE,URINE NEGATIVE (NEGATIVE); PROTEIN,URINE 1+ (NEGATIVE)
[2021-05-30 19:49] LABS: BACTERIA,URINE MODERATE /HPF; WBC,URINE 0-2 /HPF
[2021-05-30 19:54] VITALS: BP 150/74
[2021-05-30] MEDS ORDERED: meTOprolol TARTRATE 50 MG (LOPRESSOR) TAB PO ONE (20:00)
[2021-05-30] MEDS ORDERED: meTOprolol TARTRATE 50 MG (LOPRESSOR) TAB ONE (20:02)
[2021-05-30 20:37] LABS: BASOPHILS % (AUTO) 0 % (0-10); EOSINOPHILS # (AUTO) 0.1 10^3/uL (0.0-0.3); EOSINOPHILS % (AUTO) 1 % (0-10); HEMATOCRIT 33 % (35-52); HEMOGLOBIN 10.6 g/dL (11.5-16.0); LYMPHOCYTES % (AUTO) 18 % (12-44); MEAN CORPUSCULAR HEMOGLOBIN 29 pg (25-34); MEAN CORPUSCULAR HGB CONC 32 g/dL (32-36); MEAN CORPUSCULAR VOLUME 90 fL (80-99); MEAN PLATELET VOLUME 11.5 fL (9.0-12.2); MONOCYTES # (AUTO) 1.2 10^3/uL (0.0-1.0); MONOCYTES % (AUTO) 11 % (0-12); NEUTROPHILS # (AUTO) 7.5 10^3/uL (1.8-7.8); NEUTROPHILS % (AUTO) 69 % (42-75); PLATELET COUNT 198 10^3/uL (130-400); WHITE BLOOD COUNT 10.9 10^3/uL (4.3-11.0)
[2021-05-30 20:46] VITALS: BP 148/78
[2021-05-30 20:46] LABS: ALBUMIN 3.2 GM/DL (3.2-4.5); POTASSIUM 3.9 MMOL/L (3.6-5.0)
[2021-05-30 20:47] LABS: CALCIUM 9.1 MG/DL (8.5-10.1)
[2021-05-30 20:49] LABS: TOTAL PROTEIN 6.8 GM/DL (6.4-8.2)
[2021-05-30 20:50] LABS: BILIRUBIN,TOTAL 0.3 MG/DL (0.1-1.0)
[2021-05-30 20:52] LABS: CREATININE SERUM 0.59 MG/DL (0.60-1.30)
[2021-05-30 21:04] VITALS: BP 141/79
[2021-05-30 21:10] VITALS: BP 141/79
--- NOTE | 2021-05-31 08:26 | Physician Query-Final Dx ---
Clinic Account Progress/Dx Physician Query: Please give diagnosis Please include # weeks gestation Date of Service May 30, 2021 at 19:09 PETRA SUGGS May 31, 2021 08:25
== END 2021-05-30 21:16 | disposition home or self-care (01) ==
LOC: LDRP 19:09 → WSo 19:09
PROVIDERS: ATTEND Obstetrics & Gynecology
DX: O16.3 Unspecified maternal hypertension, third trimester (principal); Z3A.30 30 weeks gestation of pregnancy
CPT/HCPCS: 36415; 80053; 81000; 82570; 83615; 84156; 85025; 99213

== ENCOUNTER → 2021-06-16 | Outpatient (CLI) | payer MEDICAID | LOC: LABNPT 11:57 | PROVIDERS: ATTEND Nurse Practitioner Women's Health | DX: R80.9 Proteinuria, unspecified (principal) | CPT/HCPCS: 82570; 84156 ==

== ENCOUNTER 2021-06-30 09:52 | Inpatient (IN) | payer MEDICAID ==
[~2021-06-30] VITALS: Ht 170.2 cm; Wt 118.2 kg
[2021-06-30] VITALS (7 sets, daily range): BP systolic 141–151; BP diastolic 67–83
[2021-06-30 10:39] LABS: BASOPHILS % (AUTO) 0 % (0-10); EOSINOPHILS # (AUTO) 0.1 10^3/uL (0.0-0.3); EOSINOPHILS % (AUTO) 1 % (0-10); HEMATOCRIT 33 % (35-52); LYMPHOCYTES # (AUTO) 1.7 10^3/uL (1.0-4.0); LYMPHOCYTES % (AUTO) 16 % (12-44); MEAN CORPUSCULAR HEMOGLOBIN 29 pg (25-34); MEAN CORPUSCULAR HGB CONC 33 g/dL (32-36); MEAN CORPUSCULAR VOLUME 87 fL (80-99); MEAN PLATELET VOLUME 11.5 fL (9.0-12.2); MONOCYTES # (AUTO) 1.1 10^3/uL (0.0-1.0); MONOCYTES % (AUTO) 10 % (0-12); NEUTROPHILS # (AUTO) 7.8 10^3/uL (1.8-7.8); NEUTROPHILS % (AUTO) 72 % (42-75); PLATELET COUNT 185 10^3/uL (130-400); WHITE BLOOD COUNT 10.9 10^3/uL (4.3-11.0)
[2021-06-30] MEDS: D5 LR IV SOLUTION 1,000 ML IV SCH ×2 (10:52→20:58)
[2021-06-30 10:59] LABS: ALBUMIN 3.1 GM/DL (3.2-4.5); BILIRUBIN,TOTAL 0.3 MG/DL (0.1-1.0); CALCIUM 8.8 MG/DL (8.5-10.1); CREATININE SERUM 0.54 MG/DL (0.60-1.30); POTASSIUM 4.1 MMOL/L (3.6-5.0); TOTAL PROTEIN 6.9 GM/DL (6.4-8.2); URIC ACID 2.2 MG/DL (2.6-7.2)
--- NOTE | 2021-06-30 19:58 | History & Physical-OB ---
OB - Chief Complaint & HPI Date/Time Date of Admission: Date of Admission: Jun 30, 2021 at 09:52 Date seen by a Provider: Jun 30, 2021 Time Seen by a Provider: 09:40 Chief Complaint/History OB-Reason for Admission/Chief: Section Hx : 2 Hx Para: 1 Expected Date of Delivery: Aug 04, 2021 Gestational Age in Weeks: 35 Gestational Age in Days: 0 Indication for : desires repeat Other reason for admission: Patient sent from office due to BP 160s-170s/100s-110s both at home and in office. She complained of headache and had a known diagnosis from lab work the previous week of mild PreE. She is now meeting severe preE criteria. She was sent over after BMZ dosing in office today, repeat dosing tomorrow and delivery. Admission Nurse Assessment Rev: Yes Allergies and Home Medications Allergies Coded Allergies: No Known Drug Allergies (Unverified , 10/30/19) Patient Home Medication List Home Medication List Reviewed: Yes Aspirin (Aspirin) 325 Mg Tablet, 325 MG PO DAILY, (Reported) Entered as Reported by: YUE COUCH on 12/30/18 1033 Metoprolol Tartrate (Metoprolol Tartrate) 50 Mg Tablet, 50 MG PO BID Prescribed by: YVONNE STEVENS on 08/29/19 1107 Vit W-Ca,Fe,FA(<1 mg) ( Formula) 1 Each Tablet, 1 EACH PO DAILY, (Reported) Entered as Reported by: IVON ROACH on 03/23/21 1634 OB - History Hx of Present Care: Yes Ultrasounds: Normal mid trimester US Obstetrical Complications: Pre-eclampsia Medical Complications: Cardiovascular (CHTN) Delivery History Hx Blood Disorders: No Adverse Rxn to Tranfusion: No (N/A) Patient Past Medical History CHTN Social History/Family History 2nd Hand Smoke Exposure: No Immunizations Hepatitis A: Yes Hepatitis B: Yes Tetanus Booster (TDap): Unknown Date of Influenza Vaccine: Jun 10, 2019 OB - Admission Exam Physical Exam Vitals: Vital Signs 06/30/21 06/30/21 12:50 16:50 Temp 36.5 Pulse 112 Resp 20 B/P (MAP) 141/75 (97) O2 Delivery Room Air HEENT: NCAT Heart: Rhythm Normal Abdomen: Gravid Extremities: Normal Reflexes: Normal Heart Rate: 130's Accelerations: Accelerations Present Decelerations: No Decelerations Short Term Variability: Present [employer] Software Consultant Variability: Average (6-25) Contractions on Admission: >10 Minutes Apart Labs Laboratory Tests Test 06/30/21 09:50 06/30/21 10:20 Range/Units Urine Protein 81 H 6-12 MG/DL Urine Creatinine 108 30-125 MG/DL Urine Protein/Creatinine Ratio 0.75 White Blood Count 10.9 4.3-11.0 10^3/uL Red Blood Count 3.82 3.80-5.11 10^6/uL Hemoglobin 11.0 L 11.5-16.0 g/dL Hematocrit 33 L 35-52 % Mean Corpuscular Volume 87 80-99 fL Mean Corpuscular Hemoglobin 29 25-34 pg Mean Corpuscular Hemoglobin Concent 33 32-36 g/dL Red Cell Distribution Width 14.1 10.0-14.5 % Platelet Count 185 130-400 10^3/uL Mean Platelet Volume 11.5 9.0-12.2 fL Immature Granulocyte % (Auto) 1 % Neutrophils (%) (Auto) 72 42-75 % Lymphocytes (%) (Auto) 16 12-44 % Monocytes (%) (Auto) 10 0-12 % Eosinophils (%) (Auto) 1 0-10 % Basophils (%) (Auto) 0 0-10 % Neutrophils # (Auto) 7.8 1.8-7.8 10^3/uL Lymphocytes # (Auto) 1.7 1.0-4.0 10^3/uL Monocytes # (Auto) 1.1 H 0.0-1.0 10^3/uL Eosinophils # (Auto) 0.1 0.0-0.3 10^3/uL Basophils # (Auto) 0.0 0.0-0.1 10^3/uL Immature Granulocyte # (Auto) 0.1 0.0-0.1 10^3/uL Sodium Level 135 135-145 MMOL/L Potassium Level 4.1 3.6-5.0 MMOL/L Chloride Level 106 98-107 MMOL/L Carbon Dioxide Level 18 L 21-32 MMOL/L Anion Gap 11 5-14 MMOL/L Blood Urea Nitrogen 14 7-18 MG/DL Creatinine 0.54 L 0.60-1.30 MG/DL Estimat Glomerular Filtration Rate 139 BUN/Creatinine Ratio 26 Glucose Level 141 H 70-105 MG/DL Uric Acid 2.2 L 2.6-7.2 MG/DL Calcium Level 8.8 8.5-10.1 MG/DL Corrected Calcium 9.5 8.5-10.1 MG/DL Total Bilirubin 0.3 0.1-1.0 MG/DL Aspartate Amino Transf (AST/SGOT) 16 5-34 U/L Alanine Aminotransferase (ALT/SGPT) 28 0-55 U/L Alkaline Phosphatase 139 H 40-136 U/L Total Protein 6.9 6.4-8.2 GM/DL Albumin 3.1 L 3.2-4.5 GM/DL OB - Assessment/Plan/Diagnosis Assessment Assessment: section Admission Dx 26 yo @ 35 weeks Severe Preeclampsia Previous Admission Status: Inpatient Order (span 2 midnights) Reason for Inpatient Admission: REpeat at 35 weeks Severe Preeclampsia Plan Plan: Section BLAIRE NIETO DO Jun 30, 2021 19:58
[2021-06-30] MEDS: meTOprolol TARTRATE 50 MG (LOPRESSOR) TAB PO SCH (22:40)
[2021-07-01] VITALS (10 sets, daily range): BP systolic 111–169; BP diastolic 55–92
[2021-07-01] MEDS ORDERED: diphenhydrAMINE 25 MG TAB (BENADRYL) PO PRN (02:30)
[2021-07-01] MEDS: D5 LR IV SOLUTION 1,000 ML IV SCH (07:06)
[2021-07-01] MEDS ORDERED: BETAMETHASONE ACE/NA PHOS 6 MG/ML (CELESTONE SOLUSPAN) IM SCH (08:00)
[2021-07-01] MEDS ORDERED: FLU QUADRIvalent (3YOA+) 60 mcg/0.5 ml 2021-22(AFLURIA) IM ONE (10:00)
[2021-07-01] MEDS ORDERED: ceFAZolin 2 GM IV Premixed 50 ML IV ONE (10:30)
[2021-07-01] MEDS ORDERED: METOCLOPRAMIDE INJ 10 MG/2 ML (REGLAN) IV ONE (10:45)
[2021-07-01] MEDS ORDERED: CITRIC ACID/SOB CIT (BICITRA) 30 ML UDC PO ONE (10:45)
[2021-07-01] MEDS ORDERED: LACTATED RINGERS 1,000 ML IV PRN (10:45)
[2021-07-01] MEDS ORDERED: CATHETER FLUSH 10 ML SYR IV PRN (10:45)
[2021-07-01] MEDS ORDERED: FAMOTIDINE 20MG/2ML IV (PEPCID) IV ONE (10:45)
[2021-07-01] MEDS ORDERED: OXYTOCIN (PITOCIN) 10 UNIT/ML VIAL ONE (12:02)
[2021-07-01] MEDS ORDERED: fentaNYL INJ 100 MCG/2 ML AMP ONE (12:02)
[2021-07-01] MEDS ORDERED: OXYTOCIN PRE-MIX DRIP 1,000 ML IV ONE (12:05)
[2021-07-01] MEDS ORDERED: BUPIVACAINE 0.5% 30 ML (SENSORCAINE) VIAL ONE (12:24)
[2021-07-01] MEDS ORDERED: ONDANSETRON 4 MG/2 ML (SDV) Z0FRAN ONE (12:24)
[2021-07-01] MEDS ORDERED: PHENYLEPHRINE 100 MCG/ML 10 ML (ANESTHESIA) SYR ONE (12:27)
[2021-07-01] MEDS: OXYTOCIN PRE-MIX DRIP 500 ML IV SCH ×2 (13:10→17:32)
[2021-07-01] MEDS ORDERED: PATIENT MAY USE OWN MED,SINGLE MED PO SCH (13:45)
[2021-07-01] MEDS ORDERED: MEASLES,MUMPS,RUBELLA 1 EA INJ SC SCH (13:45)
[2021-07-01] MEDS ORDERED: ONDANSETRON 4 MG/2 ML (SDV) Z0FRAN IVP PRN (13:45)
[2021-07-01] MEDS ORDERED: NALOXONE 0.4 MG/ML 1 ML (NARCAN) VIAL IV PRN (13:45)
[2021-07-01] MEDS ORDERED: TETANUS,DIPTH,PERTUSS P/F (BOOSTRIX) 0.5 ML VIAL IM SCH (13:45)
[2021-07-01] MEDS ORDERED: HYDROcodone/APAP 5 MG/325 MG (LORTAB) TAB PO PRN (13:45)
[2021-07-01] MEDS ORDERED: CATHETER FLUSH 10 ML SYR IV SCH (14:00)
[2021-07-01] MEDS: meTOprolol TARTRATE 50 MG (LOPRESSOR) TAB PO SCH ×2 (14:30→20:16)
[2021-07-01] MEDS: KETOROLAC 30 MG/ML VIAL IV SCH ×2 (15:23→20:16)
--- NOTE | 2021-07-01 15:47 | OPERATIVE REPORT ---
DATE OF SERVICE: PREOPERATIVE DIAGNOSES: 1. A 26-year-old G4, P1 at 35 weeks and 1 day gestation. 3. Previous section. 4. Severe preeclampsia. POSTOPERATIVE DIAGNOSES: 1. A 26-year-old G4, P1 at 35 weeks and 1 day gestation. 3. Previous section. 4. Severe preeclampsia. PROCEDURE: Repeat low transverse section. SURGEON: Mg Nieto DO ANESTHESIA: Spinal. ESTIMATED BLOOD LOSS: 500 mL. URINE OUTPUT: 100 mL clear at the end of the procedure. FLUIDS: 1100 mL lactated Ringer's solution. FINDINGS: A live male , weight and Apgars pending. Grossly normal appearing uterus, bilateral fallopian tubes and ovaries. SPECIMEN SENT: Placenta. INDICATIONS FOR PROCEDURE: This 26-year-old female is a patient who had sought care in my office. Her was complicated with chronic hypertension that proceeded to advance into severe preeclampsia. She was diagnosed with preeclampsia at 34 weeks and was measuring severe preeclamptic levels with blood pressures in the 160s/110s during the thirty-fifth week of . She is also having significant headaches due to severe preeclampsia criteria being met. Discussed with the patient delivery. She was sent to the hospital yesterday where betamethasone was administered yesterday and today. After beta was administered earlier today, we discussed proceeding with delivery. Risks of procedure were have been discussed with the patient throughout her ; however, again reviewed in the preoperative area after all her questions were answered, consent was obtained, the patient was taken to the operating room. OPERATIVE REPORT IN DETAIL: Once in the operating room, spinal analgesia was found to be adequate, placed in supine position with leftward tilt, prepped and draped in normal sterile fashion. Timeout was performed and anesthesia was tested. I then make a Pfannenstiel skin incision through the previously existing scar using knife and carried down to underlying fascia using Bovie cautery. The fascial incision extended laterally using Bovie cautery. Superior aspect of fascial incision was then grasped with Yeimi clamps, tented up and dissected off the underlying rectus muscles. The inferior aspect of the fascial incision was then grasped with Yeimi clamps, tented up and dissected off the underlying rectus muscles. Rectus muscles were dissected down the midline using Metzenbaum scissors, which exposed the peritoneum, which I entered bluntly and extended using blunt traction. Trent ring retractor was placed within the peritoneal incision, which offers excellent lateral sidewall retraction. I identified the lower uterine segment, which was found to be thinned out. I make a low transverse incision to the vesicouterine peritoneum and bluntly dissected off the lower uterine segment, creating a bladder flap. I then proceeded with my myotomy until membranes were visualized, at which point I extended the uterine incision laterally and superiorly using bandage scissors. Amniotomy was then performed using Allis clamp. Clear fluid was noted. was found in the naomy breech presentation. The buttocks were elevated up the incision where the was delivered up to the upper torso with the legs being delivered at that point too. I then placed the infant in downward facing position and delivered the arms by sweeping them across the chest, elevating the infant's body. I then delivered the 's head via flexion through the incision. The nares and oropharynx were bulb suctioned. The cord was duly clamped and cut and infant was handed off to Dr. Arroyo, who was present for delivery. Cord blood was collected, 3-vessel cord with intact placenta was delivered spontaneously thereafter. IV Pitocin was initiated to facilitate uterine contraction. Uterine fundus confirmed by manual massage. Uterus was exteriorized and cleared of all endometrial clots and debris. I then proceeded with closing the uterine incision using 0 Vicryl suture in running locked fashion. Second layer of imbricating 0 Monocryl was placed. Excellent hemostasis was noted after doing this. I then placed the uterus back in the pelvis and copiously irrigated the pelvis using normal saline. Once again, this active bleeding noted from any of my dissection planes. I placed Interceed antiadhesive over my low transverse incision. I removed the Trent ring retractor and proceeded with closing the peritoneum using 3-0 Vicryl suture in running fashion. The rectus muscles were reapproximated using 3-0 Vicryl suture in interrupted fashion. The fascia was reapproximated using 0 Vicryl suture in running fashion. Subcutaneous tissue was reapproximated using 3-0 plain in an interrupted subcutaneous stitch and skin reapproximated using 4-0 Monocryl running subcuticular. Dermabond was applied to incision and sterile dressing with adhesive white tape. The patient tolerated the procedure well and sent to recovery area in stable condition. Lap and sponge counts were correct at the end of procedure. Instrument counts correct as well. Two grams of Ancef given preoperatively for infection prophylaxis. Job ID: [id number] DocumentID: [id number] Dictated Date: 07/01/2021 14:33:32 School Transportation Director Date: 07/01/2021 15:47:21 Dictated By: MG NIETO DO
[2021-07-01] MEDS: DOCUSATE SODIUM 100 MG (COLACE) CAP PO SCH (20:15)
[2021-07-02] VITALS: BP 136/74
[2021-07-02] MEDS: KETOROLAC 30 MG/ML VIAL IV SCH (01:55)
[2021-07-02 04:00] VITALS: BP 146/86
[2021-07-02 06:12] LABS: BASOPHILS % (AUTO) 0 % (0-10); EOSINOPHILS % (AUTO) 0 % (0-10); HEMATOCRIT 32 % (35-52); HEMOGLOBIN 10.3 g/dL (11.5-16.0); LYMPHOCYTES # (AUTO) 1.7 10^3/uL (1.0-4.0); LYMPHOCYTES % (AUTO) 12 % (12-44); MEAN CORPUSCULAR HEMOGLOBIN 29 pg (25-34); MEAN CORPUSCULAR HGB CONC 32 g/dL (32-36); MEAN CORPUSCULAR VOLUME 89 fL (80-99); MEAN PLATELET VOLUME 11.7 fL (9.0-12.2); MONOCYTES # (AUTO) 1.8 10^3/uL (0.0-1.0); MONOCYTES % (AUTO) 13 % (0-12); NEUTROPHILS # (AUTO) 10.5 10^3/uL (1.8-7.8); NEUTROPHILS % (AUTO) 74 % (42-75); PLATELET COUNT 191 10^3/uL (130-400); WHITE BLOOD COUNT 14.1 10^3/uL (4.3-11.0)
--- NOTE | 2021-07-02 07:13 | Discharge Inst-Women's Service ---
Discharge Inst-Women's Serv Depart Medication/Instructions New, Converted or Re-Newed RX: RX on Chart Final Diagnosis POD 1 RLTCS Severe PreE Problems Reviewed?: Yes Consults/Follow Up Additional Follow Up: Yes Orders/Referrals Dr. Ramirez in 7-10 days and in 6 weeks Activity Activity: Activity as Tolerated Driving Instructions: No Driving for 1 Week NO SMOKING: NO SMOKING Nothing Inside Vagina: No Douching, No [place], No Tampons Diet Discharge Diet: No Restrictions Symptoms to Report to : Bleeding Excessive, Pain Increased, Fever Over 101 Degrees F, Vaginal Bleeding Increase, Questions/Concerns For Any Problems or Questions: Contact Your Physician Skin/Wound Care Infection Signs and Symptoms: Increased Redness, Foul Odor of Wound, Increased Drainage, Skin Itchy or Has a Rash, Increased Swelling, Temperature Above 101 F Operative Area Clean and Dry: Keep Incision Clean/Dry Stitches/[place]/Dermabond: Dermabond, Care of Stitches Bathing Instructions: BLAIRE Collado DO Jul 02, 2021 07:13
[2021-07-02] MEDS ORDERED: IBUP-844 PO (07:14)
[2021-07-02] MEDS ORDERED: ACHD5005 PO (07:14)
[2021-07-02] MEDS ORDERED: FURO-125 PO (07:14)
[2021-07-02] MEDS ORDERED: DOCU100C37 PO (07:14)
--- NOTE | 2021-07-02 07:16 | Postpartum Progress Note ---
Note Note Day # 1 Subjective: Patient is without complaints. Ambulating, voiding. Tolerating a regular diet without nausea or vomiting. Normal lochia. Pain is well controlled with oral pain medications. was transferred to [facility] Objective: Physical Exam: General - Alert and oriented, no apparent distress Abdomen - Soft, appropriately tender to palpation, non-distended, fundus firm at umbilicus Extremities - no edema, negative Idalmis's bilaterally Incision- c/d/i Assessment: POD 1 RLTCS Preeclampsia- BP somewhat controlled. Plan: Routine care. Encourage breast feeding. Encourage ambulation. Ferrous sulfate supplementation. Plan for discharge today Vitals - Labs Vital Signs - I&O Vital Signs Date Time Temp Pulse Resp B/P (MAP) Pulse Ox O2 Delivery O2 Flow Rate FiO2 07/02/21 04:00 35.9 75 16 146/86 (106) 97 Room Air 07/02/21 00:00 36.5 81 12 136/74 (94) 95 Room Air 07/01/21 20:00 36.7 82 12 149/79 (102) 96 Room Air 07/01/21 16:02 Room Air 07/01/21 15:26 37.0 82 18 142/72 (95) 97 Room Air 07/01/21 14:00 36.3 74 18 134/78 (96) 98 Room Air 07/01/21 14:00 36.3 16 134/78 (96) 98 Room Air 07/01/21 13:44 36.6 16 117/60 (79) 98 Room Air 07/01/21 13:26 36.2 16 111/62 (78) 98 Room Air 07/01/21 13:10 36.0 16 123/55 (77) 98 Room Air 07/01/21 11:25 37.5 93 18 169/91 (117) 97 Room Air 07/01/21 09:45 138/75 (96) 07/01/21 09:00 168/92 (117) I & O 07/02/21 07:00 Intake Total 1050 ml Output Total 100 ml Balance 950 ml Labs Laboratory Tests 07/02/21 05:55: White Blood Count 14.1H, Red Blood Count 3.62L, Hemoglobin 10.3L, Hematocrit 32L , Mean Corpuscular Volume 89, Mean Corpuscular Hemoglobin 29, Mean Corpuscular Hemoglobin Concent 32, Red Cell Distribution Width 14.1, Platelet Count 191, Mean Platelet Volume 11.7, Immature Granulocyte % (Auto) 1, Neutrophils (%) (Auto) 74, Lymphocytes (%) (Auto) 12, Monocytes (%) (Auto) 13H, Eosinophils (%) (Auto) 0, Basophils (%) (Auto) 0, Neutrophils # (Auto) 10.5H, Lymphocytes # (Auto) 1.7, Monocytes # (Auto) 1.8H, Eosinophils # (Auto) 0.0, Basophils # (Auto) 0.0, Immature Granulocyte # (Auto) 0.2H BLAIRE NIETO DO Jul 02, 2021 07:16
[2021-07-02 08:00] VITALS: BP 168/99
[2021-07-02] MEDS: meTOprolol TARTRATE 50 MG (LOPRESSOR) TAB PO SCH (08:13)
[2021-07-02] MEDS ORDERED: IBUPROFEN 600 MG (MOTRIN) TAB PO ONE (09:22)
[2021-07-02] MEDS: DOCUSATE SODIUM 100 MG (COLACE) CAP PO SCH (09:25)
[2021-07-02] MEDS ORDERED: ASPIRIN E.C. 325 MG (ECOTRIN) TABLET PO SCH (10:02)
--- NOTE | 2021-07-02 10:21 | Anesthesia-Regional Post-Op ---
Regional Patient Condition Mental Status: Alert, Oriented x3 Circulation: Same as Pre-Op Headache: Absent Sensation: Full Recovery Motor Block: Absent Post Op Complications Complications None Follow Up Care/Instructions Patient Instructions None needed. Anesthesia/Patient Condition Patient is doing well, no complaints, stable vital signs, no apparent adverse anesthesia problems. No complications reported per nursing. RAY RODRIGUEZ CRNA Jul 02, 2021 10:21
[2021-07-02] MEDS ORDERED: IBUPROFEN 600 MG (MOTRIN) TAB PO SCH (14:00)
== END 2021-07-02 14:30 | disposition home or self-care (01) | DRG 788 ==
LOC: LDRP 09:52 → WS 07-01 14:45
PROVIDERS: ADMIT Obstetrics & Gynecology; ATTEND Obstetrics & Gynecology
PROC: 10D00Z1 Extraction of Products of Conception, Low, Open Approach (ICD-10-PCS; principal; 2021-07-01 12:04)
DX: O34.211 Maternal care for low transverse scar from previous cesarean delivery (principal); Z3A.35 35 weeks gestation of pregnancy; Z37.0 Single live birth; O14.14 Severe pre-eclampsia complicating childbirth; O42.913 Preterm premature rupture of membranes, unspecified as to length of time between rupture and onset of labor, third trimester
CPT/HCPCS: 36415; 80053; 82570; 83033; 84156; 84550; 85025; 94664

== ENCOUNTER 2022-08-07 11:14 | Emergency (ER) | payer MEDICAID ==
[~2022-08-07] VITALS: Ht 170 cm; Wt 113.0 kg
[~2022-08-07 11:14] MED LIST changes: +ACHD5005 PO; +FURO-125 PO; +IBUP-844 PO; +LABE200T10 PO; -LABE200T7 PO
[2022-08-07] MEDS ORDERED: IBUPROFEN 600 MG (MOTRIN) TAB PO ONE (11:45)
--- NOTE | 2022-08-07 12:15 | Diagnostic Imaging Report ---
CHEST PA/LAT (2 VIEW) Indication: Chest pain Comparison: 12/30/2018 Findings: No pulmonary mass or consolidation. No pleural effusion or pneumothorax. Normal heart size and mediastinal contours. Stable changes of sternotomy. Impression: No acute cardiopulmonary process. Dictated by: Dictated on workstation # [id number]
[2022-08-07] MEDS ORDERED: DEXT30SU19 PO (12:31)
--- NOTE | 2022-08-07 12:31 | ED Respiratory ---
General Chief Complaint: COVID19 Suspect/Confirmed Stated Complaint: INFLUENZA A+ LUNG/CHEST PAIN Nursing Triage Note: PT STATES FLU + MONDAY, CC OF COUGH, LUNG PAIN AND BURNING, 96% ON ROOM AIR Source: patient Exam Limitations: no limitations History of Present Illness Date Seen by Provider: Aug 07, 2022 Time Seen by Provider: 11:30 Initial Comments Patient is a 27-year-old female who presents to the emergency department with cough and lung pain/burning. Patient was diagnosed with flu a on . She states the chest pain is worse with coughing or deep inspiration. She states it is worsened over the last few days. No recent fever. No crushing chest pain, diaphoresis, dependent edema. Allergies and Home Medications Allergies Coded Allergies: No Known Drug Allergies (Unverified , 10/30/19) Patient Home Medication List Home Medication List Reviewed: Yes Aspirin (Aspirin) 325 Mg Tablet, 325 MG PO DAILY, (Reported) Entered as Reported by: YUE COUCH on 12/30/18 1033 Dextromethorphan Polistirex (Dextromethorphan Polistirex) 30 Mg/5 Ml Niurka.er.12h, 60 MG PO BID Prescribed by: Andrew Gonzalez on 08/07/22 1231 Docusate Sodium (Docusate Sodium) 100 Mg Capsule, 100 MG PO BID PRN for CONSTIPATION-1ST LINE Prescribed by: BLAIRE NIETO on 07/02/21 07 Furosemide (Lasix) 20 Mg Tablet, 20 MG PO DAILY Prescribed by: BLAIRE NIETO on 07/02/21 07 Hydrocodone Bit/Acetaminophen (HYDROcodone/APAP 5 MG/325 MG TAB) 1 Tab Tab, 1-2 EA PO Q6HR PRN for PAIN-MODERATE (5-7) Prescribed by: BLAIRE NIETO on 07/02/21 0715 Ibuprofen (Ibu) 600 Mg Tablet, 600 MG PO Q6H Prescribed by: BLAIRE NIETO on 07/02/21 0714 Metoprolol Tartrate (Metoprolol Tartrate) 50 Mg Tablet, 50 MG PO BID Prescribed by: YVONNE STEVENS on 08/29/19 1107 Vit W-Ca,Fe,FA(<1 mg) ( Formula) 1 Each Tablet, 1 EACH PO DAILY, (Reported) Entered as Reported by: IVON ROACH on 03/23/21 1634 Review of Systems Review of Systems Constitutional: no symptoms reported EENTM: no symptoms reported Respiratory: see HPI, cough, short of breath Cardiovascular: see HPI, chest pain Gastrointestinal: no symptoms reported Genitourinary: no symptoms reported Musculoskeletal: no symptoms reported Skin: no symptoms reported Psychiatric/Neurological: No Symptoms Reported Past Azijcqv-[id number]-Qfhqdo Hx Immunizations Up To Date Tetanus Booster (TDap): Unknown PED Vaccines UTD: Yes Seasonal Allergies Seasonal Allergies: No Past Medical History Surgeries: Yes (BMT, D&C, open heart sx-aortic valve replacement) Abdominal, Appendectomy, Section, Valve Replacement Respiratory: Yes Asthma Currently Using CPAP: No Currently Using BIPAP: No Cardiac: Yes (AORTIC STENOSIS, BICUSPID AORTIC VALVE, PER PT) Aneurysm, Heart Murmur, Hypertension, Irregular Heartbeat, Palpitations, Valvular Heart Disease Neurological: No Headaches /Migraines Last Menstrual Period: Jul 05, 2022 Reproductive Disorders: Yes (ENDOMETRIOSIS) Female Reproductive Disorders: Menstrual Problems, Endometriosis, Polycystic Ovarian Dis 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 Sexually Transmitted Disease: No Genitourinary: No Gastrointestinal: Yes Gastroesophageal Reflux Musculoskeletal: No Endocrine: No HEENT: No (GLASSES) Loss of Vision: Denies Hearing Impairment: Denies Cancer: No Psychosocial: Yes ADD/ADHD, Anxiety Integumentary: Yes Psoriasis Blood Disorders: No Adverse Reaction/Blood Tranf: No (N/A) Family Medical History Asthma G8 BROTHER Diabetes mellitus 19 MOTHER FH: bipolar disorder G8 BROTHER Hypertension 19 MOTHER No Pertinent Family Hx Physical Exam Vital Signs - First Documented 08/07/22 11:27 Temp 37.3 Pulse 91 Resp 20 B/P (MAP) 149/85 (106) Pulse Ox 95 O2 Delivery Room Air Capillary Refill : Less Than 3 Seconds Height: 5'7.00" Weight: 240lbs. 0oz. 108.139266ye; 39.00 BMI Method:Stated General Appearance: WD/WN, no apparent distress HEENT: PERRL/EOMI, normal ENT inspection, TMs normal, pharynx normal Neck: non-tender, full range of motion, supple, normal inspection Respiratory: chest non-tender, lungs clear, normal breath sounds, no respiratory distress, no accessory muscle use Cardiovascular: regular rate, rhythm Gastrointestinal: normal bowel sounds, non tender, soft Extremities: normal range of motion, non-tender, normal inspection Neurologic/Psychiatric: no motor/sensory deficits, alert, normal mood/affect, oriented x 3 Skin: normal color, warm/dry Progress/Results/Core Measures Suspected Sepsis SIRS Temperature: Pulse: 91 Respiratory Rate: 20 Blood Pressure 149 /85 Mean: 106 Results/Orders My Orders Orders - ANDREW GONZALEZ APRN Chest Pa/Lat (2 View) (08/07/22 11:37) Ibuprofen Tablet (Motrin Tablet) (08/07/22 11:45) Medications Given in ED Current Medications Medications Dose Ordered Sig/Mani Route Start Time Stop Time Status Last Admin Dose Admin Ibuprofen 600 mg ONCE ONCE PO 08/07/22 11:45 08/07/22 11:46 DC 08/07/22 11:52 600 MG Vital Signs/I&O 08/07/22 08/07/22 08/07/22 11:27 11:40 12:42 Temp 37.3 Pulse 91 Resp 20 B/P (MAP) 149/85 (106) 146/73 Pulse Ox 95 O2 Delivery Room Air Room Air Capillary Refill : Less Than 3 Seconds Blood Pressure Mean: 106 Progress Note : Progress Note Patient is nontoxic and well-hydrated on exam. No adventitious lung sounds or increased work of breathing noted. Vital signs are reassuring without hypoxia. Chest x-ray obtained she is acutely negative. Patient was given ibuprofen. Symptoms are consistent with pleurisy. This is likely related to her influenza infection. Chest pain is atypical and reproducible with deep inspiration. No indication for further diagnostic testing. Discussed supportive care and anticipatory guidance. Follow-up with PCP. Return precautions for urgent symptomology discussed. Patient verbalized understanding. Departure Impression Primary Impression: Influenza Additional Impression: Pleuritic chest pain Disposition: HOME, SELF-CARE Condition: Stable Departure-Patient Inst. Decision time for Depature: 12:30 Referrals: [facility] (PCP/Family) Primary Care Physician Patient Instructions: Flu, Adult ED, Pleuritic Chest Pain ED Scripts Dextromethorphan Polistirex (Dextromethorphan Polistirex) 30 Mg/5 Ml Niurka.er.12h 60 MG PO BID, #148 ML 0 Refills Prov: ANDREW GONZALEZ APRN 08/07/22 ANDREW GONZALEZ APRN Aug 07, 2022 12:31
[2022-08-07 12:42] VITALS: BP 146/73
== END 2022-08-07 12:45 | disposition home or self-care (01) ==
LOC: EDUNIT# 11:14 → ER 11:16
DX: J11.1 Influenza due to unidentified influenza virus with other respiratory manifestations (principal); R07.81 Pleurodynia; Z28.310 Unvaccinated for COVID-19
CPT/HCPCS: 71046